=== PATIENT | female | born 1975 | race Caucasian/White ===

== ENCOUNTER 2016-08-17 00:39 | Inpatient (IN) | payer MEDICAID, OTHER ==
[~2016-08-17 00:39] MED LIST: AMBI10TA; ATIV1TAB2; BUSP15TA; DEPA500T; DEPA500T2; METF500T4; RISP1TAB; TOPI100T; TRAZ150T; ZIPR80CAP; ZYPR10TA; abilify; buspar; ranitidine; trazadone
[2016-08-17] MEDS ORDERED: HALOPERIDOL 5 MG/ML VIAL (J1630) As Ordered ONE (00:49)
[2016-08-17] MEDS ORDERED: diphenhydrAMINE INJ 50MG/ML VIAL (J1200) As Ordered ONE (00:49)
[2016-08-17 02:41] LABS: MEAN CORPUSCULAR HEMOGLOBIN 29.1 pg (27.0-33.0); MEAN CORPUSCULAR HGB CONC 31.7 g/dl (32.0-36.5); MEAN CORPUSCULAR VOLUME 91.7 fl (80.0-96.0); WHITE BLOOD COUNT 16.4 K/mm3 (4.0-10.0)
[2016-08-17 02:53] LABS: AMPHETAMINES LEVEL URINE NEGATIVE (NEGATIVE); BENZODIAZEPINES URINE NEGATIVE (NEGATIVE); COCAINE METABOLITE URINE NEGATIVE (NEGATIVE); CONTROL LINE INT CTR LINE PRESENT; METHADONE URINE NEGATIVE (NEGATIVE); OPIATES URINE NEGATIVE (NEGATIVE); TRICYCLIC ANTIDEPRESS URINE NEGATIVE (NEGATIVE)
[2016-08-17 03:06] LABS: ALBUMIN 2.3 GM/DL (3.2-5.2); ALBUMIN/GLOBULIN RATIO 0.62 (1.00-1.93); ALKALINE PHOSPHATASE 104 U/L (45-117); ALT/SGPT 10 U/L (12-78); ANION GAP 8 MEQ/L (8-16); AST/SGOT 7 U/L (15-37); BILIRUBIN,DIRECT < 0.1 MG/DL (0.0-0.2); BILIRUBIN,TOTAL 0.3 MG/DL (0.2-1.0); BLOOD UREA NITROGEN 8 MG/DL (7-18); CALCIUM LEVEL 8.1 MG/DL (8.5-10.1); CARBON DIOXIDE LEVEL 27 MEQ/L (21-32); CHLORIDE LEVEL 108 MEQ/L (98-107); CREATININE FOR GFR 0.75 MG/DL (0.55-1.02); GLOMERULAR FILTRATION RATE > 60.0 (>58); GLUCOSE, FASTING 102 MG/DL (70-105); POTASSIUM SERUM 4.3 MEQ/L (3.5-5.1); SODIUM LEVEL 143 MEQ/L (136-145)
[2016-08-17 03:09] LABS: CONTROL LINE HCG INT CTR LINE PRESENT
--- NOTE | 2016-08-17 04:00 | REPUSA ---
CLINICAL HISTORY: Altered level of consciousness. TECHNIQUE: Multiple axial brain CT scan sections were obtained from base to vertex without contrast a dministration. COMMENTS: The study shows normal configuration of sella turcica. There are no intra or extra-axial collections. There is no mass effect or midline shift. There is no evidence of hematoma formation. No hydrocephal us is present. No abnormal calcifications are noted. No significant abnormalities are seen either in the posterior fossa or supratentorial compartment. The sinuses and mastoid air cells are patent. IMPRESSION: No evidence of acute intracranial pathology. Thank you for your kind referral of this patient.
[2016-08-17] MEDS ORDERED: HALOPERIDOL 5 MG TAB As Ordered ONE (07:36)
[2016-08-17] MEDS ORDERED: LORazepam 1 MG TAB As Ordered ONE (07:36)
[2016-08-17] MEDS ORDERED: LISI10TA4 PO (11:54)
[2016-08-17] MEDS ORDERED: BUSP15TA47 PO (11:54)
[2016-08-17] MEDS ORDERED: GLIP5TAB8 PO (11:54)
[2016-08-17] MEDS ORDERED: ALBU17IN PO (11:54)
[2016-08-17] MEDS ORDERED: TOPI25TA5 PO (11:54)
[2016-08-17] MEDS ORDERED: IPRAT-ALBUT (11:54)
[2016-08-17] MEDS ORDERED: HYDR-3713 PO (11:54)
[2016-08-17] MEDS ORDERED: LITH45TASA PO (11:54)
[2016-08-17] MEDS ORDERED: DIVA500T9 PO (11:54)
[2016-08-17] MEDS ORDERED: OMEP40CA2 PO (11:54)
[2016-08-17] MEDS ORDERED: METF500T PO (11:54)
[2016-08-17] MEDS ORDERED: ARIP1TAB PO (11:54)
--- NOTE | 2016-08-17 12:07 | EDDOCDS ---
Physician Documentation [facility] Name: Anu Bellamy Age: 41 yrs Sex: Female : 1975 Arrival Date: 08/17/2016 Time: 00:39 Bed OBSERVATION Private MD: Disposition: 08/17/16 11:55 Hospitalization ordered by Marito Damico for Inpatient Admission. 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 - Bed requested for Admit. - Status is Inpatient Admission. me3 - Condition is Stable. - Problem is new. - Symptoms are unchanged. Historical: - Allergies: Codeine Sulfate; - Home Meds: 1. Unknown - PMHx: Unable to obtain; - PSHx: Unable to obtain; - Social history: Smoking status: unknown if patient ever smoked tobacco. No barriers to communication noted, The patient speaks fluent Slovenian. - Family history: Not pertinent. - : The pt / caregiver states he / she is not on anticoagulants. Unable to Verify Home Med List with the patient / caregiver. - Exposure Risk Screening:: Unable to Assess. Vital Signs: 08/17 00:54 BP 145 / 79; Pulse 96; Resp 18; Temp 97.7(O); Pulse Ox 97% on R/A; mf4 00:55 BP 145 / 77; Pulse 96; Resp 20; Pulse Ox 97% ; slm 01:00 BP 149 / 67; Pulse 90; Resp 20; Pulse Ox 99% on R/A; mf4 01:15 BP 147 / 66; Pulse 80; Resp 20; Pulse Ox 96% on R/A; mf4 01:17 BP 122 / 75 (auto/); af2 01:18 Pulse 81 MON; Resp 18 S; Pulse Ox 95% on R/A; af2 01:34 BP 111 / 54 (auto/); af2 01:36 Pulse 79 MON; Resp 18 S; Pulse Ox 98% on R/A; af2 01:45 BP 111 / 59 (auto/); af2 01:45 Pulse 74 MON; Resp 18 S; Pulse Ox 97% on R/A; af2 02:00 BP 112 / 59 (auto/); af2 02:00 Pulse 72 MON; Resp 18 S; Pulse Ox 98% on R/A; af2 02:15 BP 121 / 57 (auto/); af2 02:15 Pulse 73 MON; Resp 18 S; Pulse Ox 99% on R/A; af2 02:30 BP 139 / 63 (auto/); af2 02:30 Pulse 78 MON; Resp 18 S; Pulse Ox 97% on R/A; af2 06:21 BP 110 / 56; Pulse 91; Resp 20; Temp 99.6; mf4 11:31 BP 120 / 62; Pulse 82; Resp 20; Temp 100.3(O); Pulse Ox 100% ; me3 MDM: 00:47 -Haloperidol Lactate 7.5 mg IM once ordered. cs11 00:47 diphenhydrAMINE 50 mg IM once ordered. cs11 00:47 Restraints, Adult: Mechanical - 4 points up to 1 hr (poses imminent danger of harming cs11 others). May use manual restraints to secure restraint devices. Pt. monitoring per RN policy. ordered. 00:47 Consult PFS/PSA/Automatic Bow Maker Machine Tender ordered. cs11 00:47 Consult PFS/PSA/Automatic Bow Maker Machine Tender: Patient's case requires discussion with on-call [facility] Psychiatrist ordered. 00:47 PSA/PFS to call Nursing Knuckle Bender, to enter patient data on [place] Safe Act if patient cs11 involuntarily admitted or transferred for SI or HI ordered. 00:47 Confirm accurate psychiatric medication list and times of last dosage ordered. cs11 00:47 Detain Pt Until Medically/PFS Cleared ordered. cs11 00:49 Acetaminophen Level Ordered. EDMS 00:49 Basic Metabolic Profile Ordered. EDMS 00:49 Complete Blood Count Ordered. EDMS 00:49 Drug Eval Toxicology ED Only Ordered. EDMS 00:49 Ethyl Alcohol (ethanol) Ordered. EDMS 00:49 Liver Profile Ordered. EDMS 00:49 Salicylate Level Ordered. EDMS 00:49 Thyroid Stimulating Hormone Ordered. EDMS 01:38 Financial registration complete. [facility] 01:38 [facility] Payment Agreement was scanned into [employer] and attached to record. [facility] 01:51 CT Head Without Contrast Ordered. EDMS 02:47 Complete Blood Count Reviewed. cs11 03:00 HCG,Serum Qualitative Ordered. EDMS 03:09 Drug Eval Toxicology ED Only Reviewed. cs11 04:04 Acetaminophen Level Reviewed. cs11 04:04 Basic Metabolic Profile Reviewed. cs11 04:04 Liver Profile Reviewed. cs11 04:04 Salicylate Level Reviewed. cs11 04:04 Ethyl Alcohol (ethanol) Reviewed. cs11 04:04 Thyroid Stimulating Hormone Reviewed. cs11 04:04 HCG,Serum Qualitative Reviewed. cs11 04:05 Consult PFS/PSA/Socail Worker: Cleared medically for eval ordered. cs11 05:03 REGULAR DIET PLASTIC TRAYLOR+DIET ordered. EDMS 05:28 Consult PFS/PSA/Socail Worker: Cleared medically for eval complete. hm1 05:28 Consult PFS/PSA/Automatic Bow Maker Machine Tender complete. hm1 05:28 Consult PFS/PSA/Automatic Bow Maker Machine Tender: Patient's case requires discussion with on-call 1 Psychiatrist complete. 05:28 PSA/PFS to call Nursing Knuckle Bender, to enter patient data on [place] Safe Act if patient hm1 involuntarily admitted or transferred for SI or HI complete. 07:33 LORazepam 1 mg PO once ordered. ml 07:33 Haloperidol 5 mg PO once ordered. ml 07:33 ED course: pt signed out to me. pending psych dispositions. pt more agitated. she ml agreed to oral ativan and haldol. at this point i do not think she needs one to one monitoring. aside from being hungary - and i walked in pt meal as it was not given to her - she is now more agreeable.m mlg. 10:52 Admit to IMHU: ordered. EDMS 10:53 REGULAR DIET ordered. EDMS 10:55 [facility] Legal paperwork was scanned into [employer] and attached to record. me3 11:05 REGULAR DIET PLASTIC TRAYLOR+DIET ordered. EDMS Administered Medications: 00:54 Drug: -Haloperidol Lactate 7.5 mg [haloperidol lactate 5 mg/mL injection solution (1.5 af2 mL)] Route: IM; Site: left vastus lateralis; 00:54 Drug: diphenhydrAMINE 50 mg [diphenhydramine 50 mg/mL injection solution (1 mL)] Route: af2 IM; Site: right vastus lateralis; 04:27 CANCELLED (Other Intervention Used): cefUROXime 1.5 grams IV at calculated rate once cs11 over 30 mins; dilute in 50mL of NS or D5W 07:40 Drug: LORazepam 1 mg [lorazepam 1 mg tablet (1 tabs)] Route: PO; kcs 07:40 Drug: Haloperidol 5 mg [haloperidol 5 mg tablet (1 tabs)] Route: PO; kcs Signatures: Dispatcher [employer] Shahram Matthews MD MD ml Sleeman, Kacey, RN RN Jaquelin Ivey,HINGING MACHINE OPERATOR HINGING MACHINE OPERATOR me3 Aislinn Escobedo, PSA PSA hm1 Colton Rice, DO cs11 Vita Lira [facility] Fallon Jacobs RN RN af2 The chart was reviewed and I authenticate all verbal orders and agree with the evaluation and treatment provided.Corrections: (The following items were deleted from the chart) 04:27 04:20 cefUROXime 1.5 grams IV at calculated rate once over 30 mins; dilute in 50mL of cs11 NS or D5W ordered. cs11 07:41 02:29 Allergies: Unable to obtain; af2 kcs Attachments: 01:38 [facility] Payment Agreement [facility] MTDD
--- NOTE | 2016-08-17 12:08 | EDDOCDS ---
Nurse's Notes [facility] Name: Anu Bellamy Age: 41 yrs Sex: Female : 1975 Arrival Date: 08/17/2016 Time: 00:39 Bed OBSERVATION Private MD: Diagnosis: Unspecified psychosis not due to a substance or known physiological condition Presentation: 08/17 01:19 Presenting complaint:. jul 01:42 Presenting complaint: EMS states: [facility]. Pt made jul several calls to 911 and was not able to be found initially. pt was eventually found in an apartment building naked. Pt screaming and stating she has a head in her belly that needs to be surgically removed. Pt is stating she is by Anuj Laird and Avani Tena. Upon arrival pt loud, screaming, and UNCOOPERATIVE. [employer] deputy already in ED and patient is CONFRONTATIONAL . Pt escorted to U by additional law enforcement and staff. Pt electively put herself on the floor and would not move, in hallway outside [facility]. Pt then assisted to standing position and ambulated to U 4. Once in room pt secured . Mental Health Triage Level: Level 2: The patient was brought to the ED for evaluation because of a legal pickup order. The patient is visibly agitated and appears to be potentially at risk. Adult Sepsis Screening: Patient has new or worsening altered mentation (1 point). Patient's respiratory rate is less than 22. Systolic blood pressure is greater than 100. Patient has a qSOFA score of 1- Negative Sepsis Screen. Suicide/Homicide risk assessment- Unable to assess, the patient has an altered level of consciousness. Status: Patient is not a coin machine service repairer or dependent. Transition of care: patient was not received from another setting of care. 01:42 Acuity: LAM Level 3 jul 01:42 Method Of Arrival: Ambulance jul Triage Assessment: 01:30 General: Appears distressed, Behavior is inappropriate for age, combative, af2 uncooperative. Pain: Denies pain. HIV screening NA for this visit pt uncooperative. The patient is triaged at the bedside. See Assessment in Nurses Notes section of ED record. Neurological: Level of Consciousness is awake, alert. Respiratory: Airway is patent Respiratory effort is even, unlabored. Derm: Skin is normal. Historical: - Allergies: Codeine Sulfate; - Home Meds: 1. Unknown - PMHx: Unable to obtain; - PSHx: Unable to obtain; - Social history: Smoking status: unknown if patient ever smoked tobacco. No barriers to communication noted, The patient speaks fluent Georgian. - Family history: Not pertinent. - : The pt / caregiver states he / she is not on anticoagulants. Unable to Verify Home Med List with the patient / caregiver. - Exposure Risk Screening:: Unable to Assess. Screenin:31 Screening information is obtained from the patient. Fall risk: Unable to Assess. af2 Assistance ADL's: unable to assess. Abuse/DV Screen: Unable to Assess. Nutritional screening: Unable to Assess. Advance Directives: Unable to assess Advance Directive status due to pt condition. 11:30 Abuse/DV Screen: The patient / caregiver reports he/she is: not in a situation that me3 causes fear, pain or injury. home support is inadequate. Assessment: 01:00 General: Appears unkempt, Behavior is agitated, uncooperative. Neurological: Level of af2 Consciousness is awake, alert. Respiratory: Airway is patent Respiratory effort is even, unlabored. Derm: Skin is normal. 02:00 General: Appears in no apparent distress, unkempt, Behavior is agitated. Neurological: af2 Level of Consciousness is awake, alert. Respiratory: Airway is patent Respiratory effort is even, unlabored. Derm: Skin is normal. 03:02 General: Appears in no apparent distress, Behavior is agitated. Neurological: Level of af2 Consciousness is awake, alert. Respiratory: Airway is patent Respiratory effort is even, unlabored. Derm: Skin is normal. 04:00 General: Appears Behavior is pt moved back to room 4 in U at this time, plan of care mf4 discussed. 05:12 General: Appears in no apparent distress, pt resting on stretcher with no s/s of mf4 distress, eyes closed resp easy security observing . 07:20 Reassessment: patient becoming agitated - provider informed and evaluated patient - kcs orders received.. 07:40 Reassessment: patient willingly took po meds for agitation. Breakfast tray given. kcs Security observing.. 09:36 Reassessment: patient has eaten breakfast - now resting on side - respirations easy. kcs Color = pink. Security observing.. 10:13 General: Appears comfortable, to be sleeping. Behavior is quiet. Respiratory: Airway is me3 patent Respiratory effort is even, unlabored. 10:53 General: Appears in no apparent distress, comfortable, Behavior is quiet. Respiratory: me3 Airway is patent Respiratory effort is even, unlabored. Mental Health Eval: 03:56 Mental health consult is initiated at 03:50. Status: The patient is not a 1 coin machine service repairer or dependent. [facility] Behavioral Health: The patient is not an established patient of [facility] Behavioral Health. Referral Information: Evaluation referral is generated by [facility]. The patient was referred for evaluation because EMS was called after pt was located in her apartment building, naked and highly agitated, frightening neighbors and making statements that she needed to have a baby surgically removed from her belly. Subjective: The patients chief complaint is Pt has remained highly agitated in the ED, difficult to engage in an interview due to her disorganized, incoherent speech and thought process. . Delusions are paranoid, Patient's mood is angry, irritable, Hallucinations are unable to be determined at this time due to pt's disorganization, she remains confused and highly agitated. Pt had been calling 911 throughout the day with various complaints, police and EMS went to pt's apartment building and were initially unable to locate pt, however she was eventually found naked in the building reporting that she had a head in her body and/or a baby in her body which was placed there by Avani Tena. Pt was aggressive and agitated with EMS, upon arrival in the ED she threw herself on the floor and initially refused to get up, however was eventually escorted to a room where she continued to yell incoherent, paranoid thoughts regarding her body and things that Gumaro Laird and Avani Tena had done to her throughout the day. Pt has a long history of similar presentations and psychiatric hospitalizations, most recently hospitalized at [facility] in 2009 however has a history of hospitalizations in [facility] as well as at [facility]. Mental Health history: 04:55 Patient presents to Emergency Department with the following symptoms within the past 2 hm1 weeks: agitation, delusions of persecution, labile mood, psychosis. Substance abuse: Patient uses marijuana. Mental status exam: Patients appearance is disheveled Patient's behavior is uncooperative, Speech is pressured. Affect is labile. Mood is irritable. Hallucinations are suspected but undetermined due to pt's current disorganized state. Appetite is normal. Memory is poor. Energy level is normal. Content of thought is delusional. . Thought process is incoherent. loose. Cognitive level is Oriented to person, Patient's insight is poor. Judgement is poor. Rapport with interviewer is poor. 05:03 Mental status exam: SI and HI are unable to be determined at this time . Disposition: [facility] Medically cleared for disposition by Colton Rice DO. DSM-V Differential Diagnosis:. DSM-V Differential Diagnosis: Delusional Disorder (F22.0). 06:30 Disposition: Psychiatric Consult is performed by phone with Dr Vitor Handy MD. [place] [id number] Admission Criteria: The patient displays symptoms of severe psychiatric disorder resulting in disordered behavior and significant interference with his / her ability to maintain self care. Delusions. Legal Status: Patient's legal status will be Emergency admission: . [place] Safe Act: [place] Safe [place] is not applicable because the patient does not display any suicidal or homicidal ideations and does not pose a risk to self or others. Insurance Pre-Certification: Not Required, Contacted [facility], pt's mental health treatment is carved out to [facility] Medicaid. Family Notification: Notification to family of patient status is not currently needed or appropriate. Awaiting:. Vital Signs: 00:54 BP 145 / 79; Pulse 96; Resp 18; Temp 97.7(O); Pulse Ox 97% on R/A; mf4 00:55 BP 145 / 77; Pulse 96; Resp 20; Pulse Ox 97% ; slm 01:00 BP 149 / 67; Pulse 90; Resp 20; Pulse Ox 99% on R/A; mf4 01:15 BP 147 / 66; Pulse 80; Resp 20; Pulse Ox 96% on R/A; mf4 01:17 BP 122 / 75 (auto/); af2 01:18 Pulse 81 MON; Resp 18 S; Pulse Ox 95% on R/A; af2 01:34 BP 111 / 54 (auto/); af2 01:36 Pulse 79 MON; Resp 18 S; Pulse Ox 98% on R/A; af2 01:45 BP 111 / 59 (auto/); af2 01:45 Pulse 74 MON; Resp 18 S; Pulse Ox 97% on R/A; af2 02:00 BP 112 / 59 (auto/); af2 02:00 Pulse 72 MON; Resp 18 S; Pulse Ox 98% on R/A; af2 02:15 BP 121 / 57 (auto/); af2 02:15 Pulse 73 MON; Resp 18 S; Pulse Ox 99% on R/A; af2 02:30 BP 139 / 63 (auto/); af2 02:30 Pulse 78 MON; Resp 18 S; Pulse Ox 97% on R/A; af2 06:21 BP 110 / 56; Pulse 91; Resp 20; Temp 99.6; mf4 11:31 BP 120 / 62; Pulse 82; Resp 20; Temp 100.3(O); Pulse Ox 100% ; pr3 Vitals: 11:31 Log In Time N/A - ambulance arrival. [facility] [place] Course: 00:41 Patient visited by Jennifer Null, Dehydration Plant Operator. ml3 00:41 Patient moved to [facility] ml3 00:41 Patient moved to [facility] ml3 00:45 Colton Rice DO is Attending Physician. cs11 00:45 Patient visited by Colton Rice DO. cs11 01:06 Fallon Jacobs,ANNITA is Primary Nurse. jul 01:06 Patient moved to 3 jul 01:17 Placed in gown. Placed in psych safe attire. Bed in low position. Side rails up X 1. tmm1 Security observing. Property removed, inventory done, secured in belongings bag- placed in locked locker. locker #4. instructed by charge nurse to move pt to c3 to be medically cleared before returning to psych. instructed by charge nurse that pt is to be moved to c3 to be medically cleared prior to psych. . 01:38 [facility] Payment Agreement was scanned into [email or web address] and attached to record. [facility] 02:06 Triage Initiated jul 02:15 Patient visited by Mony Dewey PCA. jan 02:28 Patient visited by Fallon Jacobs,ANNITA. af2 02:28 Acetaminophen Level Sent. af2 02:28 Basic Metabolic Profile Sent. af2 02:28 Complete Blood Count Sent. af2 02:28 Drug Eval Toxicology ED Only Sent. af2 02:28 Ethyl Alcohol (ethanol) Sent. af2 02:29 Liver Profile Sent. af2 02:29 Salicylate Level Sent. af2 02:29 Thyroid Stimulating Hormone Sent. af2 02:32 The patient / caregiver is instructed regarding the plan of care and ED course. af2 02:32 No IV's were initiated during this patient's visit. No procedures done that require af2 assistance. 02:32 Quick cath inserted 16 Fr. Specimen obtained. Patient tolerated well. af2 02:32 Labs drawn. (by ED staff). Sent per order to lab. af2 02:41 Patient visited by Fallon Jacobs RN. af2 03:00 HCG,Serum Qualitative Sent. af2 03:03 Patient visited by Fallon Jacobs RN. af2 03:[address] [facility] michell 04:06 Patient visited by Jasmin Rodriguez Dehydration Plant Operator. jlm 04:21 Patient moved to OBSERVATION cs 04:28 Patient visited by Jasmin Rodriguez Dehydration Plant Operator. jlm 04:30 CT Head Without Contrast Returned. EDMS 05:00 Patient visited by Jasmin Rodriguez Dehydration Plant Operator. jlm 05:37 Patient visited by Jasmin Rodriguez Dehydration Plant Operator. jlm 05:53 Patient visited by Jasmin Rodriguez Dehydration Plant Operator. jlm 06:10 Patient visited by Jasmin Rodriguez Dehydration Plant Operator. jlm 06:26 Patient visited by Jasmin Rodriguez Dehydration Plant Operator. jlm 06:44 Patient visited by Jasmin Rodriguez Dehydration Plant Operator. jlm 06:54 Patient visited by Jasmin Rodriguez Dehydration Plant Operator. jlm 06:54 Psych Safety Check: Location: Psych Room. Visual Assessment: Agitated. jlm 07:10 Patient visited by Jose Alejandro Alejo Security Aide. pjf 07:20 Patient visited by Jose Alejandro Alejo Security Aide. pjf 07:21 Psych Safety Check: Location: Psych Room. Visual Assessment: Agitated. pjf 07:22 Psych Safety Check: Location: Psych Room. Visual Assessment: Agitated, rn notified. pjf 07:30 Patient visited by Jose Alejandro Alejo Security Aide. pjf 07:33 Attending Physician role handed off by Colton Rice DO ml 07:33 Shahram Awad MD is Attending Physician. ml 07:43 Patient visited by Ferendzo, Jose Alejandro, Security Aide. pjf 08:01 Patient visited by Jose Alejandro Alejo Security Aide. pjf 08:03 Primary Nurse role handed off by Fallon Jacobs RN deg 08:15 Psych Safety Check: Location: Psych Room. Visual Assessment: Cooperative, Medicated. pjf 08:35 Patient visited by Jose Alejandro Alejo Security Aide. pjf 08:50 Patient visited by Jose Alejandro Alejo Security Aide. pjf 08:58 Patient visited by Jose Alejandro Alejo Security Aide. pjf 09:15 Psych Safety Check: Location: Psych Room. Visual Assessment: Cooperative. pjf 09:23 Patient visited by Jose Alejandro Alejo Security Aide. pjf 09:45 Psych Safety Check: Location: Psych Room. Visual Assessment: Cooperative. pjf 10:00 Psych Safety Check: Location: Psych Room. Visual Assessment: Cooperative. pjf 10:13 Jaquelin Dewey LPN is Primary Nurse. me3 10:15 Psych Safety Check: Location: Psych Room. Visual Assessment: Cooperative. pjf 10:20 Patient visited by Jose Alejandro Alejo Security Aide. pjf 10:30 Patient visited by Jose Alejandro Alejo Security Aidtee. pjf 10:55 [facility] Legal paperwork was scanned into [email or web address] and attached to record. me3 11:13 Patient visited by Jose Alejandro Alejo Security Aidtee. pjf 11:16 Psych Safety Check: Location: Psych Room. Visual Assessment: Agitated. pjf 11:55 Marito Damico MD is Hospitalizing Provider. ml Restraints: 00:55 Restraint order obtained from Colton Rice DO liss 00:55 Implementation: The patient was given an explanation of the restraint protocol, the criteria for removal, their patient rights, Restraints applied at 00:54 Patient was restrained with chemical restraint, 4 point restraints. Restraints were applied because patient is a danger to self, danger to others, danger to staff, pt aggressive to staff , throwing self on floor spiting and yelling 00:55 Notification of restraint use: ED physician, Charge Nurse, Shingle Grader. 00:55 Vital Signs: 00:55 Assessment: Respirations: Rapid Skin Integrity: Intact Circulation: Unrestricted. ROM: ROM exercises are contraindicated at this time. Hygiene: contraindicated, Toileting: contraindicated, Hydration: contrainidicated, Food: Contraindicated, Mental Status: Aggressive, Agitated, Uncooperative, Behavioral Interventions: Consistent Limits Set, Medication interventions are provided, Educated re need for restraints. 01:00 Vital Signs: mf4 01:10 Assessment: Respirations: Rapid Skin Integrity: Intact Circulation: Unrestricted. ROM: af2 ROM exercises are contraindicated at this time. Hygiene: contraindicated, Toileting: contraindicated, Hydration: contrainidicated, Food: Contraindicated, Mental Status: Aggressive, Agitated, Uncooperative, Behavioral Interventions: Consistent Limits Set, Decreased Environmental Stimuli, Educated re need for restraints. 01:15 Vital Signs: mf4 01:25 Assessment: Respirations: Regular Skin Integrity: Intact Circulation: Unrestricted. af2 ROM: ROM exercises are contraindicated at this time. Hygiene: contraindicated, Toileting: offered, Hydration: contrainidicated, Food: Contraindicated, Mental Status: Aggressive, Agitated, Uncooperative, Behavioral Interventions: Consistent Limits Set, Decreased Environmental Stimuli, Educated re need for restraints. 01:40 Assessment: Respirations: Regular Skin Integrity: Intact Circulation: Unrestricted. af2 ROM: ROM exercises are contraindicated at this time. Hygiene: contraindicated, Toileting: contraindicated, Hydration: contrainidicated, Food: Contraindicated, Mental Status: Aggressive, Agitated, Uncooperative, Behavioral Interventions: Consistent Limits Set, Medication interventions are provided, Decreased Environmental Stimuli, Educated re need for restraints. 01:55 Assessment: Respirations: Regular Skin Integrity: Intact Circulation: Unrestricted. af2 ROM: ROM exercises are contraindicated at this time. Hygiene: contraindicated, Toileting: offered, Hydration: contrainidicated, Food: Contraindicated, Mental Status: Aggressive, Agitated, Uncooperative, Behavioral Interventions: Consistent Limits Set, Medication interventions are provided, Decreased Environmental Stimuli, Educated re need for restraints. 02:10 Assessment: Respirations: Regular Skin Integrity: Intact Circulation: Unrestricted. af2 ROM: ROM exercises are contraindicated at this time. Hygiene: contraindicated, Toileting: offered, Hydration: contrainidicated, Food: Contraindicated, Mental Status: Aggressive, Agitated, Uncooperative, Behavioral Interventions: Consistent Limits Set, Decreased Environmental Stimuli, Educated re need for restraints. 02:25 Assessment: Respirations: Regular Skin Integrity: Intact Circulation: Unrestricted. af2 ROM: ROM exercises are contraindicated at this time. Hygiene: contraindicated, Toileting: provided, Hydration: contrainidicated, Food: Contraindicated, Mental Status: Aggressive, Agitated, Uncooperative, Behavioral Interventions: Consistent Limits Set, Decreased Environmental Stimuli, Educated re need for restraints. 02:46 Assessment: Respirations: Regular Skin Integrity: Intact Circulation: Unrestricted. af2 ROM: Rom exercises of extremities are performed with release of limb. Left Lower Extremity, Right Lower Extremity, Hygiene: contraindicated, Toileting: offered, Hydration: contrainidicated, Food: Contraindicated, Mental Status: Agitated, Behavioral Interventions: Consistent Limits Set, Decreased Environmental Stimuli, Educated re need for restraints. 03:02 Restraints discontinued at 03:03 at the order of Colton Rice DO af2 Administered Medications: 00:54 Drug: -Haloperidol Lactate 7.5 mg [haloperidol lactate 5 mg/mL injection solution (1.5 af2 mL)] Route: IM; Site: left vastus lateralis; 00:54 Drug: diphenhydrAMINE 50 mg [diphenhydramine 50 mg/mL injection solution (1 mL)] Route: af2 IM; Site: right vastus lateralis; 04:27 CANCELLED (Other Intervention Used): cefUROXime 1.5 grams IV at calculated rate once cs11 over 30 mins; dilute in 50mL of NS or D5W 07:40 Drug: LORazepam 1 mg [lorazepam 1 mg tablet (1 tabs)] Route: PO; kcs 07:40 Drug: Haloperidol 5 mg [haloperidol 5 mg tablet (1 tabs)] Route: PO; kcs Attachments: 10:55 M[facility] Legal paperwork me3 Order Results: Lab Order: Acetaminophen Level; SPEC'M 08/17/16 02:23 Test: ACETAMINOPHEN LEVEL; Value: 2.3; Range: 10.0-30.0; Abnormal: Below low normal; Units: UG/ML; Status: F Lab Order: Basic Metabolic Profile; SPEC'M 08/17/16 02:23 Test: GLUCOSE, FASTING; Value: 102; Range: 70-105; Units: MG/DL; Status: F Test: BLOOD UREA NITROGEN; Value: 8; Range: 7-18; Units: MG/DL; Status: F Test: CREATININE FOR GFR; Value: 0.75; Range: 0.55-1.02; Units: MG/DL; Status: F Test: GLOMERULAR FILTRATION RATE; Value: > 60.0; Range: >58; Status: F Test: SODIUM LEVEL; Value: 143; Range: 136-145; Units: MEQ/L; Status: F Test: POTASSIUM SERUM; Value: 4.3; Range: 3.5-5.1; Units: MEQ/L; Status: F Test: CHLORIDE LEVEL; Value: 108; Range: 98-107; Abnormal: Above high normal; Units: MEQ/L; Status: F Test: CARBON DIOXIDE LEVEL; Value: 27; Range: 21-32; Units: MEQ/L; Status: F Test: ANION GAP; Value: 8; Range: 8-16; Units: MEQ/L; Status: F Test: CALCIUM LEVEL; Value: 8.1; Range: 8.5-10.1; Abnormal: Below low normal; Units: MG/DL; Status: F Test Note: ; Units are mL/min/1.73 m2 Chronic Kidney Disease Staging per NKF: Stage I & II GFR >=60 Normal to Mildly Decreased Stage III GFR 30-59 Moderately Decreased Stage IV GFR 15-29 Severely Decreased Stage V GFR <15 Very Little GFR Left ESRD GFR <15 on FLATWORK FINISHER HAND Lab Order: Complete Blood Count; [facility] 08/17/16 02:23 Test: WHITE BLOOD COUNT; Value: 16.4; Range: 4.0-10.0; Abnormal: Above high normal; Units: K/mm3; Status: F Test: RED BLOOD COUNT; Value: 4.18; Range: 4.00-5.40; Units: M/mm3; Status: F Test: HEMOGLOBIN; Value: 12.2; Range: 12.0-16.0; Units: g/dl; Status: F Test: HEMATOCRIT; Value: 38.3; Range: 36.0-47.0; Units: %; Status: F Test: MEAN CORPUSCULAR VOLUME; Value: 91.7; Range: 80.0-96.0; Units: fl; Status: F Test: MEAN CORPUSCULAR HEMOGLOBIN; Value: 29.1; Range: 27.0-33.0; Units: pg; Status: F Test: MEAN CORPUSCULAR HGB CONC; Value: 31.7; Range: 32.0-36.5; Abnormal: Below low normal; Units: g/dl; Status: F Test: RED CELL DISTRIBUTION WIDTH; Value: 15.0; Range: 11.5-14.5; Abnormal: Above high normal; Units: %; Status: F Test: PLATELET COUNT, AUTOMATED; Value: 404; Range: 150-450; Units: k/mm3; Status: F Lab Order: Drug Eval Toxicology ED Only; SPEC'M 08/17/16 02:29 Test: AMPHETAMINES LEVEL URINE; Value: NEGATIVE; Range: NEGATIVE; Status: F Test: BARBITURATES URINE; Value: NEGATIVE; Range: NEGATIVE; Status: F Test: BENZODIAZEPINES URINE; Value: NEGATIVE; Range: NEGATIVE; Status: F Test: CANNABINOIDS URINE; Value: POSITIVE; Range: NEGATIVE; Abnormal: Above high normal; Status: F Test: COCAINE METABOLITE URINE; Value: NEGATIVE; Range: NEGATIVE; Status: F Test: METHADONE URINE; Value: NEGATIVE; Range: NEGATIVE; Status: F Test: OPIATES URINE; Value: NEGATIVE; Range: NEGATIVE; Status: F Test: TRICYCLIC ANTIDEPRESS URINE; Value: NEGATIVE; Range: NEGATIVE; Status: F Test Note: ; FALSE POSITIVE RESULTS CAN BE CAUSED BY THE USE OF PANTOPRAZOLE (PROTONIX). Lab Order: Ethyl Alcohol (ethanol); SPEC'M 08/17/16 02:23 Test: ETHYL ALCOHOL (ETHANOL); Value: < 0.003; Range: 0.000-0.010; Units: %; Status: F Lab Order: Liver Profile; SPEC'M 08/17/16 02:23 Test: AST/SGOT; Value: 7; Range: 15-37; Abnormal: Below low normal; Units: U/L; Status: F Test: ALT/SGPT; Value: 10; Range: 12-78; Abnormal: Below low normal; Units: U/L; Status: F Test: ALKALINE PHOSPHATASE; Value: 104; Range: 45-117; Units: U/L; Status: F Test: BILIRUBIN,TOTAL; Value: 0.3; Range: 0.2-1.0; Units: MG/DL; Status: F Test: BILIRUBIN,DIRECT; Value: < 0.1; Range: 0.0-0.2; Units: MG/DL; Status: F Test: TOTAL PROTEIN; Value: 6.0; Range: 6.4-8.2; Abnormal: Below low normal; Units: GM/DL; Status: F Test: ALBUMIN; Value: 2.3; Range: 3.2-5.2; Abnormal: Below low normal; Units: GM/DL; Status: F Test: ALBUMIN/GLOBULIN RATIO; Value: 0.62; Range: 1.00-1.93; Abnormal: Below low normal; Status: F Lab Order: Salicylate Level; SPEC'M 08/17/16 02:23 Test: SALICYLATE LEVEL; Value: 4.8; Range: 5.0-30.0; Abnormal: Below low normal; Units: MG/DL; Status: F Lab Order: Thyroid Stimulating Hormone; SPEC'M 08/17/16 02:23 Test: THYROID STIMULATING HORMONE; Value: 0.550; Range: 0.358-3.740; Units: uIU/ML; Status: F Lab Order: HCG,Serum Qualitative; SPEC'M 08/17/16 02:17 Test: HCG, SERUM QUALITATIVE; Value: NEGATIVE; Range: NEGATIVE; Status: F Radiology Order: CT Head Without Contrast Test: CT Head Without Contrast REASON FOR EXAMINATION: aloc; ; CLINICAL HISTORY: Altered level of consciousness.; TECHNIQUE: Multiple axial brain CT scan sections were obtained from base to vertex without contrast a; dministration.; COMMENTS:; The study shows normal configuration of sella turcica. There are no intra or extra-axial collections.; There is no mass effect or midline shift. There is no evidence of hematoma formation. No hydrocephal; us is present. No abnormal calcifications are noted.; No significant abnormalities are seen either in the posterior fossa or supratentorial compartment.; The sinuses and mastoid air cells are patent.; IMPRESSION:; No evidence of acute intracranial pathology.; Thank you for your kind referral of this patient.; ; Outcome: 11:30 Discharge Assessment: patient administered narcotics - no. The following High Risk me3 Discharge criteria are identified: None. Admitted to Psych accompanied by nurse, via wheelchair, with chart. Condition: stable. No special radiology studies were completed. 11:55 Decision to Hospitalize by Provider. ml 12:07 Patient left the ED. me3 Signatures: Dispatcher [employer] EDMaj Moisea, MD MD ml Sleeman, Dana, RN RN Marcelina Beltre, Dehydration Plant Operator Unit deg Ricardo, Leda Rojas, RN Jose Alejandro Contreras, Security Kristine Null, PratimaBalwinderLorena, Dehydration Plant Operator Unit ml3 Jaquelin Dewey,TRUMPET PLAYER TRUMPET PLAYER me3 McManaman, Aislinn, PSA PSA hm1 Zuleima, Mony, PROPERTY OFFICER PROPERTY OFFICER jan William Blackburn,TRUMPET PLAYER TRUMPET PLAYER mf4 Colton Rice, DO DO cs11 McLear, Deborah, PROPERTY OFFICER PROPERTY OFFICER tmm1 Clemencia Kirby,TRUMPET PLAYER TRUMPET PLAYER slJasmin Pfeiffer, Dehydration Plant Operator Unit Vita Russo Amber, RN RN af2 Corrections: (The following items were deleted from the chart) 07:23 07:21 Psych Safety Check: Location: Psych Room. Visual Assessment: Agitated, pjf pjf 07:41 02:29 Allergies: Unable to obtain; af2 kcs MTDD
[2016-08-17] MEDS ORDERED: IPRASOL4 INH (12:47)
[2016-08-17] MEDS ORDERED: ALBUTEROL 90 MCG/ACT 8GM HFA INHALER INH PRN (14:00)
[2016-08-17] MEDS: HALOPERIDOL 5 MG TAB PO PRN (15:01)
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
[2016-08-17] MEDS: OMEPRAZOLE 20 MG CAP PO SCH (15:05)
[2016-08-17] MEDS: LISINOPRIL 10 MG TAB PO SCH (15:10)
[2016-08-17] MEDS ORDERED: MOM 30ML SUSPENSION UDC PO PRN (15:15)
[2016-08-17] MEDS ORDERED: MAALOX 30 ML SUSP *UDC PO PRN (15:15)
[2016-08-17] MEDS ORDERED: PALIPERIDONE 6 MG ER TAB (INVEGA) PO ONE (16:00)
[2016-08-17] MEDS: DIVALPROEX 250MG *ER* TAB PO SCH ×2 (17:25→21:37)
[2016-08-17] MEDS: metFORMIN (GLUCOPHAGE) 500 MG TAB PO SCH (17:26)
[2016-08-17 18:32] VITALS: BP 146/88
[2016-08-17] MEDS ORDERED: QUEtiapine FUMARATE 200 MG TAB PO SCH (21:00)
[2016-08-17] MEDS ORDERED: HALOPERIDOL 5 MG TAB PO SCH (21:00)
[2016-08-17] MEDS: LORazepam 1 MG TAB PO PRN (21:37)
[2016-08-17] MEDS: traZODone 100 MG TAB PO SCH (21:37)
[2016-08-17] MEDS: LITHIUM CARBONATE 450 MG **CR** TAB PO SCH (21:37)
[2016-08-18] MEDS: HALOPERIDOL 5 MG TAB PO PRN ×2 (01:13→21:25)
[2016-08-18] MEDS: ACETAMINOPHEN TAB 650MG DOSE (2X325MG) PO PRN ×3 (01:14→17:44)
[2016-08-18] MEDS: LORazepam 1 MG TAB PO PRN ×2 (06:25→21:26)
[2016-08-18] MEDS: metFORMIN (GLUCOPHAGE) 500 MG TAB PO SCH ×2 (07:00→17:21)
[2016-08-18] MEDS: DIVALPROEX 250MG *ER* TAB PO SCH ×3 (09:20→21:25)
[2016-08-18] MEDS: LITHIUM CARBONATE 450 MG **CR** TAB PO SCH ×2 (09:20→21:25)
[2016-08-18] MEDS: PALIPERIDONE 6 MG ER TAB (INVEGA) PO SCH (09:20)
[2016-08-18] MEDS: OMEPRAZOLE 20 MG CAP PO SCH (09:20)
[2016-08-18] MEDS: LISINOPRIL 10 MG TAB PO SCH (09:25)
--- NOTE | 2016-08-18 12:52 | HPEPDOC ---
Medical History and Physical Date of Admission Aug 17, 2016 at 11:42 History and Physical PCP: Radha SIDHU ATTENDING: Dr. Corwin Bains HPI: 41yoF admitted to [facility] for unspecified psychosis, being medically examined today. Patient adamantly declined to participate with examination at this time. She was heard to be yelling. History is taken from the chart. PMHx: Hypertension Hyperlipidemia Dependent edema DM Peripheral neuropathy Asthma Schizophrenia GERD Chronic right ankle pain Chronic intertriginous candidiasis Obesity BMI 56.31 PSHX: Right ankle repair 2002 Ovarian cyst Ectopic SOCHX: Marital Status: Single Kids: 4 Employment: Stable Tobacco use: One pack per day ETOH: Denies Illicit Drugs: Denies IV Drug Use: Denies Tattoos done unprofessionally: Denies FAMHX: Patient unable to provide at this time. ROS: Patient unable to provide at this time. PE: Patient declines to produce pain at this time. EKG: Pending. A&P: 41yoF admitted to [facility] for unspecified psychosis 1. Psych. Plan per Psychiatry. Obtain baseline EKG to assure the safety of psychiatric medications as they can prolong the QT interval. Check UA/UC. 2. Nicotine dependence. Patch available. 3. Hypertension. Continue lisinopril 10 mg daily. 4. Leukocytosis. Recheck CBC in a.m. 5. History of chronic dependent edema. 6. DM. Consistent carbohydrate diet. Continue metformin 500 mg by mouth twice a day, glipizide 5 mg by mouth twice a day. Fingerstick blood sugar twice a day. 7. Peripheral neuropathy/chronic right ankle pain. Patient uses [place] 5/325 one tablet twice a day as needed. 8. Asthma. Continue albuterol inhaler 2 puffs every 4 hours as needed. DuoNeb every 4 hours as needed. 9. GERD. Continue Prilosec 40 mg daily. 10. Chronic intertriginous candidiasis. Apply nystatin powder to abdominal folds and groin folds twice a day. 12. Obesity. Complicates care. BMI is 56.31. 13. Follow up with PCP on discharge. Radha SIDHU. Vital Signs Vital Signs Label Value Date Time Patient Temperature 98.7 degrees F 08/17/16 1832 Temperature Source Tympanic 08/17/16 1832 Pulse 89 08/17/16 1832 Respiratory Rate 18 bpm 08/17/16 1832 Blood Pressure Assessment 146/88 (107) 08/17/16 1832 Blood Pressure Assessment 128/76 08/18/16 0925 Laboratory Data Labs 24H Vital Signs Label Value Date Time Patient Temperature 98.7 degrees F 08/17/16 183 Temperature Source Tympanic 08/17/16 183 Pulse 89 08/17/161831 Respiratory Rate 18 bpm 08/17/16 183 Blood Pressure Assessment 146/88 (107) 08/17/16 183 Blood Pressure Assessment 128/76 08/18/16 0925 Item Value Date Time Salicylates Level 4.8 MG/DL L 08/17/16 022 Urine Opiates Screen NEGATIVE 08/17/16228 Urine Methadone Screen NEGATIVE 08/17/16228 Acetaminophen Level 2.3 UG/ML L 08/17/16222 Urine Barbiturates, Qualitative NEGATIVE 08/17/16228 Urine Tricyclic Antidepressants NEGATIVE 08/17/16228 Urine Amphetamine Level NEGATIVE 08/17/16228 Urine Benzodiazepines Screen NEGATIVE 08/17/16228 Urine Cocaine Metabolite NEGATIVE 08/17/16228 Urine Cannabinoids POSITIVE H 08/17/16 022 Ethyl Alcohol Level < 0.003 % 08/17/16 022 Sodium Level 143 MEQ/L 08/17/16222 Potassium Level 4.3 MEQ/L 08/17/16222 Chloride Level 108 MEQ/L H 08/17/16222 Carbon Dioxide Level 27 MEQ/L 08/17/16222 Anion Gap 8 MEQ/L 08/17/16222 Blood Urea Nitrogen 8 MG/DL 08/17/16222 Creatinine 0.75 MG/DL 08/17/16222 Glomerular Filtration Rate > 60.0 08/17/16222 Fasting Glucose 102 MG/DL 08/17/16222 Calcium Level 8.1 MG/DL L 08/17/16222 Total Bilirubin 0.3 MG/DL 08/17/16222 Direct Bilirubin < 0.1 MG/DL 08/17/16 022 Aspartate Amino Transf (AST/SGOT) 7 U/L L 08/17/16222 Alanine Aminotransferase (ALT/SGPT) 10 U/L L 08/17/16222 Alkaline Phosphatase 104 U/L 08/17/16222 Total Protein 6.0 GM/DL L 08/17/16222 Albumin 2.3 GM/DL L 08/17/16222 Albumin/Globulin Ratio 0.62 L 08/17/16222 Thyroid Stimulating Hormone (TSH) 0.550 uIU/ML 08/17/16222 Human Chorionic Gonadotropin, Qual NEGATIVE 08/17/16216 White Blood Count 16.4 K/mm3 H 08/17/16222 Red Blood Count 4.18 M/mm3 08/17/16222 Hemoglobin 12.2 g/dl 08/17/16222 Hematocrit 38.3 % 08/17/16222 Mean Corpuscular Volume 91.7 fl 08/17/16222 Mean Corpuscular Hemoglobin 29.1 pg 08/17/16222 Mean Corpuscular Hemoglobin Concent 31.7 g/dl L 08/17/16222 Red Cell Distribution Width 15.0 % H 08/17/16222 Platelet Count 404 k/mm3 08/17/16222 Home Medications Scheduled Aripiprazole (Aripiprazole) 10 Mg Tab 10 MG PO QHS INSOMNIA Buspirone HCl (Buspirone HCl) 15 Mg Tab 15 MG PO QID ANXIETY Divalproex Sodium (Divalproex Sodium ER) 500 Mg Tab 1,500 MG PO QHS MOOD Glipizide (Glipizide) 5 Mg Tab 5 MG PO BID blood sugar control Lisinopril (Lisinopril) 10 Mg Tab 10 MG PO DAILY blood pressure [place] Carbonate ([place] Carbonate ER) 450 Mg Tabcr 450 MG PO BID MOOD Metformin Hydrochloride (Metformin HCl) 500 Mg Tab 500 MG PO BID blood sugar control Omeprazole (Omeprazole) 40 Mg Cap 40 MG PO DAILY GERD Topiramate (Topiramate) 25 Mg Tab 25 MG PO BID MOOD Scheduled PRN Acetaminophen/Hydrocodone (Hydrocodone/Acetaminophen 5-325 mg) 1 Tab Tab 1 TAB PO BIDP PRN PRN PAIN Albuterol Sulfate (Ventolin Hfa) 200 Puff/8 Gm Aers 2 PUFFS PO Q4HP PRN PRN SHORTNESS OF BREATH Albuterol/Ipratropium (Ipratropium [place]/Albut 0.5-2.5 (3) mg/3Ml) 1 Pretty Pretty 1 PRETTY INH Q4HP PRN PRN SHORTNESS OF BREATH Allergies Coded Allergies: Codeine (Unverified Allergy, Unknown, HIVES, 4/4/13) Raegan Tran Aug 18, 2016 12:52
[2016-08-18] MEDS: NYSTATIN 100,000 UNITS/GM TOPICAL PWD 15 GM TOP SCH ×2 (13:10→21:25)
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
[2016-08-18] MEDS: BENZTROPINE 1 MG TAB PO PRN (21:25)
[2016-08-18] MEDS: traZODone 100 MG TAB PO SCH (21:26)
[2016-08-18 22:07] VITALS: BP 121/59
[2016-08-19] MEDS: ACETAMINOPHEN TAB 650MG DOSE (2X325MG) PO PRN (00:35)
[2016-08-19] MEDS: LISINOPRIL 10 MG TAB PO SCH (09:10)
[2016-08-19] MEDS: OMEPRAZOLE 20 MG CAP PO SCH (09:10)
[2016-08-19] MEDS: DIVALPROEX 250MG *ER* TAB PO SCH ×3 (09:10→20:44)
[2016-08-19] MEDS: metFORMIN (GLUCOPHAGE) 500 MG TAB PO SCH ×2 (09:10→17:08)
[2016-08-19] MEDS: PALIPERIDONE 6 MG ER TAB (INVEGA) PO SCH (09:10)
[2016-08-19] MEDS: LITHIUM CARBONATE 450 MG **CR** TAB PO SCH ×2 (09:11→20:44)
[2016-08-19] MEDS: NYSTATIN 100,000 UNITS/GM TOPICAL PWD 15 GM TOP SCH ×2 (09:57→20:47)
--- NOTE | 2016-08-19 13:07 | EDDOCDS ---
Physician Documentation [facility] Name: Anu Bellamy Age: 41 yrs Sex: Female : 1975 Arrival Date: 08/17/2016 Time: 00:39 Bed OBSERVATION Private MD: Disposition: 08/17/16 11:55 Hospitalization ordered by Marito Damico for Inpatient Admission. 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 - Bed requested for Admit. - Status is Inpatient Admission. me3 - Condition is Stable. - Problem is new. - Symptoms are unchanged. Historical: - Allergies: Codeine Sulfate; - Home Meds: 1. Unknown - PMHx: Unable to obtain; - PSHx: Unable to obtain; - Social history: Smoking status: unknown if patient ever smoked tobacco. No barriers to communication noted, The patient speaks fluent Armenian. - Family history: Not pertinent. - : The pt / caregiver states he / she is not on anticoagulants. Unable to Verify Home Med List with the patient / caregiver. - Exposure Risk Screening:: Unable to Assess. Vital Signs: 08/17 00:54 BP 145 / 79; Pulse 96; Resp 18; Temp 97.7(O); Pulse Ox 97% on R/A; mf4 00:55 BP 145 / 77; Pulse 96; Resp 20; Pulse Ox 97% ; slm 01:00 BP 149 / 67; Pulse 90; Resp 20; Pulse Ox 99% on R/A; mf4 01:15 BP 147 / 66; Pulse 80; Resp 20; Pulse Ox 96% on R/A; mf4 01:17 BP 122 / 75 (auto/); af2 01:18 Pulse 81 MON; Resp 18 S; Pulse Ox 95% on R/A; af2 01:34 BP 111 / 54 (auto/); af2 01:36 Pulse 79 MON; Resp 18 S; Pulse Ox 98% on R/A; af2 01:45 BP 111 / 59 (auto/); af2 01:45 Pulse 74 MON; Resp 18 S; Pulse Ox 97% on R/A; af2 02:00 BP 112 / 59 (auto/); af2 02:00 Pulse 72 MON; Resp 18 S; Pulse Ox 98% on R/A; af2 02:15 BP 121 / 57 (auto/); af2 02:15 Pulse 73 MON; Resp 18 S; Pulse Ox 99% on R/A; af2 02:30 BP 139 / 63 (auto/); af2 02:30 Pulse 78 MON; Resp 18 S; Pulse Ox 97% on R/A; af2 06:21 BP 110 / 56; Pulse 91; Resp 20; Temp 99.6; mf4 11:31 BP 120 / 62; Pulse 82; Resp 20; Temp 100.3(O); Pulse Ox 100% ; me3 MDM: 00:47 -Haloperidol Lactate 7.5 mg IM once ordered. cs11 00:47 diphenhydrAMINE 50 mg IM once ordered. cs11 00:47 Restraints, Adult: Mechanical - 4 points up to 1 hr (poses imminent danger of harming cs11 others). May use manual restraints to secure restraint devices. Pt. monitoring per RN policy. ordered. 00:47 Consult PFS/PSA/Material Handling Warehouse Supervisor ordered. cs11 00:47 Consult PFS/PSA/Material Handling Warehouse Supervisor: Patient's case requires discussion with on-call [facility] Psychiatrist ordered. 00:47 PSA/PFS to call Nursing Clinical Transformation Specialist, to enter patient data on [place] Safe Act if patient cs11 involuntarily admitted or transferred for SI or HI ordered. 00:47 Confirm accurate psychiatric medication list and times of last dosage ordered. cs11 00:47 Detain Pt Until Medically/PFS Cleared ordered. cs11 00:49 Acetaminophen Level Ordered. EDMS 00:49 Basic Metabolic Profile Ordered. EDMS 00:49 Complete Blood Count Ordered. EDMS 00:49 Drug Eval Toxicology ED Only Ordered. EDMS 00:49 Ethyl Alcohol (ethanol) Ordered. EDMS 00:49 Liver Profile Ordered. EDMS 00:49 Salicylate Level Ordered. EDMS 00:49 Thyroid Stimulating Hormone Ordered. EDMS 01:38 Financial registration complete. [facility] 01:38 [facility] Payment Agreement was scanned into [employer] and attached to record. [facility] 01:51 CT Head Without Contrast Ordered. EDMS 02:47 Complete Blood Count Reviewed. cs11 03:00 HCG,Serum Qualitative Ordered. EDMS 03:09 Drug Eval Toxicology ED Only Reviewed. cs11 04:04 Acetaminophen Level Reviewed. cs11 04:04 Basic Metabolic Profile Reviewed. cs11 04:04 Liver Profile Reviewed. cs11 04:04 Salicylate Level Reviewed. cs11 04:04 Ethyl Alcohol (ethanol) Reviewed. cs11 04:04 Thyroid Stimulating Hormone Reviewed. cs11 04:04 HCG,Serum Qualitative Reviewed. cs11 04:05 Consult PFS/PSA/Socail Worker: Cleared medically for eval ordered. cs11 05:03 REGULAR DIET PLASTIC TRAYLOR+DIET ordered. EDMS 05:28 Consult PFS/PSA/Socail Worker: Cleared medically for eval complete. hm1 05:28 Consult PFS/PSA/Material Handling Warehouse Supervisor complete. hm1 05:28 Consult PFS/PSA/Material Handling Warehouse Supervisor: Patient's case requires discussion with on-call 1 Psychiatrist complete. 05:28 PSA/PFS to call Nursing Clinical Transformation Specialist, to enter patient data on [place] Safe Act if patient hm1 involuntarily admitted or transferred for SI or HI complete. 07:33 LORazepam 1 mg PO once ordered. ml 07:33 Haloperidol 5 mg PO once ordered. ml 07:33 ED course: pt signed out to me. pending psych dispositions. pt more agitated. she ml agreed to oral ativan and haldol. at this point i do not think she needs one to one monitoring. aside from being hungary - and i walked in pt meal as it was not given to her - she is now more agreeable.m mlg. 10:52 Admit to IMHU: ordered. EDMS 10:53 REGULAR DIET ordered. EDMS 10:55 MHE Legal paperwork was scanned into [employer] and attached to record. me3 11:05 REGULAR DIET PLASTIC TRAYLOR+DIET ordered. EDMS 14:25 T-Sheet-- Draft Copy was scanned into [employer] and attached to record. gb Administered Medications: 00:54 Drug: -Haloperidol Lactate 7.5 mg [haloperidol lactate 5 mg/mL injection solution (1.5 af2 mL)] Route: IM; Site: left vastus lateralis; 00:54 Drug: diphenhydrAMINE 50 mg [diphenhydramine 50 mg/mL injection solution (1 mL)] Route: af2 IM; Site: right vastus lateralis; 04:27 CANCELLED (Other Intervention Used): cefUROXime 1.5 grams IV at calculated rate once cs11 over 30 mins; dilute in 50mL of NS or D5W 07:40 Drug: LORazepam 1 mg [lorazepam 1 mg tablet (1 tabs)] Route: PO; kcs 07:40 Drug: Haloperidol 5 mg [haloperidol 5 mg tablet (1 tabs)] Route: PO; [facility] Signatures: Dispatcher [employer] EDMS Shahram Awad MD MD ml Sleeman, Kacey, RN RN [facility] Milka Walker, Reg Reg gb Jaquelin Dewey,INSECTICIDE EXPERT INSECTICIDE EXPERT me3 Gregg, Aislinn, PSA PSA hm1 Colton Rice, DO DO [facility] Vita Lira [facility] Fallon Jacobs,RN RN af2 The chart was reviewed and I authenticate all verbal orders and agree with the evaluation and treatment provided.Corrections: (The following items were deleted from the chart) 04:27 04:20 cefUROXime 1.5 grams IV at calculated rate once over 30 mins; dilute in 50mL of cs11 NS or D5W ordered. [facility] 07:41 02:29 Allergies: Unable to obtain; af2 [facility] Attachments: 01:38 [facility] Payment Agreement [facility] 14:25 T-Sheet-- Draft Copy Chart Complete MTDD
--- NOTE | 2016-08-19 13:07 | EDDOCDS ---
Nurse's Notes [facility] Name: Anu Bellamy Age: 41 yrs Sex: Female : 1975 Arrival Date: 08/17/2016 Time: 00:39 Bed OBSERVATION Private MD: Diagnosis: Unspecified psychosis not due to a substance or known physiological condition Presentation: 08/17 01:19 Presenting complaint:. jul 01:42 Presenting complaint: EMS states: [facility] Pt made jul several calls to 911 and was not able to be found initially. pt was eventually found in an apartment building naked. Pt screaming and stating she has a head in her belly that needs to be surgically removed. Pt is stating she is by Anuj Laird and Avani Tena. Upon arrival pt loud, screaming, and UNCOOPERATIVE. [employer] deputy already in ED and patient is CONFRONTATIONAL . Pt escorted to U by additional law enforcement and staff. Pt electively put herself on the floor and would not move, in hallway outside [facility]. Pt then assisted to standing position and ambulated to U 4. Once in room pt secured . Mental Health Triage Level: Level 2: The patient was brought to the ED for evaluation because of a legal pickup order. The patient is visibly agitated and appears to be potentially at risk. Adult Sepsis Screening: Patient has new or worsening altered mentation (1 point). Patient's respiratory rate is less than 22. Systolic blood pressure is greater than 100. Patient has a qSOFA score of 1- Negative Sepsis Screen. Suicide/Homicide risk assessment- Unable to assess, the patient has an altered level of consciousness. Status: Patient is not a rv service technician or dependent. Transition of care: patient was not received from another setting of care. 01:42 Acuity: LAM Level 3 jul 01:42 Method Of Arrival: Ambulance jul Triage Assessment: 01:30 General: Appears distressed, Behavior is inappropriate for age, combative, af2 uncooperative. Pain: Denies pain. HIV screening NA for this visit pt uncooperative. The patient is triaged at the bedside. See Assessment in Nurses Notes section of ED record. Neurological: Level of Consciousness is awake, alert. Respiratory: Airway is patent Respiratory effort is even, unlabored. Derm: Skin is normal. Historical: - Allergies: Codeine Sulfate; - Home Meds: 1. Unknown - PMHx: Unable to obtain; - PSHx: Unable to obtain; - Social history: Smoking status: unknown if patient ever smoked tobacco. No barriers to communication noted, The patient speaks fluent Nigerian. - Family history: Not pertinent. - : The pt / caregiver states he / she is not on anticoagulants. Unable to Verify Home Med List with the patient / caregiver. - Exposure Risk Screening:: Unable to Assess. Screenin:31 Screening information is obtained from the patient. Fall risk: Unable to Assess. af2 Assistance ADL's: unable to assess. Abuse/DV Screen: Unable to Assess. Nutritional screening: Unable to Assess. Advance Directives: Unable to assess Advance Directive status due to pt condition. 11:30 Abuse/DV Screen: The patient / caregiver reports he/she is: not in a situation that me3 causes fear, pain or injury. home support is inadequate. Assessment: 01:00 General: Appears unkempt, Behavior is agitated, uncooperative. Neurological: Level of af2 Consciousness is awake, alert. Respiratory: Airway is patent Respiratory effort is even, unlabored. Derm: Skin is normal. 02:00 General: Appears in no apparent distress, unkempt, Behavior is agitated. Neurological: af2 Level of Consciousness is awake, alert. Respiratory: Airway is patent Respiratory effort is even, unlabored. Derm: Skin is normal. 03:02 General: Appears in no apparent distress, Behavior is agitated. Neurological: Level of af2 Consciousness is awake, alert. Respiratory: Airway is patent Respiratory effort is even, unlabored. Derm: Skin is normal. 04:00 General: Appears Behavior is pt moved back to room 4 in U at this time, plan of care mf4 discussed. 05:12 General: Appears in no apparent distress, pt resting on stretcher with no s/s of mf4 distress, eyes closed resp easy security observing . 07:20 Reassessment: patient becoming agitated - provider informed and evaluated patient - kcs orders received.. 07:40 Reassessment: patient willingly took po meds for agitation. Breakfast tray given. kcs Security observing.. 09:36 Reassessment: patient has eaten breakfast - now resting on side - respirations easy. kcs Color = pink. Security observing.. 10:13 General: Appears comfortable, to be sleeping. Behavior is quiet. Respiratory: Airway is me3 patent Respiratory effort is even, unlabored. 10:53 General: Appears in no apparent distress, comfortable, Behavior is quiet. Respiratory: me3 Airway is patent Respiratory effort is even, unlabored. Mental Health Eval: 03:56 Mental health consult is initiated at 03:50. Status: The patient is not a 1 rv service technician or dependent. [facility] Health: The patient is not an established patient of [facility]. Referral Information: Evaluation referral is generated by [facility]. The patient was referred for evaluation because EMS was called after pt was located in her apartment building, naked and highly agitated, frightening neighbors and making statements that she needed to have a baby surgically removed from her belly. Subjective: The patients chief complaint is Pt has remained highly agitated in the ED, difficult to engage in an interview due to her disorganized, incoherent speech and thought process. . Delusions are paranoid, Patient's mood is angry, irritable, Hallucinations are unable to be determined at this time due to pt's disorganization, she remains confused and highly agitated. Pt had been calling 911 throughout the day with various complaints, police and EMS went to pt's apartment building and were initially unable to locate pt, however she was eventually found naked in the building reporting that she had a head in her body and/or a baby in her body which was placed there by Avani Tena. Pt was aggressive and agitated with EMS, upon arrival in the ED she threw herself on the floor and initially refused to get up, however was eventually escorted to a room where she continued to yell incoherent, paranoid thoughts regarding her body and things that Gumaro Laird and Avani Tena had done to her throughout the day. Pt has a long history of similar presentations and psychiatric hospitalizations, most recently hospitalized at [facility] in 2009 however has a history of hospitalizations in [facility] as well as at [facility]. Mental Health history: 04:55 Patient presents to Emergency Department with the following symptoms within the past 2 hm1 weeks: agitation, delusions of persecution, labile mood, psychosis. Substance abuse: Patient uses marijuana. Mental status exam: Patients appearance is disheveled Patient's behavior is uncooperative, Speech is pressured. Affect is labile. Mood is irritable. Hallucinations are suspected but undetermined due to pt's current disorganized state. Appetite is normal. Memory is poor. Energy level is normal. Content of thought is delusional. . Thought process is incoherent. loose. Cognitive level is Oriented to person, Patient's insight is poor. Judgement is poor. Rapport with interviewer is poor. 05:03 Mental status exam: SI and HI are unable to be determined at this time . Disposition: [facility] Medically cleared for disposition by Colton Rice DO. DSM-V Differential Diagnosis:. DSM-V Differential Diagnosis: Delusional Disorder (F22.0). 06:30 Disposition: Psychiatric Consult is performed by phone with Dr Vitor Handy MD. [place] [id number] Admission Criteria: The patient displays symptoms of severe psychiatric disorder resulting in disordered behavior and significant interference with his / her ability to maintain self care. Delusions. Legal Status: Patient's legal status will be Emergency admission: . [place] Safe [place] Safe [place] is [place] applicable because the patient does not display any suicidal or homicidal ideations and does not pose a risk to self or others. Insurance Pre-Certification: Not Required, Contacted [facility], pt's mental health treatment is carved out to [facility] Medicaid. Family Notification: Notification to family of patient status is not currently needed or appropriate. Awaiting:. Vital Signs: 00:54 BP 145 / 79; Pulse 96; Resp 18; Temp 97.7(O); Pulse Ox 97% on R/A; mf4 00:55 BP 145 / 77; Pulse 96; Resp 20; Pulse Ox 97% ; slm 01:00 BP 149 / 67; Pulse 90; Resp 20; Pulse Ox 99% on R/A; mf4 01:15 BP 147 / 66; Pulse 80; Resp 20; Pulse Ox 96% on R/A; mf4 01:17 BP 122 / 75 (auto/); af2 01:18 Pulse 81 MON; Resp 18 S; Pulse Ox 95% on R/A; af2 01:34 BP 111 / 54 (auto/); af2 01:36 Pulse 79 MON; Resp 18 S; Pulse Ox 98% on R/A; af2 01:45 BP 111 / 59 (auto/); af2 01:45 Pulse 74 MON; Resp 18 S; Pulse Ox 97% on R/A; af2 02:00 BP 112 / 59 (auto/); af2 02:00 Pulse 72 MON; Resp 18 S; Pulse Ox 98% on R/A; af2 02:15 BP 121 / 57 (auto/); af2 02:15 Pulse 73 MON; Resp 18 S; Pulse Ox 99% on R/A; af2 02:30 BP 139 / 63 (auto/); af2 02:30 Pulse 78 MON; Resp 18 S; Pulse Ox 97% on R/A; af2 06:21 BP 110 / 56; Pulse 91; Resp 20; Temp 99.6; mf4 11:31 BP 120 / 62; Pulse 82; Resp 20; Temp 100.3(O); Pulse Ox 100% ; mn3 Vitals: 11:31 Log In Time N/A - [place] [facility] [place]: [place]:41 Patient visited by Jennifer Null, Shirt Turner. ml3 00:41 Patient moved to [facility] ml3 00:41 Patient moved to [facility] ml3 00:45 Colton Rice DO is Attending Physician. cs11 00:45 Patient visited by Colton Rice DO. cs11 01:06 Fallon Jacobs,ANNITA is Primary Nurse. jul 01:06 Patient moved to 3 jul 01:17 Placed in gown. Placed in psych safe attire. Bed in low position. Side rails up X 1. tmm1 Security observing. Property removed, inventory done, secured in belongings bag- placed in locked locker. locker #4. instructed by charge nurse to move pt to c3 to be medically cleared before returning to psych. instructed by charge nurse that pt is to be moved to c3 to be medically cleared prior to psych. . 01:38 [facility] Payment Agreement was scanned into Yu[employer] and attached to record. [facility] 02:06 Triage Initiated jul 02:15 Patient visited by Mony Dewey PCA. jan 02:28 Patient visited by Fallon Jacobs,ANNITA. af2 02:28 Acetaminophen Level Sent. af2 02:28 Basic Metabolic Profile Sent. af2 02:28 Complete Blood Count Sent. af2 02:28 Drug Eval Toxicology ED Only Sent. af2 02:28 Ethyl Alcohol (ethanol) Sent. af2 02:29 Liver Profile Sent. af2 02:29 Salicylate Level Sent. af2 02:29 Thyroid Stimulating Hormone Sent. af2 02:32 The patient / caregiver is instructed regarding the plan of care and ED course. af2 02:32 No IV's were initiated during this patient's visit. No procedures done that require af2 assistance. 02:32 Quick cath inserted 16 Fr. Specimen obtained. Patient tolerated well. af2 02:32 Labs drawn. (by ED staff). Sent per order to lab. af2 02:41 Patient visited by Fallon Jacobs RN. af2 03:00 HCG,Serum Qualitative Sent. af2 03:03 Patient visited by Fallon Jacobs RN. af2 03:39 Patient moved to [facility]4 michell 04:06 Patient visited by Jasmin Rodriguez Shirt Turner. jlm 04:21 Patient moved to OBSERVATION cs 04:28 Patient visited by Jasmin Rodriguez Shirt Turner. jlm 04:30 CT Head Without Contrast Returned. EDMS 05:00 Patient visited by Jasmin Rodriguez Shirt Turner. jlm 05:37 Patient visited by Jasmin Rodriguez Shirt Turner. jlm 05:53 Patient visited by Jasmin Rodriguez Shirt Turner. jlm 06:10 Patient visited by Jasmin Rodriguez Shirt Turner. jlm 06:26 Patient visited by Jasmin Rodriguez Shirt Turner. jlm 06:44 Patient visited by Jasmin Rodriguez Shirt Turner. jlm 06:54 Patient visited by Jasmin Rodriguez Shirt Turner. jlm 06:54 Psych Safety Check: Location: Psych Room. Visual Assessment: Agitated. jlm 07:10 Patient visited by Jose Alejandro Alejo Security Aide. pjf 07:20 Patient visited by Jose Alejandro Alejo Security Aide. pjf 07:21 Psych Safety Check: Location: Psych Room. Visual Assessment: Agitated. pjf 07:22 Psych Safety Check: Location: Psych Room. Visual Assessment: Agitated, rn notified. pjf 07:30 Patient visited by Jose Alejandro Alejo Security Aide. pjf 07:33 Attending Physician role handed off by Colton Rice DO ml 07:33 Shahram Awad MD is Attending Physician. ml 07:43 Patient visited by Ferendzo, Jose Alejandro, Security Aide. pjf 08:01 Patient visited by Jose Alejandro Alejo Security Aide. pjf 08:03 Primary Nurse role handed off by aFllon Jacobs RN deg 08:15 Psych Safety Check: Location: Psych Room. Visual Assessment: Cooperative, Medicated. pjf 08:35 Patient visited by Jose Alejandro Alejo Security Aide. pjf 08:50 Patient visited by Jose Alejandro Alejo Security Aide. pjf 08:58 Patient visited by Jose Alejandro Alejo Security Aide. pjf 09:15 Psych Safety Check: Location: Psych Room. Visual Assessment: Cooperative. pjf 09:23 Patient visited by Jose Alejandro Alejo Security Aide. pjf 09:45 Psych Safety Check: Location: Psych Room. Visual Assessment: Cooperative. pjf 10:00 Psych Safety Check: Location: Psych Room. Visual Assessment: Cooperative. pjf 10:13 Jaquelin Dewey LPN is Primary Nurse. me3 10:15 Psych Safety Check: Location: Psych Room. Visual Assessment: Cooperative. pjf 10:20 Patient visited by Jose Alejandro Alejo Security Aide. pjf 10:30 Patient visited by Jose Alejandro Alejo Security Aide. pjf 10:55 [facility] Legal paperwork was scanned into YuMe and attached to record. me3 11:13 Patient visited by Jose Alejandro Alejo Security Aidtee. pjf 11:16 Psych Safety Check: Location: Psych Room. Visual Assessment: Agitated. pjf 11:55 Marito Damico MD is Hospitalizing Provider. ml 14:25 T-Sheet-- Draft Copy was scanned into YuMe and attached to record. gb Restraints: 00:55 Restraint order obtained from Colton Walker 00:55 Implementation: The patient was given an explanation of the restraint protocol, the criteria for removal, their patient rights, Restraints applied at 00:54 Patient was restrained with chemical restraint, 4 point restraints. Restraints were applied because patient is a danger to self, danger to others, danger to staff, pt aggressive to staff , throwing self on floor spiting and yelling 00:55 Notification of restraint use: ED physician, Charge Nurse, Elementary Math Tutor. 00:55 Vital Signs: 00:55 Assessment: Respirations: Rapid Skin Integrity: Intact Circulation: Unrestricted. ROM: ROM exercises are contraindicated at this time. Hygiene: contraindicated, Toileting: contraindicated, Hydration: contrainidicated, Food: Contraindicated, Mental Status: Aggressive, Agitated, Uncooperative, Behavioral Interventions: Consistent Limits Set, Medication interventions are provided, Educated re need for restraints. 01:00 Vital Signs: 4 01:10 Assessment: Respirations: Rapid Skin Integrity: Intact Circulation: Unrestricted. ROM: af2 ROM exercises are contraindicated at this time. Hygiene: contraindicated, Toileting: contraindicated, Hydration: contrainidicated, Food: Contraindicated, Mental Status: Aggressive, Agitated, Uncooperative, Behavioral Interventions: Consistent Limits Set, Decreased Environmental Stimuli, Educated re need for restraints. 01:15 Vital Signs: [facility] 01:25 Assessment: Respirations: Regular Skin Integrity: Intact Circulation: Unrestricted. af2 ROM: ROM exercises are contraindicated at this time. Hygiene: contraindicated, Toileting: offered, Hydration: contrainidicated, Food: Contraindicated, Mental Status: Aggressive, Agitated, Uncooperative, Behavioral Interventions: Consistent Limits Set, Decreased Environmental Stimuli, Educated re need for restraints. 01:40 Assessment: Respirations: Regular Skin Integrity: Intact Circulation: Unrestricted. af2 ROM: ROM exercises are contraindicated at this time. Hygiene: contraindicated, Toileting: contraindicated, Hydration: contrainidicated, Food: Contraindicated, Mental Status: Aggressive, Agitated, Uncooperative, Behavioral Interventions: Consistent Limits Set, Medication interventions are provided, Decreased Environmental Stimuli, Educated re need for restraints. 01:55 Assessment: Respirations: Regular Skin Integrity: Intact Circulation: Unrestricted. af2 ROM: ROM exercises are contraindicated at this time. Hygiene: contraindicated, Toileting: offered, Hydration: contrainidicated, Food: Contraindicated, Mental Status: Aggressive, Agitated, Uncooperative, Behavioral Interventions: Consistent Limits Set, Medication interventions are provided, Decreased Environmental Stimuli, Educated re need for restraints. 02:10 Assessment: Respirations: Regular Skin Integrity: Intact Circulation: Unrestricted. af2 ROM: ROM exercises are contraindicated at this time. Hygiene: contraindicated, Toileting: offered, Hydration: contrainidicated, Food: Contraindicated, Mental Status: Aggressive, Agitated, Uncooperative, Behavioral Interventions: Consistent Limits Set, Decreased Environmental Stimuli, Educated re need for restraints. 02:25 Assessment: Respirations: Regular Skin Integrity: Intact Circulation: Unrestricted. af2 ROM: ROM exercises are contraindicated at this time. Hygiene: contraindicated, Toileting: provided, Hydration: contrainidicated, Food: Contraindicated, Mental Status: Aggressive, Agitated, Uncooperative, Behavioral Interventions: Consistent Limits Set, Decreased Environmental Stimuli, Educated re need for restraints. 02:46 Assessment: Respirations: Regular Skin Integrity: Intact Circulation: Unrestricted. af2 ROM: Rom exercises of extremities are performed with release of limb. Left Lower Extremity, Right Lower Extremity, Hygiene: contraindicated, Toileting: offered, Hydration: contrainidicated, Food: Contraindicated, Mental Status: Agitated, Behavioral Interventions: Consistent Limits Set, Decreased Environmental Stimuli, Educated re need for restraints. 03:02 Restraints discontinued at 03:03 at the order of Colton Rice DO af2 Administered Medications: 00:54 Drug: -Haloperidol Lactate 7.5 mg [haloperidol lactate 5 mg/mL injection solution (1.5 af2 mL)] Route: IM; Site: left vastus lateralis; 00:54 Drug: diphenhydrAMINE 50 mg [diphenhydramine 50 mg/mL injection solution (1 mL)] Route: af2 IM; Site: right vastus lateralis; 04:27 CANCELLED (Other Intervention Used): cefUROXime 1.5 grams IV at calculated rate once cs11 over 30 mins; dilute in 50mL of NS or D5W 07:40 Drug: LORazepam 1 mg [lorazepam 1 mg tablet (1 tabs)] Route: PO; kcs 07:40 Drug: Haloperidol 5 mg [haloperidol 5 mg tablet (1 tabs)] Route: PO; kcs Attachments: 10:55 [facility] Legal paperwork me3 Order Results: Lab Order: Acetaminophen Level; SPEC'M 08/17/16 02:23 Test: ACETAMINOPHEN LEVEL; Value: 2.3; Range: 10.0-30.0; Abnormal: Below low normal; Units: UG/ML; Status: F Lab Order: Basic Metabolic Profile; SPEC'M 08/17/16 02:23 Test: GLUCOSE, FASTING; Value: 102; Range: 70-105; Units: MG/DL; Status: F Test: BLOOD UREA NITROGEN; Value: 8; Range: 7-18; Units: MG/DL; Status: F Test: CREATININE FOR GFR; Value: 0.75; Range: 0.55-1.02; Units: MG/DL; Status: F Test: GLOMERULAR FILTRATION RATE; Value: > 60.0; Range: >58; Status: F Test: SODIUM LEVEL; Value: 143; Range: 136-145; Units: MEQ/L; Status: F Test: POTASSIUM SERUM; Value: 4.3; Range: 3.5-5.1; Units: MEQ/L; Status: F Test: CHLORIDE LEVEL; Value: 108; Range: 98-107; Abnormal: Above high normal; Units: MEQ/L; Status: F Test: CARBON DIOXIDE LEVEL; Value: 27; Range: 21-32; Units: MEQ/L; Status: F Test: ANION GAP; Value: 8; Range: 8-16; Units: MEQ/L; Status: F Test: CALCIUM LEVEL; Value: 8.1; Range: 8.5-10.1; Abnormal: Below low normal; Units: MG/DL; Status: F Test Note: ; Units are mL/min/1.73 m2 Chronic Kidney Disease Staging per NKF: Stage I & II GFR >=60 Normal to Mildly Decreased Stage III GFR 30-59 Moderately Decreased Stage IV GFR 15-29 Severely Decreased Stage V GFR <15 Very Little GFR Left ESRD GFR <15 on SAT ACT INSTRUCTOR Lab Order: Complete Blood Count; [facility]' 08/17/16 02:23 Test: WHITE BLOOD COUNT; Value: 16.4; Range: 4.0-10.0; Abnormal: Above high normal; Units: K/mm3; Status: F Test: RED BLOOD COUNT; Value: 4.18; Range: 4.00-5.40; Units: M/mm3; Status: F Test: HEMOGLOBIN; Value: 12.2; Range: 12.0-16.0; Units: g/dl; Status: F Test: HEMATOCRIT; Value: 38.3; Range: 36.0-47.0; Units: %; Status: F Test: MEAN CORPUSCULAR VOLUME; Value: 91.7; Range: 80.0-96.0; Units: fl; Status: F Test: MEAN CORPUSCULAR HEMOGLOBIN; Value: 29.1; Range: 27.0-33.0; Units: pg; Status: F Test: MEAN CORPUSCULAR HGB CONC; Value: 31.7; Range: 32.0-36.5; Abnormal: Below low normal; Units: g/dl; Status: F Test: RED CELL DISTRIBUTION WIDTH; Value: 15.0; Range: 11.5-14.5; Abnormal: Above high normal; Units: %; Status: F Test: PLATELET COUNT, AUTOMATED; Value: 404; Range: 150-450; Units: k/mm3; Status: F Lab Order: Drug Eval Toxicology ED Only; SPEC'M 08/17/16 02:29 Test: AMPHETAMINES LEVEL URINE; Value: NEGATIVE; Range: NEGATIVE; Status: F Test: BARBITURATES URINE; Value: NEGATIVE; Range: NEGATIVE; Status: F Test: BENZODIAZEPINES URINE; Value: NEGATIVE; Range: NEGATIVE; Status: F Test: CANNABINOIDS URINE; Value: POSITIVE; Range: NEGATIVE; Abnormal: Above high normal; Status: F Test: COCAINE METABOLITE URINE; Value: NEGATIVE; Range: NEGATIVE; Status: F Test: METHADONE URINE; Value: NEGATIVE; Range: NEGATIVE; Status: F Test: OPIATES URINE; Value: NEGATIVE; Range: NEGATIVE; Status: F Test: TRICYCLIC ANTIDEPRESS URINE; Value: NEGATIVE; Range: NEGATIVE; Status: F Test Note: ; FALSE POSITIVE RESULTS CAN BE CAUSED BY THE USE OF PANTOPRAZOLE (PROTONIX). Lab Order: Ethyl Alcohol (ethanol); SPEC'M 08/17/16 02:23 Test: ETHYL ALCOHOL (ETHANOL); Value: < 0.003; Range: 0.000-0.010; Units: %; Status: F Lab Order: Liver Profile; SPEC' 08/17/16 02:23 Test: AST/SGOT; Value: 7; Range: 15-37; Abnormal: Below low normal; Units: U/L; Status: F Test: ALT/SGPT; Value: 10; Range: 12-78; Abnormal: Below low normal; Units: U/L; Status: F Test: ALKALINE PHOSPHATASE; Value: 104; Range: 45-117; Units: U/L; Status: F Test: BILIRUBIN,TOTAL; Value: 0.3; Range: 0.2-1.0; Units: MG/DL; Status: F Test: BILIRUBIN,DIRECT; Value: < 0.1; Range: 0.0-0.2; Units: MG/DL; Status: F Test: TOTAL PROTEIN; Value: 6.0; Range: 6.4-8.2; Abnormal: Below low normal; Units: GM/DL; Status: F Test: ALBUMIN; Value: 2.3; Range: 3.2-5.2; Abnormal: Below low normal; Units: GM/DL; Status: F Test: ALBUMIN/GLOBULIN RATIO; Value: 0.62; Range: 1.00-1.93; Abnormal: Below low normal; Status: F Lab Order: Salicylate Level; SPEC'M 08/17/16 02:23 Test: SALICYLATE LEVEL; Value: 4.8; Range: 5.0-30.0; Abnormal: Below low normal; Units: MG/DL; Status: F Lab Order: Thyroid Stimulating Hormone; SPEC'M 08/17/16 02:23 Test: THYROID STIMULATING HORMONE; Value: 0.550; Range: 0.358-3.740; Units: uIU/ML; Status: F Lab Order: HCG,Serum Qualitative; SPEC08/17/16: Test: HCG, SERUM QUALITATIVE; Value: NEGATIVE; Range: NEGATIVE; Status: F Radiology Order: CT Head Without Contrast Test: CT Head Without Contrast REASON FOR EXAMINATION: aloc; ; CLINICAL HISTORY: Altered level of consciousness.; TECHNIQUE: Multiple axial brain CT scan sections were obtained from base to vertex without contrast a; dministration.; COMMENTS:; The study shows normal configuration of sella turcica. There are no intra or extra-axial collections.; There is no mass effect or midline shift. There is no evidence of hematoma formation. No hydrocephal; us is present. No abnormal calcifications are noted.; No significant abnormalities are seen either in the posterior fossa or supratentorial compartment.; The sinuses and mastoid air cells are patent.; IMPRESSION:; No evidence of acute intracranial pathology.; Thank you for your kind referral of this patient.; ; Outcome: 11:30 Discharge Assessment: patient administered narcotics - no. The following High Risk me3 Discharge criteria are identified: None. Admitted to Psych accompanied by nurse, via wheelchair, with chart. Condition: stable. No special radiology studies were completed. 11:55 Decision to Hospitalize by Provider. ml 12:07 Patient left the ED. me3 Signatures: Dispatcher [employer] EDMS Shahram Awad MD MD ml Sleeman, Kacey, RN RN Marcelina Beltre, Shirt Turner Unit deg Ricardo, Leda Rojas, RN RN michell Walker, Milka, Reg Reg gb Melo, Jose Alejandro, Security Aide Securpj Chaka, Jennifer, Shirt [facility] ml3 Jaquelin Dewey,TRADE MARK EXAMINER TRADE MARK EXAMINER me3 TemanWilliamAislinn, PSA PSA hm1 Zuleima, Mony, BAR STEWARD BAR STEWARD jan Alexey,William,TRADE MARK EXAMINER TRADE MARK EXAMINER mf4 Colton Rice, DO DO cs11 McLear, Deborah, BAR STEWARD BAR STEWARD tmm1 Clemencia Kirby,TRADE MARK EXAMINER TRADE MARK EXAMINER m Jasmin Rodriguez, Shirt Turner Unit Vita Russo Amber,RN RN af2 Corrections: (The following items were deleted from the chart) 07:23 07:21 Psych Safety Check: Location: Psych Room. Visual Assessment: Agitated, pjf pjf 07:41 02:29 Allergies: Unable to obtain; af2 kcs Chart Complete MTDD
--- NOTE | 2016-08-19 13:07 | EDDOCDS ---
Physician Documentation [facility] Name: Anu Bellamy Age: 41 yrs Sex: Female : 1975 Arrival Date: 08/17/2016 Time: 00:39 Bed OBSERVATION Private MD: Disposition: 08/17/16 11:55 Hospitalization ordered by Marito Damico for Inpatient Admission. 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 - Bed requested for Admit. - Status is Inpatient Admission. me3 - Condition is Stable. - Problem is new. - Symptoms are unchanged. Historical: - Allergies: Codeine Sulfate; - Home Meds: 1. Unknown - PMHx: Unable to obtain; - PSHx: Unable to obtain; - Social history: Smoking status: unknown if patient ever smoked tobacco. No barriers to communication noted, The patient speaks fluent Syriac. - Family history: Not pertinent. - : The pt / caregiver states he / she is not on anticoagulants. Unable to Verify Home Med List with the patient / caregiver. - Exposure Risk Screening:: Unable to Assess. Vital Signs: 08/17 00:54 BP 145 / 79; Pulse 96; Resp 18; Temp 97.7(O); Pulse Ox 97% on R/A; mf4 00:55 BP 145 / 77; Pulse 96; Resp 20; Pulse Ox 97% ; slm 01:00 BP 149 / 67; Pulse 90; Resp 20; Pulse Ox 99% on R/A; mf4 01:15 BP 147 / 66; Pulse 80; Resp 20; Pulse Ox 96% on R/A; mf4 01:17 BP 122 / 75 (auto/); af2 01:18 Pulse 81 MON; Resp 18 S; Pulse Ox 95% on R/A; af2 01:34 BP 111 / 54 (auto/); af2 01:36 Pulse 79 MON; Resp 18 S; Pulse Ox 98% on R/A; af2 01:45 BP 111 / 59 (auto/); af2 01:45 Pulse 74 MON; Resp 18 S; Pulse Ox 97% on R/A; af2 02:00 BP 112 / 59 (auto/); af2 02:00 Pulse 72 MON; Resp 18 S; Pulse Ox 98% on R/A; af2 02:15 BP 121 / 57 (auto/); af2 02:15 Pulse 73 MON; Resp 18 S; Pulse Ox 99% on R/A; af2 02:30 BP 139 / 63 (auto/); af2 02:30 Pulse 78 MON; Resp 18 S; Pulse Ox 97% on R/A; af2 06:21 BP 110 / 56; Pulse 91; Resp 20; Temp 99.6; mf4 11:31 BP 120 / 62; Pulse 82; Resp 20; Temp 100.3(O); Pulse Ox 100% ; me3 MDM: 00:47 -Haloperidol Lactate 7.5 mg IM once ordered. cs11 00:47 diphenhydrAMINE 50 mg IM once ordered. cs11 00:47 Restraints, Adult: Mechanical - 4 points up to 1 hr (poses imminent danger of harming cs11 others). May use manual restraints to secure restraint devices. Pt. monitoring per RN policy. ordered. 00:47 Consult PFS/PSA/Sales Promotion Officer ordered. cs11 00:47 Consult PFS/PSA/Sales Promotion Officer: Patient's case requires discussion with on-call [facility] Psychiatrist ordered. 00:47 PSA/PFS to call Nursing Wireless Store Manager, to enter patient data on [place] Safe Act if patient cs11 involuntarily admitted or transferred for SI or HI ordered. 00:47 Confirm accurate psychiatric medication list and times of last dosage ordered. cs11 00:47 Detain Pt Until Medically/PFS Cleared ordered. cs11 00:49 Acetaminophen Level Ordered. EDMS 00:49 Basic Metabolic Profile Ordered. EDMS 00:49 Complete Blood Count Ordered. EDMS 00:49 Drug Eval Toxicology ED Only Ordered. EDMS 00:49 Ethyl Alcohol (ethanol) Ordered. EDMS 00:49 Liver Profile Ordered. EDMS 00:49 Salicylate Level Ordered. EDMS 00:49 Thyroid Stimulating Hormone Ordered. EDMS 01:38 Financial registration complete. [facility] 01:38 [facility] Payment Agreement was scanned into [employer] and attached to record. [facility] 01:51 CT Head Without Contrast Ordered. EDMS 02:47 Complete Blood Count Reviewed. cs11 03:00 HCG,Serum Qualitative Ordered. EDMS 03:09 Drug Eval Toxicology ED Only Reviewed. cs11 04:04 Acetaminophen Level Reviewed. cs11 04:04 Basic Metabolic Profile Reviewed. cs11 04:04 Liver Profile Reviewed. cs11 04:04 Salicylate Level Reviewed. cs11 04:04 Ethyl Alcohol (ethanol) Reviewed. cs11 04:04 Thyroid Stimulating Hormone Reviewed. cs11 04:04 HCG,Serum Qualitative Reviewed. cs11 04:05 Consult PFS/PSA/Socail Worker: Cleared medically for eval ordered. cs11 05:03 REGULAR DIET PLASTIC TRAYLOR+DIET ordered. EDMS 05:28 Consult PFS/PSA/Socail Worker: Cleared medically for eval complete. hm1 05:28 Consult PFS/PSA/Sales Promotion Officer complete. hm1 05:28 Consult PFS/PSA/Sales Promotion Officer: Patient's case requires discussion with on-call 1 Psychiatrist complete. 05:28 PSA/PFS to call Nursing Wireless Store Manager, to enter patient data on [place] Safe Act if patient hm1 involuntarily admitted or transferred for SI or HI complete. 07:33 LORazepam 1 mg PO once ordered. ml 07:33 Haloperidol 5 mg PO once ordered. ml 07:33 ED course: pt signed out to me. pending psych dispositions. pt more agitated. she ml agreed to oral ativan and haldol. at this point i do not think she needs one to one monitoring. aside from being hungary - and i walked in pt meal as it was not given to her - she is now more agreeable.m mlg. 10:52 Admit to IMHU: ordered. EDMS 10:53 REGULAR DIET ordered. EDMS 10:55 MHE Legal paperwork was scanned into [employer] and attached to record. me3 11:05 REGULAR DIET PLASTIC TRAYLOR+DIET ordered. EDMS 14:25 T-Sheet-- Draft Copy was scanned into [employer] and attached to record. gb Administered Medications: 00:54 Drug: -Haloperidol Lactate 7.5 mg [haloperidol lactate 5 mg/mL injection solution (1.5 af2 mL)] Route: IM; Site: left vastus lateralis; 00:54 Drug: diphenhydrAMINE 50 mg [diphenhydramine 50 mg/mL injection solution (1 mL)] Route: af2 IM; Site: right vastus lateralis; 04:27 CANCELLED (Other Intervention Used): cefUROXime 1.5 grams IV at calculated rate once cs11 over 30 mins; dilute in 50mL of NS or D5W 07:40 Drug: LORazepam 1 mg [lorazepam 1 mg tablet (1 tabs)] Route: PO; kcs 07:40 Drug: Haloperidol 5 mg [haloperidol 5 mg tablet (1 tabs)] Route: PO; [facility] Signatures: Dispatcher [employer] EDMS Shahram Awad MD MD ml Sleeman, Kacey, RN RN [facility] Milka Walker, Reg Reg gb Jaquelin Dewey,MAT REPAIRER MAT REPAIRER me3 Gregg, Aislinn, PSA PSA hm1 Colton Rice, DO DO [facility] Vita Lira [facility] Fallon Jacobs,RN RN af2 The chart was reviewed and I authenticate all verbal orders and agree with the evaluation and treatment provided.Corrections: (The following items were deleted from the chart) 04:27 04:20 cefUROXime 1.5 grams IV at calculated rate once over 30 mins; dilute in 50mL of cs11 NS or D5W ordered. [facility] 07:41 02:29 Allergies: Unable to obtain; af2 [facility] Attachments: 01:38 [facility] Payment Agreement [facility] 14:25 T-Sheet-- Draft Copy Chart Complete MTDD
[2016-08-19 16:56] LABS: MEAN CORPUSCULAR HEMOGLOBIN 30.4 pg (27.0-33.0); MEAN CORPUSCULAR HGB CONC 33.2 g/dl (32.0-36.5); MEAN CORPUSCULAR VOLUME 91.4 fl (80.0-96.0); RED CELL DISTRIBUTION WIDTH 14.5 % (11.5-14.5); WHITE BLOOD COUNT 12.1 K/mm3 (4.0-10.0)
[2016-08-19 17:32] LABS: LITHIUM LEVEL 0.59 MEQ/L (0.60-1.20)
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
[2016-08-19 18:29] VITALS: BP 118/56
[2016-08-19] MEDS: LORazepam 1 MG TAB PO PRN (20:44)
[2016-08-19] MEDS: traZODone 100 MG TAB PO SCH (20:44)
[2016-08-19] MEDS: HALOPERIDOL 5 MG TAB PO PRN (20:44)
[2016-08-19] MEDS: BENZTROPINE 1 MG TAB PO PRN (20:44)
[2016-08-20] MEDS: ACETAMINOPHEN TAB 650MG DOSE (2X325MG) PO PRN ×2 (01:56→12:21)
[2016-08-20 07:33] VITALS: BP 100/57
[2016-08-20] MEDS: LISINOPRIL 10 MG TAB PO SCH (08:40)
[2016-08-20] MEDS: DIVALPROEX 250MG *ER* TAB PO SCH ×3 (08:40→21:12)
[2016-08-20] MEDS: PALIPERIDONE 6 MG ER TAB (INVEGA) PO SCH (08:40)
[2016-08-20] MEDS: GABAPENTIN 100 MG CAP PO SCH ×3 (08:40→21:12)
[2016-08-20] MEDS: OMEPRAZOLE 20 MG CAP PO SCH (08:40)
[2016-08-20] MEDS: metFORMIN (GLUCOPHAGE) 500 MG TAB PO SCH ×2 (08:41→17:08)
[2016-08-20] MEDS: LITHIUM CARBONATE 450 MG **CR** TAB PO SCH ×2 (08:41→21:12)
[2016-08-20] MEDS ORDERED: hydrOXYzine 50 MG TAB PO PRN (13:15)
[2016-08-20] MEDS: NYSTATIN 100,000 UNITS/GM TOPICAL PWD 15 GM TOP SCH ×2 (14:38→21:13)
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
[2016-08-20 20:00] VITALS: BP 140/60
[2016-08-20] MEDS: traZODone 100 MG TAB PO SCH (21:12)
[2016-08-21] MEDS: ACETAMINOPHEN TAB 650MG DOSE (2X325MG) PO PRN ×2 (00:28→11:29)
[2016-08-21 06:44] VITALS: BP 107/55
[2016-08-21] MEDS: PALIPERIDONE 6 MG ER TAB (INVEGA) PO SCH (09:03)
[2016-08-21] MEDS: OMEPRAZOLE 20 MG CAP PO SCH (09:03)
[2016-08-21] MEDS: metFORMIN (GLUCOPHAGE) 500 MG TAB PO SCH ×2 (09:03→17:43)
[2016-08-21] MEDS: LITHIUM CARBONATE 450 MG **CR** TAB PO SCH ×2 (09:04→20:22)
[2016-08-21] MEDS: DIVALPROEX 250MG *ER* TAB PO SCH ×3 (09:04→20:22)
[2016-08-21] MEDS: LISINOPRIL 10 MG TAB PO SCH (09:04)
[2016-08-21] MEDS: GABAPENTIN 100 MG CAP PO SCH ×3 (09:04→20:22)
--- NOTE | 2016-08-21 11:37 | IPNPDOC ---
Subjective General Date Seen The patient was seen on 08/21/16. Subjective Chief Complaint/HPI The patient is a 41-year-old female admitted with a reason for visit of Acute Psychosis. Events since last encounter I am requested to evaluate the patient for abdominal pain. Patient is refusing to participate with interview or exam and asks that I did not proceed past her door. Objective Physical Examination General Exam: Positive: Alert Other physical findings The patient is sitting up on the side of her bed and is responsive. Assessment /Plan Problems Problems: (1) Abdominal pain Status: Chronic Problem Text: * The patient states she has had abdominal pain however reports that it is not new for her. * She states she currently has her menstrual cycle * She adamantly declines exam. * She adamantly declines to answer any further questioning. * Check CBC/CMP * UA/urine culture. * AXR. * Tylenol 650mg Q6 hr as needed. (2) Dermatophytosis of body Status: Acute Problem Text: * Continue nystatin powder twice a day (3) Hypertension Status: Chronic Problem Text: * Continue lisinopril with hold parameters Plan/VTE VTE Prophylaxis Ordered?: No (ambulatory) VS, I&O, 24H, Fishbone Vital Signs/I&O Vital Signs Date Time Temp Pulse Resp B/P Pulse Ox O2 Delivery O2 Flow Rate FiO2 08/21/16 09:04 107/55 08/21/16 06:44 97.2 63 18 Laboratory Data 24H LABS Laboratory Tests 2 08/20/16 16:58: Bedside Glucose (Misc Panel) 104 08/21/16 05:41: Bedside Glucose (Misc Panel) 116H Raegan Tran Aug 21, 2016 11:37
[2016-08-21] MEDS: NYSTATIN 100,000 UNITS/GM TOPICAL PWD 15 GM TOP SCH ×2 (12:08→20:23)
[2016-08-21 18:00] VITALS: BP 103/49
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
[2016-08-21] MEDS: HALOPERIDOL 5 MG TAB PO PRN (20:22)
[2016-08-21] MEDS: LORazepam 1 MG TAB PO PRN (20:22)
[2016-08-21] MEDS: BENZTROPINE 1 MG TAB PO PRN (20:22)
[2016-08-21] MEDS: traZODone 100 MG TAB PO SCH (20:22)
[2016-08-22] MEDS: ACETAMINOPHEN TAB 650MG DOSE (2X325MG) PO PRN ×3 (00:07→17:19)
[2016-08-22] MEDS: OMEPRAZOLE 20 MG CAP PO SCH (09:24)
[2016-08-22] MEDS: LITHIUM CARBONATE 450 MG **CR** TAB PO SCH ×2 (09:24→20:08)
[2016-08-22] MEDS: metFORMIN (GLUCOPHAGE) 500 MG TAB PO SCH ×2 (09:24→17:17)
[2016-08-22] MEDS: PALIPERIDONE 6 MG ER TAB (INVEGA) PO SCH (09:24)
[2016-08-22] MEDS: DIVALPROEX 250MG *ER* TAB PO SCH ×3 (09:25→20:09)
[2016-08-22] MEDS: GABAPENTIN 100 MG CAP PO SCH ×3 (09:25→20:08)
[2016-08-22] MEDS: LISINOPRIL 10 MG TAB PO SCH (09:29)
[2016-08-22] MEDS: NYSTATIN 100,000 UNITS/GM TOPICAL PWD 15 GM TOP SCH ×2 (10:20→20:05)
[2016-08-22] MEDS: traZODone 100 MG TAB PO SCH (20:08)
[2016-08-22] MEDS: HALOPERIDOL 5 MG TAB PO PRN (20:08)
[2016-08-22] MEDS: BENZTROPINE 1 MG TAB PO PRN (20:08)
[2016-08-22] MEDS: LORazepam 1 MG TAB PO PRN (20:09)
[2016-08-23] MEDS: ACETAMINOPHEN TAB 650MG DOSE (2X325MG) PO PRN ×4 (00:01→21:54)
[2016-08-23] MEDS: LITHIUM CARBONATE 450 MG **CR** TAB PO SCH ×2 (08:53→21:53)
[2016-08-23] MEDS: OMEPRAZOLE 20 MG CAP PO SCH (08:53)
[2016-08-23] MEDS: GABAPENTIN 100 MG CAP PO SCH ×3 (08:53→21:53)
[2016-08-23] MEDS: metFORMIN (GLUCOPHAGE) 500 MG TAB PO SCH ×2 (08:53→17:33)
[2016-08-23] MEDS: LISINOPRIL 10 MG TAB PO SCH (08:53)
[2016-08-23] MEDS: DIVALPROEX 250MG *ER* TAB PO SCH ×3 (08:54→21:53)
[2016-08-23] MEDS: PALIPERIDONE 6 MG ER TAB (INVEGA) PO SCH (08:54)
[2016-08-23 08:57] VITALS: BP 127/60
[2016-08-23] MEDS: NYSTATIN 100,000 UNITS/GM TOPICAL PWD 15 GM TOP SCH ×2 (08:57→21:00)
[2016-08-23 11:41] VITALS: BP 124/62
[2016-08-23 18:00] VITALS: BP 126/60
[2016-08-23] MEDS: traZODone 100 MG TAB PO SCH (21:53)
[2016-08-24] MEDS: ACETAMINOPHEN TAB 650MG DOSE (2X325MG) PO PRN ×3 (04:16→23:15)
[2016-08-24 06:31] VITALS: BP 88/46
[2016-08-24] MEDS: LISINOPRIL 10 MG TAB PO SCH (08:03)
[2016-08-24] MEDS: LITHIUM CARBONATE 450 MG **CR** TAB PO SCH ×2 (08:03→21:08)
[2016-08-24] MEDS: PALIPERIDONE 6 MG ER TAB (INVEGA) PO SCH (08:03)
[2016-08-24] MEDS: DIVALPROEX 250MG *ER* TAB PO SCH ×3 (08:03→21:07)
[2016-08-24] MEDS: OMEPRAZOLE 20 MG CAP PO SCH (08:03)
[2016-08-24] MEDS: metFORMIN (GLUCOPHAGE) 500 MG TAB PO SCH ×2 (08:03→17:00)
[2016-08-24] MEDS: GABAPENTIN 100 MG CAP PO SCH ×3 (08:03→21:07)
[2016-08-24 08:05] VITALS: BP 136/66
[2016-08-24] MEDS ORDERED: **PENDING PPD ENTRY XX SCH (09:00)
[2016-08-24] MEDS: NYSTATIN 100,000 UNITS/GM TOPICAL PWD 15 GM TOP SCH ×2 (09:37→21:08)
[2016-08-24] MEDS ORDERED: TUBERCULIN PPD 5 UNITS/0.1 ML ID SCH (10:00)
[2016-08-24] MEDS ORDERED: hydrOXYzine 50 MG TAB PO PRN (13:15)
[2016-08-24] MEDS ORDERED: PALIPERIDONE PALMITATE 234 MG/1.5 ML INJ (INVEGA SUSTENNA)(J2426) IM ONE (14:00)
[2016-08-24] MEDS ORDERED: TUBERCULIN PPD 5 UNITS/0.1 ML ID ONE (14:00)
[2016-08-24 18:00] VITALS: BP 118/78
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
[2016-08-24] MEDS: traZODone 100 MG TAB PO SCH (21:07)
[2016-08-25 07:25] VITALS: BP 121/50
[2016-08-25 08:58] VITALS: BP 121/50
[2016-08-25] MEDS: metFORMIN (GLUCOPHAGE) 500 MG TAB PO SCH ×2 (08:58→17:00)
[2016-08-25] MEDS: LITHIUM CARBONATE 450 MG **CR** TAB PO SCH ×2 (08:58→21:27)
[2016-08-25] MEDS: GABAPENTIN 100 MG CAP PO SCH ×3 (08:58→21:28)
[2016-08-25] MEDS: DIVALPROEX 250MG *ER* TAB PO SCH ×3 (08:58→21:27)
[2016-08-25] MEDS: LISINOPRIL 10 MG TAB PO SCH (08:58)
[2016-08-25] MEDS: OMEPRAZOLE 20 MG CAP PO SCH (08:58)
[2016-08-25] MEDS: NYSTATIN 100,000 UNITS/GM TOPICAL PWD 15 GM TOP SCH ×2 (08:59→21:28)
[2016-08-25] MEDS ORDERED: PALIPERIDONE 6 MG ER TAB (INVEGA) PO SCH (09:00)
[2016-08-25] MEDS: ACETAMINOPHEN TAB 650MG DOSE (2X325MG) PO PRN (09:06)
[2016-08-25 09:22] LABS: BASO % 0.2 % (0.0-1.0); EOS # 0.1 K/mm3 (0.0-0.50); EOS % 0.8 % (0.0-3.0); LARGE UNSTAINED CELL # 0.3 K/mm3 (0.0-0.4); LARGE UNSTAINED CELL % 2.1 % (0.0-4.0); LYMPH # 1.7 K/mm3 (1.5-4.5); LYMPH % 12.8 % (24.0-44.0); MEAN CORPUSCULAR HEMOGLOBIN 27.7 pg (27.0-33.0); MEAN CORPUSCULAR VOLUME 89.5 fl (80.0-96.0); MONO % 7.1 % (0.0-5.0); NEUTROPHILS # 10.4 K/mm3 (1.8-7.7); PLATELET COUNT, AUTOMATED 416 k/mm3 (150-450); RED CELL DISTRIBUTION WIDTH 14.7 % (11.5-14.5); WHITE BLOOD COUNT 13.5 K/mm3 (4.0-10.0)
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
[2016-08-25 09:37] LABS: ALBUMIN 2.2 GM/DL (3.2-5.2); ALBUMIN/GLOBULIN RATIO 0.51 (1.00-1.93); ALKALINE PHOSPHATASE 106 U/L (45-117); ALT/SGPT 27 U/L (12-78); ANION GAP 6 MEQ/L (8-16); AST/SGOT 25 U/L (15-37); BILIRUBIN,TOTAL 0.5 MG/DL (0.2-1.0); BLOOD UREA NITROGEN 8 MG/DL (7-18); CALCIUM LEVEL 8.5 MG/DL (8.5-10.1); CARBON DIOXIDE LEVEL 31 MEQ/L (21-32); CHLORIDE LEVEL 99 MEQ/L (98-107); CREATININE FOR GFR 0.74 MG/DL (0.55-1.02); GLOMERULAR FILTRATION RATE > 60.0 (>58); GLUCOSE, FASTING 105 MG/DL (70-105); POTASSIUM SERUM 4.3 MEQ/L (3.5-5.1); SODIUM LEVEL 136 MEQ/L (136-145); TOTAL PROTEIN 6.5 GM/DL (6.4-8.2)
[2016-08-25] MEDS ORDERED: IBUPROFEN 400 MG TAB PO PRN (10:45)
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
[2016-08-25 18:00] VITALS: BP 124/56
--- NOTE | 2016-08-25 18:05 | REP ---
Clinical: Acute abdominal pain. Comparison: 08/07/2010. Findings: There is a large somewhat heterogeneous complex lesion measuring greater than 9.5 cm maximal diameter in the left adnexa with adjacent stranding which is inseparable from the uterus and in comparison to prior examination is at the site of the otherwise currently unidentifiable left ovary. Structure includes small amount of nondependent gas. Differential diagnosis includes but is not limited to ruptured torsed ovary and ruptured ectopic with associated complex possibly hemorrhagic fluid (images 108 - 145). Correlation with HCG level/ test is recommended as well as immediate surgical and/or gynecological consultation. Liver, spleen, pancreas, gallbladder, bilateral adrenal glands and kidneys are normal. The enteric system is without obstruction or acute inflammatory process. No pneumoperitoneum. No significant adenopathy. Abdominal aorta is relatively normal caliber. Surrounding musculoskeletal structures are intact. Lung bases are clear. Impression: Large heterogeneous complex lesion in the left adnexa with small amount of nondependent gas and adjacent stranding and complex possibly hemorrhagic fluid extending into the pelvis. Differential diagnosis includes but is not limited to ruptured torsed ovary and ruptured ectopic . Correlation with test is recommended and surgical/pathological consultation is warranted. Signed by Damon España MD 08/25/2016 06:03 P
[2016-08-25] MEDS: traZODone 100 MG TAB PO SCH (21:27)
[2016-08-26] MEDS ORDERED: PPD DOCUMENTATION ENTRY MISC XX SCH ×2 (10:00)
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
== END 2016-08-25 21:45 | disposition short-term general hospital (02) | DRG 750 ==
LOC: M ED 00:39 → M PSY 11:42
PROVIDERS: ADMIT Psychiatry & Neurology Psychiatry; ATTEND Psychiatry & Neurology Psychiatry
DX: F20.9 Schizophrenia, unspecified (principal); E66.01 Morbid (severe) obesity due to excess calories; I10 Essential (primary) hypertension; E78.5 Hyperlipidemia, unspecified; E11.42 Type 2 diabetes mellitus with diabetic polyneuropathy; J45.909 Unspecified asthma, uncomplicated; K21.9 Gastro-esophageal reflux disease without esophagitis; B35.4 Tinea corporis; Z68.43 Body mass index [BMI] 50.0-59.9, adult; R10.9 Unspecified abdominal pain; F19.14 Other psychoactive substance abuse with psychoactive substance-induced mood disorder; R50.9 Fever, unspecified; B37.2 Candidiasis of skin and nail; M25.571 Pain in right ankle and joints of right foot; F17.210 Nicotine dependence, cigarettes, uncomplicated; R60.9 Edema, unspecified; Z88.6 Allergy status to analgesic agent; Z79.84 Long term (current) use of oral hypoglycemic drugs; Z79.899 Other long term (current) drug therapy

== ENCOUNTER 2016-08-25 20:16 | Inpatient (IN) | payer OTHER ==
[2016-08-25 20:00] VITALS: BP 103/62
[~2016-08-25 20:16] MED LIST changes: +ALBU17IN PO; +ARIP1TAB PO; +BUSP15TA47 PO; +DIVA500T9 PO; +GLIP5TAB8 PO; +HYDR-3713 PO; +IPRASOL4 INH; +IPRAT-ALBUT; +LISI10TA4 PO; +LITH45TASA PO; +METF500T PO; +OMEP40CA2 PO; +TOPI25TA5 PO
[2016-08-25] MEDS ORDERED: HALOPERIDOL 5 MG TAB PO PRN (20:45)
[2016-08-25] MEDS ORDERED: ALBUTEROL 90 MCG/ACT 8GM HFA INHALER INH PRN (20:45)
[2016-08-25] MEDS ORDERED: AMPICILLIN SOD/SULBACTAM SOD 2 GM in D5W MINI-BAG PLUS 100 ML IV ONE (20:45)
[2016-08-25] MEDS ORDERED: IPRATROPIUM 0.5MG/ALBUTEROL 2.5MG INH SOL UD 3ML (DUONEB)(J7620) NEB PRN (20:45)
[2016-08-25] MEDS ORDERED: OMEPRAZOLE 20 MG CAP PO ONE ×2 (20:45)
[2016-08-25] MEDS ORDERED: MAALOX 30 ML SUSP *UDC PO PRN (20:45)
[2016-08-25] MEDS ORDERED: MOM 30ML SUSPENSION UDC PO PRN (20:45)
[2016-08-25 22:30] VITALS: BP 103/62
[2016-08-25] MEDS: NYSTATIN 100,000 UNITS/GM TOPICAL PWD 15 GM TOP SCH (23:38)
[2016-08-25] MEDS: LR 1,000 ML IV SCH (23:42)
[2016-08-25] MEDS: AMPICILLIN SOD 2 GM in D5W MINI-BAG PLUS 100 ML IV SCH (23:54)
[2016-08-26] VITALS: BP 104/50
[2016-08-26] MEDS: LORazepam 1 MG TAB PO PRN (00:11)
[2016-08-26] MEDS: ACETAMINOPHEN TAB 650MG DOSE (2X325MG) PO PRN ×3 (00:12→20:40)
[2016-08-26] MEDS ORDERED: GENTAMICIN 100 MG in APPROPRIATE DILUENT 1 EA IV ONE (01:00)
[2016-08-26 02:30] VITALS: BP 104/50
[2016-08-26] MEDS: CLINDAMYCIN 900 MG in APPROPRIATE DILUENT 1 EA IV SCH ×3 (02:35→18:08)
[2016-08-26] MEDS: IBUPROFEN 400 MG TAB PO PRN ×2 (02:55→21:24)
[2016-08-26 06:00] VITALS: BP 108/50
[2016-08-26] MEDS: AMPICILLIN SOD 2 GM in D5W MINI-BAG PLUS 100 ML IV SCH ×4 (06:28→23:46)
[2016-08-26 07:24] LABS: BASO % 0.3 % (0.0-1.0); EOS # 0.2 K/mm3 (0.0-0.50); EOS % 1.4 % (0.0-3.0); LARGE UNSTAINED CELL # 0.3 K/mm3 (0.0-0.4); LARGE UNSTAINED CELL % 2.7 % (0.0-4.0); LYMPH # 2.4 K/mm3 (1.5-4.5); LYMPH % 17.3 % (24.0-44.0); MEAN CORPUSCULAR HEMOGLOBIN 28.3 pg (27.0-33.0); MEAN CORPUSCULAR VOLUME 91.4 fl (80.0-96.0); MONO # 1.1 K/mm3 (0.0-0.8); MONO % 8.8 % (0.0-5.0); NEUTROPHILS # 8.4 K/mm3 (1.8-7.7); NEUTROPHILS % 69.6 % (36.0-66.0); PLATELET COUNT, AUTOMATED 419 k/mm3 (150-450); RED CELL DISTRIBUTION WIDTH 15.4 % (11.5-14.5)
[2016-08-26] MEDS ORDERED: glipiZIDE (GLUCOTROL) 5 MG TAB PO SCH (07:30)
[2016-08-26 07:31] LABS: GLUCOSE, FASTING 102 MG/DL (70-105)
[2016-08-26] MEDS ORDERED: metFORMIN (GLUCOPHAGE) 500 MG TAB PO SCH (08:00)
[2016-08-26] MEDS: GABAPENTIN 100 MG CAP PO SCH ×3 (08:17→20:40)
[2016-08-26] MEDS: LITHIUM CARBONATE 450 MG **CR** TAB PO SCH ×2 (08:17→20:40)
[2016-08-26] MEDS: GENTAMICIN 80 MG in APPROPRIATE DILUENT 1 EA IV SCH ×2 (08:18→16:32)
[2016-08-26] MEDS: NYSTATIN 100,000 UNITS/GM TOPICAL PWD 15 GM TOP SCH ×2 (08:21→20:41)
[2016-08-26] MEDS ORDERED: DIVALPROEX 250MG *ER* TAB PO SCH (09:00)
[2016-08-26] MEDS ORDERED: LISINOPRIL 10 MG TAB PO SCH (09:00)
[2016-08-26] MEDS ORDERED: DEXTROSE 50% 50 ML SYRINGE IV PRN (09:30)
[2016-08-26] MEDS ORDERED: GLUCAGON FOR INJ 1 MG VIAL (J1610) SC PRN (09:30)
[2016-08-26] MEDS ORDERED: GLUCOSE 4 GM CHEW TABLET PO PRN (09:30)
[2016-08-26 10:00] VITALS: BP 98/58
[2016-08-26 10:55] LABS: HCG, SERUM QUANTITATIVE < 1.0 MIU/ML
[2016-08-26] MEDS: HumaLOG INSULIN (NovoLOG) PER UNIT SC SCH ×3 (11:58→21:00)
[2016-08-26] MEDS: LR 1,000 ML IV SCH ×3 (12:22→21:45)
--- NOTE | 2016-08-26 13:22 | IPNPDOC ---
Subjective General Date Seen The patient was seen on 08/26/16. Subjective Chief Complaint/HPI The patient is a 41-year-old female admitted with a reason for visit of Acute Psychosis. Events since last encounter Pt has sitter at bedside. She was resting comfortably when I entered the room. She was requesting to eat. She denies SOB/Cough/sputum. She denies CP. She states she has had abdominal pain- she states it is unchanged. No N/V. Pulmonary: Denies: Cough, Dyspnea Cardiovascular: Denies: Chest Pain, Lt Headedness, Orthopnea, Palpitations, Paroxysmal Noc. Dyspnea Gastrointestinal: Denies: Abdominal Pain, Constipation, Diarrhea, Nausea, Vomiting Genitourinary: Denies: Dysuria, Frequency, Incontinence, Retention Objective Physical Examination General Exam: Positive: Alert Eye Exam: Positive: Conjunctiva & lids normal ENT Exam: Positive: Atraumatic Other physical findings Pt would not allow me to examine her at this time. Assessment /Plan Problems Problems: (1) Abdominal pain Status: Chronic Problem Text: * CT A&P with Left adnexal lesion. * Dr Gore managing. * IVF @120cc/hr * IV Gent/Clinda/ampicillin * BC pending. (2) Dermatophytosis of body Status: Chronic Problem Text: * Nystatin (3) Hypertension Status: Chronic Problem Text: * Lisinopril on hold (4) Hypoxia Status: Acute Problem Text: * O2 NC sat 93% * CXR result pending. * CT Chest requested to further asses hypoxia. * I was subsequently notified that the pt refused to proceed with CT Chest despite urging her to have the test completed including discussing risks and benefits of proceeding with the test. Pt refuses. (5) Diabetes Status: Chronic Problem Text: * Pt NPO * Metformin/Glipizide on Hold * SSI (6) Asthma Status: Chronic Problem Text: * albuterol HFA prn * duoneb prn (7) Chronic pain Status: Chronic Problem Text: * Gabapentin 200 TID * Tyl/ Ibuprofen as needed. Plan/VTE VTE Prophylaxis Ordered?: Yes (SCD/TEDS) VS, I&O, 24H, Fishbone Vital Signs/I&O Vital Signs Date Time Temp Pulse Resp B/P Pulse Ox O2 Delivery O2 Flow Rate FiO2 08/26/16 10:00 98.2 77 18 98/58 93 Nasal Cannula 2.0 I&O- Last 24 Hours up to 6 AM 08/26/16 06:00 Intake Total 250 ml Output Total 200 ml Balance 50 ml Laboratory Data 24H LABS Laboratory Tests 2 08/25/16 23:37: Bedside Glucose (Misc Panel) 110H 08/26/16 04:03: Bedside Glucose (Misc Panel) 100 08/26/16 06:42: White Blood Count 12.0H, Red Blood Count 3.74L, Hemoglobin 10.6L, Hematocrit 34.2L, Mean Corpuscular Volume 91.4, Mean Corpuscular Hemoglobin 28.3, Mean Corpuscular Hemoglobin Concent 31.0L, Red Cell Distribution Width 15.4H, Platelet Count 419, Neutrophils (%) (Auto) 69.6H, Lymphocytes (%) (Auto) 17.3L, Monocytes (%) (Auto) 8.8H, Eosinophils (%) (Auto) 1.4, Basophils (%) (Auto) 0.3 , Neutrophils # (Auto) 8.4H, Lymphocytes # (Auto) 2.4, Monocytes # (Auto) 1.1H, Eosinophils # (Auto) 0.2, Basophils # (Auto) 0.0, Human Chorionic Gonadotropin, Quant < 1.0, Large Unclassified Cells # 0.3, Large Unclassified Cells % 2.7 08/26/16 06:48: Bedside Glucose (Misc Panel) 110H 08/26/16 11:30: Bedside Glucose (Misc Panel) 57L CBC/BMP Laboratory Tests 08/26/16 06:42 Red Blood Count 3.74 L, Mean Corpuscular Volume 91.4, Mean Corpuscular Hemoglobin 28.3, Mean Corpuscular Hemoglobin Concent 31.0 L, Red Cell Distribution Width 15.4 H, Neutrophils (%) (Auto) 69.6 H, Lymphocytes (%) (Auto ) 17.3 L, Monocytes (%) (Auto) 8.8 H, Eosinophils (%) (Auto) 1.4, Basophils (%) (Auto) 0.3, Neutrophils # (Auto) 8.4 H, Lymphocytes # (Auto) 2.4, Monocytes # ( Auto) 1.1 H, Eosinophils # (Auto) 0.2, Basophils # (Auto) 0.0 Microbiology Microbiology 08/26/16 Blood Culture, Received Pending 08/26/16 Blood Culture, Received Pending Raegan Tran Aug 26, 2016 13:22
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
[2016-08-26 14:00] VITALS: BP 118/60
[2016-08-26] MEDS: DIVALPROEX 500MG *ER* TAB PO SCH ×2 (18:08→20:40)
[2016-08-26] MEDS: traZODone 100 MG TAB PO SCH (20:40)
[2016-08-26 22:00] VITALS: BP 119/56
[2016-08-27] MEDS: GENTAMICIN 80 MG in APPROPRIATE DILUENT 1 EA IV SCH ×3 (00:36→16:33)
[2016-08-27] MEDS: CLINDAMYCIN 900 MG in APPROPRIATE DILUENT 1 EA IV SCH ×3 (01:42→18:02)
[2016-08-27 02:00] VITALS: BP 101/60
[2016-08-27] MEDS: LR 1,000 ML IV SCH ×3 (05:23→22:45)
[2016-08-27] MEDS: AMPICILLIN SOD 2 GM in D5W MINI-BAG PLUS 100 ML IV SCH ×4 (05:23→23:40)
[2016-08-27] MEDS: ACETAMINOPHEN TAB 650MG DOSE (2X325MG) PO PRN ×3 (05:24→18:44)
[2016-08-27 06:00] VITALS: BP 112/57
[2016-08-27 07:22] LABS: BASO % 0.2 % (0.0-1.0); EOS # 0.1 K/mm3 (0.0-0.50); EOS % 1.1 % (0.0-3.0); LARGE UNSTAINED CELL # 0.2 K/mm3 (0.0-0.4); LARGE UNSTAINED CELL % 1.3 % (0.0-4.0); LYMPH # 2.1 K/mm3 (1.5-4.5); LYMPH % 14.7 % (24.0-44.0); MEAN CORPUSCULAR HEMOGLOBIN 28.5 pg (27.0-33.0); MEAN CORPUSCULAR HGB CONC 31.2 g/dl (32.0-36.5); MEAN CORPUSCULAR VOLUME 91.4 fl (80.0-96.0); MONO # 1.1 K/mm3 (0.0-0.8); MONO % 8.1 % (0.0-5.0); NEUTROPHILS # 9.7 K/mm3 (1.8-7.7); NEUTROPHILS % 74.6 % (36.0-66.0); PLATELET COUNT, AUTOMATED 405 k/mm3 (150-450); RED CELL DISTRIBUTION WIDTH 15.3 % (11.5-14.5)
--- NOTE | 2016-08-27 07:23 | REP ---
Clinical: Shortness of breath. Technique: PA and lateral. Comparison: 12/03/2011. Findings: Mediastinum and cardiac silhouette are stable. Lung dawn demonstrate minimal chronic changes without acute consolidation, effusion, or pneumothorax. Skeletal structures intact. Impression: Chronic stable changes. No acute cardiopulmonary process identified. Signed by Damon España MD 08/26/2016 10:49 A
[2016-08-27] MEDS: HumaLOG INSULIN (NovoLOG) PER UNIT SC SCH ×4 (08:45→20:18)
[2016-08-27] MEDS: DIVALPROEX 500MG *ER* TAB PO SCH ×3 (08:45→20:26)
[2016-08-27] MEDS: GABAPENTIN 100 MG CAP PO SCH ×3 (08:46→20:27)
[2016-08-27] MEDS: LITHIUM CARBONATE 450 MG **CR** TAB PO SCH ×2 (08:46→20:26)
[2016-08-27] MEDS: NYSTATIN 100,000 UNITS/GM TOPICAL PWD 15 GM TOP SCH ×2 (08:46→20:28)
[2016-08-27 10:00] VITALS: BP 98/44
[2016-08-27] MEDS: LORazepam 1 MG TAB PO PRN (10:31)
--- NOTE | 2016-08-27 11:21 | REP ---
Clinical: Hypoxia. Findings: Mildly prominent interstitial markings as well as elements of scattered mid to lower lobe atelectasis suggest mild bronchitis. No discrete focal consolidation, nodule or mass lesion. Tracheobronchial tree is relatively patent. No pleural effusion/reaction or pneumothorax. No obvious adenopathy. Mild cardiomegaly and minimal pericardial fluid along with subtle atherosclerotic changes of the coronary arteries noted. Surrounding musculoskeletal structures are intact. Impression: Findings suggest mild bronchitis and scattered plate-like atelectasis without consolidation. Mild cardiomegaly suggested and trace pericardial fluid. Signed by Damon España MD 08/27/2016 11:12 A
[2016-08-27] MEDS: hydrOXYzine 50 MG TAB PO PRN (12:01)
--- NOTE | 2016-08-27 13:35 | IPNPDOC ---
Subjective Date Seen The patient was seen on 08/27/16. Subjective Chief Complaint/HPI The patient is a 41-year-old female admitted with a reason for visit of Acute Psychosis. Events since last encounter Pt refuses exam, states "I will punch you". Objective Physical Examination General Exam: Positive: Alert ENT Exam: Positive: Atraumatic Assessment /Plan Problems (1) Abdominal pain Status: Chronic Problem Text: * CT A&P with Left adnexal lesion. * Dr Gore managing. * IVF @120cc/hr * IV Gent/Clinda/ampicillin * BC x 2 neg * UC neg. * Possible TOA vs hemorrhagic cyst as per GARBAGE MAN. Possible radiologic drainage. Surgery not likely required as per GARBAGE MAN. Continuing with IV Abx and continuing to monitor. (2) Dermatophytosis of body Status: Chronic Problem Text: * Nystatin (3) Hypertension Status: Chronic Problem Text: * Lisinopril on hold (4) Hypoxia Status: Acute Problem Text: * O2 2 LNC sat 93% documented with sat of 71% last PM * CXR chronic stable changes. * CT Chest possible mild bronchitis. . * Will request Nocturnal oximetry. (5) Diabetes Status: Chronic Problem Text: * CC diet * Metformin/Glipizide on Hold * SSI (6) Asthma Status: Chronic Problem Text: * albuterol HFA prn * duoneb prn (7) Chronic pain Status: Chronic Problem Text: * Gabapentin 200 TID * Tyl/ Ibuprofen as needed. Plan/VTE VTE Prophylaxis Ordered?: Yes (SCD/TEDS) VS, I&O, 24H, Fishbone Vital Signs/I&O Vital Signs Date Time Temp Pulse Resp B/P Pulse Ox O2 Delivery O2 Flow Rate FiO2 08/27/16 10:00 99.3 67 18 98/44 93 08/27/16 09:00 Room Air 08/27/16 06:00 2.0 I&O- Last 24 Hours up to 6 AM 08/27/16 05:59 Intake Total 1610 ml Output Total 800 ml Balance 810 ml Laboratory Data 24H LABS Laboratory Tests 2 08/26/16 13:36: Bedside Glucose (Misc Panel) 62L 08/26/16 16:29: Bedside Glucose (Misc Panel) 75 08/26/16 18:38: Urine Amorphous Sediment , Urine Appearance CLEAR, Urine Color YELLOW, Urine pH 7.0, Urine Specific [place] 1.008, Urine Protein NEGATIVE, Urine Glucose (UA) NEGATIVE, Urine Ketones NEGATIVE, Urine Urobilinogen 2.0H, Urine Bilirubin NEGATIVE, Urine Leukocyte Esterase TRACEH, Urine Bacteria (Auto) 1+H, Urine Blood 1+H, Urine Calcium Carbonate Cryst(Auto) , Urine Calcium Oxalate Cryst ( Auto) , Urine Calcium Phosphate Nidia (Auto) , Urine Cellular Casts , Urine Cystine Crystals , Urine Granular Casts (Auto) , Urine Hyaline Casts (Auto) 0, Urine Leucine Crystals , Urine Mucus (Auto) SMALL, Urine Nitrite NEGATIVE, Urine Oval Fat Bodies (Auto) , Urine RBC (Auto) 1, Urine Renal Epithelial Cells , Urine Sperm (Auto) , Urine Squamous Epithelial Cells 6, Urine Transitional Epithelial Cells , Urine Trichomonas (Auto) , Urine Triple Phosphate Cryst (Auto ) , Urine Tyrosine Crystals , Urine Uric Acid Crystals (Auto) , Urine WBC (Auto ) 4H, Urine Waxy Casts (Auto) , Urine Yeast-Like Cells (Auto) 08/27/16 00:30: Gentamicin Level Trough 0.5 08/27/16 02:16: Gentamicin Level Peak 3.0 08/27/16 06:37: White Blood Count 13.0H, Red Blood Count 3.48L, Hemoglobin 9.9L, Hematocrit 31.8L, Mean Corpuscular Volume 91.4, Mean Corpuscular Hemoglobin 28.5, Mean Corpuscular Hemoglobin Concent 31.2L, Red Cell Distribution Width 15.3H, Platelet Count 405, Neutrophils (%) (Auto) 74.6H, Lymphocytes (%) (Auto) 14.7L, Monocytes (%) (Auto) 8.1H, Eosinophils (%) (Auto) 1.1, Basophils (%) (Auto) 0.2 , Neutrophils # (Auto) 9.7H, Lymphocytes # (Auto) 2.1, Monocytes # (Auto) 1.1H, Eosinophils # (Auto) 0.1, Basophils # (Auto) 0.0, Large Unclassified Cells # 0.2 , Large Unclassified Cells % 1.3 08/27/16 07:37: Bedside Glucose (Misc Panel) 111H 08/27/16 11:25: Bedside Glucose (Misc Panel) 100 CBC/BMP Laboratory Tests 08/27/16 06:37 Red Blood Count 3.48 L, Mean Corpuscular Volume 91.4, Mean Corpuscular Hemoglobin 28.5, Mean Corpuscular Hemoglobin Concent 31.2 L, Red Cell Distribution Width 15.3 H, Neutrophils (%) (Auto) 74.6 H, Lymphocytes (%) (Auto ) 14.7 L, Monocytes (%) (Auto) 8.1 H, Eosinophils (%) (Auto) 1.1, Basophils (%) (Auto) 0.2, Neutrophils # (Auto) 9.7 H, Lymphocytes # (Auto) 2.1, Monocytes # ( Auto) 1.1 H, Eosinophils # (Auto) 0.1, Basophils # (Auto) 0.0 Microbiology Microbiology 08/26/16 Blood Culture - Preliminary, Resulted No growth after 24 hours . All specim... 08/26/16 Blood Culture - Preliminary, Resulted No growth after 24 hours . All specim... 08/26/16 Urine Culture - Final, Complete Raegan Tran Aug 27, 2016 13:35
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
[2016-08-27] MEDS: IBUPROFEN 400 MG TAB PO PRN (19:43)
[2016-08-27] MEDS: traZODone 100 MG TAB PO SCH (20:26)
[2016-08-27 22:00] VITALS: BP 100/57
[2016-08-28] VITALS: BP 112/60
[2016-08-28] MEDS: GENTAMICIN 80 MG in APPROPRIATE DILUENT 1 EA IV SCH ×3 (00:33→16:58)
[2016-08-28] MEDS: CLINDAMYCIN 900 MG in APPROPRIATE DILUENT 1 EA IV SCH ×3 (01:33→16:59)
[2016-08-28] MEDS: LR 1,000 ML IV SCH ×3 (05:34→22:45)
[2016-08-28] MEDS: AMPICILLIN SOD 2 GM in D5W MINI-BAG PLUS 100 ML IV SCH ×4 (05:34→23:30)
[2016-08-28] MEDS: ACETAMINOPHEN TAB 650MG DOSE (2X325MG) PO PRN ×3 (05:58→18:48)
[2016-08-28 06:00] VITALS: BP 103/55
[2016-08-28 06:57] LABS: BASO % 0.1 % (0.0-1.0); EOS # 0.1 K/mm3 (0.0-0.50); LARGE UNSTAINED CELL # 0.2 K/mm3 (0.0-0.4); LARGE UNSTAINED CELL % 1.4 % (0.0-4.0); LYMPH # 2.5 K/mm3 (1.5-4.5); LYMPH % 17.3 % (24.0-44.0); MEAN CORPUSCULAR HEMOGLOBIN 28.3 pg (27.0-33.0); MEAN CORPUSCULAR HGB CONC 31.4 g/dl (32.0-36.5); MEAN CORPUSCULAR VOLUME 90.3 fl (80.0-96.0); MONO % 7.3 % (0.0-5.0); NEUTROPHILS # 9.9 K/mm3 (1.8-7.7); NEUTROPHILS % 72.9 % (36.0-66.0); PLATELET COUNT, AUTOMATED 414 k/mm3 (150-450); RED CELL DISTRIBUTION WIDTH 15.3 % (11.5-14.5); WHITE BLOOD COUNT 13.6 K/mm3 (4.0-10.0)
[2016-08-28] MEDS: HumaLOG INSULIN (NovoLOG) PER UNIT SC SCH ×4 (07:30→21:00)
[2016-08-28 08:00] VITALS: BP 104/54
[2016-08-28] MEDS: NYSTATIN 100,000 UNITS/GM TOPICAL PWD 15 GM TOP SCH ×2 (09:00→22:10)
[2016-08-28] MEDS: DIVALPROEX 500MG *ER* TAB PO SCH ×3 (09:07→22:09)
[2016-08-28] MEDS: GABAPENTIN 100 MG CAP PO SCH ×3 (09:08→22:09)
[2016-08-28] MEDS: IBUPROFEN 400 MG TAB PO PRN ×2 (09:08→16:57)
[2016-08-28] MEDS: LITHIUM CARBONATE 450 MG **CR** TAB PO SCH ×2 (09:08→22:09)
[2016-08-28] MEDS ORDERED: LIDOCAINE 2% MDV 20 ML VIAL As Ordered ONE (10:56)
[2016-08-28] MEDS ORDERED: LIDOCAINE 1% MDV 20ML VIAL As Ordered ONE (10:56)
--- NOTE | 2016-08-28 12:15 | REP ---
Clinical: Pelvic abscess. Technique: Transabdominal pelvic ultrasound with color Doppler evaluation of the adnexa. Findings: Examination is limited. Complex possibly hemorrhagic fluid is appreciated within the left linda pelvis. Large left ovary measures 8.7 x 8.5 x 7.9 cm with complex cystic changes suggested. Impression: Severely limited examination demonstrating complex enlarged left adnexal structure likely ovary and complex left adnexal fluid. In comparison with recent CT findings may reflect pelvic inflammatory disease/tubal ovarian abscess. Signed by Damon España MD 08/28/2016 12:07 P
[2016-08-28 14:00] VITALS: BP 120/61
--- NOTE | 2016-08-28 14:35 | IPNPDOC ---
Subjective Date Seen The patient was seen on 08/28/16. Subjective Chief Complaint/HPI The patient is a 41-year-old female admitted with a reason for visit of Acute Psychosis. Events since last encounter Sitter at bedside Pt has had lunch. has been OOB in room. Objective Physical Examination General Exam: Positive: Alert ENT Exam: Positive: Atraumatic Chest Exam: Positive: Diminished, Negative: Rales, Rhonchi, Wheezing Heart Exam: Positive: Normal S1, Normal S2, Other (distant), Rate Normal, Regular Rhythm Abdomen Exam: Positive: BS Hypoactive, Soft, Negative: Tenderness Psych Exam: Positive: Other (Flat affect) Assessment /Plan Problems (1) Abdominal pain Status: Chronic Problem Text: * CT A&P with Left adnexal lesion. * Dr Gore managing. * IVF @120cc/hr * IV Gent/Clinda/ampicillin * BC x 2 neg * UC neg. * Possible TOA as per [facility]. Continuing with IV Abx and continuing to monitor. * S/P CT guided drainage abscess this AM- Cx pending. (2) Dermatophytosis of body Status: Chronic Problem Text: * Nystatin (3) Hypertension Status: Chronic Problem Text: * Lisinopril on hold (4) Hypoxia Status: Acute Problem Text: * O2 2 LNC sat 93% documented with sat of 71% 08/27 * CXR chronic stable changes. * CT Chest possible mild bronchitis. . * Nocturnal oximetry pending (5) Diabetes Status: Chronic Problem Text: * CC diet * Metformin/Glipizide on Hold * SSI (6) Asthma Status: Chronic Problem Text: * albuterol HFA prn * duoneb prn (7) Chronic pain Status: Chronic Problem Text: * Gabapentin 200 TID * Tyl/ Ibuprofen as needed. Plan/VTE VTE Prophylaxis Ordered?: Yes (SCD/TEDS) VS, I&O, 24H, Fishbone Vital Signs/I&O Vital Signs Date Time Temp Pulse Resp B/P Pulse Ox O2 Delivery O2 Flow Rate FiO2 08/28/16 09:07 Room Air 08/28/16 08:00 98.6 59 18 104/54 92 08/27/16 06:00 2.0 I&O- Last 24 Hours up to 6 AM 08/28/16 06:00 Intake Total 4140 ml Output Total 1600 ml Balance 2540 ml Laboratory Data 24H LABS Laboratory Tests 08/27/16 16:35: Bedside Glucose (Misc Panel) 103 08/27/16 20:18: Bedside Glucose (Misc Panel) 133H 08/28/16 05:41: Bedside Glucose (Misc Panel) 102 08/28/16 06:31: White Blood Count 13.6H, Red Blood Count 3.61L, Hemoglobin 10.2L, Hematocrit 32.6L, Mean Corpuscular Volume 90.3, Mean Corpuscular Hemoglobin 28.3, Mean Corpuscular Hemoglobin Concent 31.4L, Red Cell Distribution Width 15.3H, Platelet Count 414, Neutrophils (%) (Auto) 72.9H, Lymphocytes (%) (Auto) 17.3L, Monocytes (%) (Auto) 7.3H, Eosinophils (%) (Auto) 1.0, Basophils (%) (Auto) 0.1 , Neutrophils # (Auto) 9.9H, Lymphocytes # (Auto) 2.5, Monocytes # (Auto) 1.0H, Eosinophils # (Auto) 0.1, Basophils # (Auto) 0.0, Large Unclassified Cells # 0.2 , Large Unclassified Cells % 1.4 08/28/16 12:27: Bedside Glucose (Misc Panel) 90 CBC/BMP Laboratory Tests 08/28/16 06:31 Red Blood Count 3.61 L, Mean Corpuscular Volume 90.3, Mean Corpuscular Hemoglobin 28.3, Mean Corpuscular Hemoglobin Concent 31.4 L, Red Cell Distribution Width 15.3 H, Neutrophils (%) (Auto) 72.9 H, Lymphocytes (%) (Auto ) 17.3 L, Monocytes (%) (Auto) 7.3 H, Eosinophils (%) (Auto) 1.0, Basophils (%) (Auto) 0.1, Neutrophils # (Auto) 9.9 H, Lymphocytes # (Auto) 2.5, Monocytes # ( Auto) 1.0 H, Eosinophils # (Auto) 0.1, Basophils # (Auto) 0.0 Microbiology Microbiology 08/26/16 Blood Culture - Preliminary, Resulted No Growth after 48 hours. All Specime... 08/26/16 Blood Culture - Preliminary, Resulted No Growth after 48 hours. All Specime... 08/28/16 Gram Stain - Final, Resulted 08/28/16 Abscess Culture, Resulted Pending 08/28/16 Anaerobic Culture, Resulted Pending 08/26/16 Urine Culture - Final, Complete Raegan Tran Aug 28, 2016 14:35 SERAFIN PARDO MD Aug 28, 2016 16:21
[2016-08-28 15:30] VITALS: BP 140/71
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
--- NOTE | 2016-08-28 18:26 | REP ---
CT GUIDED DRAINAGE OF LEFT ADNEXAL ABSCESS: Patient was referred for CT guided drainage of a left adnexal abscess collection. Informed consent was obtained. Under sterile conditions and after satisfactory administration of local anesthesia, using CT guidance, an #8-Burkin[place] pigtail drainage catheter was placed into the abscess collection in the left adnexal region. Approximately 30 mL of greenish-yellowish pus was aspirated. Fluid was sent for gram-stain, culture and sensitivity. Hemostasis was obtained. There are no immediate complications. Signed by Jason Hyatt MD 08/28/2016 06:33 P
[2016-08-28] MEDS: hydrOXYzine 50 MG TAB PO PRN (18:48)
[2016-08-28 22:00] VITALS: BP 113/65
[2016-08-28] MEDS: traZODone 100 MG TAB PO SCH (22:09)
[2016-08-29] MEDS: GENTAMICIN 80 MG in APPROPRIATE DILUENT 1 EA IV SCH ×3 (00:33→17:38)
[2016-08-29] MEDS: IBUPROFEN 400 MG TAB PO PRN ×3 (00:37→15:42)
[2016-08-29] MEDS: CLINDAMYCIN 900 MG in APPROPRIATE DILUENT 1 EA IV SCH ×3 (01:56→18:35)
[2016-08-29] MEDS: ACETAMINOPHEN TAB 650MG DOSE (2X325MG) PO PRN ×3 (04:39→18:36)
[2016-08-29 06:00] VITALS: BP 118/76
[2016-08-29] MEDS: AMPICILLIN SOD 2 GM in D5W MINI-BAG PLUS 100 ML IV SCH ×4 (06:14→23:57)
[2016-08-29 06:52] LABS: MEAN CORPUSCULAR HEMOGLOBIN 28.7 pg (27.0-33.0); MEAN CORPUSCULAR HGB CONC 31.9 g/dl (32.0-36.5); MEAN CORPUSCULAR VOLUME 89.9 fl (80.0-96.0); RED CELL DISTRIBUTION WIDTH 15.2 % (11.5-14.5)
[2016-08-29] MEDS: NYSTATIN 100,000 UNITS/GM TOPICAL PWD 15 GM TOP SCH ×2 (09:00→21:38)
[2016-08-29] MEDS: GABAPENTIN 100 MG CAP PO SCH ×3 (09:03→20:32)
[2016-08-29] MEDS: LITHIUM CARBONATE 450 MG **CR** TAB PO SCH ×2 (09:04→20:32)
[2016-08-29] MEDS: LR 1,000 ML IV SCH ×2 (09:04→20:32)
[2016-08-29] MEDS: HumaLOG INSULIN (NovoLOG) PER UNIT SC SCH ×4 (09:04→21:00)
[2016-08-29] MEDS: DIVALPROEX 500MG *ER* TAB PO SCH ×3 (09:04→20:32)
--- NOTE | 2016-08-29 12:20 | IPNPDOC ---
Subjective Date Seen The patient was seen on 08/29/16. Subjective Chief Complaint/HPI The patient is a 41-year-old female admitted with a reason for visit of Acute Psychosis. Events since last encounter No issues overnight. Awaiting breakfast, wants to know when drain can be removed. Has abdominal pain Pulmonary: Denies: Cough Cardiovascular: Denies: Chest Pain Gastrointestinal: Denies: Nausea, Vomiting Objective Physical Examination General Exam: Positive: Alert, Cooperative ENT Exam: Positive: Atraumatic, Mucous membr. moist/pink Chest Exam: Positive: Diminished, Negative: Rales, Rhonchi, Wheezing Heart Exam: Positive: Normal S1, Normal S2, Other (distant), Rate Normal, Regular Rhythm Abdomen Exam: Positive: BS Hypoactive, Other (anterior drain with scant sanginous fluid in bag), Soft, Tenderness Psych Exam: Positive: Other (Flat affect) Assessment /Plan Problems (1) Abdominal pain Status: Chronic Problem Text: * Left adnexal lesion s/p drainage * Dr Gore managing. * IVF @120cc/hr * IV Gent/Clinda/ampicillin * BC x 2 neg * UC neg. (2) Dermatophytosis of body Status: Chronic Problem Text: * Nystatin (3) Hypertension Status: Chronic Problem Text: * Blood pressure reasonably controlled with lisinopril on hold (4) Hypoxia Status: Acute Problem Text: * Previously O2 2 LNC sat 93% documented with sat of 71% 08/27 * CXR chronic stable changes. * CT Chest possible mild bronchitis. . * Nocturnal oximetry pending * Seems to be mainly resolved at his point (5) Diabetes Status: Chronic Problem Text: * CC diet * Metformin/Glipizide on Hold * SSI (6) Asthma Status: Chronic Response to Treatment: Stable Problem Text: * albuterol HFA prn * duoneb prn (7) Chronic pain Status: Chronic Response to Treatment: Stable Problem Text: * Gabapentin 200 TID * Tyl/ Ibuprofen as needed. Plan/VTE VTE Prophylaxis Ordered?: Yes (SCD/TEDS ) VS, I&O, 24H, Fishbone Vital Signs/I&O Vital Signs Date Time Temp Pulse Resp B/P Pulse Ox O2 Delivery O2 Flow Rate FiO2 08/29/16 06:00 97.1 62 20 118/76 98 Room Air 08/27/16 06:00 2.0 I&O- Last 24 Hours up to 6 AM 08/29/16 06:00 Intake Total 1310 ml Output Total 800 ml Balance 510 ml Laboratory Data 24H LABS Laboratory Tests 2 08/28/16 12:27: Bedside Glucose (Misc Panel) 90 08/28/16 17:03: Bedside Glucose (Misc Panel) 96 08/28/16 21:04: Bedside Glucose (Misc Panel) 143H 08/29/16 08:48: Bedside Glucose (Misc Panel) 123H CBC/BMP Laboratory Tests 08/29/16 06:13 Red Blood Count 3.52 L, Mean Corpuscular Volume 89.9, Mean Corpuscular Hemoglobin 28.7, Mean Corpuscular Hemoglobin Concent 31.9 L, Red Cell Distribution Width 15.2 H Microbiology Microbiology 08/26/16 Blood Culture - Preliminary, Resulted No Growth after 72 hours. All specime... 08/26/16 Blood Culture - Preliminary, Resulted No Growth after 72 hours. All specime... 08/28/16 Gram Stain - Final, Resulted 08/28/16 Abscess Culture, Resulted Pending 08/28/16 Anaerobic Culture, Resulted Pending 08/26/16 Urine Culture - Final, Complete FLINT,SERAFIN Myers MD Aug 29, 2016 12:20
[2016-08-29] MEDS: NICOTINE 21MG/24HR 1 EA TRANSDERMAL TD SCH (15:42)
[2016-08-29] MEDS: traZODone 100 MG TAB PO SCH (20:32)
[2016-08-29] MEDS: LORazepam 1 MG TAB PO PRN (21:34)
[2016-08-29 22:00] VITALS: BP 123/66
[2016-08-30] MEDS: LR 1,000 ML IV SCH ×2 (01:01→08:31)
[2016-08-30] MEDS: ACETAMINOPHEN TAB 650MG DOSE (2X325MG) PO PRN ×2 (01:10→17:04)
[2016-08-30] MEDS: GENTAMICIN 80 MG in APPROPRIATE DILUENT 1 EA IV SCH ×3 (01:10→18:58)
[2016-08-30] MEDS: CLINDAMYCIN 900 MG in APPROPRIATE DILUENT 1 EA IV SCH ×3 (02:47→17:04)
[2016-08-30 06:00] VITALS: BP 140/76
[2016-08-30] MEDS: AMPICILLIN SOD 2 GM in D5W MINI-BAG PLUS 100 ML IV SCH ×4 (06:08→23:20)
[2016-08-30] MEDS: IBUPROFEN 400 MG TAB PO PRN ×3 (06:08→19:00)
[2016-08-30 07:00] LABS: MEAN CORPUSCULAR HEMOGLOBIN 28.4 pg (27.0-33.0); MEAN CORPUSCULAR HGB CONC 31.1 g/dl (32.0-36.5); MEAN CORPUSCULAR VOLUME 91.3 fl (80.0-96.0); RED CELL DISTRIBUTION WIDTH 15.3 % (11.5-14.5); WHITE BLOOD COUNT 14.7 K/mm3 (4.0-10.0)
[2016-08-30] MEDS: HumaLOG INSULIN (NovoLOG) PER UNIT SC SCH ×4 (08:28→20:19)
[2016-08-30] MEDS: DIVALPROEX 500MG *ER* TAB PO SCH ×3 (08:29→20:14)
[2016-08-30] MEDS: GABAPENTIN 100 MG CAP PO SCH ×3 (08:29→20:14)
[2016-08-30] MEDS: LITHIUM CARBONATE 450 MG **CR** TAB PO SCH ×2 (08:29→20:14)
[2016-08-30] MEDS: NICOTINE 21MG/24HR 1 EA TRANSDERMAL TD SCH (08:29)
[2016-08-30] MEDS: NYSTATIN 100,000 UNITS/GM TOPICAL PWD 15 GM TOP SCH ×2 (08:31→20:15)
[2016-08-30 10:36] VITALS: BP 175/100
[2016-08-30 14:00] VITALS: BP 126/66
--- NOTE | 2016-08-30 15:00 | NOCOX ---
DATE OF PROCEDURE: 08/27/2016 INTERPRETATION: Nocturnal recording oximetry was performed on room air. A total of 7 hours and 50 minutes of data was reviewed. Mean oxygen saturation for the study was 91% with a minimum recorded value of 74%. She spent 12% of the night (56 minutes and 32 seconds) with saturations less than 88% with the longest period of time being 8 minutes and 14 seconds. There were significant fluctuations in the SpO2 waveform strongly suggestive of sleep disordered breathing. IMPRESSION: 1. Nocturnal hypoxemia. 2. Significant fluctuations in the SpO2 waveform suggestion of sleep disordered breathing. Clinical correlation will be necessary.
--- NOTE | 2016-08-30 15:25 | IPNPDOC ---
Subjective Date Seen The patient was seen on 08/30/16. Subjective Chief Complaint/HPI The patient is a 41-year-old female admitted with a reason for visit of Acute Psychosis. Events since last encounter Feeling ok, Had pain at drain site last night. Tolerating diet. Wants to go home Pulmonary: Denies: Cough, Dyspnea Cardiovascular: Denies: Chest Pain Gastrointestinal: Denies: Nausea, Vomiting Objective Physical Examination General Exam: Positive: Alert, Cooperative, No Acute Distress ENT Exam: Positive: Atraumatic, Mucous membr. moist/pink Chest Exam: Positive: Diminished, Negative: Rhonchi, Wheezing Heart Exam: Positive: Normal S1, Normal S2, Other (distant), Rate Normal, Regular Rhythm Abdomen Exam: Positive: BS Hypoactive, Other (anterior drain with scant serous fluid in bag), Soft, Tenderness Psych Exam: Positive: Other (variable affect) Assessment /Plan Problems (1) Abdominal pain Status: Chronic Problem Text: * Left adnexal lesion s/p drainage * Dr Gore managing. * IV Gent/Clinda/ampicillin * BC x 2 neg * UC neg. (2) Dermatophytosis of body Status: Chronic Problem Text: * Nystatin (3) Hypertension Status: Chronic Problem Text: * Blood pressure may be trending upward, can restart lisinopril (4) Hypoxia Status: Acute Problem Text: * Previously O2 2 LNC sat 93% documented with sat of 71% 08/27 * CXR chronic stable changes. * CT Chest possible mild bronchitis. . * Nocturnal oximetry pending * Seems to be mainly resolved at his point (5) Diabetes Status: Chronic Problem Text: * CC diet * Metformin/Glipizide on Hold * SSI (6) Asthma Status: Chronic Response to Treatment: Stable Problem Text: * albuterol HFA prn * duoneb prn (7) Chronic pain Status: Chronic Response to Treatment: Stable Problem Text: * Gabapentin 200 TID * Tyl/ Ibuprofen as needed. Plan/VTE VTE Prophylaxis Ordered?: Yes (SCD/TEDS ) VS, I&O, 24H, Fishbone Vital Signs/I&O Vital Signs Date Time Temp Pulse Resp B/P Pulse Ox O2 Delivery O2 Flow Rate FiO2 08/30/16 10:40 Room Air 08/30/16 10:36 96.1 63 20 175/100 96 08/27/16 06:00 2.0 I&O- Last 24 Hours up to 6 AM 08/30/16 06:00 Intake Total 5362 ml Output Total 30 ml Balance 5332 ml Laboratory Data 24H LABS Laboratory Tests 2 08/29/16 16:32: Bedside Glucose (Misc Panel) 127H 08/29/16 19:25: Bedside Glucose (Misc Panel) 166H 08/30/16 07:57: Bedside Glucose (Misc Panel) 162H 08/30/16 11:43: Bedside Glucose (Misc Panel) 104 CBC/BMP Laboratory Tests 08/30/16 06:21 Red Blood Count 3.78 L, Mean Corpuscular Volume 91.3, Mean Corpuscular Hemoglobin 28.4, Mean Corpuscular Hemoglobin Concent 31.1 L, Red Cell Distribution Width 15.3 H Microbiology Microbiology 08/26/16 Blood Culture - Preliminary, Resulted No Growth after 72 hours. All specime... 08/26/16 Blood Culture - Preliminary, Resulted No Growth after 72 hours. All specime... 08/28/16 Gram Stain - Final, Resulted 08/28/16 Abscess Culture, Resulted Pending 08/28/16 Anaerobic Culture, Resulted Pending 08/26/16 Urine Culture - Final, Complete FLINT,SERAFIN Myers MD Aug 30, 2016 15:25
[2016-08-30] MEDS: LISINOPRIL 10 MG TAB PO SCH (17:05)
[2016-08-30] MEDS: traZODone 100 MG TAB PO SCH (20:14)
[2016-08-30 22:00] VITALS: BP 111/57
[2016-08-31] MEDS: GENTAMICIN 80 MG in APPROPRIATE DILUENT 1 EA IV SCH ×3 (00:09→17:20)
[2016-08-31] MEDS: CLINDAMYCIN 900 MG in APPROPRIATE DILUENT 1 EA IV SCH ×3 (01:54→17:19)
[2016-08-31] MEDS: IBUPROFEN 400 MG TAB PO PRN ×3 (01:55→20:59)
[2016-08-31] MEDS: LORazepam 1 MG TAB PO PRN ×2 (04:03→21:00)
[2016-08-31] MEDS: ACETAMINOPHEN TAB 650MG DOSE (2X325MG) PO PRN (04:04)
[2016-08-31] MEDS: AMPICILLIN SOD 2 GM in D5W MINI-BAG PLUS 100 ML IV SCH ×3 (05:11→17:19)
[2016-08-31] MEDS: LR 1,000 ML IV SCH ×2 (05:11→21:01)
[2016-08-31 06:00] VITALS: BP 121/70
[2016-08-31 07:10] LABS: MEAN CORPUSCULAR HEMOGLOBIN 28.6 pg (27.0-33.0); MEAN CORPUSCULAR HGB CONC 31.6 g/dl (32.0-36.5); MEAN CORPUSCULAR VOLUME 90.6 fl (80.0-96.0); RED CELL DISTRIBUTION WIDTH 15.6 % (11.5-14.5); WHITE BLOOD COUNT 12.4 K/mm3 (4.0-10.0)
[2016-08-31 07:28] LABS: ANION GAP 7 MEQ/L (8-16); BLOOD UREA NITROGEN 8 MG/DL (7-18); CALCIUM LEVEL 8.2 MG/DL (8.5-10.1); CARBON DIOXIDE LEVEL 31 MEQ/L (21-32); CHLORIDE LEVEL 103 MEQ/L (98-107); CREATININE FOR GFR 0.72 MG/DL (0.55-1.02); GLOMERULAR FILTRATION RATE > 60.0 (>58); GLUCOSE, FASTING 99 MG/DL (70-105); POTASSIUM SERUM 4.2 MEQ/L (3.5-5.1); SODIUM LEVEL 141 MEQ/L (136-145)
[2016-08-31] MEDS: HumaLOG INSULIN (NovoLOG) PER UNIT SC SCH ×4 (07:30→21:00)
[2016-08-31 07:47] LABS: LITHIUM LEVEL 0.76 MEQ/L (0.60-1.20)
[2016-08-31] MEDS ORDERED: PALIPERIDONE PALMITATE 234 MG/1.5 ML INJ (INVEGA SUSTENNA)(J2426) IM SCH (09:00)
[2016-08-31] MEDS: NICOTINE 21MG/24HR 1 EA TRANSDERMAL TD SCH (09:06)
[2016-08-31] MEDS: LISINOPRIL 10 MG TAB PO SCH (09:07)
[2016-08-31] MEDS: DIVALPROEX 500MG *ER* TAB PO SCH ×3 (09:07→21:00)
[2016-08-31] MEDS: LITHIUM CARBONATE 450 MG **CR** TAB PO SCH ×2 (09:07→21:00)
[2016-08-31] MEDS: GABAPENTIN 100 MG CAP PO SCH ×3 (09:07→21:00)
[2016-08-31] MEDS: NYSTATIN 100,000 UNITS/GM TOPICAL PWD 15 GM TOP SCH ×2 (09:08→21:01)
[2016-08-31] MEDS: hydrOXYzine 50 MG TAB PO PRN ×2 (09:26→16:13)
[2016-08-31 14:00] VITALS: BP 133/69
[2016-08-31] MEDS ORDERED: cefTRIAXone SOD 1 GM in D5W MINI-BAG PLUS 50 ML IV SCH (18:00)
--- NOTE | 2016-08-31 18:18 | IPNPDOC ---
Subjective Date Seen The patient was seen on 08/31/16. Subjective Chief Complaint/HPI The patient is a 41-year-old female admitted with a reason for visit of Acute Psychosis. Events since last encounter Patient is not complaining of abdominal pain. Tolerates diet. Feels better than a few days ago. Doesn't want to return to [facility]. Constitutional: Denies: Chills, Fever Pulmonary: Denies: Cough, Dyspnea Cardiovascular: Denies: Chest Pain Gastrointestinal: Denies: Nausea, Vomiting Objective Physical Examination General Exam: Positive: Cooperative, No Acute Distress ENT Exam: Positive: Atraumatic, Mucous membr. moist/pink Chest Exam: Positive: Diminished, Negative: Rales, Rhonchi, Wheezing Heart Exam: Positive: Normal S1, Normal S2, Other ( distant), Rate Normal, Regular Rhythm Abdomen Exam: Positive: BS Hypoactive, Other (anterior drain with scant serous fluid in bag), Soft, Tenderness Psych Exam: Positive: Other (variable affect) Assessment /Plan Problems (1) Abdominal pain Status: Chronic Problem Text: * Left adnexal lesion s/p drainage- remove drain, when drainage decreased 1-2 days * Dr Gore has signed off. * IV Abx changed to ceftriaxone- this can be switched to omnicef upon dc to [facility] * BC x 2 neg * UC neg. (2) Dermatophytosis of body Status: Chronic Problem Text: * Nystatin (3) Hypertension Status: Chronic Problem Text: * On home lisinopril (4) Hypoxia Status: Acute Problem Text: * Previously O2 2 LNC sat 93% documented with sat of 71% 08/27 * CXR chronic stable changes. * CT Chest possible mild bronchitis. . * Nocturnal oximetry pending * Seems to be mainly resolved at his point (5) Diabetes Status: Chronic Problem Text: * CC diet * Metformin/Glipizide on Hold * SSI (6) Asthma Status: Chronic Response to Treatment: Stable Problem Text: * albuterol HFA prn * duoneb prn (7) Chronic pain Status: Chronic Response to Treatment: Stable Problem Text: * Gabapentin 200 TID * Tyl/ Ibuprofen as needed. (8) Schizophrenia Status: Acute Problem Text: Patient has sitter. Needs to return to [facility] when medically stable Plans for placement at [facility] will follow PRN, until discharge to [facility] Plan/VTE VTE Prophylaxis Ordered?: Yes (SCD/TEDS ) VS, I&O, 24H, Fishbone Vital Signs/I&O Vital Signs Date Time Temp Pulse Resp B/P Pulse Ox O2 Delivery O2 Flow Rate FiO2 08/31/16 14:00 98.7 64 18 133/69 92 Room Air 08/27/16 06:00 2.0 I&O- Last 24 Hours up to 6 AM 08/31/16 05:59 Intake Total 3830 ml Output Total 905 ml Balance 2925 ml Laboratory Data 24H LABS Laboratory Tests 2 08/30/16 19:54: Bedside Glucose (Misc Panel) 118H 08/31/16 06:38: Anion Gap 7L, Blood Urea Nitrogen 8, Creatinine 0.72, Sodium Level 141, Potassium Level 4.2, Chloride Level 103, Carbon Dioxide Level 31, Calcium Level 8.2L, Glomerular Filtration Rate > 60.0, [place] Level 0.76, Valproic Acid ( Depakene) Level 60.9 08/31/16 12:01: Bedside Glucose (Misc Panel) 104 08/31/16 16:27: Bedside Glucose (Misc Panel) 123H CBC/BMP Laboratory Tests 08/31/16 06:38 Calcium Level 8.2 L, Red Blood Count 3.36 L, Mean Corpuscular Volume 90.6, Mean Corpuscular Hemoglobin 28.6, Mean Corpuscular Hemoglobin Concent 31.6 L, Red Cell Distribution Width 15.6 H Microbiology Microbiology 08/26/16 Blood Culture - Final, Complete NO GROWTH AFTER 5 DAYS 08/26/16 Blood Culture - Final, Complete NO GROWTH AFTER 5 DAYS 08/28/16 Gram Stain - Final, Resulted 08/28/16 Abscess Culture - Preliminary, Resulted Escherichia Coli 08/28/16 Anaerobic Culture - Final, Resulted 08/26/16 Urine Culture - Final, Complete FLARELI,SERAFIN Myers MD Aug 31, 2016 18:18
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
[2016-08-31] MEDS: traZODone 100 MG TAB PO SCH (21:00)
[2016-08-31 22:00] VITALS: BP 126/60
[2016-09-01] MEDS: ACETAMINOPHEN TAB 650MG DOSE (2X325MG) PO PRN (00:58)
[2016-09-01] MEDS: IBUPROFEN 400 MG TAB PO PRN ×2 (04:35→15:08)
[2016-09-01 06:00] VITALS: BP 119/68
[2016-09-01 06:30] LABS: MEAN CORPUSCULAR HEMOGLOBIN 28.8 pg (27.0-33.0); MEAN CORPUSCULAR HGB CONC 31.9 g/dl (32.0-36.5); MEAN CORPUSCULAR VOLUME 90.1 fl (80.0-96.0); RED CELL DISTRIBUTION WIDTH 15.5 % (11.5-14.5); WHITE BLOOD COUNT 11.4 K/mm3 (4.0-10.0)
[2016-09-01 06:51] LABS: ANION GAP 7 MEQ/L (8-16); BLOOD UREA NITROGEN 8 MG/DL (7-18); CALCIUM LEVEL 8.1 MG/DL (8.5-10.1); CARBON DIOXIDE LEVEL 30 MEQ/L (21-32); CHLORIDE LEVEL 104 MEQ/L (98-107); CREATININE FOR GFR 0.77 MG/DL (0.55-1.02); GLOMERULAR FILTRATION RATE > 60.0 (>58); GLUCOSE, FASTING 90 MG/DL (70-105); POTASSIUM SERUM 4.5 MEQ/L (3.5-5.1); SODIUM LEVEL 141 MEQ/L (136-145)
[2016-09-01] MEDS: HumaLOG INSULIN (NovoLOG) PER UNIT SC SCH ×2 (07:30→12:39)
[2016-09-01] MEDS ORDERED: cefTRIAXone SOD 1 GM VIAL (J0696) IM SCH (09:00)
[2016-09-01] MEDS: NYSTATIN 100,000 UNITS/GM TOPICAL PWD 15 GM TOP SCH (09:00)
[2016-09-01] MEDS: GABAPENTIN 100 MG CAP PO SCH (09:05)
[2016-09-01 09:06] VITALS: BP 119/68
[2016-09-01] MEDS: DIVALPROEX 500MG *ER* TAB PO SCH (09:06)
[2016-09-01] MEDS: LISINOPRIL 10 MG TAB PO SCH (09:06)
[2016-09-01] MEDS: LITHIUM CARBONATE 450 MG **CR** TAB PO SCH (09:06)
[2016-09-01] MEDS: NICOTINE 21MG/24HR 1 EA TRANSDERMAL TD SCH (09:07)
[2016-09-01] MEDS ORDERED: NICO21PAT TD (13:14)
[2016-09-01] MEDS ORDERED: CEFD1CAP8 PO (13:14)
--- NOTE | 2016-09-01 18:35 | CR ---
DATE OF CONSULTATION: 09/01/2016 CONSULTATION REPORT FOR: Juliana Garcia MD 41-year-old female with history of schizophrenia admitted to our unit on 08/26/2016. Patient was transferred to the medical floor for dehydration and urinary tract infection (UTI), now is medically stable, and a consultation has been generated for her to return to the mental health unit. Patient was originally brought to the emergency room (ER) and at that time it was reported that the patient was found naked, delusional, the patient has a fixed delusion that she has a head and a baby inside of her that needs to be surgically removed. During the interview today, patient is easily angered because she wants to go home. She is not willing to discuss her problems. She is making statements such as "they took me off the medications that work." She has been compliant with the psychiatric treatment while on the medical floor. No other information could be gathered at this point as patient is easily angered and not willing to cooperate. PAST PSYCHIATRIC HISTORY: Patient has a history of multiple hospitalizations for schizophrenia but no other information could be gathered at this point. PAST MEDICAL HISTORY: Patient has history of hypertension, obesity. No other information could be gathered at this point. She was transferred to the medical floor for dehydration and UTI. FAMILY PSYCHIATRIC HISTORY: Unable to be obtained. SOCIAL HISTORY: Patient is single, but no other information could be obtained. SUBSTANCE ABUSE HISTORY: Patient is denying any problem with drugs or alcohol. MENTAL STATUS EXAMINATION: Patient is dressed in hospital gown. Patient is uncooperative, pressured. Poor eye contact. Mood is elated, irritable. Affect is labile. I could not test attention, concentration, memory, or orientation. Patient continues to be delusional, paranoid, with no insight. Her judgment is poor. DIAGNOSES: Schizophrenia. Rule out schizoaffective disorder, bipolar type. Rule out substance induced psychotic disorder. RECOMMENDATIONS: Patient is now medically stable. Will transfer the patient to mental health unit to continue her treatment in a protected environment.
--- NOTE | 2016-09-02 11:04 | DSES ---
DATE OF ADMISSION: 08/25/2016 DATE OF DISCHARGE: 09/01/2016 PRIMARY CARE PROVIDER: THEA Méndez FINAL DIAGNOSIS: 1. Abdominal pain secondary to tubo-ovarian abscess. 2. Dermatophytosis of the body. 3. Hypertension 4. Hypoxia. 5. Diabetes. 6. Asthma. 7. Chronic pain. 8. Schizophrenia. HISTORY OF PRESENT ILLNESS: This is a 41-year-old female patient with underlying medical history of hypertension, dyslipidemia, dependent edema, diabetes, morbid obesity, peripheral neuropathy, asthma, schizophrenia and gastroesophageal reflux disease (GERD), chronic right ankle pain, chronic candidiasis, initially admitted to inpatient mental health for acute psychosis, later transferred to medicine for abdominal pain secondary to left adnexa, tubo-ovarian abscess. HOSPITAL COURSE: The patient was placed on one-to-one observation. Psychiatry was consulted. THERAPEUTIC SALES SPECIALIST, Dr. Gore, was consulted status post percutaneous drainage with drain placement. The patient's culture was followed, started on Rocephin. C-reactive protein improved. Blood cultures were sent. Urinalysis (UA) was negative. Nystatin was continued for dermatophytosis. Home blood pressure medications were continued. The patient was found to be hypoxic, started on oxygen. Nocturnal oximetry was done suggestive of sleep disorder. Insulin was provided for diabetes. The patient's home medication for asthma was continued, as was the patient's psychiatric medication. Currently drainage from the abscess has progressively decreased with improvement of C-reactive protein and resolution of leukocytosis. The patient is ready to be transferred to inpatient mental [facility]. Antibiotics switched from IV to oral based on sensitivity growing. VITAL SIGNS: Vyxuwwmpiju-L-Mzr 100.6, current 99, pulse 58, respirations 16, blood pressure 119/68, pulse oximetry 97% on room air. LABORATORY: White blood count (WBC) 11.4, hemoglobin and hematocrit 9.8/30.9, platelets 461. Chemistry: Sodium 141, potassium 4.5, chloride 104, bicarbonate 30, BUN 8, creatine 0.77, C-reactive protein trending from 13.8 to 12.9. DISCHARGE MEDICATIONS: - cefdinir 300 mg by mouth twice a day for 10 more days, reassess to extend the regimen - nicotine transdermal 21 mcg transdermal daily - Ventolin inhalers every 4 hours as needed - DuoNeb every 4 hours as needed - divalproex 1500 mg by mouth at bedtime (q.h.s.) - glipizide 5 mg by mouth twice a day - lisinopril 10 mg by mouth daily - lithium 50 mg by mouth twice a day, adjust as per psychiatrist - metformin 500 mg by mouth twice a day - omeprazole 40 mg by mouth daily - Topamax 25 mg by mouth twice a day DISCHARGE INSTRUCTIONS: The patient was instructed to followup with psychiatry for further care. Drainage from the abdomen can be removed in one to two days if drainage decreases. Followup with Dr. Gore, THERAPEUTIC SALES SPECIALIST for further care and followup with primary care provider in seven days after discharge for further management. The patient with morbid obesity, poor overall comfort healing care. The patient will need outpatient sleep studies as well. Given the patient was hypoxic secondary to sleep disorder suggested by nocturnal oximetry.
== END 2016-09-01 15:15 | DRG 513 ==
LOC: M ALC 22:00 → M MS5PR 08-28 15:41
PROVIDERS: ADMIT Obstetrics & Gynecology; ATTEND Obstetrics & Gynecology
PROC: 0U913ZZ Drainage of Left Ovary, Percutaneous Approach (ICD-10-PCS; principal; 2016-08-28)
DX: N70.93 Salpingitis and oophoritis, unspecified (principal); E66.01 Morbid (severe) obesity due to excess calories; I10 Essential (primary) hypertension; G62.9 Polyneuropathy, unspecified; R09.02 Hypoxemia; J45.909 Unspecified asthma, uncomplicated; E11.9 Type 2 diabetes mellitus without complications; F20.9 Schizophrenia, unspecified; K21.9 Gastro-esophageal reflux disease without esophagitis; Z79.899 Other long term (current) drug therapy; F19.94 Other psychoactive substance use, unspecified with psychoactive substance-induced mood disorder

== ENCOUNTER 2016-09-01 15:26 | Inpatient (IN) | payer MEDICAID, OTHER ==
[~2016-09-01] VITALS: Ht 160 cm; Wt 142.3 kg
[~2016-09-01 15:26] MED LIST changes: +CEFD1CAP8 PO; +NICO21PAT TD
[2016-09-01 16:29] VITALS: BP 128/74
[2016-09-01] MEDS ORDERED: ALBUTEROL 90 MCG/ACT 8GM HFA INHALER INH PRN (17:00)
[2016-09-01] MEDS ORDERED: IPRATROPIUM 0.5MG/ALBUTEROL 2.5MG INH SOL UD 3ML (DUONEB)(J7620) NEB PRN (17:00)
[2016-09-01] MEDS ORDERED: MOM 30ML SUSPENSION UDC PO PRN (17:15)
[2016-09-01] MEDS: metFORMIN (GLUCOPHAGE) 500 MG TAB PO SCH (18:12)
[2016-09-01] MEDS: IBUPROFEN 400 MG TAB PO PRN (18:22)
[2016-09-01] MEDS: busPIRone 5 MG TAB PO SCH (20:26)
[2016-09-01] MEDS: DIVALPROEX 250MG *ER* TAB PO SCH (20:26)
[2016-09-01] MEDS: glipiZIDE (GLUCOTROL) 5 MG TAB PO SCH (20:27)
[2016-09-01] MEDS: TOPIRAMATE (TopAMAX) 25 MG TAB PO SCH (20:27)
[2016-09-01] MEDS: LITHIUM CARBONATE 450 MG **CR** TAB PO SCH (20:27)
[2016-09-01] MEDS: CEFDINIR 300 MG CAP (OMNICEF) PO SCH (20:27)
[2016-09-02] MEDS: IBUPROFEN 400 MG TAB PO PRN (04:18)
[2016-09-02 06:43] VITALS: BP 132/67
[2016-09-02] MEDS: glipiZIDE (GLUCOTROL) 5 MG TAB PO SCH ×2 (06:46→17:15)
[2016-09-02 09:24] LABS: BASO % 0.3 % (0.0-1.0); EOS # 0.2 K/mm3 (0.0-0.50); EOS % 2.3 % (0.0-3.0); LARGE UNSTAINED CELL # 0.2 K/mm3 (0.0-0.4); LARGE UNSTAINED CELL % 1.6 % (0.0-4.0); LYMPH % 19.4 % (24.0-44.0); MEAN CORPUSCULAR HEMOGLOBIN 27.6 pg (27.0-33.0); MEAN CORPUSCULAR HGB CONC 30.5 g/dl (32.0-36.5); MEAN CORPUSCULAR VOLUME 90.6 fl (80.0-96.0); MONO # 0.7 K/mm3 (0.0-0.8); MONO % 6.5 % (0.0-5.0); NEUTROPHILS # 7.4 K/mm3 (1.8-7.7); NEUTROPHILS % 69.9 % (36.0-66.0); PLATELET COUNT, AUTOMATED 454 k/mm3 (150-450); RED CELL DISTRIBUTION WIDTH 15.4 % (11.5-14.5); WHITE BLOOD COUNT 10.5 K/mm3 (4.0-10.0)
[2016-09-02 09:40] LABS: ANION GAP 8 MEQ/L (8-16); BLOOD UREA NITROGEN 11 MG/DL (7-18); CALCIUM LEVEL 8.3 MG/DL (8.5-10.1); CARBON DIOXIDE LEVEL 30 MEQ/L (21-32); CHLORIDE LEVEL 106 MEQ/L (98-107); CREATININE FOR GFR 0.74 MG/DL (0.55-1.02); GLOMERULAR FILTRATION RATE > 60.0 (>58); GLUCOSE, FASTING 69 MG/DL (70-105); POTASSIUM SERUM 4.7 MEQ/L (3.5-5.1); SODIUM LEVEL 144 MEQ/L (136-145)
[2016-09-02] MEDS: TOPIRAMATE (TopAMAX) 25 MG TAB PO SCH ×2 (09:53→22:10)
[2016-09-02] MEDS: CEFDINIR 300 MG CAP (OMNICEF) PO SCH ×2 (09:53→22:10)
[2016-09-02] MEDS: metFORMIN (GLUCOPHAGE) 500 MG TAB PO SCH ×2 (09:53→17:15)
[2016-09-02] MEDS: LISINOPRIL 10 MG TAB PO SCH (09:53)
[2016-09-02] MEDS: OMEPRAZOLE 20 MG CAP PO SCH (09:53)
[2016-09-02] MEDS: busPIRone 5 MG TAB PO SCH ×2 (09:53→22:08)
[2016-09-02] MEDS: LITHIUM CARBONATE 450 MG **CR** TAB PO SCH ×2 (09:53→22:09)
[2016-09-02] MEDS: NICOTINE 21MG/24HR 1 EA TRANSDERMAL TD SCH (09:57)
--- NOTE | 2016-09-02 12:26 | HPEPDOC ---
Medical History and Physical Date of Admission Sep 01, 2016 at 15:26 History and Physical PCP: Radha SIDHU ATTENDING: Dr. Corwin Bains HPI: 41yoF admitted to [facility] for psychosis, being medically examined today. Patient was hospitalized 08/25/16-09/01/16 related to treatment of tubo-ovarian abscess status post percutaneous drainage. Culture indicated few Escherichia coli. Patient was changed to IV Rocephin 08/31 based on sensitivities. Started on oral Omnicef 09/01. Pt states she still has some abdominal pain, but it has been unchanged. Drain in place. Denies any fevers, chills, weakness, fatigue, ARREOLA, CP, SOB, cough, palpitations, abdominal pain, N/V/D or changes in bowel or bladder habits. PMHx: Hypertension Hyperlipidemia Dependent edema DM Peripheral neuropathy Asthma Schizophrenia GERD Chronic right ankle pain Chronic intertriginous candidiasis Obesity BMI 56.31 PSHX: Tubo-ovarian abscess status post percutaneous drainage 08/28/16 Right ankle repair 2002 Ovarian cyst Ectopic SOCHX: Marital Status: Single Kids: 4 Employment: Stable Tobacco use: One pack per day ETOH: Denies Illicit Drugs: Denies IV Drug Use: Denies Tattoos done unprofessionally: Denies FAMHX: Mother: Pt states Father: Pt states Children: Alive, unknown Unexpected deaths due to medical reasons: None. ROS: As noted in HPI, otherwise 11pt ROS of systems reviewed and unremarkable. PE: GEN: 41yoF, appears stated age. Well-nourished, well developed. No acute distress. Alert and oriented x 3. Pleasant, interactive. HEENT: Normocephalic, atraumatic. Pupils are equal, round, and reactive to light. Extraocular movements are intact. No nystagmus appreciated. Sclera are nonicteric. Conjunctiva without injection. Nose midline. Nasal turbinates without bogginess. EACs both patent BL. TMs both visualized and gan with good cone of light, no bulging or erythema. No facial asymmetry. Moist mucous membranes. Dentition fair. Pharynx pink and moist, no cobblestoning. Neck supple , trachea midline. No lymphadenopathy or thyromegaly appreciated. CHEST: Regular rate and rhythm, +S1, +S2 LUNGS: Clear to auscultation bilaterally. No wheezes, rales, or rhonchi. Breathing appears symmetric and easy. Patient is speaking in full sentences. No accessory muscle use. ABD: Round, soft, non-tender, non-distended. +Bowel sounds throughout. No rebound or guarding. No costovertebral angle tenderness. Drain is in place with scant amount of bloody drainage EXT: Pulses 2+ bilaterally dorsalis pedis and radial. No lower extremity edema appreciated. SKIN: [place], dry, warm. Capillary refill <2sec. NEURO: Alert and oriented x 3. Cranial nerves III-XII are intact. No focal deficits appreciated. EKG: Pending. A&P: 41yoF admitted to [facility] for unspecified psychosis 1. Psych. Plan per Psychiatry. Update EKG. 2. Nicotine dependence. Patch available. 3. Hypertension. Continue lisinopril 10 mg daily. 4. Tubo-ovarian abscess status post percutaneous drainage. Tmax 100.7 past 24hrs. CBC with leukocytosis trending downward. CRP trending downward. Continue Omnicef 300 mg by mouth twice a day. Drain remains in place, with plan to remove in 1-2 days if drainage decreases. Continue to monitor. Check a.m. labs. Plan is for outpt f/u with Dr Gore. 5. Abnormal nocturnal oximetry. Will need outpatient sleep study arranged. 6. DM. Consistent carbohydrate diet. Continue metformin 500 mg by mouth twice a day, glipizide 5 mg by mouth twice a day. Fingerstick blood sugar twice a day. 7. Chronic rash feet/heels. Apply ketoconazole BID. 8. Asthma. Continue albuterol inhaler 2 puffs every 4 hours as needed. DuoNeb every 4 hours as needed. 9. GERD. Continue Prilosec 40 mg daily. 10. Obesity. Complicates care. BMI is 56.31. 11. Follow up with PCP on discharge. Radha SIDHU. Vital Signs Vital Signs 2 Patient Temperature 100.1 degrees F 09/02/16 0643 Pulse 61 09/02/16 0643 Respiratory Rate 20 bpm 09/02/16 0643 Blood Pressure Assessment 132/67 (88) 09/02/16 0643 Item Value Date Time Laboratory Data Labs 24H Laboratory Tests 2 09/02/16 09:10: Anion Gap 8, White Blood Count 10.5H, Red Blood Count 3.70L, Hemoglobin 10.2L, Hematocrit 33.5L, Mean Corpuscular Volume 90.6, Mean Corpuscular Hemoglobin 27.6 , Mean Corpuscular Hemoglobin Concent 30.5L, Red Cell Distribution Width 15.4H, Platelet Count 454H, Neutrophils (%) (Auto) 69.9H, Lymphocytes (%) (Auto) 19.4L , Monocytes (%) (Auto) 6.5H, Eosinophils (%) (Auto) 2.3, Basophils (%) (Auto) 0.3, Neutrophils # (Auto) 7.4, Lymphocytes # (Auto) 2.0, Monocytes # (Auto) 0.7 , Eosinophils # (Auto) 0.2, Basophils # (Auto) 0.0, C-Reactive Protein, Quantitative 6.45H, Blood Urea Nitrogen 11, Creatinine 0.74, Sodium Level 144, Potassium Level 4.7, Chloride Level 106, Carbon Dioxide Level 30, Calcium Level 8.3L, Glomerular Filtration Rate > 60.0, Large Unclassified Cells # 0.2, Large Unclassified Cells % 1.6 CBC/BMP Laboratory Tests 09/02/16 09:10 Calcium Level 8.3 L, Red Blood Count 3.70 L, Mean Corpuscular Volume 90.6, Mean Corpuscular Hemoglobin 27.6, Mean Corpuscular Hemoglobin Concent 30.5 L, Red Cell Distribution Width 15.4 H, Neutrophils (%) (Auto) 69.9 H, Lymphocytes (%) ( Auto) 19.4 L, Monocytes (%) (Auto) 6.5 H, Eosinophils (%) (Auto) 2.3, Basophils (%) (Auto) 0.3, Neutrophils # (Auto) 7.4, Lymphocytes # (Auto) 2.0, Monocytes # (Auto) 0.7, Eosinophils # (Auto) 0.2, Basophils # (Auto) 0.0 Home Medications Scheduled Cefdinir (Cefdinir) 300 Mg Cap 300 MG PO BID Divalproex Sodium (Divalproex Sodium ER) 500 Mg Tab 1,500 MG PO QHS MOOD Glipizide (Glipizide) 5 Mg Tab 5 MG PO BID blood sugar control Lisinopril (Lisinopril) 10 Mg Tab 10 MG PO DAILY blood pressure [place] Carbonate ([place] Carbonate ER) 450 Mg Tabcr 450 MG PO BID MOOD Metformin Hydrochloride (Metformin HCl) 500 Mg Tab 500 MG PO BID blood sugar control Nicotine (Nicotine Transdermal Syst) 21 Mg/24 Hr Dis 1 PATCH TD DAILY Omeprazole (Omeprazole) 40 Mg Cap 40 MG PO DAILY GERD Topiramate (Topiramate) 25 Mg Tab 25 MG PO BID MOOD Scheduled PRN Albuterol Sulfate (Ventolin Hfa) 200 Puff/8 Gm Aers 2 PUFFS PO Q4HP PRN PRN SHORTNESS OF BREATH Albuterol/Ipratropium (Ipratropium [place]/Albut 0.5-2.5 (3) mg/3Ml) 1 Pretty [place] 1 PRETTY INH Q4HP PRN PRN SHORTNESS OF BREATH Allergies Coded Allergies: Codeine (Unverified Allergy, Unknown, HIVES, 10/13/12) Raegan Tran Sep 02, 2016 12:26
[2016-09-02] MEDS: IBUPROFEN 600 MG TAB PO PRN ×2 (13:03→22:08)
[2016-09-02] MEDS: KETOCONAZOLE 2% CREAM TOP SCH ×2 (14:13→20:20)
[2016-09-02 18:00] VITALS: BP 100/54
--- NOTE | 2016-09-02 18:40 | HPEPDOC ---
[facility] History & Physical History and Physical DATE OF ADMISSION: Sep 01, 2016 at 15:26 CHIEF COMPLAINT: Acute psychosis HISTORY OF PRESENT ILLNESS: Patient is a 41-year-old female with past psychiatric history significant for bipolar disorder and cannabis use disorder severe. Patient was admitted to the [facility] inpatient mental health unit 08/17/16 - 08/25/16, discharged and transferred to the Medical floor for treatment of Tubo-ovarian abscess status post percutaneous drainage after patient developed a fever, reporting worsening abdominal pain, and also found to be positive. Patient started on Rocephin IV and improved on the medical unit. Patient back to the inpatient health unit today, to continue on Omnicef 300 mg by mouth twice a day for 10 more days and to keep surgically placed drain in place, with plan to remove in 1-2 days if drainage decreases. Patient initially presented to the [facility] emergency department on 08/17/2016, brought in by EMS after patient made several calls to 911. Patient made multiple bizarre statements with 911 including reporting she was and needed the baby surgically removed. She also reported that she was by Gumaro Laird and Avani Tena. She was found was found in her apartment basement naked, psychotic. On my interview, patient is uncooperative with the interview. She reports being in too much pain to think. Patient is easily agitated. Patient responds, "I can't remember" to all questions. She is reported to have told the PA on the unit that she refuses to have the drain removed. She also reported having metal rods in her abdomen from her surgery. PAST PSYCHIATRIC HISTORY: Prior Psychiatric Disorder: Patient uncooperative with interview. Inpatient treatment: Patient uncooperative with interview. Outpatient Treatment: Patient uncooperative with interview.. Suicidal/Self injurious: Patient uncooperative with interview.. Psychotropic Medication History: Patient uncooperative with interview.. PMHx: Per medical record Hypertension Hyperlipidemia Dependent edema DM Peripheral neuropathy Asthma Schizophrenia GERD Chronic right ankle pain Chronic intertriginous candidiasis Obesity BMI 56.31 PSHX: Per medical record Tubo-ovarian abscess status post percutaneous drainage 08/28/16 Right ankle repair 2001 Ovarian cyst Ectopic ALLERGIES: Codeine HOME MEDICATIONS: Per record SOCHX: Per medical record Marital Status: Single Kids: 4 Employment: Stable Tobacco use: One pack per day ETOH: Denies Illicit Drugs: Denies IV Drug Use: Denies Tattoos done unprofessionally: Denies FAMHX: Per medical record Mother: Pt states Father: Pt states Children: Alive, unknown Unexpected deaths due to medical reasons: None. VITAL SIGNS: See below. LABORATORY DATA: Please see below. 08/31/2016: Depakote level -60.9 wnl; [place] level - 0.79 wnl MENTAL STATUS EXAMINATION: Patient is a 41-year old female, who is irritable, uncooperative, obese, I'm on her back, in mild distress reporting significant pain Speech: normal in rate, volume, and articulation, and is coherentbut non spontaneous. Language skills are intact. Thought processes: Clear /Goal directed. Thought content: Focused on getting pain meds Description of abnormal or psychotic thoughts: unable to assess Judgment: unable to assess Insight: unable to assess Orientation to time, place and person. Recent and remote memory: unable to assess Attention span and concentration: fair. Language: Normal. Fund of knowledge: adequate Mood: irrational Affect: agitated PROBLEM LIST: 1. Altered Perceptions. 2. Noncompliance. 3. June / Depression 4. Substance Abuse. 5. Self-Care Deficit INITIAL TREATMENT PLAN: 1. Patient was admitted on a 9.39 legal status. 2. Complete history was obtained. 3. With patients permission, family will be contacted and database will be expanded. 4. Patient to continue on current psychotropic med regimen: - Patient is status post 2 loading doses of Invega Sustenna, second being given on 08/31/2016 - Patient to continue on Invega Sustenna 234 mg IM every 28 days for psychosis, next injection due09/28/2016. - Continue Divalproex 1500 mg by mouth at bedtime (q.h.s.) for mood stabilization - Continue [place] 450 mg by mouth twice a day for mood stabilization - Continue Topamax 25 mg by mouth twice a day her mood stabilization - Continue Buspar 15mg po BID for anxiety Per the medical floor discharge summary: Tubo-ovarian abscess status post percutaneous drainage. -Continue antibiotic cefdinir 300 mg by mouth twice a day for 10 more days , reassess to extend the regimen -Drain remains in place, with plan to remove in 1-2 days if drainage decreases. Continue to monitor. Check a.m. labs -Followup with Dr. Gore, WRITING CENTER DIRECTOR for further care and followup with primary care provider in seven days after discharge -The patient will need outpatient sleep studies hypoxic secondary to sleep disorder suggested by nocturnal oximetry. 5. Patient will be provided with protected environment. 6. Patient will be treated with individual, group, and milieu therapies. 7. Patient will receive supportive psych-education. 8. Discharge planning will commence immediately. 9. Outpatient follow-up treatment will be strongly recommended. ESTIMATED LENGTH OF STAY: 3-5 DAYS. TIME SPENT COUNSELING AND COORDINATING INITIAL CARE: 60 minutes. Laboratory Data 24H Labs Laboratory Tests 2 09/02/16 09:10: Anion Gap 8, White Blood Count 10.5H, Red Blood Count 3.70L, Hemoglobin 10.2L, Hematocrit 33.5L, Mean Corpuscular Volume 90.6, Mean Corpuscular Hemoglobin 27.6 , Mean Corpuscular Hemoglobin Concent 30.5L, Red Cell Distribution Width 15.4H, Platelet Count 454H, Neutrophils (%) (Auto) 69.9H, Lymphocytes (%) (Auto) 19.4L , Monocytes (%) (Auto) 6.5H, Eosinophils (%) (Auto) 2.3, Basophils (%) (Auto) 0.3, Neutrophils # (Auto) 7.4, Lymphocytes # (Auto) 2.0, Monocytes # (Auto) 0.7 , Eosinophils # (Auto) 0.2, Basophils # (Auto) 0.0, C-Reactive Protein, Quantitative 6.45H, Blood Urea Nitrogen 11, Creatinine 0.74, Sodium Level 144, Potassium Level 4.7, Chloride Level 106, Carbon Dioxide Level 30, Calcium Level 8.3L, Glomerular Filtration Rate > 60.0, Large Unclassified Cells # 0.2, Large Unclassified Cells % 1.6 CBC/BMP Laboratory Tests 09/02/16 09:10 Calcium Level 8.3 L, Red Blood Count 3.70 L, Mean Corpuscular Volume 90.6, Mean Corpuscular Hemoglobin 27.6, Mean Corpuscular Hemoglobin Concent 30.5 L, Red Cell Distribution Width 15.4 H, Neutrophils (%) (Auto) 69.9 H, Lymphocytes (%) ( Auto) 19.4 L, Monocytes (%) (Auto) 6.5 H, Eosinophils (%) (Auto) 2.3, Basophils (%) (Auto) 0.3, Neutrophils # (Auto) 7.4, Lymphocytes # (Auto) 2.0, Monocytes # (Auto) 0.7, Eosinophils # (Auto) 0.2, Basophils # (Auto) 0.0 Medications Scheduled Cefdinir (Cefdinir) 300 Mg Cap 300 MG PO BID Divalproex Sodium (Divalproex Sodium ER) 500 Mg Tab 1,500 MG PO QHS MOOD ( Reported) Glipizide (Glipizide) 5 Mg Tab 5 MG PO BID blood sugar control (Reported) Lisinopril (Lisinopril) 10 Mg Tab 10 MG PO DAILY blood pressure (Reported) [place] Carbonate ([place] Carbonate ER) 450 Mg Tabcr 450 MG PO BID MOOD ( Reported) Metformin Hydrochloride (Metformin HCl) 500 Mg Tab 500 MG PO BID blood sugar control (Reported) Nicotine (Nicotine Transdermal Syst) 21 Mg/24 Hr Dis 1 PATCH TD DAILY Omeprazole (Omeprazole) 40 Mg Cap 40 MG PO DAILY GERD (Reported) Topiramate (Topiramate) 25 Mg Tab 25 MG PO BID MOOD (Reported) Scheduled PRN Albuterol Sulfate (Ventolin Hfa) 200 Puff/8 Gm Aers 2 PUFFS PO Q4HP PRN PRN SHORTNESS OF BREATH (Reported) Albuterol/Ipratropium (Ipratropium [place]/Albut 0.5-2.5 (3) mg/3Ml) 1 [place] 1 PRETTY INH Q4HP PRN PRN SHORTNESS OF BREATH (Reported) Allergies Coded Allergies: Codeine (Unverified Allergy, Unknown, HIVES, 10/13/12) HASMUKH KENNEDY MD Sep 02, 2016 18:40 Albuterol/Ipratropium (Ipratropium [place]/Albut 0.5-2.5 (3) mg/3Ml) 1 [place] 1 PRETTY INH Q4HP PRN PRN SHORTNESS OF BREATH (Reported) Allergies Coded Allergies: Codeine (Unverified Allergy, Unknown, HIVES, 10/13/12) HASMUKH KENNEDY MD Sep 02, 2016 18:40
[2016-09-02] MEDS: DIVALPROEX 250MG *ER* TAB PO SCH (22:07)
[2016-09-03] MEDS: IBUPROFEN 600 MG TAB PO PRN ×2 (04:21→14:25)
[2016-09-03 06:44] VITALS: BP 115/56
[2016-09-03 06:57] LABS: MEAN CORPUSCULAR HEMOGLOBIN 28.8 pg (27.0-33.0); MEAN CORPUSCULAR HGB CONC 31.6 g/dl (32.0-36.5); MEAN CORPUSCULAR VOLUME 90.9 fl (80.0-96.0); RED CELL DISTRIBUTION WIDTH 15.8 % (11.5-14.5); WHITE BLOOD COUNT 9.3 K/mm3 (4.0-10.0)
[2016-09-03] MEDS: glipiZIDE (GLUCOTROL) 5 MG TAB PO SCH ×2 (07:20→17:06)
[2016-09-03 07:28] LABS: ANION GAP 9 MEQ/L (8-16); BLOOD UREA NITROGEN 9 MG/DL (7-18); CALCIUM LEVEL 8.3 MG/DL (8.5-10.1); CARBON DIOXIDE LEVEL 27 MEQ/L (21-32); CHLORIDE LEVEL 105 MEQ/L (98-107); GLOMERULAR FILTRATION RATE > 60.0 (>58); GLUCOSE, FASTING 94 MG/DL (70-105); POTASSIUM SERUM 4.6 MEQ/L (3.5-5.1); SODIUM LEVEL 141 MEQ/L (136-145)
[2016-09-03] MEDS: TOPIRAMATE (TopAMAX) 25 MG TAB PO SCH ×2 (09:51→22:15)
[2016-09-03] MEDS: LISINOPRIL 10 MG TAB PO SCH (09:52)
[2016-09-03] MEDS: OMEPRAZOLE 20 MG CAP PO SCH (09:52)
[2016-09-03] MEDS: metFORMIN (GLUCOPHAGE) 500 MG TAB PO SCH ×2 (09:52→17:06)
[2016-09-03] MEDS: LITHIUM CARBONATE 450 MG **CR** TAB PO SCH ×2 (09:52→22:15)
[2016-09-03] MEDS: busPIRone 5 MG TAB PO SCH ×2 (09:52→22:14)
[2016-09-03] MEDS: CEFDINIR 300 MG CAP (OMNICEF) PO SCH ×2 (09:52→22:14)
[2016-09-03] MEDS: NICOTINE 21MG/24HR 1 EA TRANSDERMAL TD SCH (09:53)
[2016-09-03] MEDS: KETOCONAZOLE 2% CREAM TOP SCH ×2 (09:53→22:15)
--- NOTE | 2016-09-03 10:45 | IPNPDOC ---
Subjective Date Seen The patient was seen on 09/03/16. Subjective Chief Complaint/HPI The patient is a 41-year-old female admitted with a reason for visit of Psychosis. Events since last encounter Pt states "leave me alone" "I want to leave" Does not provide any other history. Objective Physical Examination General Exam: Positive: Alert Abdomen Exam: Positive: Other (Drain in Place, scant drainage) Neuro Exam: Positive: Normal Gait Other physical findings REFUSES EXAM Assessment /Plan Problems (1) Tubo-ovarian abscess Status: Acute Problem Text: * S/P percutaneous drainage 08/28/16 * T Max 100.1 past 24 hrs. * WBC WNL today. * CRP continues to trend downward. * Continue to monitor. * Spoke with Dr Gore 09/03, leave drain intact for 24-48 hrs with pt afebrile/ WBC WNL. * She advised leave drain intact for now. * po Omnicef D3 (2) Hypertension Status: Chronic Problem Text: * lisinopril (3) Asthma Status: Chronic Problem Text: * Duoneb * Proventil (4) Diabetes Status: Chronic Problem Text: * Metformin * Glipizide Plan/VTE VTE Prophylaxis Ordered?: No (ambulatory. ) VS, I&O, 24H, Fishbone Vital Signs/I&O Vital Signs Date Time Temp Pulse Resp B/P Pulse Ox O2 Delivery O2 Flow Rate FiO2 09/03/16 09:52 115/56 09/03/16 06:44 98.8 56 20 09/01/16 16:29 97 Room Air Laboratory Data 24H LABS Laboratory Tests 2 09/03/16 05:58: Bedside Glucose (Misc Panel) 88 09/03/16 06:48: Anion Gap 9, C-Reactive Protein, Quantitative 4.30H, Blood Urea Nitrogen 9, Creatinine 0.70, Sodium Level 141, Potassium Level 4.6, Chloride Level 105, Carbon Dioxide Level 27, Calcium Level 8.3L, Glomerular Filtration Rate > 60.0 CBC/BMP Laboratory Tests 09/03/16 06:48 Calcium Level 8.3 L, Red Blood Count 3.54 L, Mean Corpuscular Volume 90.9, Mean Corpuscular Hemoglobin 28.8, Mean Corpuscular Hemoglobin Concent 31.6 L, Red Cell Distribution Width 15.8 H Raegan Tran Sep 03, 2016 10:45
[2016-09-03] MEDS: DIVALPROEX 250MG *ER* TAB PO SCH (22:14)
--- NOTE | 2016-09-03 22:37 | IPNPDOC ---
[facility] Progress Note Progress Note DATE OF SERVICE: 09/03/16 Subjective: Patient declines interview with this provider. She is med compliant , she does deny SI/HI. Objective; VITAL SIGNS: See below. LABORATORY DATA: Please see below. 08/31/2016: Depakote level -60.9 wnl; O'Neill level - 0.79 wnl MENTAL STATUS EXAMINATION: Patient is a 41-year old female, who is irritable, uncooperative, obese, I'm on her back, in mild distress reporting significant pain Speech: normal in rate, volume, and articulation, and is coherentbut non spontaneous. Language skills are intact. Thought processes: Clear /Goal directed. Thought content: Focused on getting pain meds Description of abnormal or psychotic thoughts: unable to assess Judgment: unable to assess Insight: unable to assess Orientation to time, place and person. Recent and remote memory: unable to assess Attention span and concentration: fair. Language: Normal. Fund of knowledge: adequate Mood: irrational Affect: agitated PROBLEM LIST: 1. Altered Perceptions. 2. Noncompliance. 3. June / Depression 4. Substance Abuse. 5. Self-Care Deficit INITIAL TREATMENT PLAN: 1. Patient was admitted on a 9.39 legal status. 2. Complete history was obtained. 3. With patients permission, family will be contacted and database will be expanded. 4. Patient to continue on current psychotropic med regimen: - Patient is status post 2 loading doses of Invega Sustenna, second being given on 08/31/2016 - Patient to continue on Invega Sustenna 234 mg IM every 28 days for psychosis, next injection due09/28/2016. - Continue Divalproex 1500 mg by mouth at bedtime (q.h.s.) for mood stabilization - Continue O'Neill 450 mg by mouth twice a day for mood stabilization - Continue Topamax 25 mg by mouth twice a day her mood stabilization - Continue Buspar 15mg po BID for anxiety Per the medical floor discharge summary: Tubo-ovarian abscess status post percutaneous drainage. -Continue antibiotic cefdinir 300 mg by mouth twice a day for 10 more days , reassess to extend the regimen -Drain remains in place, with plan to remove in 1-2 days if drainage decreases. Continue to monitor. Check a.m. labs -Followup with Dr. Gore, [employer] for further care and followup with primary care provider in seven days after discharge -The patient will need outpatient sleep studies hypoxic secondary to sleep disorder suggested by nocturnal oximetry. 5. Patient will be provided with protected environment. 6. Patient will be treated with individual, group, and milieu therapies. 7. Patient will receive supportive psych-education. 8. Discharge planning will commence immediately. 9. Outpatient follow-up treatment will be strongly recommended. ESTIMATED LENGTH OF STAY: 3-5 DAYS. TIME SPENT 20 minutes Vital Signs Vital Signs Date Time Temp Pulse Resp B/P Pulse Ox O2 Delivery O2 Flow Rate FiO2 09/03/16 09:52 115/56 09/03/16 06:44 98.8 56 20 09/01/16 16:29 97 Room Air Laboratory Data 24H Labs Laboratory Tests 2 09/03/16 05:58: Bedside Glucose (Misc Panel) 88 09/03/16 06:48: Anion Gap 9, C-Reactive Protein, Quantitative 4.30H, Blood Urea Nitrogen 9, Creatinine 0.70, Sodium Level 141, Potassium Level 4.6, Chloride Level 105, Carbon Dioxide Level 27, Calcium Level 8.3L, Glomerular Filtration Rate > 60.0 09/03/16 17:09: Bedside Glucose (Misc Panel) 96 CBC/BMP Laboratory Tests 09/03/16 06:48 Calcium Level 8.3 L, Red Blood Count 3.54 L, Mean Corpuscular Volume 90.9, Mean Corpuscular Hemoglobin 28.8, Mean Corpuscular Hemoglobin Concent 31.6 L, Red Cell Distribution Width 15.8 H Current Medications Current Medications Al Hydrox/Mg Hydrox/Simethicone (Mylanta) 30 ml Q4HP PRN PO HEARTBURN/ INDIGESTION; Start 09/01/16 at 17:15; Stop 10/01/16 at 17:14 Albuterol Sulfate (Proventil, Ventolin Hfa) 2 puff Q4HP PRN INH SHORTNESS OF BREATH; Start 09/01/16 at 17:00; Stop 10/01/16 at 16:59 Albuterol/ Ipratropium (Duoneb (Ipr 0.5mg/Alb 2.5mg)) 3 ml Q4HP PRN NEB SOB/ WHEEZING; Start 09/01/16 at 17:00; Stop 10/01/16 at 16:59 Buspirone HCl (Buspar) 15 mg BID PO Last administered on 09/03/16 22:14; Start 09/01/16 at 21:00; Stop 10/01/16 at 20:59 Cefdinir (Omnicef) 300 mg BID PO Last administered on 09/03/16 22:14; Start at 21:00; Stop 09/11/16 at 21:00 Divalproex Sodium (Depakote Er) 1,500 mg QHS PO Last administered on 09/03/16 22:14; Start 09/01/16 at 21:00; Stop 10/01/16 at 20:59 Glipizide (Glucotrol) 5 mg BID@0730,1730 PO Last administered on 09/03/16 17: 06; Start 09/01/16 at 17:30; Stop 10/01/16 at 17:29 Ibuprofen (Advil) 600 mg Q6HP PRN PO PAIN Last administered on 09/02/16 04:18 ; Start 09/01/16 at 17:15; Stop 09/02/16 at 12:57; Status DC Ibuprofen (Advil) 600 mg Q6HP PRN PO PAIN Last administered on 09/03/16 14:25 ; Start 09/02/16 at 13:00; Stop 10/02/16 at 12:59 Ketoconazole (Nizoral) 1 dose BID TOP Last administered on 09/03/16 22:15; Start 09/02/16 at 09:00; Stop 10/02/16 at 08:59 Lisinopril (Prinivil) 10 mg DAILY PO Last administered on 09/03/16 09:52; Start 09/02/16 at 09:00; Stop 10/02/16 at 08:59 O'Neill Carbonate (Eskalith-Cr) 450 mg BID PO Last administered on 09/03/16 22 :15; Start 09/01/16 at 21:00; Stop 10/01/16 at 20:59 Magnesium Hydroxide (Milk Of Magnesia) 30 ml DAILYPRN PRN PO CONSTIPATION; Start 09/01/16 at 17:15; Stop 10/01/16 at 17:14 Metformin HCl (Glucophage) 500 mg BID@08,18 PO Last administered on 09/03/16 17:06; Start 09/01/16 at 18:00; Stop 10/01/16 at 17:59 Nicotine (Nicoderm Cq 21mg) 1 patch DAILY TD Last administered on 09/03/16 09: 53; Start 09/02/16 at 09:00; Stop 10/02/16 at 08:59 Omeprazole (PriLOSEC) 40 mg DAILY PO Last administered on 09/03/16 09:52; Start 09/02/16 at 09:00; Stop 10/02/16 at 08:59 Topiramate (TopAMAX) 25 mg BID PO Last administered on 09/03/16 22:15; Start 09/01/16 at 21:00; Stop 10/01/16 at 20:59 Trazodone HCl (Desyrel) 50 mg QHSP PRN PO INSOMNIA; Start 09/01/16 at 17:15; Stop 10/01/16 at 17:14 Allergies Coded Allergies: Codeine (Unverified Allergy, Unknown, HIVES, 10/13/12) HASMUKH KENNEDY MD Sep 03, 2016 22:37
--- NOTE | 2016-09-03 22:37 | HPEPDOC ---
[facility] History & Physical History and Physical DATE OF ADMISSION: Sep 01, 2016 at 15:26 Please disregard this note as it was opened in error. Please see the History and Physical in the record, opened under the same title note. Laboratory Data 24H Labs Laboratory Tests 2 09/03/16 05:58: Bedside Glucose (Misc Panel) 88 09/03/16 06:48: Anion Gap 9, C-Reactive Protein, Quantitative 4.30H, Blood Urea Nitrogen 9, Creatinine 0.70, Sodium Level 141, Potassium Level 4.6, Chloride Level 105, Carbon Dioxide Level 27, Calcium Level 8.3L, Glomerular Filtration Rate > 60.0 09/03/16 17:09: Bedside Glucose (Misc Panel) 96 CBC/BMP Laboratory Tests 09/03/16 06:48 Calcium Level 8.3 L, Red Blood Count 3.54 L, Mean Corpuscular Volume 90.9, Mean Corpuscular Hemoglobin 28.8, Mean Corpuscular Hemoglobin Concent 31.6 L, Red Cell Distribution Width 15.8 H FSBS Laboratory Tests Test 09/03/16 05:58 09/03/16 17:09 Range/Units Bedside Glucose (Misc Panel) 88 96 70-105 MG/DL Medications Scheduled Cefdinir (Cefdinir) 300 Mg Cap 300 MG PO BID Divalproex Sodium (Divalproex Sodium ER) 500 Mg Tab 1,500 MG PO QHS MOOD ( Reported) Glipizide (Glipizide) 5 Mg Tab 5 MG PO BID blood sugar control (Reported) Lisinopril (Lisinopril) 10 Mg Tab 10 MG PO DAILY blood pressure (Reported) [place] Carbonate ([place] Carbonate ER) 450 Mg Tabcr 450 MG PO BID MOOD ( Reported) Metformin Hydrochloride (Metformin HCl) 500 Mg Tab 500 MG PO BID blood sugar control (Reported) Nicotine (Nicotine Transdermal Syst) 21 Mg/24 Hr Dis 1 PATCH TD DAILY Omeprazole (Omeprazole) 40 Mg Cap 40 MG PO DAILY GERD (Reported) Topiramate (Topiramate) 25 Mg Tab 25 MG PO BID MOOD (Reported) Scheduled PRN Albuterol Sulfate (Ventolin Hfa) 200 Puff/8 Gm Aers 2 PUFFS PO Q4HP PRN PRN SHORTNESS OF BREATH (Reported) Albuterol/Ipratropium (Ipratropium [place]/Albut 0.5-2.5 (3) mg/3Ml) 1 Pretty Pretty 1 PRETTY INH Q4HP PRN PRN SHORTNESS OF BREATH (Reported) Allergies Coded Allergies: Codeine (Unverified Allergy, Unknown, HIVES, 10/13/12) HASMUKH KENNEDY MD Sep 03, 2016 22:37 DIAGNOSES: 1. . 2. . 3. . ASSESSMENT: PROBLEM LIST: 1. . 2. . 3. . INITIAL TREATMENT PLAN: 1. Patient was admitted on a [9.39] legal status. 2. Complete history was obtained. 3. With patients permission, family will be contacted and database will be expanded. 4. Patients medication regimen will be reviewed and changed accordingly. 5. Patient will be provided with protected environment. 6. Patient will be treated with individual, group, and milieu therapies. 7. Patient will receive supportive psych-education. 8. Discharge planning will commence immediately. 9. Outpatient follow-up treatment will be strongly recommended. 10. The initial treatment plan will focus initially on: * Depression. * Risk for suicide. * Substance abuse. ESTIMATED LENGTH OF STAY: - DAYS. TIME SPENT COUNSELING AND COORDINATING INITIAL CARE: minutes. Laboratory Data 24H Labs Laboratory Tests 2 09/03/16 05:58: Bedside Glucose (Misc Panel) 88 09/03/16 06:48: Anion Gap 9, C-Reactive Protein, Quantitative 4.30H, Blood Urea Nitrogen 9, Creatinine 0.70, Sodium Level 141, Potassium Level 4.6, Chloride Level 105, Carbon Dioxide Level 27, Calcium Level 8.3L, Glomerular Filtration Rate > 60.0 09/03/16 17:09: Bedside Glucose (Misc Panel) 96 CBC/BMP Laboratory Tests 09/03/16 06:48 Calcium Level 8.3 L, Red Blood Count 3.54 L, Mean Corpuscular Volume 90.9, Mean Corpuscular Hemoglobin 28.8, Mean Corpuscular Hemoglobin Concent 31.6 L, Red Cell Distribution Width 15.8 H FSBS Laboratory Tests Test 09/03/16 05:58 09/03/16 17:09 Range/Units Bedside Glucose (Misc Panel) 88 96 70-105 MG/DL Medications Scheduled Cefdinir (Cefdinir) 300 Mg Cap 300 MG PO BID Divalproex Sodium (Divalproex Sodium ER) 500 Mg Tab 1,500 MG PO QHS MOOD ( Reported) Glipizide (Glipizide) 5 Mg Tab 5 MG PO BID blood sugar control (Reported) Lisinopril (Lisinopril) 10 Mg Tab 10 MG PO DAILY blood pressure (Reported) [place] Carbonate ([place] Carbonate ER) 450 Mg Tabcr 450 MG PO BID MOOD ( Reported) Metformin Hydrochloride (Metformin HCl) 500 Mg Tab 500 MG PO BID blood sugar control (Reported) Nicotine (Nicotine Transdermal Syst) 21 Mg/24 Hr Dis 1 PATCH TD DAILY Omeprazole (Omeprazole) 40 Mg Cap 40 MG PO DAILY GERD (Reported) Topiramate (Topiramate) 25 Mg Tab 25 MG PO BID MOOD (Reported) Scheduled PRN Albuterol Sulfate (Ventolin Hfa) 200 Puff/8 Gm Aers 2 PUFFS PO Q4HP PRN PRN SHORTNESS OF BREATH (Reported) Albuterol/Ipratropium (Ipratropium [place]/Albut 0.5-2.5 (3) mg/3Ml) 1 Pretty Pretty 1 PRETTY INH Q4HP PRN PRN SHORTNESS OF BREATH (Reported) Allergies Coded Allergies: Codeine (Unverified Allergy, Unknown, HIVES, 10/13/12) HASMUKH KENNEDY MD Sep 03, 2016 22:37
[2016-09-04 01:35] VITALS: BP 115/56
[2016-09-04] MEDS: IBUPROFEN 600 MG TAB PO PRN ×3 (01:35→19:13)
[2016-09-04] MEDS: glipiZIDE (GLUCOTROL) 5 MG TAB PO SCH (06:40)
[2016-09-04 07:00] VITALS: BP 94/51
--- NOTE | 2016-09-04 07:59 | IPNPDOC ---
Subjective Date Seen The patient was seen on 09/04/16. Subjective Chief Complaint/HPI The patient is a 41-year-old female admitted with a reason for visit of Psychosis. Events since last encounter Patient with no new complaints. Pt took Ibuprofen x 2 doses for abdominal pain. States " I want the tube out". Does not report abdominal pain. Will not allow interview or exam and states repeatedly to "get out" States "I'm getting ready to punch, exit the building". Objective Physical Examination General Exam: Positive: Alert Abdomen Exam: Positive: Other (Drain in Place, scant drainage) Neuro Exam: Positive: Normal Gait Other physical findings Refuses exam Assessment /Plan Problems (1) Tubo-ovarian abscess Status: Acute Problem Text: * S/P percutaneous drainage 08/28/16 * T Max 100.1 09/02 6 AM. Afebrile past 48 hours. * WBC WNL 09/03. * CRP trend downward. * Continue to monitor. * Spoke with Dr Gore 09/03, she had advised to maintain drain 24-48 hours with patient afebrile and normal WBC. She had agreed to discontinue drain today if normal labs and patient afebrile. * Spoke with Dr. Sumner 09/03, who is in agreement. * Scant drainage noted for past 48 hours. * Patient with #8 [place] pigtail catheter in place as per interventional radiology, contacted them for removal. This is to be arranged today. * Labs today are pending as patient refused this a.m., she has subsequently agreed to have these drawn. * These indicate WBC WNL, CRP continues to trend downward. * po Omnicef D4 (2) Hypertension Status: Chronic Problem Text: * lisinopril (3) Asthma Status: Chronic Problem Text: * Duoneb * Proventil (4) Diabetes Status: Chronic Problem Text: * Metformin * Glipizide Plan/VTE VTE Prophylaxis Ordered?: No (ambulatory. ) VS, I&O, 24H, Fishbone Vital Signs/I&O Vital Signs Date Time Temp Pulse Resp B/P Pulse Ox O2 Delivery O2 Flow Rate FiO2 09/04/16 07:00 97.3 55 20 94/51 09/04/16 01:35 97 Room Air Laboratory Data 24H LABS Laboratory Tests 2 09/03/16 17:09: Bedside Glucose (Misc Panel) 96 09/04/16 05:38: Bedside Glucose (Misc Panel) 67L Raegan Tran Sep 04, 2016 07:59
[2016-09-04 08:47] LABS: MEAN CORPUSCULAR HEMOGLOBIN 28.3 pg (27.0-33.0); MEAN CORPUSCULAR HGB CONC 31.4 g/dl (32.0-36.5); RED CELL DISTRIBUTION WIDTH 15.9 % (11.5-14.5); WHITE BLOOD COUNT 9.5 K/mm3 (4.0-10.0)
[2016-09-04] MEDS: NICOTINE 21MG/24HR 1 EA TRANSDERMAL TD SCH (09:00)
[2016-09-04] MEDS: LISINOPRIL 10 MG TAB PO SCH (09:00)
[2016-09-04 09:04] LABS: ALBUMIN 2.2 GM/DL (3.2-5.2); ALBUMIN/GLOBULIN RATIO 0.61 (1.00-1.93); ALKALINE PHOSPHATASE 76 U/L (45-117); ALT/SGPT 13 U/L (12-78); ANION GAP 10 MEQ/L (8-16); AST/SGOT 11 U/L (15-37); BILIRUBIN,TOTAL 0.2 MG/DL (0.2-1.0); BLOOD UREA NITROGEN 9 MG/DL (7-18); CALCIUM LEVEL 8.5 MG/DL (8.5-10.1); CARBON DIOXIDE LEVEL 27 MEQ/L (21-32); CHLORIDE LEVEL 104 MEQ/L (98-107); GLOMERULAR FILTRATION RATE > 60.0 (>58); GLUCOSE, FASTING 65 MG/DL (70-105); POTASSIUM SERUM 4.4 MEQ/L (3.5-5.1); SODIUM LEVEL 141 MEQ/L (136-145); TOTAL PROTEIN 5.8 GM/DL (6.4-8.2)
[2016-09-04] MEDS: TOPIRAMATE (TopAMAX) 25 MG TAB PO SCH ×2 (09:37→21:23)
[2016-09-04] MEDS: busPIRone 5 MG TAB PO SCH ×2 (09:38→21:23)
[2016-09-04] MEDS: metFORMIN (GLUCOPHAGE) 500 MG TAB PO SCH ×2 (09:38→17:53)
[2016-09-04] MEDS: CEFDINIR 300 MG CAP (OMNICEF) PO SCH ×2 (09:38→21:23)
[2016-09-04] MEDS: OMEPRAZOLE 20 MG CAP PO SCH (09:38)
[2016-09-04] MEDS: LITHIUM CARBONATE 450 MG **CR** TAB PO SCH ×2 (09:38→21:23)
[2016-09-04] MEDS: KETOCONAZOLE 2% CREAM TOP SCH ×2 (09:47→21:00)
[2016-09-04 10:11] VITALS: BP 110/55
[2016-09-04 18:00] VITALS: BP 129/56
[2016-09-04] MEDS: DIVALPROEX 250MG *ER* TAB PO SCH (21:24)
[2016-09-05] MEDS: IBUPROFEN 600 MG TAB PO PRN ×2 (06:30→17:13)
[2016-09-05 06:38] VITALS: BP 119/64
[2016-09-05 07:26] LABS: MEAN CORPUSCULAR HEMOGLOBIN 27.9 pg (27.0-33.0); MEAN CORPUSCULAR HGB CONC 31.5 g/dl (32.0-36.5); MEAN CORPUSCULAR VOLUME 88.6 fl (80.0-96.0); RED CELL DISTRIBUTION WIDTH 15.9 % (11.5-14.5); WHITE BLOOD COUNT 9.1 K/mm3 (4.0-10.0)
[2016-09-05 07:47] LABS: ALBUMIN 2.3 GM/DL (3.2-5.2); ALBUMIN/GLOBULIN RATIO 0.64 (1.00-1.93); ALKALINE PHOSPHATASE 75 U/L (45-117); ALT/SGPT 11 U/L (12-78); ANION GAP 9 MEQ/L (8-16); AST/SGOT 11 U/L (15-37); BILIRUBIN,TOTAL 0.2 MG/DL (0.2-1.0); BLOOD UREA NITROGEN 13 MG/DL (7-18); CALCIUM LEVEL 8.2 MG/DL (8.5-10.1); CARBON DIOXIDE LEVEL 27 MEQ/L (21-32); CHLORIDE LEVEL 102 MEQ/L (98-107); CREATININE FOR GFR 0.83 MG/DL (0.55-1.02); GLOMERULAR FILTRATION RATE > 60.0 (>58); GLUCOSE, FASTING 102 MG/DL (70-105); POTASSIUM SERUM 4.3 MEQ/L (3.5-5.1); SODIUM LEVEL 138 MEQ/L (136-145); TOTAL PROTEIN 5.9 GM/DL (6.4-8.2)
[2016-09-05] MEDS: metFORMIN (GLUCOPHAGE) 500 MG TAB PO SCH ×3 (08:00→17:12)
[2016-09-05] MEDS: NICOTINE 21MG/24HR 1 EA TRANSDERMAL TD SCH ×2 (09:00→12:48)
[2016-09-05] MEDS: LITHIUM CARBONATE 450 MG **CR** TAB PO SCH ×3 (09:00→21:42)
[2016-09-05] MEDS: busPIRone 5 MG TAB PO SCH ×3 (09:00→21:42)
[2016-09-05] MEDS: KETOCONAZOLE 2% CREAM TOP SCH ×3 (09:00→21:00)
[2016-09-05] MEDS: OMEPRAZOLE 20 MG CAP PO SCH ×2 (09:00→12:44)
[2016-09-05] MEDS: LISINOPRIL 10 MG TAB PO SCH ×2 (09:00→12:44)
[2016-09-05] MEDS: CEFDINIR 300 MG CAP (OMNICEF) PO SCH ×3 (09:00→21:42)
[2016-09-05] MEDS: TOPIRAMATE (TopAMAX) 25 MG TAB PO SCH ×3 (09:00→21:42)
[2016-09-05 18:37] VITALS: BP 97/73
--- NOTE | 2016-09-05 19:09 | IPNPDOC ---
[facility] Progress Note Progress Note DATE OF SERVICE: 09/05/16 Subjective: Patient is irritable in mood and minimally cooperative with the interview. She denies ARREOLA/CP/Abd pain. She denies N/V/C/D and denies issues urinating. She is med compliant, she does continue to deny SI/HI. Objective; VITAL SIGNS: See below. LABORATORY DATA: Please see below. 08/31/2016: Depakote level -60.9 wnl; [place] level - 0.79 wnl MENTAL STATUS EXAMINATION: Patient is a 41-year old female, who is irritable, uncooperative, obese, I'm on her back, in mild distress reporting significant pain Speech: normal in rate, volume, and articulation, and is coherentbut non spontaneous. Language skills are intact. Thought processes: Clear /Goal directed. Thought content: Focused on getting pain meds Description of abnormal or psychotic thoughts: unable to assess Judgment: unable to assess Insight: unable to assess Orientation to time, place and person. Recent and remote memory: unable to assess Attention span and concentration: fair. Language: Normal. Fund of knowledge: adequate Mood: irrational Affect: agitated PROBLEM LIST: 1. Altered Perceptions. 2. Noncompliance. 3. June / Depression 4. Substance Abuse. 5. Self-Care Deficit INITIAL TREATMENT PLAN: 1. Patient was admitted on a 9.39 legal status. 2. Complete history was obtained. 3. With patients permission, family will be contacted and database will be expanded. 4. Patient to continue on current psychotropic med regimen: - Patient is status post 2 loading doses of Invega Sustenna, second being given on 08/31/2016 - Patient to continue on Invega Sustenna 234 mg IM every 28 days for psychosis, next injection due09/28/2016. - Continue Divalproex 1500 mg by mouth at bedtime (q.h.s.) for mood stabilization - Continue [place] 450 mg by mouth twice a day for mood stabilization - Continue Topamax 25 mg by mouth twice a day her mood stabilization - Continue Buspar 15mg po BID for anxiety Per the medical floor discharge summary: Tubo-ovarian abscess status post percutaneous drainage. -Continue antibiotic cefdinir 300 mg by mouth twice a day for 10 more days , reassess to extend the regimen -Drain remains in place, with plan to remove in 1-2 days if drainage decreases. Continue to monitor. Check a.m. labs -Followup with Dr. Gore, [employer] for further care and followup with primary care provider in seven days after discharge -The patient will need outpatient sleep studies hypoxic secondary to sleep disorder suggested by nocturnal oximetry. 5. Patient will be provided with protected environment. 6. Patient will be treated with individual, group, and milieu therapies. 7. Patient will receive supportive psych-education. 8. Discharge planning will commence immediately. 9. Outpatient follow-up treatment will be strongly recommended. ESTIMATED LENGTH OF STAY: 3-5 DAYS. TIME SPENT 20 minutes Vital Signs Vital Signs Date Time Temp Pulse Resp B/P Pulse Ox O2 Delivery O2 Flow Rate FiO2 09/05/16 18:37 97.6 75 18 97/73 09/04/16 01:35 97 Room Air Laboratory Data 24H Labs Laboratory Tests 2 09/05/16 07:11: Blood Urea Nitrogen 13, Creatinine 0.83, Sodium Level 138, Potassium Level 4.3, Chloride Level 102, Carbon Dioxide Level 27, Calcium Level 8.2L, Aspartate Amino Transf (AST/SGOT) 11L, Alanine Aminotransferase (ALT/SGPT) 11L, Alkaline Phosphatase 75, Total Bilirubin 0.2, Total Protein 5.9L, Albumin 2.3L, Albumin/ Globulin Ratio 0.64L, Anion Gap 9, C-Reactive Protein, Quantitative 2.42H, Glomerular Filtration Rate > 60.0 09/05/16 17:08: Bedside Glucose (Misc Panel) 141H CBC/BMP Laboratory Tests 09/05/16 07:11 Calcium Level 8.2 L, Aspartate Amino Transf (AST/SGOT) 11 L, Alanine Aminotransferase (ALT/SGPT) 11 L, Alkaline Phosphatase 75, Total Bilirubin 0.2, Total Protein 5.9 L, Albumin 2.3 L, Red Blood Count 4.09, Mean Corpuscular Volume 88.6, Mean Corpuscular Hemoglobin 27.9, Mean Corpuscular Hemoglobin Concent 31.5 L, Red Cell Distribution Width 15.9 H Current Medications Current Medications Al Hydrox/Mg Hydrox/Simethicone (Mylanta) 30 ml Q4HP PRN PO HEARTBURN/ INDIGESTION; Start 09/01/16 at 17:15; Stop 10/01/16 at 17:14 Albuterol Sulfate (Proventil, Ventolin Hfa) 2 puff Q4HP PRN INH SHORTNESS OF BREATH; Start 09/01/16 at 17:00; Stop 10/01/16 at 16:59 Albuterol/ Ipratropium (Duoneb (Ipr 0.5mg/Alb 2.5mg)) 3 ml Q4HP PRN NEB SOB/ WHEEZING; Start 09/01/16 at 17:00; Stop 10/01/16 at 16:59 Buspirone HCl (Buspar) 15 mg BID PO Last administered on 09/05/16 12:44; Start 09/01/16 at 21:00; Stop 10/01/16 at 20:59 Cefdinir (Omnicef) 300 mg BID PO Last administered on 09/05/16 12:45; Start at 21:00; Stop 09/11/16 at 21:00 Divalproex Sodium (Depakote Er) 1,500 mg QHS PO Last administered on 09/04/16 21:24; Start 09/01/16 at 21:00; Stop 10/01/16 at 20:59 Glipizide (Glucotrol) 5 mg BID@0730,1440 PO Last administered on 09/04/16 06: 40; Start 09/01/16 at 17:30; Stop 09/04/16 at 12:58; Status DC Ibuprofen (Advil) 600 mg Q6HP PRN PO PAIN Last administered on 09/02/16 04:18 ; Start 09/01/16 at 17:15; Stop 09/02/16 at 12:57; Status DC Ibuprofen (Advil) 600 mg Q6HP PRN PO PAIN Last administered on 09/05/16 17:13 ; Start 09/02/16 at 13:00; Stop 10/02/16 at 12:59 Ketoconazole (Nizoral) 1 dose BID TOP Last administered on 09/05/16 13:42; Start 09/02/16 at 09:00; Stop 10/02/16 at 08:59 Lisinopril (Prinivil) 10 mg DAILY PO Last administered on 09/05/16 12:44; Start 09/02/16 at 09:00; Stop 10/04/16 at 08:59 [place] Carbonate (Eskalith-Cr) 450 mg BID PO Last administered on 09/05/16 12 :45; Start 09/01/16 at 21:00; Stop 10/01/16 at 20:59 Magnesium Hydroxide (Milk Of Magnesia) 30 ml DAILYPRN PRN PO CONSTIPATION; Start 09/01/16 at 17:15; Stop 10/01/16 at 17:14 Metformin HCl (Glucophage) 500 mg BID@08,18 PO Last administered on 09/05/16 17:12; Start 09/01/16 at 18:00; Stop 10/01/16 at 17:59 Nicotine (Nicoderm Cq 21mg) 1 patch DAILY TD Last administered on 09/05/16 12: 48; Start 09/02/16 at 09:00; Stop 10/02/16 at 08:59 Omeprazole (PriLOSEC) 40 mg DAILY PO Last administered on 09/05/16 12:44; Start 09/02/16 at 09:00; Stop 10/02/16 at 08:59 Topiramate (TopAMAX) 25 mg BID PO Last administered on 09/05/16 12:44; Start 09/01/16 at 21:00; Stop 10/01/16 at 20:59 Trazodone HCl (Desyrel) 50 mg QHSP PRN PO INSOMNIA; Start 09/01/16 at 17:15; Stop 10/01/16 at 17:14 Allergies Coded Allergies: Codeine (Unverified Allergy, Unknown, HIVES, 10/13/12) HASMUKH KENNEDY MD Sep 05, 2016 19:09
--- NOTE | 2016-09-05 19:09 | IPNPDOC ---
[facility] Progress Note Progress Note DATE OF SERVICE: 09/06/16 Subjective: Patient declines interview with this provider. She is med compliant , she does deny SI/HI. Objective; VITAL SIGNS: See below. LABORATORY DATA: Please see below. FOLLOW UP repeat Depakote and [place] levels. MENTAL STATUS EXAMINATION: Patient is a 41-year old female, who is irritable, uncooperative, obese, I'm on her back, in mild distress reporting significant pain Speech: normal in rate, volume, and articulation, and is coherentbut non spontaneous. Language skills are intact. Thought processes: Clear /Goal directed. Thought content: Focused on getting pain meds Description of abnormal or psychotic thoughts: unable to assess Judgment: unable to assess Insight: unable to assess Orientation to time, place and person. Recent and remote memory: unable to assess Attention span and concentration: fair. Language: Normal. Fund of knowledge: adequate Mood: irrational Affect: agitated PROBLEM LIST: 1. Altered Perceptions. 2. Noncompliance. 3. June / Depression 4. Substance Abuse. 5. Self-Care Deficit INITIAL TREATMENT PLAN: 1. Patient was admitted on a 9.39 legal status. 2. Complete history was obtained. 3. With patients permission, family will be contacted and database will be expanded. 4. Patient to continue on current psychotropic med regimen: - Patient is status post 2 loading doses of Invega Sustenna, second being given on 08/31/2016 - Patient to continue on Invega Sustenna 234 mg IM every 28 days for psychosis, next injection due09/28/2016. - Continue Divalproex 1500 mg by mouth at bedtime (q.h.s.) for mood stabilization - Continue [place] 450 mg by mouth twice a day for mood stabilization - Continue Topamax 25 mg by mouth twice a day her mood stabilization - Continue Buspar 15mg po BID for anxiety Per the medical floor discharge summary: Tubo-ovarian abscess status post percutaneous drainage. -Continue antibiotic cefdinir 300 mg by mouth twice a day for 10 more days , reassess to extend the regimen -Drain remains in place, with plan to remove in 1-2 days if drainage decreases. Continue to monitor. Check a.m. labs -Followup with Dr. Gore, [employer] ENGINEER for further care and followup with primary care provider in seven days after discharge -The patient will need outpatient sleep studies hypoxic secondary to sleep disorder suggested by nocturnal oximetry. 5. Patient will be provided with protected environment. 6. Patient will be treated with individual, group, and milieu therapies. 7. Patient will receive supportive psych-education. 8. Discharge planning will commence immediately. 9. Outpatient follow-up treatment will be strongly recommended. ESTIMATED LENGTH OF STAY: 3-5 DAYS. TIME SPENT 20 minutes Vital Signs Vital Signs Date Time Temp Pulse Resp B/P Pulse Ox O2 Delivery O2 Flow Rate FiO2 09/05/16 18:37 97.6 75 18 97/73 09/04/16 01:35 97 Room Air Laboratory Data 24H Labs Laboratory Tests 2 09/05/16 07:11: Blood Urea Nitrogen 13, Creatinine 0.83, Sodium Level 138, Potassium Level 4.3, Chloride Level 102, Carbon Dioxide Level 27, Calcium Level 8.2L, Aspartate Amino Transf (AST/SGOT) 11L, Alanine Aminotransferase (ALT/SGPT) 11L, Alkaline Phosphatase 75, Total Bilirubin 0.2, Total Protein 5.9L, Albumin 2.3L, Albumin/ Globulin Ratio 0.64L, Anion Gap 9, C-Reactive Protein, Quantitative 2.42H, Glomerular Filtration Rate > 60.0 09/05/16 17:08: Bedside Glucose (Misc Panel) 141H CBC/BMP Laboratory Tests 09/05/16 07:11 Calcium Level 8.2 L, Aspartate Amino Transf (AST/SGOT) 11 L, Alanine Aminotransferase (ALT/SGPT) 11 L, Alkaline Phosphatase 75, Total Bilirubin 0.2, Total Protein 5.9 L, Albumin 2.3 L, Red Blood Count 4.09, Mean Corpuscular Volume 88.6, Mean Corpuscular Hemoglobin 27.9, Mean Corpuscular Hemoglobin Concent 31.5 L, Red Cell Distribution Width 15.9 H Current Medications Current Medications Al Hydrox/Mg Hydrox/Simethicone (Mylanta) 30 ml Q4HP PRN PO HEARTBURN/ INDIGESTION; Start 09/01/16 at 17:15; Stop 10/01/16 at 17:14 Albuterol Sulfate (Proventil, Ventolin Hfa) 2 puff Q4HP PRN INH SHORTNESS OF BREATH; Start 09/01/16 at 17:00; Stop 10/01/16 at 16:59 Albuterol/ Ipratropium (Duoneb (Ipr 0.5mg/Alb 2.5mg)) 3 ml Q4HP PRN NEB SOB/ WHEEZING; Start 09/01/16 at 17:00; Stop 10/01/16 at 16:59 Buspirone HCl (Buspar) 15 mg BID PO Last administered on 09/05/16 12:44; Start 09/01/16 at 21:00; Stop 10/01/16 at 20:59 Cefdinir (Omnicef) 300 mg BID PO Last administered on 09/05/16 12:45; Start at 21:00; Stop 09/11/16 at 21:00 Divalproex Sodium (Depakote Er) 1,500 mg QHS PO Last administered on 09/04/16 21:24; Start 09/01/16 at 21:00; Stop 10/01/16 at 20:59 Glipizide (Glucotrol) 5 mg BID@0730,1730 PO Last administered on 09/04/16 06: 40; Start 09/01/16 at 17:30; Stop 09/04/16 at 12:58; Status DC Ibuprofen (Advil) 600 mg Q6HP PRN PO PAIN Last administered on 09/02/16 04:18 ; Start 09/01/16 at 17:15; Stop 09/02/16 at 12:57; Status DC Ibuprofen (Advil) 600 mg Q6HP PRN PO PAIN Last administered on 09/05/16 17:13 ; Start 09/02/16 at 13:00; Stop 10/02/16 at 12:59 Ketoconazole (Nizoral) 1 dose BID TOP Last administered on 09/05/16 13:42; Start 09/02/16 at 09:00; Stop 10/02/16 at 08:59 Lisinopril (Prinivil) 10 mg DAILY PO Last administered on 09/05/16 12:44; Start 09/02/16 at 09:00; Stop 10/04/16 at 08:59 [place] Carbonate (Eskalith-Cr) 450 mg BID PO Last administered on 09/05/16 12 :45; Start 09/01/16 at 21:00; Stop 10/01/16 at 20:59 Magnesium Hydroxide (Milk Of Magnesia) 30 ml DAILYPRN PRN PO CONSTIPATION; Start 09/01/16 at 17:15; Stop 10/01/16 at 17:14 Metformin HCl (Glucophage) 500 mg BID@08,18 PO Last administered on 09/05/16 17:12; Start 09/01/16 at 18:00; Stop 10/01/16 at 17:59 Nicotine (Nicoderm Cq 21mg) 1 patch DAILY TD Last administered on 09/05/16 12: 48; Start 09/02/16 at 09:00; Stop 10/02/16 at 08:59 Omeprazole (PriLOSEC) 40 mg DAILY PO Last administered on 09/05/16 12:44; Start 09/02/16 at 09:00; Stop 10/02/16 at 08:59 Topiramate (TopAMAX) 25 mg BID PO Last administered on 09/05/16 12:44; Start 09/01/16 at 21:00; Stop 10/01/16 at 20:59 Trazodone HCl (Desyrel) 50 mg QHSP PRN PO INSOMNIA; Start 09/01/16 at 17:15; Stop 10/01/16 at 17:14 Allergies Coded Allergies: Codeine (Unverified Allergy, Unknown, HIVES, 10/13/12) HASMUKH KENNEDY MD Sep 05, 2016 19:09
[2016-09-05] MEDS: DIVALPROEX 250MG *ER* TAB PO SCH (21:42)
[2016-09-06 06:48] VITALS: BP 117/57
[2016-09-06 07:33] LABS: LITHIUM LEVEL 0.95 MEQ/L (0.60-1.20)
[2016-09-06] MEDS: metFORMIN (GLUCOPHAGE) 500 MG TAB PO SCH ×2 (08:00→17:03)
[2016-09-06] MEDS: LITHIUM CARBONATE 450 MG **CR** TAB PO SCH ×2 (09:00→20:44)
[2016-09-06] MEDS: OMEPRAZOLE 20 MG CAP PO SCH ×2 (09:00→16:56)
[2016-09-06] MEDS: KETOCONAZOLE 2% CREAM TOP SCH ×2 (09:00→20:45)
[2016-09-06] MEDS: CEFDINIR 300 MG CAP (OMNICEF) PO SCH ×2 (09:00→20:45)
[2016-09-06] MEDS: TOPIRAMATE (TopAMAX) 25 MG TAB PO SCH ×2 (09:00→20:44)
[2016-09-06] MEDS: busPIRone 5 MG TAB PO SCH ×2 (09:00→20:44)
[2016-09-06] MEDS: LISINOPRIL 10 MG TAB PO SCH (09:00)
[2016-09-06] MEDS: NICOTINE 21MG/24HR 1 EA TRANSDERMAL TD SCH ×2 (09:00→16:56)
[2016-09-06] MEDS: IBUPROFEN 600 MG TAB PO PRN (17:13)
[2016-09-06 18:00] VITALS: BP 100/56
[2016-09-06] MEDS: DIVALPROEX 250MG *ER* TAB PO SCH (20:44)
[2016-09-07] MEDS: IBUPROFEN 600 MG TAB PO PRN ×3 (04:44→21:20)
[2016-09-07 06:54] VITALS: BP 122/60
[2016-09-07] MEDS: KETOCONAZOLE 2% CREAM TOP SCH ×3 (09:00→21:19)
[2016-09-07] MEDS: CEFDINIR 300 MG CAP (OMNICEF) PO SCH ×2 (10:07→21:18)
[2016-09-07] MEDS: OMEPRAZOLE 20 MG CAP PO SCH (10:07)
[2016-09-07] MEDS: TOPIRAMATE (TopAMAX) 25 MG TAB PO SCH ×2 (10:07→21:18)
[2016-09-07] MEDS: NICOTINE 21MG/24HR 1 EA TRANSDERMAL TD SCH (10:07)
[2016-09-07] MEDS: busPIRone 5 MG TAB PO SCH ×2 (10:07→21:18)
[2016-09-07] MEDS: metFORMIN (GLUCOPHAGE) 500 MG TAB PO SCH ×2 (10:07→17:48)
[2016-09-07] MEDS: LITHIUM CARBONATE 450 MG **CR** TAB PO SCH ×2 (10:07→21:18)
[2016-09-07 10:08] VITALS: BP 122/60
[2016-09-07] MEDS: LISINOPRIL 10 MG TAB PO SCH (10:08)
[2016-09-07] MEDS: MAALOX 30 ML SUSP *UDC PO PRN (13:22)
--- NOTE | 2016-09-07 13:40 | REP ---
DRAINAGE CATHETER REMOVAL: The procedure was performed under the direct supervision of Dr. Javier. The patient has a 8-Italian Skater APDL catheter which was placed in an adnexal abscess on 08/28/2016. The patient is referred for removal of the drainage catheter. The risks and benefits of the procedure were explained to the patient and informed consent was obtained. Using sterile technique, the retention suture was removed and the catheter was removed without incident. A sterile dressing was applied. The patient tolerated the procedure well. Reviewed by FRANCISCO Miranda 09/07/2016 04:54 PEdited and Signed by Camilo Javier MD 09/08/2016 04:08 P
[2016-09-07 18:00] VITALS: BP 132/60
[2016-09-07] MEDS: DIVALPROEX 250MG *ER* TAB PO SCH (21:18)
[2016-09-08 06:47] VITALS: BP 88/54
[2016-09-08 07:59] LABS: MEAN CORPUSCULAR HEMOGLOBIN 28.7 pg (27.0-33.0); MEAN CORPUSCULAR HGB CONC 31.3 g/dl (32.0-36.5); MEAN CORPUSCULAR VOLUME 91.6 fl (80.0-96.0); RED CELL DISTRIBUTION WIDTH 16.7 % (11.5-14.5); WHITE BLOOD COUNT 9.7 K/mm3 (4.0-10.0)
[2016-09-08 08:26] LABS: ALBUMIN 2.3 GM/DL (3.2-5.2); ALBUMIN/GLOBULIN RATIO 0.7 (1.00-1.93); BILIRUBIN,TOTAL 0.3 MG/DL (0.2-1.0); CREATININE FOR GFR 1.38 MG/DL (0.55-1.02); GLOMERULAR FILTRATION RATE 44.4 (>58); POTASSIUM SERUM 4.6 MEQ/L (3.5-5.1); TOTAL PROTEIN 5.6 GM/DL (6.4-8.2)
[2016-09-08 09:06] LABS: LITHIUM LEVEL 1.15 MEQ/L (0.60-1.20)
[2016-09-08] MEDS: TOPIRAMATE (TopAMAX) 25 MG TAB PO SCH ×2 (09:21→21:41)
[2016-09-08] MEDS: metFORMIN (GLUCOPHAGE) 500 MG TAB PO SCH ×2 (09:21→17:33)
[2016-09-08] MEDS: OMEPRAZOLE 20 MG CAP PO SCH (09:21)
[2016-09-08] MEDS: LITHIUM CARBONATE 450 MG **CR** TAB PO SCH ×2 (09:22→21:41)
[2016-09-08] MEDS: busPIRone 5 MG TAB PO SCH ×2 (09:22→21:42)
[2016-09-08] MEDS: CEFDINIR 300 MG CAP (OMNICEF) PO SCH ×2 (09:22→21:41)
[2016-09-08] MEDS: NICOTINE 21MG/24HR 1 EA TRANSDERMAL TD SCH (09:22)
[2016-09-08] MEDS: KETOCONAZOLE 2% CREAM TOP SCH ×2 (09:23→21:41)
[2016-09-08] MEDS: ACETAMINOPHEN TAB 650MG DOSE (2X325MG) PO PRN ×3 (09:24→21:43)
[2016-09-08] MEDS: MAALOX 30 ML SUSP *UDC PO PRN (13:31)
[2016-09-08 18:00] VITALS: BP 131/71
[2016-09-08] MEDS: DIVALPROEX 250MG *ER* TAB PO SCH (21:42)
[2016-09-09] MEDS: ACETAMINOPHEN TAB 650MG DOSE (2X325MG) PO PRN ×3 (04:55→18:37)
[2016-09-09 06:37] VITALS: BP 133/84
[2016-09-09 07:03] LABS: ANION GAP 7 MEQ/L (8-16); BLOOD UREA NITROGEN 17 MG/DL (7-18); CALCIUM LEVEL 8.4 MG/DL (8.5-10.1); CARBON DIOXIDE LEVEL 27 MEQ/L (21-32); CHLORIDE LEVEL 105 MEQ/L (98-107); CREATININE FOR GFR 0.99 MG/DL (0.55-1.02); GLOMERULAR FILTRATION RATE > 60.0 (>58); GLUCOSE, FASTING 101 MG/DL (70-105); POTASSIUM SERUM 4.7 MEQ/L (3.5-5.1); SODIUM LEVEL 139 MEQ/L (136-145)
[2016-09-09] MEDS: KETOCONAZOLE 2% CREAM TOP SCH ×2 (09:00→20:53)
[2016-09-09] MEDS: CEFDINIR 300 MG CAP (OMNICEF) PO SCH ×2 (12:11→20:51)
[2016-09-09] MEDS: busPIRone 5 MG TAB PO SCH ×2 (12:11→20:52)
[2016-09-09] MEDS: metFORMIN (GLUCOPHAGE) 500 MG TAB PO SCH ×2 (12:12→18:36)
[2016-09-09] MEDS: TOPIRAMATE (TopAMAX) 25 MG TAB PO SCH ×2 (12:12→20:52)
[2016-09-09] MEDS: LITHIUM CARBONATE 450 MG **CR** TAB PO SCH ×2 (12:12→20:51)
[2016-09-09] MEDS: OMEPRAZOLE 20 MG CAP PO SCH (12:12)
[2016-09-09] MEDS: NICOTINE 21MG/24HR 1 EA TRANSDERMAL TD SCH (12:13)
[2016-09-09 18:00] VITALS: BP 123/63
[2016-09-09] MEDS: DIVALPROEX 250MG *ER* TAB PO SCH (20:53)
[2016-09-10 06:28] VITALS: BP 137/76
[2016-09-10] MEDS: NICOTINE 21MG/24HR 1 EA TRANSDERMAL TD SCH (09:04)
[2016-09-10] MEDS: CEFDINIR 300 MG CAP (OMNICEF) PO SCH ×2 (09:05→20:40)
[2016-09-10] MEDS: TOPIRAMATE (TopAMAX) 25 MG TAB PO SCH ×2 (09:05→20:40)
[2016-09-10] MEDS: metFORMIN (GLUCOPHAGE) 500 MG TAB PO SCH ×2 (09:06→18:03)
[2016-09-10] MEDS: OMEPRAZOLE 20 MG CAP PO SCH (09:06)
[2016-09-10] MEDS: busPIRone 5 MG TAB PO SCH ×2 (09:06→20:40)
[2016-09-10] MEDS: LITHIUM CARBONATE 450 MG **CR** TAB PO SCH ×2 (09:06→20:40)
[2016-09-10] MEDS: KETOCONAZOLE 2% CREAM TOP SCH ×2 (09:09→20:41)
[2016-09-10] MEDS: ACETAMINOPHEN TAB 650MG DOSE (2X325MG) PO PRN (16:54)
[2016-09-10 18:00] VITALS: BP 134/97
[2016-09-10] MEDS: DIVALPROEX 250MG *ER* TAB PO SCH (20:41)
[2016-09-11] MEDS: ACETAMINOPHEN TAB 650MG DOSE (2X325MG) PO PRN ×3 (04:06→22:16)
[2016-09-11 07:14] VITALS: BP 113/65
[2016-09-11] MEDS: TOPIRAMATE (TopAMAX) 25 MG TAB PO SCH ×2 (09:39→21:53)
[2016-09-11] MEDS: NICOTINE 21MG/24HR 1 EA TRANSDERMAL TD SCH (09:39)
[2016-09-11] MEDS: CEFDINIR 300 MG CAP (OMNICEF) PO SCH ×2 (09:39→21:54)
[2016-09-11] MEDS: OMEPRAZOLE 20 MG CAP PO SCH (09:39)
[2016-09-11] MEDS: metFORMIN (GLUCOPHAGE) 500 MG TAB PO SCH ×2 (09:39→17:18)
[2016-09-11] MEDS: LITHIUM CARBONATE 450 MG **CR** TAB PO SCH ×2 (09:39→21:53)
[2016-09-11] MEDS: busPIRone 5 MG TAB PO SCH ×2 (09:39→21:53)
[2016-09-11] MEDS: KETOCONAZOLE 2% CREAM TOP SCH ×2 (09:41→21:54)
[2016-09-11 13:00] LABS: BASO % 0.2 % (0.0-1.0); EOS # 0.2 K/mm3 (0.0-0.50); LARGE UNSTAINED CELL # 0.1 K/mm3 (0.0-0.4); LARGE UNSTAINED CELL % 1.6 % (0.0-4.0); LYMPH # 2.3 K/mm3 (1.5-4.5); LYMPH % 28.6 % (24.0-44.0); MEAN CORPUSCULAR HEMOGLOBIN 28.7 pg (27.0-33.0); MEAN CORPUSCULAR HGB CONC 31.8 g/dl (32.0-36.5); MEAN CORPUSCULAR VOLUME 90.1 fl (80.0-96.0); MONO # 0.6 K/mm3 (0.0-0.8); MONO % 7.8 % (0.0-5.0); NEUTROPHILS # 4.6 K/mm3 (1.8-7.7); NEUTROPHILS % 59.8 % (36.0-66.0); PLATELET COUNT, AUTOMATED 273 k/mm3 (150-450); RED CELL DISTRIBUTION WIDTH 16.6 % (11.5-14.5); WHITE BLOOD COUNT 7.7 K/mm3 (4.0-10.0)
[2016-09-11 13:20] LABS: ALBUMIN 2.4 GM/DL (3.2-5.2); ALBUMIN/GLOBULIN RATIO 0.75 (1.00-1.93); ALKALINE PHOSPHATASE 66 U/L (45-117); ALT/SGPT 11 U/L (12-78); ANION GAP 9 MEQ/L (8-16); AST/SGOT 7 U/L (15-37); BILIRUBIN,TOTAL 0.2 MG/DL (0.2-1.0); BLOOD UREA NITROGEN 14 MG/DL (7-18); CALCIUM LEVEL 8.2 MG/DL (8.5-10.1); CARBON DIOXIDE LEVEL 25 MEQ/L (21-32); CHLORIDE LEVEL 107 MEQ/L (98-107); CREATININE FOR GFR 0.83 MG/DL (0.55-1.02); GLOMERULAR FILTRATION RATE > 60.0 (>58); GLUCOSE, FASTING 99 MG/DL (70-105); POTASSIUM SERUM 4.5 MEQ/L (3.5-5.1); SODIUM LEVEL 141 MEQ/L (136-145); TOTAL PROTEIN 5.6 GM/DL (6.4-8.2)
[2016-09-11 18:00] VITALS: BP 125/57
[2016-09-11] MEDS: DIVALPROEX 250MG *ER* TAB PO SCH (21:54)
[2016-09-11] MEDS: traZODone 50 MG TAB PO PRN (22:15)
[2016-09-12 06:48] VITALS: BP 110/51
[2016-09-12] MEDS: busPIRone 5 MG TAB PO SCH ×2 (09:45→21:34)
[2016-09-12] MEDS: OMEPRAZOLE 20 MG CAP PO SCH (09:45)
[2016-09-12] MEDS: metFORMIN (GLUCOPHAGE) 500 MG TAB PO SCH ×2 (09:45→17:57)
[2016-09-12] MEDS: TOPIRAMATE (TopAMAX) 25 MG TAB PO SCH ×2 (09:45→21:34)
[2016-09-12] MEDS: LITHIUM CARBONATE 450 MG **CR** TAB PO SCH ×2 (09:46→21:35)
[2016-09-12] MEDS: KETOCONAZOLE 2% CREAM TOP SCH ×2 (09:47→21:44)
[2016-09-12] MEDS: NICOTINE 21MG/24HR 1 EA TRANSDERMAL TD SCH (09:58)
[2016-09-12 18:00] VITALS: BP 107/53
[2016-09-12] MEDS: DIVALPROEX 250MG *ER* TAB PO SCH (21:35)
[2016-09-12] MEDS: ACETAMINOPHEN TAB 650MG DOSE (2X325MG) PO PRN (21:42)
[2016-09-12] MEDS: MAALOX 30 ML SUSP *UDC PO PRN (21:42)
[2016-09-13 06:00] VITALS: BP 121/88
[2016-09-13] MEDS: ACETAMINOPHEN TAB 650MG DOSE (2X325MG) PO PRN ×2 (06:16→21:39)
[2016-09-13] MEDS: KETOCONAZOLE 2% CREAM TOP SCH ×2 (09:00→21:00)
[2016-09-13] MEDS: OMEPRAZOLE 20 MG CAP PO SCH (10:07)
[2016-09-13] MEDS: LITHIUM CARBONATE 450 MG **CR** TAB PO SCH ×2 (10:08→21:39)
[2016-09-13] MEDS: metFORMIN (GLUCOPHAGE) 500 MG TAB PO SCH ×2 (10:08→18:42)
[2016-09-13] MEDS: NICOTINE 21MG/24HR 1 EA TRANSDERMAL TD SCH (10:08)
[2016-09-13] MEDS: busPIRone 5 MG TAB PO SCH ×2 (10:08→21:38)
[2016-09-13] MEDS: TOPIRAMATE (TopAMAX) 25 MG TAB PO SCH ×2 (10:08→21:39)
[2016-09-13] MEDS: traZODone 50 MG TAB PO PRN (21:39)
[2016-09-13] MEDS: DIVALPROEX 250MG *ER* TAB PO SCH (21:39)
[2016-09-14 06:29] VITALS: BP 133/85
[2016-09-14] MEDS: NICOTINE 21MG/24HR 1 EA TRANSDERMAL TD SCH (09:34)
[2016-09-14] MEDS: busPIRone 5 MG TAB PO SCH ×2 (09:35→21:34)
[2016-09-14] MEDS: OMEPRAZOLE 20 MG CAP PO SCH (09:35)
[2016-09-14] MEDS: KETOCONAZOLE 2% CREAM TOP SCH ×2 (09:35→21:00)
[2016-09-14] MEDS: LITHIUM CARBONATE 450 MG **CR** TAB PO SCH ×2 (09:35→21:33)
[2016-09-14] MEDS: metFORMIN (GLUCOPHAGE) 500 MG TAB PO SCH ×2 (09:35→17:15)
[2016-09-14] MEDS: TOPIRAMATE (TopAMAX) 25 MG TAB PO SCH ×2 (09:35→21:34)
--- NOTE | 2016-09-14 10:30 | IPNPDOC ---
Subjective Date Seen The patient was seen on 09/14/16. Subjective Chief Complaint/HPI The patient is a 41-year-old female admitted with a reason for visit of Psychosis. Events since last encounter Trying to speak to pt re LE pain. She states has some tingling in feet. Then states "I don't want to be questioned anymore about my legs". "Goodbye and get out". States she is tired. General: Reports: ROS Unobtainable Objective Physical Examination General Exam: Positive: Alert Neuro Exam: Positive: Normal Gait Other physical findings Pt refuses exam. Assessment /Plan Problems (1) Tubo-ovarian abscess Status: Acute Problem Text: * S/P percutaneous drainage 08/28/16 * afebrile. * WBC WNL . * CRP trend downward. * Drain D/C 09/04/16. * po Omnicef completed x 10 days * Plan is for outpt F/U with Dr Gore. (2) Hypertension Status: Chronic Problem Text: * lisinopril (3) Asthma Status: Chronic Problem Text: * Duoneb * Proventil (4) Diabetes Status: Chronic Problem Text: * Metformin * Glipizide (5) Leg pain Status: Chronic Problem Text: * Pt reporting to staff that she wright chronic LE pain. * Pt declining to provide hx or participate with exam. * No apparent calf erythema or edema. * Will check U/S B/L LEs * Will check XR of LS spine. * Will add Vitamin B12 and folate to labs (pt reports paresthesia). * Pt has had TSH WNL. * It is possible she has PN related to her DM- would need outpt workup. * Monitor Plan/VTE VTE Prophylaxis Ordered?: No (ambulatory. ) VS, I&O, 24H, Fishbone Vital Signs/I&O Vital Signs Date Time Temp Pulse Resp B/P Pulse Ox O2 Delivery O2 Flow Rate FiO2 09/14/16 06:29 97.1 50 20 133/85 09/13/16 08:03 Room Air Raegan Tran Sep 14, 2016 10:30 Raegan Tran Sep 14, 2016 10:30 Raegan Tran Sep 14, 2016 10:30
[2016-09-14 11:17] LABS: MEAN CORPUSCULAR HEMOGLOBIN 29.3 pg (27.0-33.0); MEAN CORPUSCULAR HGB CONC 32.4 g/dl (32.0-36.5); MEAN CORPUSCULAR VOLUME 90.3 fl (80.0-96.0); RED CELL DISTRIBUTION WIDTH 17.2 % (11.5-14.5); WHITE BLOOD COUNT 7.8 K/mm3 (4.0-10.0)
[2016-09-14 12:06] LABS: ALBUMIN 2.3 GM/DL (3.2-5.2); ALBUMIN/GLOBULIN RATIO 0.79 (1.00-1.93); ALKALINE PHOSPHATASE 56 U/L (45-117); ALT/SGPT 9 U/L (12-78); ANION GAP 6 MEQ/L (8-16); AST/SGOT 7 U/L (15-37); BILIRUBIN,TOTAL 0.3 MG/DL (0.2-1.0); BLOOD UREA NITROGEN 11 MG/DL (7-18); CARBON DIOXIDE LEVEL 27 MEQ/L (21-32); CHLORIDE LEVEL 107 MEQ/L (98-107); CREATININE FOR GFR 0.76 MG/DL (0.55-1.02); GLOMERULAR FILTRATION RATE > 60.0 (>58); GLUCOSE, FASTING 120 MG/DL (70-105); POTASSIUM SERUM 4.3 MEQ/L (3.5-5.1); SODIUM LEVEL 140 MEQ/L (136-145); TOTAL PROTEIN 5.2 GM/DL (6.4-8.2)
[2016-09-14] MEDS ORDERED: HALOPERIDOL 5 MG TAB PO PRN (14:45)
[2016-09-14] MEDS ORDERED: LORazepam 2 MG TAB PO PRN (14:45)
[2016-09-14 16:48] LABS: FOLATE 3.4 NG/ML (>5.4); VITAMIN B12 LEVEL 217 PG/ML (247-911)
--- NOTE | 2016-09-14 17:23 | REP ---
Duplex extremity venous ultrasound: Bilateral lower extremity study. History: Pain. Question DVT. Findings: The deep veins are anechoic and fully compressible from the groin to the popliteal fossa in the left and right lower extremity. Color flow imaging is homogeneous. Spectral Doppler interrogation demonstrates intact respiratory variation in flow and normal manual augmentation of flow. There is no evidence of deep vein thrombosis. Impression: Negative bilateral lower extremity duplex venous ultrasound. No evidence of deep vein thrombosis. Signed by Mark Tilley MD 09/14/2016 05:14 P
[2016-09-14 18:00] VITALS: BP 118/62
[2016-09-14] MEDS: DIVALPROEX 250MG *ER* TAB PO SCH (21:34)
[2016-09-14] MEDS: HALOPERIDOL 10 MG TAB PO SCH (21:34)
[2016-09-15] MEDS: ACETAMINOPHEN TAB 650MG DOSE (2X325MG) PO PRN ×2 (03:39→16:08)
[2016-09-15 06:30] VITALS: BP 137/80
--- NOTE | 2016-09-15 08:13 | IPNPDOC ---
Subjective Date Seen The patient was seen on 09/15/16. Subjective Chief Complaint/HPI The patient is a 41-year-old female admitted with a reason for visit of Psychosis. Events since last encounter Requested to evaluate patient for chest pain. Patient reported chest pain to staff. Patient is lying down in bed, she states pain has been there since yesterday. She states it is achy pain. She denies any radiation of pain. She denies any associated shortness of breath, palpitations. She states sometimes it is painful when she rubs the area over the left chest. It does not change if she swallows or moves. She states " leave me alone it just hurts, you're going to make me cry" . She has been up out of bed ambulating in the hallway this morning. Pulmonary: Denies: Cough, Dyspnea Gastrointestinal: Denies: Abdominal Pain, Constipation, Diarrhea, Nausea, Vomiting Genitourinary: Denies: Dysuria, Frequency, Incontinence, Retention Objective Physical Examination General Exam: Positive: Alert ENT Exam: Positive: Atraumatic Neuro Exam: Positive: Normal Gait Other physical findings She refuses examination. Assessment /Plan Problems (1) Tubo-ovarian abscess Status: Acute Problem Text: * S/P percutaneous drainage 08/28/16 * afebrile. * WBC WNL . * CRP trend downward. * Drain D/C 09/04/16. * po Omnicef completed x 10 days * Plan is for outpt F/U with Dr Gore. (2) Hypertension Status: Chronic Problem Text: * lisinopril (3) Asthma Status: Chronic Problem Text: * Duoneb * Proventil (4) Diabetes Status: Chronic Problem Text: * Metformin * Glipizide (5) Leg pain Status: Chronic Problem Text: * Pt reporting to staff that she wright chronic LE pain. * Pt declining to provide hx or participate with exam. * No apparent calf erythema or edema. * U/S B/L LEs 09/14 negative * XR of LS spine patient refused. * Vitamin B12 in the indeterminate range-will supplement . * folate in the indeterminate range-will supplement. * Pt has had TSH WNL. * It is possible sx are related to PN related to her DM- would need outpt workup. * Monitor (6) Chest pain Status: Acute Problem Text: * Check EKG * Update labs-CBC/CMP * Check CIP/troponin. * Give dose of Mylanta Plan/VTE VTE Prophylaxis Ordered?: No (ambulatory. ) VS, I&O, 24H, Fishbone Vital Signs/I&O Vital Signs Date Time Temp Pulse Resp B/P Pulse Ox O2 Delivery O2 Flow Rate FiO2 09/15/16 06:30 96.5 69 16 137/80 09/13/16 08:03 Room Air Laboratory Data 24H LABS Laboratory Tests 2 09/14/16 10:50: Blood Urea Nitrogen 11, Creatinine 0.76, Sodium Level 140, Potassium Level 4.3, Chloride Level 107, Carbon Dioxide Level 27, Calcium Level 8.0L, Aspartate Amino Transf (AST/SGOT) 7L, Alanine Aminotransferase (ALT/SGPT) 9L, Alkaline Phosphatase 56, Total Bilirubin 0.3, Total Protein 5.2L, Albumin 2.3L, Albumin/ Globulin Ratio 0.79L, Anion Gap 6L, Folate 3.4L, Glomerular Filtration Rate > 60.0, Vitamin B12 Level 217L 09/14/16 17:09: Bedside Glucose (Misc Panel) 130H CBC/BMP Laboratory Tests 09/14/16 10:50 Calcium Level 8.0 L, Aspartate Amino Transf (AST/SGOT) 7 L, Alanine Aminotransferase (ALT/SGPT) 9 L, Alkaline Phosphatase 56, Total Bilirubin 0.3, Total Protein 5.2 L, Albumin 2.3 L, Red Blood Count 3.61 L, Mean Corpuscular Volume 90.3, Mean Corpuscular Hemoglobin 29.3, Mean Corpuscular Hemoglobin Concent 32.4, Red Cell Distribution Width 17.2 H Raegan Tran Sep 15, 2016 08:13
[2016-09-15 08:51] LABS: MEAN CORPUSCULAR HEMOGLOBIN 28.7 pg (27.0-33.0); MEAN CORPUSCULAR HGB CONC 32.2 g/dl (32.0-36.5); MEAN CORPUSCULAR VOLUME 89.3 fl (80.0-96.0); RED CELL DISTRIBUTION WIDTH 17.2 % (11.5-14.5); WHITE BLOOD COUNT 9.2 K/mm3 (4.0-10.0)
[2016-09-15] MEDS ORDERED: QUEtiapine FUMARATE 25 MG TAB PO ONE (09:00)
--- NOTE | 2016-09-15 09:11 | ECGEPIP ---
Stationary ECG Study [facility] Test Date: 2016-09-15 Pat Name: JAMARCUS SPICER Department: Room: [place] [address] Gender: F Member Services Coordinator: JOHN : 1975 Requested By: Raegan Tran Order Number: [id number] Reading MD: Loni Lyon Measurements Intervals [place] Rate: 59 P: 12 SD: 166 QRS: 55 QRSD: 93 T: 50 QT: 427 QTc: 423 Interpretive Statements SINUS BRADYCARDIA 1ST DEGREE BLOCK LOW VOLTAGE NO PRIOR Electronically Signed On 09-15-2016 9:11:27 EST by Loni Lyon
[2016-09-15 09:15] LABS: ALBUMIN 2.4 GM/DL (3.2-5.2); ALKALINE PHOSPHATASE 53 U/L (45-117); ALT/SGPT 9 U/L (12-78); ANION GAP 9 MEQ/L (8-16); AST/SGOT 6 U/L (15-37); BILIRUBIN,TOTAL 0.3 MG/DL (0.2-1.0); BLOOD UREA NITROGEN 12 MG/DL (7-18); CALCIUM LEVEL 7.8 MG/DL (8.5-10.1); CARBON DIOXIDE LEVEL 25 MEQ/L (21-32); CHLORIDE LEVEL 106 MEQ/L (98-107); CREATININE FOR GFR 0.85 MG/DL (0.55-1.02); GLOMERULAR FILTRATION RATE > 60.0 (>58); GLUCOSE, FASTING 134 MG/DL (70-105); POTASSIUM SERUM 4.2 MEQ/L (3.5-5.1); SODIUM LEVEL 140 MEQ/L (136-145); TOTAL PROTEIN 5.4 GM/DL (6.4-8.2)
[2016-09-15] MEDS: KETOCONAZOLE 2% CREAM TOP SCH ×2 (09:19→21:00)
[2016-09-15] MEDS: LITHIUM CARBONATE 450 MG **CR** TAB PO SCH ×2 (09:19→21:09)
[2016-09-15] MEDS: metFORMIN (GLUCOPHAGE) 500 MG TAB PO SCH ×2 (09:19→17:21)
[2016-09-15] MEDS: TOPIRAMATE (TopAMAX) 25 MG TAB PO SCH ×2 (09:19→21:09)
[2016-09-15] MEDS: OMEPRAZOLE 20 MG CAP PO SCH (09:19)
[2016-09-15] MEDS: busPIRone 5 MG TAB PO SCH ×2 (09:19→21:09)
[2016-09-15] MEDS: NICOTINE 21MG/24HR 1 EA TRANSDERMAL TD SCH (09:26)
[2016-09-15 10:24] LABS: FERRITIN 91 NG/ML (8-252)
[2016-09-15 14:00] LABS: PERCENT SATURATION 41.8 % (13.2-37.4); TOTAL IRON BINDING CAPACITY 340 UG/DL (250-450)
[2016-09-15] MEDS ORDERED: CYANOCOBALAMIN 1,000 MCG/ML VIAL (J3420) IM ONE (15:00)
[2016-09-15] MEDS: FOLIC ACID 1 MG TAB PO SCH (16:04)
[2016-09-15] MEDS: DIVALPROEX 250MG *ER* TAB PO SCH (21:09)
[2016-09-15] MEDS: HALOPERIDOL 10 MG TAB PO SCH (21:09)
[2016-09-15 22:23] VITALS: BP 94/54
[2016-09-16] MEDS: ACETAMINOPHEN TAB 650MG DOSE (2X325MG) PO PRN (05:12)
[2016-09-16 06:15] VITALS: BP 118/78
[2016-09-16] MEDS: CYANOCOBALAMIN 500 MCG TAB PO SCH (09:37)
[2016-09-16] MEDS: LITHIUM CARBONATE 450 MG **CR** TAB PO SCH ×2 (09:37→21:51)
[2016-09-16] MEDS: NICOTINE 21MG/24HR 1 EA TRANSDERMAL TD SCH (09:37)
[2016-09-16] MEDS: FOLIC ACID 1 MG TAB PO SCH (09:37)
[2016-09-16] MEDS: metFORMIN (GLUCOPHAGE) 500 MG TAB PO SCH ×2 (09:37→17:14)
[2016-09-16] MEDS: TOPIRAMATE (TopAMAX) 25 MG TAB PO SCH ×2 (09:37→21:51)
[2016-09-16] MEDS: OMEPRAZOLE 20 MG CAP PO SCH (09:37)
[2016-09-16] MEDS: KETOCONAZOLE 2% CREAM TOP SCH ×2 (09:38→21:53)
[2016-09-16] MEDS: busPIRone 5 MG TAB PO SCH ×2 (09:38→21:52)
[2016-09-16 18:00] VITALS: BP 117/60
[2016-09-16] MEDS: HALOPERIDOL 10 MG TAB PO SCH (21:51)
[2016-09-16] MEDS: DIVALPROEX 250MG *ER* TAB PO SCH (21:52)
[2016-09-17 06:39] VITALS: BP 137/79
[2016-09-17] MEDS ORDERED: TRAZO50TA PO (07:17)
[2016-09-17] MEDS ORDERED: LITH45TASA PO (07:17)
[2016-09-17] MEDS ORDERED: LORA2TA PO (07:17)
[2016-09-17] MEDS ORDERED: HALO5TA PO (07:17)
[2016-09-17] MEDS ORDERED: TOPA25TA10 PO (07:17)
[2016-09-17] MEDS ORDERED: HALO10TA PO (07:17)
[2016-09-17] MEDS ORDERED: BUSP5TA PO (07:17)
[2016-09-17] MEDS ORDERED: DEPA250T2 PO (07:17)
[2016-09-17] MEDS ORDERED: NICO21PAT TD (08:54)
[2016-09-17] MEDS: NICOTINE 21MG/24HR 1 EA TRANSDERMAL TD SCH (09:00)
[2016-09-17] MEDS: FOLIC ACID 1 MG TAB PO SCH (09:26)
[2016-09-17] MEDS: LITHIUM CARBONATE 450 MG **CR** TAB PO SCH (09:26)
[2016-09-17] MEDS: OMEPRAZOLE 20 MG CAP PO SCH (09:27)
[2016-09-17] MEDS: metFORMIN (GLUCOPHAGE) 500 MG TAB PO SCH (09:27)
[2016-09-17] MEDS: TOPIRAMATE (TopAMAX) 25 MG TAB PO SCH (09:27)
[2016-09-17] MEDS: CYANOCOBALAMIN 500 MCG TAB PO SCH (09:27)
[2016-09-17] MEDS: KETOCONAZOLE 2% CREAM TOP SCH (09:27)
[2016-09-17] MEDS: busPIRone 5 MG TAB PO SCH (09:27)
[2016-09-17] MEDS ORDERED: VITA-5 PO (09:51)
[2016-09-17] MEDS ORDERED: FOLI1TAB2 PO (09:53)
--- NOTE | 2016-10-30 06:01 | MHDS ---
DATE OF ADMISSION: 09/01/2016 DATE OF DISCHARGE: 09/17/2016 HISTORY: This patient has a well known history of bipolar disorder with severe manic episodes often associated with polysubstance abuse. Her drugs of choice are opiates and marijuana. She was transferred to this unit from the medical/ surgical service on 09/01/2016. She was discharged from the mental health unit on 09/17/2016. Of note, this patient was originally admitted to the hospital because of an acute psychotic manic episode on 08/17/2016. During her course of stay, she developed abdominal pain, and this was later found to be a tubo-ovarian abscess. She was taken to surgery and, after she stabilized, she was transferred to psychiatry on 09/01/2016. This patient has a very complicated psychiatric history because of her noncompliance with treatment and her polysubstance abuse. When she has a manic relapse, she becomes gravely disabled and is a threat to herself and possibly others. She was admitted involuntarily. Patient was seen for medical followup for her recent surgery and to manage her other problems that include morbid obesity, chronic obstructive pulmonary disease, diabetes, GERD and hypertension. For details of her medical, surgical, and gynecological evaluation, please consult the medical record. Upon being transferred from the medical floor on 09/01/2016, patient denied being a suicide risk, but received close observation during her initial stay. She remained in a manic state that needed a medication adjustment to achieve resolution. It took awhile to also treat her psychosis. DISCHARGE MENTAL STATUS: Patient was appropriately dressed and groomed. She is morbidly obese. There was no apparent physical distress. Patient, initially unfriendly, became friendly and cooperative. She had labile mood accompanied by agitation, but she was able to control her impulses. Speech was articulate with normal rate but increased volume. Her mood was "so-so." Her thought process was mostly lucid, linear, and goal directed, but at times she would derail and it would be to hard follow her associations. Thought content revealed low-grade psychosis and manic agitation. Ideation: No definite lethal ideation. She denied active hallucinosis. Her insight was poor. Judgment was impaired. Impulse control, as stated before, was good, and her cognition was grossly intact. DISCHARGE DIAGNOSES: Psychological: Bipolar disorder, manic psychosis. Polysubstance abuse. Physical: Her medical illnesses include morbid obesity, chronic obstructive pulmonary disease (COPD). She was recovering from surgery for a tubo-ovarian abscess. She had diabetes managed with metformin and glipizide; she does not take insulin. She has hypertension. This patient was to continue the following medicines at home: - albuterol inhaler and albuterol nebulizer - lisinopril - metformin - omeprazole Psychiatric medication was prescribed for 1 week but given three refills except for lorazepam. Her medication included: - BuSpar 15 mg by mouth twice a day - Depakote ER 1500 mg by mouth at bedtime - Haldol 5 mg by mouth four times a day as needed for agitation - Haldol 10 mg by mouth at bedtime for both mood stability and insomnia - She was on lithium ER 450 mg twice a day. - lorazepam 2 mg four times a day as needed anxiety - She is on Topamax 25 mg twice a day for mood stability. - She takes trazodone 50 mg nightly as needed sleep. This patient is to return home. She has a scheduled visit with the assertive community treatment (ACT) team later the day of this discharge. She will be referred for intensive case management. She is to see her primary care provider (PCP) for medical followup. Her lethal risk is low at this time. Safety plan is uncertain during a crisis but, when sober and "sane," she knows what to do during a time of crisis, namely call 911 or go to the emergency room. Psychiatric discharge management took approximately 45 minutes. ANNE-MARIE
== END 2016-09-17 10:17 | disposition home or self-care (01) | DRG 753 ==
LOC: M PSY 15:26
PROVIDERS: ADMIT Psychiatry & Neurology Psychiatry; ATTEND Psychiatry & Neurology Psychiatry
DX: F31.2 Bipolar disorder, current episode manic severe with psychotic features (principal); Z68.43 Body mass index [BMI] 50.0-59.9, adult; I10 Essential (primary) hypertension; E66.01 Morbid (severe) obesity due to excess calories; J44.9 Chronic obstructive pulmonary disease, unspecified; E11.9 Type 2 diabetes mellitus without complications; Z79.899 Other long term (current) drug therapy; F17.200 Nicotine dependence, unspecified, uncomplicated; E78.5 Hyperlipidemia, unspecified; J45.909 Unspecified asthma, uncomplicated

== ENCOUNTER → 2016-10-22 | Outpatient (REF) | payer MEDICAID ==
[~2016-10-22] MED LIST changes: +BUSP5TA PO; +DEPA250T2 PO; +FOLI1TAB2 PO; +HALO10TA PO; +HALO5TA PO; +LORA2TA PO; +TOPA25TA10 PO; +TRAZO50TA PO; +VITA-5 PO
[2016-10-23 17:58] LABS: LITHIUM LEVEL 0.32 MEQ/L (0.60-1.20)
== END ==
LOC: M SFHCLACO 15:36
PROVIDERS: ATTEND Physician Assistant
DX: R25.1 Tremor, unspecified (principal); Z79.899 Other long term (current) drug therapy; R32 Unspecified urinary incontinence

== ENCOUNTER → 2016-11-24 | Outpatient (REF) | payer OTHER | LOC: M SFHCWAGY 14:19 | PROVIDERS: ATTEND Nurse Practitioner Family | DX: Z12.4 Encounter for screening for malignant neoplasm of cervix (principal); Z11.3 Encounter for screening for infections with a predominantly sexual mode of transmission | CPT/HCPCS: 87491; 87591; G0123 ==

== ENCOUNTER → 2017-04-28 | Outpatient (CLI) | payer OTHER ==
[~2017-04-28] MED LIST changes: -FOLI1TAB2 PO; +FOLI1TAB4 PO; -HALO10TA PO; +HALO10TA2 PO; -METF500T PO; +METF500T13 PO; +TOPA1TAB PO; -TOPA25TA10 PO; +TOPI25TA10 PO; -TOPI25TA5 PO
--- NOTE | 2017-04-29 08:08 | REP ---
Clinical: Pelvic pain with prior abscess drainage. Comparison: 08/28/2016. Technique: Transabdominal pelvic ultrasound followed by transvaginal examination for better evaluation of the endometrium and adnexa. Findings: Bladder measures approximately 10.9 x 4.1 x 7.7 cm. Heterogeneous anteverted uterus measures 10.1 x 4.8 x 6.3 cm. Endometrial complex measures 7.3 mm thickness. The ovaries are not definitively identified. There is a complex multi septated cystic area in the left adnexa measuring approximately 12.5 x 5.3 x 6.5 cm on transabdominal imaging which is similar to the previously noted complex left adnexal lesion/collection. Further, more definitive evaluation is limited by ultrasound. No significant free fluid. Impression: 1. Relatively normal appearance to the uterus. 2. Ovaries are not confidently identifiable. 3. Complex multi septated lesion in the left adnexa similar to prior examination cannot be further characterized or evaluated by ultrasound. Contrast enhanced CT of the abdomen and pelvis is recommended for further investigation.
== END ==
LOC: M WHC 08:58
PROVIDERS: ATTEND Nurse Practitioner Family
DX: N83.202 Unspecified ovarian cyst, left side (principal)

== ENCOUNTER → 2017-05-04 | Outpatient (REF) | payer OTHER ==
[2017-05-04 15:30] LABS: BLOOD UREA NITROGEN 9 MG/DL (7-18); CREATININE FOR GFR 0.92 MG/DL (0.55-1.02); GLOMERULAR FILTRATION RATE > 60.0 (>58)
== END ==
LOC: M SFHCWAGY 10:21
PROVIDERS: ATTEND Nurse Practitioner Women's Health
DX: N83.202 Unspecified ovarian cyst, left side (principal)

== ENCOUNTER → 2017-07-23 | Outpatient (REF) | payer OTHER ==
[2017-07-23 18:37] LABS: BASO % 0.3 % (0.0-1.0); EOS # 0.1 10^3/uL (0.0-0.50); EOS % 1.2 % (0.0-3.0); HEMATOCRIT 44.7 % (36.0-47.0); HEMOGLOBIN 14.2 g/dl (12.0-16.0); IMMATURE GRANULOCYTE % 0.4 % (0-0); LYMPH # 3.1 10^3/uL (1.5-4.5); LYMPH % 30.3 % (24.0-44.0); MEAN CORPUSCULAR HEMOGLOBIN 31.1 pg (27.0-33.0); MEAN CORPUSCULAR HGB CONC 31.8 g/dl (32.0-36.5); MEAN CORPUSCULAR VOLUME 97.8 fl (80.0-96.0); MONO # 0.6 10^3/uL (0.0-0.8); NEUTROPHILS # 6.3 10^3/uL (1.8-7.7); NEUTROPHILS % 61.8 % (36.0-66.0); PLATELET COUNT, AUTOMATED 312 10^3/uL (150-450); RED BLOOD COUNT 4.57 10^6/uL (4.00-5.40); RED CELL DISTRIBUTION WIDTH 14.4 % (11.5-14.5); WHITE BLOOD COUNT 10.1 10^3/uL (4.0-10.0)
[2017-07-23 18:47] LABS: INR 0.94; PROTHROMBIN TIME 12.7 SECONDS (12.4-14.5)
[2017-07-23 18:48] LABS: PARTIAL THROMBOPLASTIN TIME 26.9 SECONDS (26.8-37.9)
[2017-07-23 18:55] LABS: ESTIMATED AVERAGE GLUCOSE 94 MG/DL (60-110); HEMOGLOBIN A1c 4.9 %
[2017-07-23 19:12] LABS: ALBUMIN 3.6 GM/DL (3.2-5.2); ALBUMIN/GLOBULIN RATIO 1.13 (1.00-1.93); ALKALINE PHOSPHATASE 64 U/L (45-117); ALT/SGPT 13 U/L (12-78); ANION GAP 6 MEQ/L (8-16); AST/SGOT 8 U/L (7-37); BILIRUBIN,TOTAL 0.3 MG/DL (0.2-1.0); BLOOD UREA NITROGEN 12 MG/DL (7-18); CALCIUM LEVEL 8.5 MG/DL (8.5-10.1); CARBON DIOXIDE LEVEL 29 MEQ/L (21-32); CHLORIDE LEVEL 104 MEQ/L (98-107); CREATININE FOR GFR 0.75 MG/DL (0.55-1.02); FREE T4 0.95 NG/DL (0.76-1.46); GLOMERULAR FILTRATION RATE > 60.0 (>58); GLUCOSE, FASTING 74 MG/DL (70-105); POTASSIUM SERUM 4.5 MEQ/L (3.5-5.1); SODIUM LEVEL 139 MEQ/L (136-145); TOTAL PROTEIN 6.8 GM/DL (6.4-8.2); VALPROIC ACID (DEPAKOTE) 37.3 UG/ML (50.0-100.0)
[2017-07-23 19:15] LABS: LITHIUM LEVEL 0.68 MEQ/L (0.60-1.20)
== END ==
LOC: M SFHCPLAZ 16:15
DX: I10 Essential (primary) hypertension (principal); E11.40 Type 2 diabetes mellitus with diabetic neuropathy, unspecified; F20.1 Disorganized schizophrenia

== ENCOUNTER → 2017-07-28 | Outpatient (CLI) | payer OTHER | LOC: M SLEEP HO 09:18 | DX: G47.33 Obstructive sleep apnea (adult) (pediatric) (principal) ==

== ENCOUNTER → 2017-09-14 | Outpatient (REF) | payer OTHER ==
[2017-09-14 15:08] LABS: ALBUMIN 3.2 GM/DL (3.2-5.2); ALBUMIN/GLOBULIN RATIO 1.03 (1.00-1.93); ALKALINE PHOSPHATASE 65 U/L (45-117); ALT/SGPT 13 U/L (12-78); ANION GAP 8 MEQ/L (8-16); AST/SGOT 9 U/L (7-37); BILIRUBIN,TOTAL 0.5 MG/DL (0.2-1.0); BLOOD UREA NITROGEN 11 MG/DL (7-18); CALCIUM LEVEL 8.2 MG/DL (8.5-10.1); CARBON DIOXIDE LEVEL 27 MEQ/L (21-32); CHLORIDE LEVEL 105 MEQ/L (98-107); CREATININE FOR GFR 0.78 MG/DL (0.55-1.30); GLOMERULAR FILTRATION RATE > 60.0 (>58); GLUCOSE, FASTING 104 MG/DL (70-100); POTASSIUM SERUM 4.7 MEQ/L (3.5-5.1); SODIUM LEVEL 140 MEQ/L (136-145); TOTAL PROTEIN 6.3 GM/DL (6.4-8.2); VALPROIC ACID (DEPAKOTE) 35.8 UG/ML (50.0-100.0)
[2017-09-14 15:18] LABS: LITHIUM LEVEL < 0.20 MEQ/L (0.60-1.20)
== END ==
LOC: M SFHCLACO 10:51
DX: F20.1 Disorganized schizophrenia (principal); I10 Essential (primary) hypertension
CPT/HCPCS: 80178

== ENCOUNTER 2017-09-17 06:14 | Day surgery (SDC) | payer OTHER ==
[2017-09-17] MEDS ORDERED: LIDOCAINE 1% MDV 20ML VIAL SQ (06:30)
[2017-09-17 06:52] LABS: HEMATOCRIT 43.6 % (36.0-47.0); HEMOGLOBIN 13.8 g/dl (12.0-16.0); MEAN CORPUSCULAR HEMOGLOBIN 31.8 pg (27.0-33.0); MEAN CORPUSCULAR HGB CONC 31.7 g/dl (32.0-36.5); MEAN CORPUSCULAR VOLUME 100.5 fl (80.0-96.0); PLATELET COUNT, AUTOMATED 241 10^3/uL (150-450); RED BLOOD COUNT 4.34 10^6/uL (4.00-5.40); RED CELL DISTRIBUTION WIDTH 14.2 % (11.5-14.5); WHITE BLOOD COUNT 7.4 10^3/uL (4.0-10.0)
[2017-09-17 07:02] LABS: CONTROL LINE UCG INT CTR LINE PRESENT; URINE PREG TEST NEGATIVE (NEGATIVE)
[2017-09-17] MEDS ORDERED: ALBUTEROL SULFATE 2.5 MG/0.5 ML INH NEB SOLN As Ordered (07:13)
[2017-09-17] MEDS: LR 1,000 ML IV ×4 (07:15→20:53)
[2017-09-17] MEDS ORDERED: dexameTHASONE 4 MG/ML 1ML VIAL (J1100) As Ordered (07:19)
[2017-09-17] MEDS ORDERED: ONDANSETRON 4MG/2ML VIAL (J2405) As Ordered (07:19)
[2017-09-17] MEDS ORDERED: PROPOFOL 200 MG/20 ML VIAL As Ordered ×3 (07:19→09:59)
[2017-09-17] MEDS ORDERED: KETOROLAC 60 MG/2 ML VIAL (J1885) As Ordered (07:19)
[2017-09-17] MEDS ORDERED: LIDOCAINE 2% INJ 100 MG/5 ML SDV (FOR ANES.) As Ordered (07:19)
[2017-09-17] MEDS ORDERED: NEOSTIGMINE 10 MG/10 ML VIAL (J2710) As Ordered (07:19)
[2017-09-17] MEDS ORDERED: GLYCOPYRROLATE INJ 0.2 MG/ML 2 ML VIAL As Ordered (07:19)
[2017-09-17] MEDS ORDERED: ROCURONIUM BROMIDE 50 MG/5 ML VIAL As Ordered ×3 (07:19→09:35)
[2017-09-17] MEDS ORDERED: fentaNYL 100 MCG/2 ML INJECTION (J3010) As Ordered (07:21)
[2017-09-17] MEDS ORDERED: MIDAZOLAM INJ 2 MG/2 ML VIAL (J2250) As Ordered (07:21)
[2017-09-17 07:27] LABS: BEDSIDE GLUCOSE 78 MG/DL (70-105)
[2017-09-17] MEDS: BUPIVACAINE HCL 0.25% 30 ML VIAL As Ordered (08:03)
[2017-09-17] MEDS ORDERED: HYDROmorphone HCL 2 MG/ML 1ML VIAL (J1170) As Ordered (09:56)
[2017-09-17] MEDS: METHYLENE BLUE 0.5% (5MG/ML) 10 ML AMP (PROVAYBLUE)(Q9968 PER 1MG) As Ordered (10:28)
[2017-09-17 11:19] LABS: BEDSIDE GLUCOSE 97 MG/DL (70-105)
[2017-09-17] MEDS ORDERED: PERCOCET 5MG/325MG TAB PO (11:45)
[2017-09-17] MEDS ORDERED: ONDANSETRON 4MG/2ML VIAL (J2405) IV (11:45)
[2017-09-17] MEDS ORDERED: fentaNYL 100 MCG/2 ML INJECTION (J3010) IV (11:45)
[2017-09-17] MEDS ORDERED: HYDROmorphone HCL 1 MG/ML SYRINGE (J1170) IV (11:45)
[2017-09-17] MEDS ORDERED: PROMETHAZINE INJ 25 MG/ML VIAL (J2550) IV (12:00)
[2017-09-17] MEDS ORDERED: MORPHINE 10 MG/ML 1ML VIAL (J2270) IV (12:00)
[2017-09-17] MEDS: KETOROLAC 30 MG/ML VIAL (J1885) IV ×2 (15:06→20:53)
[2017-09-17] MEDS: LITHIUM CARBONATE 450 MG **CR** TAB PO (20:53)
[2017-09-17] MEDS: DIVALPROEX 250 MG TAB PO (20:53)
[2017-09-17] MEDS: TOPIRAMATE (TopAMAX) 25 MG TAB PO (20:53)
[2017-09-18] MEDS: KETOROLAC 30 MG/ML VIAL (J1885) IV ×6 (03:29→21:09)
[2017-09-18] MEDS: LR 1,000 ML IV ×3 (04:17→21:10)
[2017-09-18 05:49] LABS: HEMATOCRIT 34.1 % (36.0-47.0); MEAN CORPUSCULAR HEMOGLOBIN 31.8 pg (27.0-33.0); MEAN CORPUSCULAR VOLUME 99.4 fl (80.0-96.0); PLATELET COUNT, AUTOMATED 213 10^3/uL (150-450); RED BLOOD COUNT 3.43 10^6/uL (4.00-5.40); RED CELL DISTRIBUTION WIDTH 14.2 % (11.5-14.5); WHITE BLOOD COUNT 10.2 10^3/uL (4.0-10.0)
[2017-09-18 06:01] LABS: HEMOGLOBIN 10.9 g/dl (12.0-16.0)
[2017-09-18] MEDS: DIVALPROEX 250 MG TAB PO ×4 (08:05→21:10)
[2017-09-18] MEDS: LITHIUM CARBONATE 450 MG **CR** TAB PO ×5 (08:05→21:10)
[2017-09-18] MEDS: glipiZIDE XL 5 MG TABCR PO (08:05)
[2017-09-18] MEDS: ALPRAZolam 0.5 MG TAB PO ×3 (08:05→21:10)
[2017-09-18] MEDS: LISINOPRIL 10 MG TAB PO ×3 (08:05→14:08)
[2017-09-18] MEDS: NICOTINE 21MG/24HR 1 EA TRANSDERMAL TD ×2 (08:05→14:47)
[2017-09-18] MEDS: TOPIRAMATE (TopAMAX) 25 MG TAB PO ×4 (08:05→21:10)
[2017-09-18] MEDS: PERCOCET 5MG/325MG TAB PO (14:10)
[2017-09-19] MEDS: KETOROLAC 30 MG/ML VIAL (J1885) IV ×3 (03:15→08:24)
[2017-09-19] MEDS: NICOTINE 21MG/24HR 1 EA TRANSDERMAL TD (08:01)
[2017-09-19] MEDS: LISINOPRIL 10 MG TAB PO (08:02)
[2017-09-19] MEDS: ALPRAZolam 0.5 MG TAB PO (08:02)
[2017-09-19] MEDS: DIVALPROEX 250 MG TAB PO (08:02)
[2017-09-19] MEDS: TOPIRAMATE (TopAMAX) 25 MG TAB PO (08:02)
[2017-09-19] MEDS: LITHIUM CARBONATE 450 MG **CR** TAB PO (08:03)
[2017-09-19] MEDS: PERCOCET 5MG/325MG TAB PO (08:09)
[2017-09-19] MEDS: glipiZIDE XL 5 MG TABCR PO (11:41)
== END 2017-09-19 15:00 | disposition home or self-care (01) ==
LOC: M SDC 06:14 → M MSPAV 13:07
DX: N85.8 Other specified noninflammatory disorders of uterus (principal); N83.201 Unspecified ovarian cyst, right side; I10 Essential (primary) hypertension; E78.5 Hyperlipidemia, unspecified; K21.9 Gastro-esophageal reflux disease without esophagitis; D64.9 Anemia, unspecified; N92.0 Excessive and frequent menstruation with regular cycle; M25.571 Pain in right ankle and joints of right foot; G89.29 Other chronic pain; E11.40 Type 2 diabetes mellitus with diabetic neuropathy, unspecified; A63.0 Anogenital (venereal) warts; R06.02 Shortness of breath; M12.9 Arthropathy, unspecified; F41.9 Anxiety disorder, unspecified; F32.9 Major depressive disorder, single episode, unspecified; F31.9 Bipolar disorder, unspecified; F20.1 Disorganized schizophrenia; R56.9 Unspecified convulsions; J45.909 Unspecified asthma, uncomplicated; F12.90 Cannabis use, unspecified, uncomplicated; J44.9 Chronic obstructive pulmonary disease, unspecified; R06.83 Snoring; G47.33 Obstructive sleep apnea (adult) (pediatric); R32 Unspecified urinary incontinence; E55.9 Vitamin D deficiency, unspecified; E66.01 Morbid (severe) obesity due to excess calories; Z88.5 Allergy status to narcotic agent; Z79.899 Other long term (current) drug therapy; Z87.81 Personal history of (healed) traumatic fracture; Z72.0 Tobacco use
CPT/HCPCS: 58180

== ENCOUNTER 2018-08-17 21:26 | Inpatient (IN) | payer MEDICAID, OTHER ==
[~2018-08-17] VITALS: Ht 170.2 cm; Wt 148.5 kg
[~2018-08-17 21:26] MED LIST changes: +ACET1TAB55 PO; +AMOX500C PO; +BENZ2TAB5 PO; +DIVA250T67 PO; +FOLI1TAB11 PO; -FOLI1TAB4 PO; +GLIP5TAB20 PO; +IPRA0.00 INH; -IPRASOL4 INH; +OXYC1TAB23 PO; +PERC5TAB12 PO; +PERCOCET PO
[2018-08-17 22:12] LABS: HEMATOCRIT 42.8 % (36.0-47.0); HEMOGLOBIN 13.5 g/dl (12.0-15.5); MEAN CORPUSCULAR HEMOGLOBIN 28.4 pg (27.0-33.0); MEAN CORPUSCULAR HGB CONC 31.5 g/dl (32.0-36.5); MEAN CORPUSCULAR VOLUME 89.9 fl (80.0-96.0); PLATELET COUNT, AUTOMATED 241 10^3/uL (150-450); RED BLOOD COUNT 4.76 10^6/uL (4.00-5.40)
[2018-08-17] MEDS ORDERED: TRAZ-163 PO (22:32)
[2018-08-17] MEDS ORDERED: DIVA250T67 PO (22:32)
[2018-08-17] MEDS ORDERED: HALO5TA PO ×2 (22:32)
[2018-08-17] MEDS ORDERED: BREO1INH3 PO (22:32)
[2018-08-17 22:38] LABS: HCG, SERUM QUALITATIVE NEGATIVE (NEGATIVE)
[2018-08-17 22:58] LABS: ACETAMINOPHEN LEVEL < 2.0 UG/ML (10.0-30.0); ALBUMIN 3.2 GM/DL (3.2-5.2); ALT/SGPT 20 U/L (12-78); BILIRUBIN,DIRECT < 0.1 MG/DL (0.0-0.2); BILIRUBIN,TOTAL 0.3 MG/DL (0.2-1.0); BLOOD UREA NITROGEN 9 MG/DL (7-18); CALCIUM LEVEL 8.2 MG/DL (8.5-10.1); CARBON DIOXIDE LEVEL 32 MEQ/L (21-32); CHLORIDE LEVEL 106 MEQ/L (98-107); CREATININE FOR GFR 0.81 MG/DL (0.55-1.30); ETHYL ALCOHOL (ETHANOL) < 0.003 % (0.000-0.010); GLOMERULAR FILTRATION RATE > 60.0 (>58); GLUCOSE, FASTING 101 MG/DL (70-100); POTASSIUM SERUM 4.3 MEQ/L (3.5-5.1); SALICYLATE LEVEL 4.1 MG/DL (5.0-30.0); SODIUM LEVEL 140 MEQ/L (136-145); TOTAL PROTEIN 6.2 GM/DL (6.4-8.2); VALPROIC ACID (DEPAKOTE) 41.7 UG/ML (50.0-100.0)
[2018-08-17] MEDS ORDERED: CEPHALEXIN 500 MG CAP PO ONE (23:45)
[2018-08-17 23:57] LABS: CHLAMYDIA DNA AMPLIFICATION NEGATIVE (NEGATIVE); GC DNA AMPLIFICATION NEGATIVE (NEGATIVE)
[2018-08-18] MEDS ORDERED: ACETAMINOPHEN TAB 650MG DOSE (2X325MG) PO ONE
[2018-08-18 00:21] LABS: AMPHETAMINES LEVEL URINE NEGATIVE (NEGATIVE); BARBITURATES URINE NEGATIVE (NEGATIVE); BENZODIAZEPINES URINE NEGATIVE (NEGATIVE); CANNABINOIDS URINE POSITIVE (NEGATIVE); COCAINE METABOLITE URINE NEGATIVE (NEGATIVE); METHADONE URINE NEGATIVE (NEGATIVE); OPIATES URINE NEGATIVE (NEGATIVE); PHENCYCLIDINE URINE NEGATIVE (NEGATIVE)
[2018-08-18] MEDS ORDERED: RISP3TAB3 PO ×2 (01:46→03:33)
[2018-08-18] MEDS ORDERED: MAALOX 30 ML SUSP *UDC PO PRN (02:45)
[2018-08-18] MEDS ORDERED: traZODone 50 MG TAB PO PRN (02:45)
[2018-08-18] MEDS ORDERED: OLANZapine ORAL DISINTEGRATING TAB 5MG PO PRN (02:45)
[2018-08-18] MEDS ORDERED: DIVA500T94 PO (03:33)
[2018-08-18] MEDS ORDERED: IPRA0.00 INH (03:33)
[2018-08-18] MEDS ORDERED: GLIP10TA18 PO (03:33)
[2018-08-18] MEDS ORDERED: INVE234I IM (03:33)
[2018-08-18] MEDS ORDERED: TOPI25TA10 PO (03:33)
[2018-08-18] MEDS ORDERED: METF500T13 PO (03:33)
[2018-08-18] MEDS ORDERED: HALO5TA PO ×2 (03:33)
[2018-08-18] MEDS ORDERED: TRAZ-163 PO (03:33)
[2018-08-18] MEDS ORDERED: REME15TA PO (03:33)
[2018-08-18] MEDS ORDERED: VENTAER INH (03:33)
[2018-08-18] MEDS ORDERED: OMEP40CA2 PO (03:33)
[2018-08-18] MEDS ORDERED: LISI10TA4 PO (03:33)
[2018-08-18] MEDS ORDERED: BENZ-52 PO (03:33)
[2018-08-18] MEDS ORDERED: BUSP15TA47 PO (03:33)
[2018-08-18] MEDS ORDERED: ALBUTEROL 90 MCG/ACT 8GM HFA INHALER INH PRN (03:45)
[2018-08-18] MEDS ORDERED: IPRATROPIUM 0.5MG/ALBUTEROL 2.5MG INH SOL UD 3ML (DUONEB)(J7620) NEB PRN (03:45)
[2018-08-18 06:21] VITALS: BP 137/67
--- NOTE | 2018-08-18 11:05 | HPEPDOC ---
[facility] Medical History & Physical Date of Admission Aug 18, 2018 History and Physical PCP: Aislinn SIDHU ATTENDING: Dr. Gordy Sumner HPI: 43 yo F admitted to [facility] for unspecified psychosis, being medically examined today. The patient declines to participate with history or physical exam at this time, history is taken from the chart. PMHx: COPD GIOVANI GERD DM Depression Anxiety Schizophrenia Hypertension Diabetic neuropathy Dyslipidemia PSHX: Right ankle repair Ovarian cyst Hysterectomy SOCHX: Resides in: [facility] Marital Status: Single Tobacco use: Smoker, 2 packs per day. History of marijuana use as per ED record. FAMHX: Patient declines to provide any additional history at this time. ROS: Patient declines to provide history at this time. PE: Patient declines to participate with physical exam at this time. EKG: pending Wet prep 08/17/18 WET PREP Final WET PREP RESULT MANY EPITHELIAL CELLS PRESENT FEW WBC FEW SHORT RODS PRESENT A&P: 43 yo F admitted to [facility] for unspecified psychosis, 1. Psych. Plan per Psychiatry. Obtain baseline EKG to assure the safety of psychiatric medications as they can prolong the QT interval. UA 08/17/18 unremarkable. 2. Nicotine dependence. Patch available. 3. Leukocytosis. Patient is afebrile. UA unremarkable 08/17/18. Recheck CBC in a.m. 4. Follow up with PCP on discharge. 5. Substance use. Management per psychiatry. 6. NIDDM. Metformin and glipizide currently on hold. Continue to monitor fingerstick blood sugars. Continue consistent carbohydrate diet. Blood sugar noted to be 102 this AM. Check A1c. 7. Hypertension. Continue lisinopril 10 mg by mouth daily with hold parameter. 8. COPD. Continue albuterol HFA 2 puffs every 4 hours as needed. 9. GERD. Continue Prilosec 40 mg by mouth daily. 10. GIOVANI. CPAP with home settings. 11. Staff member Vladimir assisted in attempting exam. Vital Signs Vital Signs Date Time Temp Pulse Resp B/P (MAP) Pulse Ox O2 Delivery O2 Flow Rate FiO2 08/18/18 06:21 98.4 80 18 137/67 (90) 08/18/18 00:14 100 Room Air Laboratory Data Labs 24H Laboratory Tests 2 08/17/18 21:58: Nucleated Red Blood Cells % (auto) 0.0, Urine Color YELLOW, Urine Appearance CLEAR, Urine pH 7.0, Urine Specific [place] 1.016, Urine Protein NEGATIVE, Urine Glucose (UA) NEGATIVE, Urine Ketones NEGATIVE, Urine Blood NEGATIVE, Urine Nitrite NEGATIVE, Urine Bilirubin NEGATIVE, Urine Urobilinogen 2.0H, Urine Leukocyte Esterase NEGATIVE, Urine WBC (Auto) 1, Urine RBC (Auto) 3, Urine Hyaline Casts (Auto) 0, Urine Bacteria (Auto) NEGATIVE, Urine Squamous Epithelial Cells 0, Urine Amorphous Sediment SMALLH, Urine Mucus (Auto) SMALL, Urine Sperm (Auto) , Anion Gap 2L, Glomerular Filtration Rate > 60.0, Calcium Level 8.2L, Aspartate Amino Transf (AST/SGOT) 11, Alanine Aminotransferase (ALT/SGPT) 20, Alkaline Phosphatase 85, Total Bilirubin 0.3, Direct Bilirubin < 0.1, Total Protein 6.2L, Albumin 3.2, Albumin/Globulin Ratio 1.07, Thyroid Stimulating Hormone (TSH) 1.370, Human Chorionic Gonadotropin, Qual NEGATIVE, Salicylates Level 4.1L, Urine Amphetamines Screen NEGATIVE, Urine Benzodiazepines Screen NEGATIVE, Urine Opiates Screen NEGATIVE, Urine Methadone Screen NEGATIVE, Acetaminophen Level < 2.0L, Urine Barbiturates Screen NEGATIVE, Valproic Acid (Depakene) Level 41.7L, Urine Phencyclidine Screen NEGATIVE, Urine Cocaine Metabolite Screen NEGATIVE, Urine Cannabinoids Screen POSITIVEH, Ethyl Alcohol Level < 0.003, Chlamydia trachomatis DNA (RUSTY) NEGATIVE, Neisseria g onorrhoeae DNA (RUSTY) NEGATIVE 08/18/18 03:31: Bedside Glucose (Misc Panel) 102 CBC/BMP Laboratory Tests 08/17/18 21:58 Red Blood Count 4.76, Mean Corpuscular Volume 89.9, Mean Corpuscular Hemoglobin 28.4, Mean Corpuscular Hemoglobin Concent 31.5 L, Red Cell Distribution Width 17.1 H Microbiology Microbiology 08/17/18 Wet Prep - Final, Complete Home Medications Scheduled (Risperidone) 3 Mg Tab, 3 MG PO BID for . Benztropine Mesylate (Benztropine Mesylate) 1 Mg Tab, 1 MG PO BID for . Buspirone HCl (Buspirone HCl) 15 Mg Tab, 15 MG PO QID for . Divalproex Sodium (Divalproex Sodium Dr) 500 Mg Tab, 500 MG PO BID for . Glipizide (Glipizide ER) 10 Mg Tab, 10 MG PO DAILY for . Haloperidol (Haloperidol) 5 Mg Tab, 5 MG PO DAILY for . Haloperidol (Haloperidol) 5 Mg Tab, 10 MG PO QHS for . Lisinopril (Lisinopril) 10 Mg Tab, 10 MG PO DAILY for . Metformin Hydrochloride (Metformin HCl) 500 Mg Tab, 500 MG PO BID for . Mirtazapine (Remeron) 15 Mg Tab, 15 MG PO QHS for . Omeprazole (Omeprazole) 40 Mg Cap, 40 MG PO DAILY for . Paliperidone Palmitate (Invega Sustenna) 234 Mg/1.5 Ml Inj, 234 MG IM QMONTH for . Topiramate (Topiramate) 25 Mg Tab, 25 MG PO BID for . Trazodone HCl (Trazodone HCl) 100 Mg Tab, 200 MG PO QHS for . Scheduled PRN Albuterol Sulfate (Ventolin Hfa) 108 Mcg/Act Aer, 2 PUFFS INH Q4H PRN for SHORTNESS OF BREATH Albuterol/Ipratropium (Ipratropium [place]/Albut 0.5-2.5 (3) mg/3Ml) 1 Pretty Pretty, 1 PRETTY INH Q6H PRN for SHORTNESS OF BREATH Allergies Coded Allergies: Codeine (Unverified Allergy, Intermediate, HIVES, 07/19/17) Raegan Tran Aug 18, 2018 11:05
--- NOTE | 2018-08-18 11:16 | MHHPEPDOC ---
General Date Of Admission: Aug 17, 2018 Legal Status: 9.39 Chief Complaint "There's a snake under my bed." History of Present Illness HISTORY OF THE PRESENT ILLNESS: Patient is a 43 -year-old , female, with a history of schizophrenia and multiple admissions to [facility] in the past for psychosis who was brought in by EMS after calling 911 for generalized body pain, vaginal bleeding since the morning, burning on urination, and " a snake under my bed." Per ED, once seen she stated "snakes aren't usually welcome in vaginas." Per ED, pt attempted to take snake out of vagina but couldn't see it. Pt also endorsing "fear of her life" for no known reason. Pt seen in ED to have live cock roaches on herself. She was cleaned with her belonging tightly sealed and stored down stairs and not on [facility]. Pt was a very poor historian due to psychosis, paranoia, and bizarre delusions in the ED. Attempted to see pt today and pt sleeping heavily and only said "what" then resumed sleeping. Pt continues to be a poor historian and history gathered from previous records. Psychiatric Review of Systems Depression (2 or more weeks): difficulty concentrating, suicidal thoughts June (4 or more days of): denies Psychosis: auditory hallucination, delusions, paranoia, disorganization PTSD: denies Anxiety: denies Past Psychiatric History Previous Psychiatric Diagnosis: Schizophrenia Previous Psychiatric Admissions: Multiple admission to [facility] in the past for psychosis, the last time 09/01/16 Suicide Attempts: none known Psychiatric Follow-up: [facility] Psychiatric medications: risperidone, haldol, depakote, lithium, topomax, buspar, trazodone Past Medical History Medical Problems Per Records Tubo-ovarian abscess status post percutaneous drainage 08/28/16 Right ankle repair 2001 Ovarian cyst Ectopic Hypertension Hyperlipidemia Dependent edema DM Peripheral neuropathy Asthma GERD Chronic right ankle pain Chronic intertriginous candidiasis Obesity BMI 56.31 Head Injury: No Seizures: No Hospitalizations: Yes Surgeries: Yes Family Medical/Psychiatric HX Medical Problems noncontributory Psychiatric Disorders: No Addiction: No Suicide Attemps/Completions: No Addiction History other (utox pos cannabis) Social History Unable to assess due to psychosis Childhood: unknown Abuse/Trauma: unknown Current Living Situation: lives [facility] in [facility] [place] Education: unknown Employment: disability Social Support: unknown Legal: none known Marital: single, 4 kids Mental Status Examination General Appearance: unkempt, disheveled, appears stated age, hospital scubs/clothing, other (covered in live zacarias roaches in ED) Build: overweight Demeanor: withdrawn Eye Contact: poor Activity: slowed, other (heavily asleep and minorly arrousable ) Behavior: uncooperative, withdrawn Speech: impoverished Mood: other (unable to assess ) Mood "what" Affect: flat, other (unable to assess ) Thought Process: associative, flight of ideas Thought Content (Delusions): somatic, bizarre ("snake is my vagina" in ED), paranoia, delusions, other (endorsing fear for her life for unknown reason) Thought Content (Other): preoccupied, ideas of reference, internal-stimuli, appears paranoid Thought Content (Aggressive): none reported Perception (Hallucinations): auditory Perception (Other): none reported Cognition (Impairment of): attention/concentration, ability to abstract, unable to assess Cognition(Intelligence Est.): borderline Oriented: Awake, Alert, Oriented times three Insight: poor Judgment: Poor Psychosis: Associations, Abstract Thinking, Psychotic Perceptions Diagnoses Paranoid Schizophrenia Assessment Pt with a history of paranoid schizophrenia admitted after endorsing bizarre delusions of snakes in her vagina, fear for life due to unknown reason (paranoia), and very poor self care having live cock roaches on herself in the ED. Attempted to see pt today and heavily asleep. Pt depakote lvl subtherapeutic at 47.0. Pt appears to need med adjustments as is on a lot of medication for similar reasons and none of her antipsychotics maximized. Will d/c lithium, haldol, and risperidone. Will continue depakote, buspar, and start invega for psychosis with plan for invega sustenna to aid with med noncomplia nce. Initial Treatment Plan 1. Patient was admitted on a 9.39 status. 2. Complete history was obtained. 3. With patients permission, family will be contacted and database will be expanded. 4. Patients medication regimen will be reviewed and changed accordingly. 5. Patient will be provided with protected environment. 6. Patient will be treated with individual, group, and milieu therapies. 7. Patient will receive supportive psych-education. 8. Discharge planning will commence immediately. 9. Outpatient follow-up treatment will be strongly recommended. 10. The initial treatment plan will focus initially on: * Depression. * Risk for suicide. * Substance abuse. 11. Continue depakote er, buspar, topomax, and trazodone. D/c risperidone and haldol. Start invega 3mg bid for psychosis. ESTIMATED LENGTH OF STAY: 7-9 DAYS. TIME SPENT COUNSELING AND COORDINATING INITIAL CARE: 60 minutes. Vital Signs Vital Signs Date Time Temp Pulse Resp B/P (MAP) Pulse Ox O2 Delivery O2 Flow Rate FiO2 08/18/18 06:21 98.4 80 18 137/67 (90) 08/18/18 00:14 100 Room Air Laboratory Data 24H Labs Laboratory Tests 2 08/17/18 21:58: Nucleated Red Blood Cells % (auto) 0.0, Urine Color YELLOW, Urine Appearance CLEAR, Urine pH 7.0, Urine Specific [place] 1.016, Urine Protein NEGATIVE, Urine Glucose (UA) NEGATIVE, Urine Ketones NEGATIVE, Urine Blood NEGATIVE, Urine Nitrite NEGATIVE, Urine Bilirubin NEGATIVE, Urine Urobilinogen 2.0H, Urine Leukocyte Esterase NEGATIVE, Urine WBC (Auto) 1, Urine RBC (Auto) 3, Urine Hyaline Casts (Auto) 0, Urine Bacteria (Auto) NEGATIVE, Urine Squamous Epithelial Cells 0, Urine Amorphous Sediment SMALLH, Urine Mucus (Auto) SMALL, Urine Sperm (Auto) , Anion Gap 2L, Glomerular Filtration Rate > 60.0, Calcium Level 8.2L, Aspartate Amino Transf (AST/SGOT) 11, Alanine Aminotransferase (ALT/SGPT) 20, Alkaline Phosphatase 85, Total Bilirubin 0.3, Direct Bilirubin < 0.1, Total Protein 6.2L, Albumin 3.2, Albumin/Globulin Ratio 1.07, Thyroid S timulating Hormone (TSH) 1.370, Human Chorionic Gonadotropin, Qual NEGATIVE, Salicylates Level 4.1L, Urine Amphetamines Screen NEGATIVE, Urine Benzodiazepines Screen NEGATIVE, Urine Opiates Screen NEGATIVE, Urine Methadone Screen NEGATIVE, Acetaminophen Level < 2.0L, Urine Barbiturates Screen NEGATIVE, Valproic Acid (Depakene) Level 41.7L, Urine Phencyclidine Screen NEGATIVE, Urine Cocaine Metabolite Screen NEGATIVE, Urine Cannabinoids Screen POSITIVEH, Ethyl Alcohol Level < 0.003, Chlamydia trachomatis DNA (RUSTY) NEGATIVE, Neisseria gonorrhoeae DNA (RUSTY) NEGATIVE 08/18/18 03:31: Bedside Glucose (Misc Panel) 102 CBC/BMP Laboratory Tests 08/17/18 21:58 Red Blood Count 4.76, Mean Corpuscular Volume 89.9, Mean Corpuscular Hemoglobin 28.4, Mean Corpuscular Hemoglobin Concent 31.5 L, Red Cell Distribution Width 17.1 H Medications Scheduled (Risperidone) 3 Mg Tab, 3 MG PO BID for ., (Reported) Benztropine Mesylate (Benztropine Mesylate) 1 Mg Tab, 1 MG PO BID for ., (Reported) Buspirone HCl (Buspirone HCl) 15 Mg Tab, 15 MG PO QID for ., (Reported) Divalproex Sodium (Divalproex Sodium Dr) 500 Mg Tab, 500 MG PO BID for ., (Reported) Glipizide (Glipizide ER) 10 Mg Tab, 10 MG PO DAILY for ., (Reported) Haloperidol (Haloperidol) 5 Mg Tab, 5 MG PO DAILY for ., (Reported) Haloperidol (Haloperidol) 5 Mg Tab, 10 MG PO QHS for ., (Reported) Lisinopril (Lisinopril) 10 Mg Tab, 10 MG PO DAILY for ., (Reported) Metformin Hydrochloride (Metformin HCl) 500 Mg Tab, 500 MG PO BID for ., (Reported) Mirtazapine (Remeron) 15 Mg Tab, 15 MG PO QHS for ., (Reported) Omeprazole (Omeprazole) 40 Mg Cap, 40 MG PO DAILY for ., (Reported) Paliperidone Palmitate (Invega Sustenna) 234 Mg/1.5 Ml Inj, 234 MG IM QMONTH for ., (Reported) Topiramate (Topiramate) 25 Mg Tab, 25 MG PO BID for ., (Reported) Trazodone HCl (Trazodone HCl) 100 Mg Tab, 200 MG PO QHS for ., (Reported) Scheduled PRN Albuterol Sulfate (Ventolin Hfa) 108 Mcg/Act Aer, 2 PUFFS INH Q4H PRN for SHORTNESS OF BREATH, (Reported) Albuterol/Ipratropium (Ipratropium [place]/Albut 0.5-2.5 (3) mg/3Ml) 1 Pretty Pretty, 1 PRETTY INH Q6H PRN for SHORTNESS OF BREATH, (Reported) Allergies Coded Allergies: Codeine (Unverified Allergy, Intermediate, HIVES, 07/19/17) NIKO WRIGHT DO Aug 18, 2018 10:45 am
[2018-08-18] MEDS: busPIRone 5 MG TAB PO SCH ×3 (13:02→21:35)
[2018-08-18] MEDS: PALIPERIDONE 3 MG ER TAB (INVEGA) PO SCH ×2 (13:03→21:34)
[2018-08-18] MEDS: LISINOPRIL 10 MG TAB PO SCH (13:03)
[2018-08-18] MEDS: OMEPRAZOLE 20 MG CAP PO SCH (13:03)
[2018-08-18] MEDS: TOPIRAMATE (TopAMAX) 25 MG TAB PO SCH ×2 (13:03→21:34)
[2018-08-18 18:00] VITALS: BP 132/72
[2018-08-18] MEDS: traZODone 100 MG TAB PO PRN (21:34)
[2018-08-18] MEDS: DIVALPROEX 500MG *ER* TAB PO SCH (21:35)
[2018-08-18] MEDS: NICOTINE 21MG/24HR 1 EA TRANSDERMAL TD SCH (21:47)
[2018-08-19] MEDS: ACETAMINOPHEN TAB 650MG DOSE (2X325MG) PO PRN (03:39)
[2018-08-19 06:38] VITALS: BP 117/67
--- NOTE | 2018-08-19 08:41 | ECGEPIP ---
Stationary ECG Study [facility] Test Date: 2018-08-18 Pat Name: JAMARCUS SPICER Department: Room: [place] [address] Gender: F Mill Feeder: : 1975 Requested By: Raegan Tran Order Number: [id number] Reading MD: Tony Shields Measurements Intervals Breeding Rate: 97 P: 51 CA: 168 QRS: 75 QRSD: 92 T: 65 QT: 330 QTc: 420 Interpretive Statements SINUS RHYTHM NO CHANGE SINCE 09/15/16 Electronically Signed On 08-19-2018 8:41:32 EST by Tony Shields
--- NOTE | 2018-08-19 09:37 | MHIPNPDOC ---
[facility] Progress Note Progress Note DATE OF SERVICE: 08/19/18 HISTORY: Patient is a 43 -year-old , female, with a history of schizophrenia and multiple admissions to [facility] in the past for psychosis who was brought in by EMS after calling 911 for generalized body pain, vaginal bleeding since the morning, burning on urination, and " a snake under my bed." Per ED, once seen she stated "snakes aren't usually welcome in vaginas." Per ED, pt attempted to take snake out of vagina but couldn't see it. Pt also endorsing "fear of her life" for no known reason. Pt seen in ED to have live cock roaches on herself. She was cleaned with her belonging tightly sealed and stored down stairs and not on [facility]. Pt was a very poor historian due to psychosis, paranoia, and bizarre delusions in the ED. Attempted to see pt today and pt sleeping heavily and only said "what" then resumed sleeping. Pt continues to be a poor historian and history gathered from previous records. VITAL SIGNS: See below. NEW TEST RESULTS: See below. CURRENT MEDICATIONS: See below. MENTAL STATUS EXAMINATION: General Appearance: unkempt, disheveled, appears stated age, hospital scrubs/clothing, other (covered in live cock roaches in ED) Build: overweight Demeanor: withdrawn Eye Contact: poor Activity: slowed, other (heavily asleep and more arrousable ) Behavior: uncooperative, withdrawn Speech: impoverished Mood: other (unable to assess ) Mood "ok" Affect: flat, other (unable to assess ) Thought Process: associative, flight of ideas Thought Content (Delusions): somatic, bizarre ("snake is my vagina" in ED), paranoia, delusions, other (endorsing fear for her life for unknown reason) Thought Content (Other): preoccupied, ideas of reference, internal-stimuli, appears paranoid Thought Content (Aggressive): none reported Perception (Hallucinations): auditory Perception (Other): none reported Cognition (Impairment of): attention/concentration, ability to abstract, unable to assess Cognition(Intelligence Est.): borderline Oriented: Awake, Alert, Oriented times three Insight: poor Judgment: Poor Psychosis: Associations, Abstract Thinking, Psychotic Perceptions DIAGNOSES: 1. Paranoid Schizophrenia ASSESSMENT:Pt seen in her room in bed asleep. She was more arousable today and stated she was doing well, taking her meds, and that they were beneficial when asked. She then went back asleep. Pt is isolative and in bed much of the day. She continues to have bizarre paranoid delusions and poor self care. Pt feels safe here. MANAGEMENT PLAN: continue current plan. Medications: Buspar 15 mg QID Depakote Er 1,500 mg QHS Ativan 2 mg Q6HP PRN PO ANXIETY/AGITATION ZyPREXA ZYDIS 5 mg Q6HP PRN PO ANXIETY/AGITATION Invega 3 mg QAM Innvega) 3 mg QHS Topiramate 25 mg BID Trazodone 200 mg QHSP PRN PO INSOMNIA TIME SPENT: 30 minutes. Vital Signs Vital Signs Date Time Temp Pulse Resp B/P (MAP) Pulse Ox O2 Delivery O2 Flow Rate FiO2 08/19/18 06:38 97.8 84 18 117/67 (84) 08/18/18 00:14 100 Room Air Laboratory Data 24H Labs Laboratory Tests 2 08/18/18 17:26: Bedside Glucose (Misc Panel) 111H 08/19/18 06:22: Bedside Glucose (Misc Panel) 93 08/19/18 08:18: Current Medications Current Medications Acetaminophen (Tylenol Tab) 650 mg Q6HP PRN PO HEADACHE or DISCOMFORT Last administered on 08/19/18at 03:39; Start 08/18/18 at 02:45 Al Hydrox/Mg Hydrox/Simethicone (Mylanta) 30 ml Q4HP PRN PO HEARTBURN/INDIGESTION; Start 08/18/18 at 02:45 Albuterol Sulfate (Proventil, Ventolin Hfa) 2 puff Q4HP PRN INH SHORTNESS OF BREATH; Start 08/18/18 at 03:45 Albuterol/ Ipratropium (Duoneb (Ipr 0.5mg/Alb 2.5mg)) 3 ml Q4HP PRN NEB SOB/WHEEZING; Start 08/18/18 at 03:45 Buspirone HCl (Buspar) 15 mg QID PO Last administered on 08/18/18at 21:35; Start 08/18/18 at 13:00 Divalproex Sodium (Depakote Er) 1,500 mg QHS PO Last administered on 08/18/18 21:35; Start 08/18/18 at 21:00 Home Med (Med Rec Complete!) ASDIRECTED XX ; Start 08/18/18 at 03:45; Stop 08/18/18 at 03:45; Status DC Lisinopril (Prinivil) 10 mg DAILY PO Last administered on 08/18/18 13:03; Start 08/18/18 at 09:00 Lorazepam (Ativan) 2 mg Q6HP PRN PO ANXIETY/AGITATION; Start 08/18/18 at 02:45 Magnesium Hydroxide (Milk Of Magnesia) 30 ml DAILYPRN PRN PO CONSTIPATION; Start 08/18/18 at 02:45 Nicotine (Nicoderm Cq 21mg) 1 patch DAILY TD Last administered on 08/18/18 21:47; Start 08/18/18 at 19:00 Olanzapine (ZyPREXA ZYDIS) 5 mg Q6HP PRN PO ANXIETY/AGITATION; Start 08/18/18 at 02:45 Omeprazole (PriLOSEC) 40 mg DAILY PO Last administered on 08/18/18 13:03; Start 08/18/18 at 09:00 Paliperidone (Invega) 3 mg QAM PO Last administered on 08/18/18 13:03; Start 08/18/18 at 11:30 Paliperidone (Invega) 3 mg QHS PO Last administered on 08/18/18 21:34; Start 08/18/18 at 21:00 Topiramate (TopAMAX) 25 mg BID PO Last administered on 08/18/18 21:34; Start 08/18/18 at 11:30 Trazodone HCl (Desyrel) 50 mg QHSP PRN PO INSOMNIA; Start 08/18/18 at 02:45; Status Cancel Trazodone HCl (Desyrel) 200 mg QHSP PRN PO INSOMNIA Last administered on 08/18/18 21:34; Start 08/18/18 at 11:30 Allergies Coded Allergies: Codeine (Unverified Allergy, Intermediate, HIVES, 07/19/17) NIKO WRIGHT DO Aug 19, 2018 9:17 am
[2018-08-19] MEDS: PALIPERIDONE 3 MG ER TAB (INVEGA) PO SCH ×2 (09:39→20:34)
[2018-08-19] MEDS: busPIRone 5 MG TAB PO SCH ×4 (09:39→20:34)
[2018-08-19] MEDS: OMEPRAZOLE 20 MG CAP PO SCH (09:39)
[2018-08-19] MEDS: NICOTINE 21MG/24HR 1 EA TRANSDERMAL TD SCH (09:40)
[2018-08-19] MEDS: LISINOPRIL 10 MG TAB PO SCH (09:40)
[2018-08-19] MEDS: TOPIRAMATE (TopAMAX) 25 MG TAB PO SCH ×2 (09:40→20:34)
[2018-08-19 11:04] LABS: HEMOGLOBIN A1c 5.8 %
[2018-08-19] MEDS: metFORMIN (GLUCOPHAGE) 500 MG TAB PO SCH ×2 (12:07→17:11)
[2018-08-19] MEDS: glipiZIDE XL 5 MG TABCR PO SCH (12:07)
[2018-08-19 18:00] VITALS: BP 120/72
[2018-08-19] MEDS: traZODone 100 MG TAB PO PRN (20:34)
[2018-08-19] MEDS: DIVALPROEX 500MG *ER* TAB PO SCH (20:34)
[2018-08-20 06:00] VITALS: BP 142/79
[2018-08-20] MEDS: glipiZIDE XL 5 MG TABCR PO SCH (06:30)
[2018-08-20] MEDS: PALIPERIDONE 3 MG ER TAB (INVEGA) PO SCH ×2 (08:00→21:46)
[2018-08-20] MEDS: busPIRone 5 MG TAB PO SCH ×4 (08:00→21:46)
[2018-08-20] MEDS: OMEPRAZOLE 20 MG CAP PO SCH (08:00)
[2018-08-20] MEDS: NICOTINE 21MG/24HR 1 EA TRANSDERMAL TD SCH (08:00)
[2018-08-20] MEDS: metFORMIN (GLUCOPHAGE) 500 MG TAB PO SCH ×2 (08:00→17:00)
[2018-08-20] MEDS: TOPIRAMATE (TopAMAX) 25 MG TAB PO SCH ×2 (08:01→21:46)
[2018-08-20] MEDS: LISINOPRIL 10 MG TAB PO SCH (08:01)
[2018-08-20] MEDS: NYSTATIN 100,000 UNITS/GM TOPICAL PWD 15 GM TOP PRN (17:37)
[2018-08-20 18:00] VITALS: BP 107/62
[2018-08-20] MEDS: NYSTATIN 100,000 UNITS/GM TOPICAL PWD 15 GM TOP SCH (21:00)
[2018-08-20] MEDS: traZODone 100 MG TAB PO PRN (21:46)
[2018-08-20] MEDS: DIVALPROEX 500MG *ER* TAB PO SCH (21:46)
[2018-08-21] MEDS: ACETAMINOPHEN TAB 650MG DOSE (2X325MG) PO PRN (04:09)
[2018-08-21 06:00] VITALS: BP 115/55
[2018-08-21] MEDS: glipiZIDE XL 5 MG TABCR PO SCH (06:40)
[2018-08-21] MEDS: metFORMIN (GLUCOPHAGE) 500 MG TAB PO SCH ×2 (08:33→17:05)
[2018-08-21] MEDS: NICOTINE 21MG/24HR 1 EA TRANSDERMAL TD SCH (08:33)
[2018-08-21] MEDS: PALIPERIDONE 3 MG ER TAB (INVEGA) PO SCH ×2 (08:34→21:47)
[2018-08-21] MEDS: LISINOPRIL 10 MG TAB PO SCH (08:34)
[2018-08-21] MEDS: busPIRone 5 MG TAB PO SCH ×4 (08:34→21:47)
[2018-08-21] MEDS: OMEPRAZOLE 20 MG CAP PO SCH (08:34)
[2018-08-21] MEDS: TOPIRAMATE (TopAMAX) 25 MG TAB PO SCH ×2 (08:34→21:47)
[2018-08-21] MEDS: NYSTATIN 100,000 UNITS/GM TOPICAL PWD 15 GM TOP SCH ×2 (09:29→22:54)
[2018-08-21 18:00] VITALS: BP 116/60
--- NOTE | 2018-08-21 21:36 | MHIPN ---
DATE: 08/20/2018 CHIEF COMPLAINT: Says does not feel well. SUBJECTIVE: Is seen for followup, she is seen in the presence of staff. Says does not feel well, but she is vague on this. She is lying in bed, declines to sit up, as she says that she is not wearing anything, has had a tendency to do that. Says sleep is not good but does not elaborate. Appetite is okay. Says the voices are diminished. She also denies any thoughts of hurting herself. MENTAL STATUS EXAMINATION: She is lying in bed, has a blanket over her head, covering her face as well, but she displays no agitation. No psychomotor retardation in terms of her speech or speed of answering questions. She is coherent. Answers logically, briefly. I am unable to comment on her affect as her face is covered. She denies any thoughts of harming herself or anyone else. No overt delusions elicited. Admits to auditory hallucinations. Her cognition is somewhat intact, in that she is alert, she is oriented to place but not fully to time. She knew it was August 2018, but did not know the date or the day of the week and was oriented to it. Judgment and insight remain quite questionable. ASSESSMENT: Schizophrenia. PLAN: Continue current care, observations. Encourage participation in activities in the unit. VITAL SIGNS: Blood pressure 130/78, pulse 98, temperature 97.4.
[2018-08-21] MEDS: DIVALPROEX 500MG *ER* TAB PO SCH (21:47)
[2018-08-22 06:14] VITALS: BP 119/62
[2018-08-22] MEDS: glipiZIDE XL 5 MG TABCR PO SCH (06:22)
[2018-08-22] MEDS: busPIRone 5 MG TAB PO SCH ×4 (08:26→22:59)
[2018-08-22] MEDS: metFORMIN (GLUCOPHAGE) 500 MG TAB PO SCH ×2 (08:26→17:03)
[2018-08-22] MEDS: OMEPRAZOLE 20 MG CAP PO SCH (08:26)
[2018-08-22] MEDS: TOPIRAMATE (TopAMAX) 25 MG TAB PO SCH ×2 (08:26→23:00)
[2018-08-22] MEDS: PALIPERIDONE 3 MG ER TAB (INVEGA) PO SCH (08:26)
[2018-08-22] MEDS: LISINOPRIL 10 MG TAB PO SCH (08:28)
[2018-08-22] MEDS: NICOTINE 21MG/24HR 1 EA TRANSDERMAL TD SCH (08:29)
[2018-08-22] MEDS: NYSTATIN 100,000 UNITS/GM TOPICAL PWD 15 GM TOP SCH ×2 (08:30→22:59)
--- NOTE | 2018-08-22 10:22 | MHIPNPDOC ---
[facility] Progress Note Progress Note DATE OF SERVICE: 08/22/18 HISTORY: Patient is a 43 -year-old , female, with a history of schizophrenia and multiple admissions to [facility] in the past for psychosis who was brought in by EMS after calling 911 for generalized body pain, vaginal bleeding since the morning, burning on urination, and " a snake under my bed." Per ED, once seen she stated "snakes aren't usually welcome in vaginas." Per ED, pt attempted to take snake out of vagina but couldn't see it. Pt also endorsing "fear of her life" for no known reason. Pt seen in ED to have live cock roaches on herself. She was cleaned with her belonging tightly sealed and stored down stairs and not on [facility]. Pt was a very poor historian due to psychosis, paranoia, and bizarre delusions in the ED. Attempted to see pt today and pt sleeping heavily and only said "what" then resumed sleeping. Pt continues to be a poor historian and history gathered from previous records. VITAL SIGNS: See below. NEW TEST RESULTS: See below. CURRENT MEDICATIONS: See below. MENTAL STATUS EXAMINATION: General Appearance: clean,appears stated age, own clothing Build: overweight Demeanor: tearful, anxious Eye Contact: fair Activity: anxious Behavior: uncooperative, irritable, anxious Speech: reg rate/rhythm/volume Mood: depressed, anxious, irritable Mood "I need to go home... my steven is outside and my kids" Affect: reactive, tearful, depressed, anxious Thought Process: associative, flight of ideas Thought Content (Delusions): paranoia, delusions Thought Content (Other): preoccupied, ideas of reference, internal-stimuli, appears paranoid Thought Content (Aggressive): none reported Perception (Hallucinations): auditory Perception (Other): none reported Cognition (Impairment of): attention/concentration, ability to abstract, unable to assess Cognition(Intelligence Est.): borderline Oriented: Awake, Alert, Oriented times three Insight: poor Judgment: Poor Psychosis: Associations, Abstract Thinking, Psychotic Perceptions DIAGNOSES: 1. Paranoid Schizophrenia ASSESSMENT:Pt seen in her room awake today, tearful, stating she needs to go home now b/c her steven is outside and her kids. Per PO, her kids have not been living with her for a long time. PO states that pt has been snorting any type of pill type substance she can even tylenol and that her home is a mess, unsanitary, infested with bugs and cockroaches. She appears paranoid, delusional, associative, with flight of ideas, responding to internal stimuli, reactive mood. She is taking her meds. Per nursing pt is sleeping well at night. She continues to have bizarre paranoid delusions. She has improved self care. Pt feels safe here. MANAGEMENT PLAN: continue current plan. increase invega to 6mg bid for psychosis. depakote level. Medications: Buspar 15 mg QID Depakote Er 1,500 mg QHS Ativan 2 mg Q6HP PRN PO ANXIETY/AGITATION ZyPREXA ZYDIS 5 mg Q6HP PRN PO ANXIETY/AGITATION Invega 6 mg QAM Innvega 6 mg QHS Topiramate 25 mg BID Trazodone 200 mg QHSP PRN PO INSOMNIA TIME SPENT: 30 minutes. Vital Signs Vital Signs Date Time Temp Pulse Resp B/P (MAP) Pulse Ox O2 Delivery O2 Flow Rate FiO2 08/22/18 08:28 110/65 08/22/18 06:14 97.9 75 18 08/18/18 00:14 100 Room Air Laboratory Data 24H Labs Laboratory Tests 2 08/21/18 16:42: Bedside Glucose (Misc Panel) 83 Current Medications Current Medications Acetaminophen (Tylenol Tab) 650 mg Q6HP PRN PO HEADACHE or DISCOMFORT Last administered on 08/21/18at 04:09; Start 08/18/18 at 02:45 Al Hydrox/Mg Hydrox/Simethicone (Mylanta) 30 ml Q4HP PRN PO HEARTBURN/INDIGESTION; Start 08/18/18 at 02:45 Albuterol Sulfate (Proventil, Ventolin Hfa) 2 puff Q4HP PRN INH SHORTNESS OF BREATH; Start 08/18/18 at 03:45 Albuterol/ Ipratropium (Duoneb (Ipr 0.5mg/Alb 2.5mg)) 3 ml Q4HP PRN NEB SOB/WHEEZING; Start 08/18/18 at 03:45 Buspirone HCl (Buspar) 15 mg QID PO Last administered on 08/22/18at 08:26; Start 08/18/18 at 13:00 Divalproex Sodium (Depakote Er) 1,500 mg QHS PO Last administered on 08/21/18 21:47; Start 08/18/18 at 21:00 Glipizide (Glucotrol Xl) 10 mg DAILY@0730 PO Last administered on 08/22/18 06:22; Start 08/19/18 at 07:30 Home Med (Med Rec Complete!) ASDIRECTED XX ; Start 08/18/18 at 03:45; Stop 08/18/18 at 03:45; Status DC Lisinopril (Prinivil) 10 mg DAILY PO Last administered on 08/22/18 08:28; Start 08/18/18 at 09:00 Lorazepam (Ativan) 2 mg Q6HP PRN PO ANXIETY/AGITATION; Start 08/18/18 at 02:45 Magnesium Hydroxide (Milk Of Magnesia) 30 ml DAILYPRN PRN PO CONSTIPATION; Start 08/18/18 at 02:45 Metformin HCl (Glucophage) 500 mg BID@18 PO Last administered on 08/22/18 08:26; Start 08/19/18 at 08:00 Nicotine (Nicoderm Cq 21mg) 1 patch DAILY TD Last administered on 08/22/18 08:29; Start 08/18/18 at 19:00 Nystatin (Mycostatin Powder, Nystop) 1 dose BID TOP Last administered on 08/22/18 08:30; Start 08/20/18 at 21:00 Nystatin (Mycostatin Powder, Nystop) 1 dose BIDP PRN TOP RASH Last administered on 08/20/18 17:37; Start 08/20/18 at 16:45 Olanzapine (ZyPREXA ZYDIS) 5 mg Q6HP PRN PO ANXIETY/AGITATION; Start 08/18/18 at 02:45 Omeprazole (PriLOSEC) 40 mg DAILY PO Last administered on 08/22/18 08:26; Start 08/18/18 at 09:00 Paliperidone (Invega) 3 mg QAM PO Last administered on 08/22/18 08:26; Start 08/18/18 at 11:30 Paliperidone (Invega) 3 mg QHS PO Last administered on 2/10/19at 21:47; Start 08/18/18 at 21:00 Topiramate (TopAMAX) 25 mg BID PO Last administered on 08/22/18at 08:26; Start 08/18/18 at 11:30 Trazodone HCl (Desyrel) 50 mg QHSP PRN PO INSOMNIA; Start 08/18/18 at 02:45; Status Cancel Trazodone HCl (Desyrel) 200 mg QHSP PRN PO INSOMNIA Last administered on 08/20/18at 21:46; Start 08/18/18 at 11:30 Allergies Coded Allergies: Codeine (Unverified Allergy, Intermediate, HIVES, 07/19/17) NIKO WRIGHT DO Aug 22, 2018 9:11 am
--- NOTE | 2018-08-22 16:50 | MHIPN ---
DATE: 08/21/2018 CHIEF COMPLAINT: She says she does not feel good. SUBJECTIVE: She is seen for followup, in the presence of staff. She says she does not feel good, suggests it is because she is here, wishes to go home, says has a steven at home, who is not being looked after. 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 She says she has slept a bit, says it may have helped. MENTAL STATUS EXAMINATION: She is lying in bed. She is irritable, superficially cooperative. No agitation. No psychomotor retardation. Affect restricted in range. She is coherent. She does not appear internally preoccupied. Cognition appears grossly intact. No evidence of any active thoughts of harming herself or anyone else. Insight and judgment remain quite compromised. ASSESSMENT: Schizophrenia. PLAN: Continue current care, observations, encourage participation in activities on the unit. VITAL SIGNS: Blood pressure 115/55, pulse 82, temperature 98.4. She will see the psychiatrist as well as the treatment team tomorrow.
[2018-08-22 18:00] VITALS: BP 133/70
[2018-08-22] MEDS: PALIPERIDONE 6 MG ER TAB (INVEGA) PO SCH (22:59)
[2018-08-22] MEDS: DIVALPROEX 500MG *ER* TAB PO SCH (22:59)
[2018-08-23] MEDS: glipiZIDE XL 5 MG TABCR PO SCH (06:36)
[2018-08-23 06:46] VITALS: BP 147/74
[2018-08-23] MEDS: NICOTINE 21MG/24HR 1 EA TRANSDERMAL TD SCH (08:04)
[2018-08-23] MEDS: LISINOPRIL 10 MG TAB PO SCH (08:05)
[2018-08-23] MEDS: OMEPRAZOLE 20 MG CAP PO SCH (08:05)
[2018-08-23] MEDS: PALIPERIDONE 6 MG ER TAB (INVEGA) PO SCH ×2 (08:05→21:51)
[2018-08-23] MEDS: busPIRone 5 MG TAB PO SCH ×4 (08:05→21:50)
[2018-08-23] MEDS: metFORMIN (GLUCOPHAGE) 500 MG TAB PO SCH ×2 (08:05→17:36)
[2018-08-23] MEDS: TOPIRAMATE (TopAMAX) 25 MG TAB PO SCH ×2 (08:05→21:51)
[2018-08-23] MEDS: NYSTATIN 100,000 UNITS/GM TOPICAL PWD 15 GM TOP SCH ×2 (08:07→21:59)
--- NOTE | 2018-08-23 09:50 | MHIPNPDOC ---
[facility] Progress Note Progress Note DATE OF SERVICE: 08/23/18 HISTORY: Patient is a 43 -year-old , female, with a history of schizophrenia and multiple admissions to [facility] in the past for psychosis who was brought in by EMS after calling 911 for generalized body pain, vaginal bleeding since the morning, burning on urination, and " a snake under my bed." Per ED, once seen she stated "snakes aren't usually welcome in vaginas." Per ED, pt attempted to take snake out of vagina but couldn't see it. Pt also endorsing "fear of her life" for no known reason. Pt seen in ED to have live cock roaches on herself. She was cleaned with her belonging tightly sealed and stored down stairs and not on [facility]. Pt was a very poor historian due to psychosis, paranoia, and bizarre delusions in the ED. Attempted to see pt today and pt sleeping heavily and only said "what" then resumed sleeping. Pt continues to be a poor historian and history gathered from previous records. VITAL SIGNS: See below. NEW TEST RESULTS: See below. CURRENT MEDICATIONS: See below. MENTAL STATUS EXAMINATION: General Appearance: clean,appears stated age, own clothing Build: overweight Demeanor: tearful, anxious Eye Contact: fair Activity: anxious Behavior: uncooperative, irritable, anxious Speech: reg rate/rhythm/volume Mood: depressed, anxious, irritable Mood "I need to go home... my steven is outside and my kids" Affect: reactive, tearful, depressed, anxious Thought Process: associative, flight of ideas Thought Content (Delusions): paranoia, delusions Thought Content (Other): preoccupied, ideas of reference, internal-stimuli, appears paranoid Thought Content (Aggressive): none reported Perception (Hallucinations): auditory Perception (Other): none reported Cognition (Impairment of): attention/concentration, ability to abstract, unable to assess Cognition(Intelligence Est.): borderline Oriented: Awake, Alert, Oriented times three Insight: poor Judgment: Poor Psychosis: Associations, Abstract Thinking, Psychotic Perceptions DIAGNOSES: 1. Paranoid Schizophrenia ASSESSMENT:Pt seen in office today stating she needs to go home today b/c she has a cat she needs to take care of. her room awake today, tearful, stating she needs to go home now b/c her steven is outside and her kids. Pt still remains moderately paranoid and isolative, appears to be responding to internal stimuli at times. She has improved self care. States she lives in "cock krause heavy" and advised that she needs to clean up after her self at home to prevent cock roaches which she did appear motivated to do nor endorsed motivation. Per treatment team yesterday, PO states that pt has been snorting any type of pill type substance she can even tylenol and that her home is a mess, unsanitary, infested with bugs and cockroaches. She appears paranoid, delusional, associative, with flight of ideas, responding to internal stimuli, reactive mood although improving slowly. She is taking her meds. Agreeable to invega sustenna which she has taken in the past and tolerated well with beneficial effects. Last dose was 07/25/2018. Per nursing pt is sleeping well at night. She continues to have bizarre paranoid delusions although improving. She has improved self care. Pt feels safe here. MANAGEMENT PLAN: continue current plan. increase invega to 6mg bid for psychosis. depakote level. Medications: Buspar 15 mg QID Depakote Er 1,500 mg QHS Ativan 2 mg Q6HP PRN PO ANXIETY/AGITATION ZyPREXA ZYDIS 5 mg Q6HP PRN PO ANXIETY/AGITATION Invega 6 mg QAM Innvega 6 mg QHS Topiramate 25 mg BID Trazodone 200 mg QHSP PRN PO INSOMNIA invega sustenna 234mg im today invega sustenna 156mg im Wednesday TIME SPENT: 30 minutes. Vital Signs Vital Signs Date Time Temp Pulse Resp B/P (MAP) Pulse Ox O2 Delivery O2 Flow Rate FiO2 08/23/18 08:05 147/74 08/23/18 06:46 97.0 95 18 08/18/18 00:14 100 Room Air Laboratory Data 24H Labs Laboratory Tests 2 08/22/18 11:58: Valproic Acid (Depakene) Level 86.9 08/22/18 17:01: Bedside Glucose (Misc Panel) 59L 08/23/18 06:24: Bedside Glucose (Misc Panel) 95 Current Medications Current Medications Acetaminophen (Tylenol Tab) 650 mg Q6HP PRN PO HEADACHE or DISCOMFORT Last administered on 08/21/18 04:09; Start 08/18/18 at 02:45 Al Hydrox/Mg Hydrox/Simethicone (Mylanta) 30 ml Q4HP PRN PO HEARTBURN/INDIGESTION; Start 08/18/18 at 02:45 Albuterol Sulfate (Proventil, Ventolin Hfa) 2 puff Q4HP PRN INH SHORTNESS OF BREATH; Start 08/18/18 at 03:45 Albuterol/ Ipratropium (Duoneb (Ipr 0.5mg/Alb 2.5mg)) 3 ml Q4HP PRN NEB SOB/WHEEZING; Start 08/18/18 at 03:45 Buspirone HCl (Buspar) 15 mg QID PO Last administered on 08/23/18at 08:05; Start 08/18/18 at 13:00 Divalproex Sodium (Depakote Er) 1,500 mg QHS PO Last administered on 08/22/18at 22:59; Start 08/18/18 at 21:00 Glipizide (Glucotrol Xl) 10 mg DAILY@0730 PO Last administered on 08/23/18at 06 :36; Start 08/19/18 at 07:30 Home Med (Med Rec Complete!) ASDIRECTED XX ; Start 08/18/18 at 03:45; Stop 08/18/18 at 03:45; Status DC Lisinopril (Prinivil) 10 mg DAILY PO Last administered on 08/23/18 08:05; Start 08/18/18 at 09:00 Lorazepam (Ativan) 2 mg Q6HP PRN PO ANXIETY/AGITATION; Start 08/18/18 at 02:45 Magnesium Hydroxide (Milk Of Magnesia) 30 ml DAILYPRN PRN PO CONSTIPATION; Start 08/18/18 at 02:45 Metformin HCl (Glucophage) 500 mg BID@08,18 PO Last administered on 08/23/18 08:05; Start 08/19/18 at 08:00 Nicotine (Nicoderm Cq 21mg) 1 patch DAILY TD Last administered on 08/23/18 08:04; Start 08/18/18 at 19:00 Nystatin (Mycostatin Powder, Nystop) 1 dose BID TOP Last administered on 08/23/18at 08:07; Start 08/20/18 at 21:00 Nystatin (Mycostatin Powder, Nystop) 1 dose BIDP PRN TOP RASH Last administered on 08/20/18at 17:37; Start 08/20/18 at 16:45 Olanzapine (ZyPREXA ZYDIS) 5 mg Q6HP PRN PO ANXIETY/AGITATION; Start 08/18/18 at 02:45 Omeprazole (PriLOSEC) 40 mg DAILY PO Last administered on 08/23/18 08:05; Start 08/18/18 at 09:00 Paliperidone (Invega) 3 mg QAM PO Last administered on 08/22/18 08:26; Start 08/18/18 at 11:30; Stop 08/22/18 at 10:23; Status DC Paliperidone (Invega) 3 mg QHS PO Last administered on 08/21/18at 21:47; Start 08/18/18 at 21:00; Stop 08/22/18 at 10:23; Status DC Paliperidone (Invega) 6 mg BID PO Last administered on 08/23/18 08:05; Start 08/22/18 at 21:00 Topiramate (TopAMAX) 25 mg BID PO Last administered on 08/23/18 08:05; Start 08/18/18 at 11:30 Trazodone HCl (Desyrel) 50 mg QHSP PRN PO INSOMNIA; Start 08/18/18 at 02:45; Status Cancel Trazodone HCl (Desyrel) 200 mg QHSP PRN PO INSOMNIA Last administered on 08/20/18 21:46; Start 08/18/18 at 11:30 Allergies Coded Allergies: Codeine (Unverified Allergy, Intermediate, HIVES, 07/19/17) NIKO WRIGHT DO Aug 23, 2018 9:50 am
[2018-08-23] MEDS ORDERED: PALIPERIDONE PALMITATE 234 MG/1.5 ML INJ (INVEGA SUSTENNA)(J2426) IM ONE (11:00)
[2018-08-23 18:00] VITALS: BP 119/59
[2018-08-23] MEDS: DIVALPROEX 500MG *ER* TAB PO SCH (21:51)
[2018-08-24] MEDS: glipiZIDE XL 5 MG TABCR PO SCH (06:38)
[2018-08-24 06:44] VITALS: BP 106/55
[2018-08-24] MEDS: NICOTINE 21MG/24HR 1 EA TRANSDERMAL TD SCH (09:00)
[2018-08-24] MEDS: metFORMIN (GLUCOPHAGE) 500 MG TAB PO SCH ×2 (09:12→17:06)
[2018-08-24] MEDS: TOPIRAMATE (TopAMAX) 25 MG TAB PO SCH ×2 (09:15→21:38)
[2018-08-24] MEDS: OMEPRAZOLE 20 MG CAP PO SCH (09:15)
[2018-08-24] MEDS: PALIPERIDONE 6 MG ER TAB (INVEGA) PO SCH ×2 (09:15→21:37)
[2018-08-24] MEDS: LISINOPRIL 10 MG TAB PO SCH (09:16)
[2018-08-24] MEDS: busPIRone 5 MG TAB PO SCH ×4 (09:16→21:37)
[2018-08-24] MEDS: NYSTATIN 100,000 UNITS/GM TOPICAL PWD 15 GM TOP SCH ×2 (09:19→21:38)
[2018-08-24] MEDS ORDERED: chlorproMAZINE INJ 50MG/2ML AMP (J3230) IM ONE (10:15)
[2018-08-24] MEDS ORDERED: chlorproMAZINE 25 MG TAB (Q0161) PO ONE (10:15)
[2018-08-24] MEDS ORDERED: LORazepam 1 MG TAB PO ONE (10:15)
--- NOTE | 2018-08-24 10:26 | MHIPNPDOC ---
[facility] Progress Note Progress Note DATE OF SERVICE: 08/24/18 HISTORY: Patient is a 43 -year-old , female, with a history of schizophrenia and multiple admissions to [facility] in the past for psychosis who was brought in by EMS after calling 911 for generalized body pain, vaginal bleeding since the morning, burning on urination, and " a snake under my bed." Per ED, once seen she stated "snakes aren't usually welcome in vaginas." Per ED, pt attempted to take snake out of vagina but couldn't see it. Pt also endorsing "fear of her life" for no known reason. Pt seen in ED to have live cock roaches on herself. She was cleaned with her belonging tightly sealed and stored down stairs and not on [facility]. Pt was a very poor historian due to psychosis, paranoia, and bizarre delusions in the ED. Attempted to see pt today and pt sleeping heavily and only said "what" then resumed sleeping. Pt continues to be a poor historian and history gathered from previous records. VITAL SIGNS: See below. NEW TEST RESULTS: depakote level 86.9 therapeutic CURRENT MEDICATIONS: See below. MENTAL STATUS EXAMINATION: General Appearance: food stains on shirt, appears stated age, own clothing Build: overweight Demeanor: tearful, anxious Eye Contact: fair Activity: agitated, hostile, threatening, shaking physically with anger Behavior: uncooperative, agitated,hostile Speech: shouting Mood: agitated, hostile, threatening Mood agitated, hostile, threatening Affect: reactive, t agitated, hostile, threatening Thought Process: associative, flight of ideas Thought Content (Delusions): paranoia, delusions, "I'm hearing voices!" Thought Content (Other): preoccupied, ideas of reference, internal-stimuli, appears paranoid Thought Content (Aggressive): Threatening to "blast you bitch," and kill me thru "premeditated murder" Perception (Hallucinations): auditory Perception (Other): none reported Cognition (Impairment of): attention/concentration, ability to abstract, unable to assess Cognition(Intelligence Est.): borderline Oriented: Awake, Alert, Oriented times three Insight: poor Judgment: Poor Psychosis: Associations, Abstract Thinking, Psychotic Perceptions DIAGNOSES: 1. Paranoid Schizophrenia ASSESSMENT:Pt seen in milieu stating she needs to go home today b/c she got her invega shot yesterday. Told pt that she is not quite well enough to go home. 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 Starting threating that she was going to "blast you bitch," shaking visibly with anger. Shouting "I'm hearing voices." "My home is clean what do you know of my home, I'm clean" (food stains all over shirt), taking per nurse 5 showers per day and did not mention to staff shower curtain removed so is flooding room multiple times and doesn't tell anyone about it as it appears to not bother her. Per nurse pt has skin excoriations between skin folds and will have be seen by OT who can possibly aid her with tools to clean the areas she can't reach. Pt agrees psychotic, paranoid, and endorses AH. She threatened to harm me multiple times today. Pt ordered oral thorazine 100mg and ativan 2mg x1 to aid her with agitation/agression that she took on her own. Pt went to sleep in her room after altercation. Per treatment team Wednesday, PO states that pt has been snorting any type of pill type substance she can even tylenol and that her home is a mess, unsanitary, infested with bugs and cockroaches. She appears paranoid, delusional, associative, with flight of ideas, responding to internal stimuli, reactive mood although improving slowly. She is taking her meds. . Per nursing pt is sleeping well at night. She continues to have bizarre paranoid delusions and is very reactive. She has improved self care. Pt feels safe here. MANAGEMENT PLAN: continue current plan. increase invega to 6mg bid for psychosis. Medications: Buspar 15 mg QID Depakote Er 1,500 mg QHS Ativan 2 mg Q6HP PRN PO ANXIETY/AGITATION ZyPREXA ZYDIS 5 mg Q6HP PRN PO ANXIETY/AGITATION Invega 6 mg QAM Innvega 6 mg QHS Topiramate 25 mg BID Trazodone 200 mg QHSP PRN PO INSOMNIA invega sustenna 234mg im today TIME SPENT: 30 minutes. Vital Signs Vital Signs Date Time Temp Pulse Resp B/P (MAP) Pulse Ox O2 Delivery O2 Flow Rate FiO2 08/24/18 06:44 97.2 74 18 106/55 (72) 08/18/18 00:14 100 Room Air Laboratory Data 24H Labs Laboratory Tests 2 08/23/18 17:31: Bedside Glucose (Misc Panel) 95 Current Medications Current Medications Acetaminophen (Tylenol Tab) 650 mg Q6HP PRN PO HEADACHE or DISCOMFORT Last administered on 08/21/18at 04:09; Start 08/18/18 at 02:45 Al Hydrox/Mg Hydrox/Simethicone (Mylanta) 30 ml Q4HP PRN PO HEARTBURN /INDIGESTION; Start 08/18/18 at 02:45 Albuterol Sulfate (Proventil, Ventolin Hfa) 2 puff Q4HP PRN INH SHORTNESS OF BREATH; Start 08/18/18 at 03:45 Albuterol/ Ipratropium (Duoneb (Ipr 0.5mg/Alb 2.5mg)) 3 ml Q4HP PRN NEB SOB/WHEEZING; Start 08/18/18 at 03:45 Buspirone HCl (Buspar) 15 mg QID PO Last administered on 08/23/18at 21:50; Start 08/18/18 at 13:00 Divalproex Sodium (Depakote Er) 1,500 mg QHS PO Last administered on 08/23/18at 21:51; Start 08/18/18 at 21:00 Glipizide (Glucotrol Xl) 10 mg DAILY@0730 PO Last administered on 08/24/18at 06:38; Start 08/19/18 at 07:30 Home Med (Med Rec Complete!) ASDIRECTED XX ; Start 08/18/18 at 03:45; Stop 08/18/18 at 03:45; Status DC Lisinopril (Prinivil) 10 mg DAILY PO Last administered on 08/23/18at 08:05; Start 08/18/18 at 09:00 Lorazepam (Ativan) 2 mg Q6HP PRN PO ANXIETY/AGITATION; Start 08/18/18 at 02:45 Magnesium Hydroxide (Milk Of Magnesia) 30 ml DAILYPRN PRN PO CONSTIPATION; Start 08/18/18 at 02:45 Metformin HCl (Glucophage) 500 mg BID@08,18 PO Last administered on 08/24/18 09:12; Start 08/19/18 at 08:00 Miscellaneous (Unresolved Clarification Entry) SEE LABEL COMMENTS DAILY XX ; Start 08/24/18 at 09:00 Nicotine (Nicoderm Cq 21mg) 1 patch DAILY TD Last administered on 08/23/18 08:04; Start 08/18/18 at 19:00 Nystatin (Mycostatin Powder, Nystop) 1 dose BID TOP Last administered on 08/23/18 21:59; Start 08/20/18 at 21:00 Nystatin (Mycostatin Powder, Nystop) 1 dose BIDP PRN TOP RASH Last administered on 08/20/18 17:37; Start 08/20/18 at 16:45 Olanzapine (ZyPREXA ZYDIS) 5 mg Q6HP PRN PO ANXIETY/AGITATION; Start 08/18/18 at 02:45 Omeprazole (PriLOSEC) 40 mg DAILY PO Last administered on 08/23/18 08:05; Start 08/18/18 at 09:00 Paliperidone (Invega) 3 mg QAM PO Last administered on 08/22/18 08:26; Start 08/18/18 at 11:30; Stop 08/22/18 at 10:23; Status DC Paliperidone (Invega) 3 mg QHS PO Last administered on 08/21/18 21:47; Start 08/18/18 at 21:00; Stop 08/22/18 at 10:23; Status DC Paliperidone (Invega) 6 mg BID PO Last administered on 08/23/18 21:51; Start 08/22/18 at 21:00 Topiramate (TopAMAX) 25 mg BID PO Last administered on 08/23/18 21:51; Start 08/18/18 at 11:30 Trazodone HCl (Desyrel) 50 mg QHSP PRN PO INSOMNIA; Start 08/18/18 at 02:45; Status Cancel Trazodone HCl (Desyrel) 200 mg QHSP PRN PO INSOMNIA Last administered on 08/20/18 21:46; Start 08/18/18 at 11:30 Allergies Coded Allergies: Codeine (Unverified Allergy, Intermediate, HIVES, 07/19/17) NIKO WRIGHT DO Aug 24, 2018 9:18 am
[2018-08-24] MEDS ORDERED: LORazepam 2 MG/ML VIAL (J2060) IM ONE (10:30)
[2018-08-24 18:00] VITALS: BP 108/60
[2018-08-24] MEDS: DIVALPROEX 500MG *ER* TAB PO SCH (21:37)
[2018-08-25] MEDS: glipiZIDE XL 5 MG TABCR PO SCH (06:26)
[2018-08-25 06:42] VITALS: BP 128/58
[2018-08-25] MEDS: metFORMIN (GLUCOPHAGE) 500 MG TAB PO SCH ×2 (08:38→17:03)
[2018-08-25] MEDS: NICOTINE 21MG/24HR 1 EA TRANSDERMAL TD SCH (09:00)
[2018-08-25] MEDS ORDERED: **PENDING PPD ENTRY XX SCH (09:00)
[2018-08-25] MEDS: LISINOPRIL 10 MG TAB PO SCH (09:31)
[2018-08-25] MEDS: PALIPERIDONE 6 MG ER TAB (INVEGA) PO SCH (09:31)
[2018-08-25] MEDS: NYSTATIN 100,000 UNITS/GM TOPICAL PWD 15 GM TOP SCH ×2 (09:32→21:22)
[2018-08-25] MEDS: busPIRone 5 MG TAB PO SCH ×4 (09:32→20:32)
[2018-08-25] MEDS: OMEPRAZOLE 20 MG CAP PO SCH (09:32)
[2018-08-25] MEDS: TOPIRAMATE (TopAMAX) 25 MG TAB PO SCH ×2 (09:32→20:33)
--- NOTE | 2018-08-25 09:52 | MHIPNPDOC ---
[facility] Progress Note Progress Note DATE OF SERVICE: 08/25/18 HISTORY: Patient is a 43 -year-old , female, with a history of schizophrenia and multiple admissions to [facility] in the past for psychosis who was brought in by EMS after calling 911 for generalized body pain, vaginal bleeding since the morning, burning on urination, and " a snake under my bed." Per ED, once seen she stated "snakes aren't usually welcome in vaginas." Per ED, pt attempted to take snake out of vagina but couldn't see it. Pt also endorsing "fear of her life" for no known reason. Pt seen in ED to have live cock roaches on herself. She was cleaned with her belonging tightly sealed and stored down stairs and not on [facility]. Pt was a very poor historian due to psychosis, paranoia, and bizarre delusions in the ED. Attempted to see pt today and pt sleeping heavily and only said "what" then resumed sleeping. Pt continues to be a poor historian and history gathered from previous records. VITAL SIGNS: See below. NEW TEST RESULTS: depakote level 86.9 therapeutic CURRENT MEDICATIONS: See below. MENTAL STATUS EXAMINATION: General Appearance: food stains on shirt, appears stated age, own clothing Build: overweight Demeanor: calmer, withdrawn in bed Eye Contact: fair Activity: calmer, withdrawn in bed Behavior: cooperative, calm Speech: normal volume Mood: constricted, flat, reactive Mood "You're going to kill my cat" Affect: reactive,constricted, flat Thought Process: associative, flight of ideas Thought Content (Delusions): paranoia, delusions, psychotic Thought Content (Other): preoccupied, ideas of reference, internal-stimuli, appears paranoid Thought Content (Aggressive): denies today Perception (Hallucinations): auditory Perception (Other): none reported Cognition (Impairment of): attention/concentration, ability to abstract, unable to assess Cognition(Intelligence Est.): borderline Oriented: Awake, Alert, Oriented times three Insight: poor Judgment: Poor Psychosis: Associations, Abstract Thinking, Psychotic Perceptions DIAGNOSES: 1. Paranoid Schizophrenia ASSESSMENT:Pt seen in today in bed stating "you're going to kill my cat" b/c I'm not discharging her today. Thorazine appears beneficial for agitation but still impulsive, reactive, delusional, responding to internal stimuli. Per staff pt angry about putting baby powder on skin folds to prevent excoriations and didn't want to cooperate. Refuses OT consult still. Possible AH today, Very concrete thinking. Continues to believe her kids are at her home but they aren't there as states "I need to get home and take care of my kids." Per treatment team Wednesday, PO states that pt has been snorting any type of pill type substance she can even tylenol and that her home is a mess, unsanitary, infested with bugs and cockroaches. She appears paranoid, delusional, associative, with flight of ideas, responding to internal stimuli, reactive mood although improving slowly. She is taking her meds. Perr nursing pt is sleeping well at night. She continues to have bizarre paranoid delusions and is less reactive. She has improved self care. Pt feels safe here. Pt appears to not be improving much and self care remains compromised (per nurse refused shower curtain, refused to have nurses aid her with clean skin as would not undress, refuse to be seen by OT yesterday. Will have OT see today. Pt appears to need snf treatment and will refer to [facility]. MANAGEMENT PLAN: continue current plan. Refer [facility]. Medications: Buspar 15 mg QID Depakote Er 1,500 mg QHS Ativan 2 mg Q6HP PRN PO ANXIETY/AGITATION ZyPREXA ZYDIS 5 mg Q6HP PRN PO ANXIETY/AGITATION Topiramate 25 mg BID Trazodone 200 mg QHSP PRN PO INSOMNIA invega sustenna 234mg im 08/23/18 thorazine 50mg bid TIME SPENT: 30 minutes. Vital Signs Vital Signs Date Time Temp Pulse Resp B/P (MAP) Pulse Ox O2 Delivery O2 Flow Rate FiO2 08/25/18 06:42 98.3 76 16 128/58 (81) Laboratory Data 24H Labs Laboratory Tests 2 08/24/18 16:50: Bedside [facility] ([facility]) 77 Current Medications Current Medications Acetaminophen (Tylenol Tab) 650 mg Q6HP PRN PO HEADACHE or DISCOMFORT Last administered on 08/21/18at 04:09; Start 08/18/18 at 02:45 Al Hydrox/Mg Hydrox/Simethicone (Mylanta) 30 ml Q4HP PRN PO HEARTBURN/INDIGESTION; Start 08/18/18 at 02:45 Albuterol Sulfate (Proventil, Ventolin Hfa) 2 puff Q4HP PRN INH SHORTNESS OF BREATH; Start 08/18/18 at 03:45 Albuterol/ Ipratropium (Duoneb (Ipr 0.5mg/Alb 2.5mg)) 3 ml Q4HP PRN NEB SOB/WHEEZING; Start 08/18/18 at 03:45 Buspirone HCl (Buspar) 15 mg QID PO Last administered on 08/24/18at 21:37; Start 08/18/18 at 13:00 Divalproex Sodium (Depakote Er) 1,500 mg QHS PO Last administered on 08/24/18 21:37; Start 08/18/18 at 21:00 Glipizide (Glucotrol Xl) 10 mg DAILY@0730 PO Last administered on 08/25/18at 06:26; Start 08/19/18 at 07:30 Home Med (Med Rec Complete!) ASDIRECTED XX ; Start 08/18/18 at 03:45; Stop 08/18/18 at 03:45; Status DC Lisinopril (Prinivil) 10 mg DAILY PO Last administered on 08/24/18at 09:16; Start 08/18/18 at 09:00 Lorazepam (Ativan) 2 mg Q6HP PRN PO ANXIETY/AGITATION; Start 08/18/18 at 02:45 Magnesium Hydroxide (Milk Of Magnesia) 30 ml DAILYPRN PRN PO CONSTIPATION; Start 08/18/18 at 02:45 Metformin HCl (Glucophage) 500 mg BID@08,18 PO Last administered on 08/25/18at 08:38; Start 08/19/18 at 08:00 Miscellaneous (Unresolved Clarification Entry) SEE LABEL COMMENTS DAILY XX ; Start 08/24/18 at 09:00; Stop 08/24/18 at 09:52; Status DC Nicotine (Nicoderm Cq 21mg) 1 patch DAILY TD Last administered on 08/23/18at 08:04; Start 08/18/18 at 19:00 Nystatin (Mycostatin Powder, Nystop) 1 dose BID TOP Last administered on 08/24/18at 21:38; Start 08/20/18 at 21:00 Nystatin (Mycostatin Powder, Nystop) 1 dose BIDP PRN TOP RASH Last administered on 08/20/18 17:37; Start 08/20/18 at 16:45 Olanzapine (ZyPREXA ZYDIS) 5 mg Q6HP PRN PO ANXIETY/AGITATION; Start 08/18/18 at 02:45 Omeprazole (PriLOSEC) 40 mg DAILY PO Last administered on 08/24/18 09:15; Start 08/18/18 at 09:00 Paliperidone (Invega) 3 mg QAM PO Last administered on 08/22/18 08:26; Start 08/18/18 at 11:30; Stop 08/22/18 at 10:23; Status DC Paliperidone (Invega) 3 mg QHS PO Last administered on 08/21/18 21:47; Start 08/18/18 at 21:00; Stop 08/22/18 at 10:23; Status DC Paliperidone (Invega) 6 mg BID PO Last administered on 08/24/18 21:37; Start 08/22/18 at 21:00 Topiramate (TopAMAX) 25 mg BID PO Last administered on 08/24/18 21:38; Start 08/18/18 at 11:30 Trazodone HCl (Desyrel) 50 mg QHSP PRN PO INSOMNIA; Start 08/18/18 at 02:45; Status Cancel Trazodone HCl (Desyrel) 200 mg QHSP PRN PO INSOMNIA Last administered on 08/20/18 21:46; Start 08/18/18 at 11:30 Allergies Coded Allergies: Codeine (Unverified Allergy, Intermediate, HIVES, 07/19/17) NIKO WRIGHT DO Aug 25, 2018 9:52 am
[2018-08-25] MEDS ORDERED: TUBERCULIN PPD 5 UNITS/0.1 ML ID ONE ×2 (10:00→11:00)
[2018-08-25] MEDS: chlorproMAZINE 25 MG TAB (Q0161) PO SCH ×2 (10:14→20:33)
[2018-08-25 18:00] VITALS: BP 111/75
[2018-08-25] MEDS: DIVALPROEX 500MG *ER* TAB PO SCH (20:32)
[2018-08-25] MEDS: ACETAMINOPHEN TAB 650MG DOSE (2X325MG) PO PRN (21:07)
[2018-08-26 06:19] VITALS: BP 120/64
[2018-08-26] MEDS: glipiZIDE XL 5 MG TABCR PO SCH (06:25)
[2018-08-26] MEDS: NYSTATIN 100,000 UNITS/GM TOPICAL PWD 15 GM TOP SCH ×2 (08:00→21:55)
[2018-08-26] MEDS: metFORMIN (GLUCOPHAGE) 500 MG TAB PO SCH ×2 (08:44→17:28)
[2018-08-26] MEDS: NICOTINE 21MG/24HR 1 EA TRANSDERMAL TD SCH (09:00)
[2018-08-26] MEDS: TOPIRAMATE (TopAMAX) 25 MG TAB PO SCH ×2 (09:27→21:53)
[2018-08-26] MEDS: busPIRone 5 MG TAB PO SCH ×4 (09:27→21:53)
[2018-08-26] MEDS: OMEPRAZOLE 20 MG CAP PO SCH (09:27)
[2018-08-26] MEDS: LISINOPRIL 10 MG TAB PO SCH (09:27)
[2018-08-26] MEDS: chlorproMAZINE 25 MG TAB (Q0161) PO SCH ×2 (09:27→21:54)
[2018-08-26 18:25] VITALS: BP 96/50
[2018-08-26] MEDS: DIVALPROEX 500MG *ER* TAB PO SCH (21:54)
[2018-08-27] MEDS: glipiZIDE XL 5 MG TABCR PO SCH (06:31)
[2018-08-27 06:38] VITALS: BP 127/58
[2018-08-27] MEDS: NICOTINE 21MG/24HR 1 EA TRANSDERMAL TD SCH (08:29)
[2018-08-27] MEDS: TOPIRAMATE (TopAMAX) 25 MG TAB PO SCH ×2 (08:30→21:00)
[2018-08-27] MEDS: chlorproMAZINE 25 MG TAB (Q0161) PO SCH ×2 (08:30→21:00)
[2018-08-27] MEDS: busPIRone 5 MG TAB PO SCH ×4 (08:30→21:00)
[2018-08-27] MEDS: metFORMIN (GLUCOPHAGE) 500 MG TAB PO SCH ×2 (08:30→17:18)
[2018-08-27] MEDS: LISINOPRIL 10 MG TAB PO SCH (08:30)
[2018-08-27] MEDS: OMEPRAZOLE 20 MG CAP PO SCH (08:30)
[2018-08-27] MEDS: NYSTATIN 100,000 UNITS/GM TOPICAL PWD 15 GM TOP SCH ×2 (08:31→21:00)
[2018-08-27] MEDS ORDERED: PPD DOCUMENTATION ENTRY MISC XX SCH (10:00)
[2018-08-27] MEDS ORDERED: PPD DOCUMENTATION ENTRY MISC XX ONE (10:45)
[2018-08-27 18:00] VITALS: BP 128/74
[2018-08-27] MEDS: DIVALPROEX 500MG *ER* TAB PO SCH (21:00)
[2018-08-28 06:00] VITALS: BP 109/52
[2018-08-28] MEDS: glipiZIDE XL 5 MG TABCR PO SCH (07:18)
[2018-08-28] MEDS: OMEPRAZOLE 20 MG CAP PO SCH (08:53)
[2018-08-28] MEDS: busPIRone 5 MG TAB PO SCH ×4 (08:54→21:41)
[2018-08-28] MEDS: metFORMIN (GLUCOPHAGE) 500 MG TAB PO SCH ×2 (08:54→17:17)
[2018-08-28] MEDS: chlorproMAZINE 25 MG TAB (Q0161) PO SCH ×2 (08:54→21:41)
[2018-08-28] MEDS: TOPIRAMATE (TopAMAX) 25 MG TAB PO SCH ×2 (08:54→21:41)
[2018-08-28] MEDS: LISINOPRIL 10 MG TAB PO SCH (08:55)
[2018-08-28] MEDS: NICOTINE 21MG/24HR 1 EA TRANSDERMAL TD SCH (08:56)
[2018-08-28] MEDS: NYSTATIN 100,000 UNITS/GM TOPICAL PWD 15 GM TOP SCH ×2 (08:57→21:48)
[2018-08-28 18:00] VITALS: BP 122/64
[2018-08-28] MEDS: DIVALPROEX 500MG *ER* TAB PO SCH (21:41)
[2018-08-29] MEDS: glipiZIDE XL 5 MG TABCR PO SCH (07:07)
[2018-08-29 07:12] VITALS: BP 112/55
[2018-08-29] MEDS: metFORMIN (GLUCOPHAGE) 500 MG TAB PO SCH ×2 (07:33→17:07)
[2018-08-29] MEDS: NICOTINE 21MG/24HR 1 EA TRANSDERMAL TD SCH (09:19)
[2018-08-29] MEDS: busPIRone 5 MG TAB PO SCH ×4 (09:19→21:43)
[2018-08-29] MEDS: LISINOPRIL 10 MG TAB PO SCH (09:19)
[2018-08-29] MEDS: chlorproMAZINE 25 MG TAB (Q0161) PO SCH ×2 (09:20→21:43)
[2018-08-29] MEDS: TOPIRAMATE (TopAMAX) 25 MG TAB PO SCH ×2 (09:20→21:44)
[2018-08-29] MEDS: OMEPRAZOLE 20 MG CAP PO SCH (09:20)
[2018-08-29] MEDS: MOM 30ML SUSPENSION UDC PO PRN (09:55)
--- NOTE | 2018-08-29 10:04 | MHIPNPDOC ---
[facility] Progress Note Progress Note DATE OF SERVICE: 08/29/18 HISTORY: Patient is a 43 -year-old , female, with a history of schizophrenia and multiple admissions to [facility] in the past for psychosis who was brought in by EMS after calling 911 for generalized body pain, vaginal bleeding since the morning, burning on urination, and " a snake under my bed." Per ED, once seen she stated "snakes aren't usually welcome in vaginas." Per ED, pt attempted to take snake out of vagina but couldn't see it. Pt also endorsing "fear of her life" for no known reason. Pt seen in ED to have live cock roaches on herself. She was cleaned with her belonging tightly sealed and stored down stairs and not on [facility]. Pt was a very poor historian due to psychosis, paranoia, and bizarre delusions in the ED. Attempted to see pt today and pt sleeping heavily and only said "what" then resumed sleeping. Pt continues to be a poor historian and history gathered from previous records. VITAL SIGNS: See below. NEW TEST RESULTS: depakote level 86.9 therapeutic CURRENT MEDICATIONS: See below. MENTAL STATUS EXAMINATION: General Appearance: food stains on shirt, appears stated age, own clothing Build: overweight Demeanor: calmer Eye Contact: fair Activity: calmer, withdrawn in bed Behavior: cooperative, calm Speech: normal volume Mood: less constricted, flat, reactive Mood "I'm ok" Affect: less reactive,constricted, flat Thought Process: less associative, flight of ideas Thought Content (Delusions): improving paranoia, delusions, psychotic Thought Content (Other): improving preoccupied, ideas of reference, internal- stimuli, appears paranoid Thought Content (Aggressive): denies today Perception (Hallucinations): auditory Perception (Other): none reported Cognition (Impairment of): attention/concentration, ability to abstract, unable to assess Cognition(Intelligence Est.): borderline Oriented: Awake, Alert, Oriented times three Insight: poor Judgment: Poor Psychosis: improving Associations, Abstract Thinking, Psychotic Perceptions DIAGNOSES: 1. Paranoid Schizophrenia ASSESSMENT:Pt seen in today in bed stating she's doing ok and showed me a bracelet she made smiling. Pt still aking for d/c. Poor insight into mental health. Asking for a "joint" on the unit. Thorazine appears beneficial for agitation but still impulsive, reactive, delusional, responding to internal stimuli. Pt appears to have had tremor and will give inderal to alleviate. Pt c/o of constipation and will give mag citrate. Per staff pt more cooperative and less reactive. Refuses OT consult still. Possible AH today, Very concrete thinking. Continues to believe her kids are at her home but they aren't there as states "I need to get home and take care of my kids." Per treatment team Wednesday, PO states that pt has been snorting any type of pill type substance she can even tylenol and that her home is a mess, unsanitary, infested with bugs and cockroaches. She appears paranoid, delusional, associative, with flight of ideas, responding to internal stimuli, reactive mood although improving slowly. She is taking her meds. Perr nursing pt is sleeping well at night. She continues to have bizarre paranoid delusions and is less reactive. She has improved self care. Pt feels safe here. Pt appears to be improving some but self care remains compromised (per nurse refused shower curtain, refused to have nurses aid her with clean skin as would not undress, refuse to be seen by OT yesterday. Will have OT see today. Pt appears to need jail treatment and will refer to [facility]. MANAGEMENT PLAN: continue current plan. Refer [facility]. Inderal 10mg tid for tremor and one time dose mag citrate for constipation. Medications: Buspar 15 mg QID Depakote Er 1,500 mg QHS Ativan 2 mg Q6HP PRN PO ANXIETY/AGITATION ZyPREXA ZYDIS 5 mg Q6HP PRN PO ANXIETY/AGITATION Topiramate 25 mg BID Trazodone 200 mg QHSP PRN PO INSOMNIA invega sustenna 234mg im 08/23/18 thorazine 50mg bid inderal 10mg tid TIME SPENT: 30 minutes. Vital Signs Vital Signs Date Time Temp Pulse Resp B/P (MAP) Pulse Ox O2 Delivery O2 Flow Rate FiO2 08/29/18 09:19 122/70 08/29/18 07:12 97.2 60 16 Laboratory Data 24H Labs Laboratory Tests 2 08/28/18 17:16: Bedside Glucose (Misc Panel) 104 Current Medications Current Medications Acetaminophen (Tylenol Tab) 650 mg Q6HP PRN PO HEADACHE or DISCOMFORT Last administered on 08/25/18at 21:07; Start 08/18/18 at 02:45 Al Hydrox/Mg Hydrox/Simethicone (Mylanta) 30 ml Q4HP PRN PO HEARTBURN/INDIGESTION; Start 08/18/18 at 02:45 Albuterol Sulfate (Proventil, Ventolin Hfa) 2 puff Q4HP PRN INH SHORTNESS OF BREATH; Start 08/18/18 at 03:45 Albuterol/ Ipratropium (Duoneb (Ipr 0.5mg/Alb 2.5mg)) 3 ml Q4HP PRN NEB SOB/WHEEZING; Start 08/18/18 at 03:45 Buspirone HCl (Buspar) 15 mg QID PO Last administered on 08/29/18at 09:19; Start 08/18/18 at 13:00 Chlorpromazine HCl (Thorazine) 50 mg BID PO Last administered on 08/29/18at 09:20; Start 08/25/18 at 09:00 Divalproex Sodium (Depakote Er) 1,500 mg QHS PO Last administered on 08/28/18at 21:41; Start 08/18/18 at 21:00 Glipizide (Glucotrol Xl) 10 mg DAILY@0730 PO Last administered on 08/29/18at 07:07; Start 08/19/18 at 07:30 Home Med (Med Rec Complete!) ASDIRECTED XX ; Start 08/18/18 at 03:45; Stop 08/18/18 at 03:45; Status DC Lisinopril (Prinivil) 10 mg DAILY PO Last administered on 08/29/18at 09:19; Start 08/18/18 at 09:00 Lorazepam (Ativan) 2 mg Q6HP PRN PO ANXIETY/AGITATION; Start 08/18/18 at 02:45 Magnesium Hydroxide (Milk Of Magnesia) 30 ml DAILYPRN PRN PO CONSTIPATION Last administered on 08/29/18at 09:55; Start 08/18/18 at 02:45 Metformin HCl (Glucophage) 500 mg BID@08,18 PO Last administered on 08/29/18at 07:33; Start 08/19/18 at 08:00 Miscellaneous (Unresolved Clarification Entry) SEE LABEL COMMENTS DAILY XX ; Start 08/24/18 at 09:00; Stop 08/24/18 at 09:52; Status DC Nicotine (Nicoderm Cq 21mg) 1 patch DAILY TD Last administered on 08/29/18at 09:19; Start 08/18/18 at 19:00 Non-Formulary Medication ( See Comment Field Below ) SEE COMMENTS SECTION 1T@10 XX ; Start 08/27/18 at 10:00; Stop 08/27/18 at 10:00; Status DC Non-Formulary Medication ( See Comment Field Below ) SEE LABEL COMMENTS DAILY XX ; Start 08/25/18 at 09:00; Stop 08/25/18 at 10:39; Status DC Nystatin (Mycostatin Powder, Nystop) 1 dose BID TOP Last administered on 08/28/18at 21:48; Start 08/20/18 at 21:00 Nystatin (Mycostatin Powder, Nystop) 1 dose BIDP PRN TOP RASH Last administered on 08/20/18at 17:37; Start 08/20/18 at 16:45 Olanzapine (ZyPREXA ZYDIS) 5 mg Q6HP PRN PO ANXIETY/AGITATION; Start 08/18/18 at 02:45 Omeprazole (PriLOSEC) 40 mg DAILY PO Last administered on 08/29/18at 09:20; Start 08/18/18 at 09:00 Paliperidone (Invega) 3 mg QAM PO Last administered on 08/22/18 08:26; Start 08/18/18 at 11:30; Stop 08/22/18 at 10:23; Status DC Paliperidone (Invega) 3 mg QHS PO Last administered on 08/21/18at 21:47; Start 08/18/18 at 21:00; Stop 08/22/18 at 10:23; Status DC Paliperidone (Invega) 6 mg BID PO Last administered on 08/25/18 09:31; Start 08/22/18 at 21:00; Stop 08/25/18 at 09:47; Status DC Topiramate (TopAMAX) 25 mg BID PO Last administered on 08/29/18at 09:20; Start 08/18/18 at 11:30 Trazodone HCl (Desyrel) 50 mg QHSP PRN PO INSOMNIA; Start 08/18/18 at 02:45; Status Cancel Trazodone HCl (Desyrel) 200 mg QHSP PRN PO INSOMNIA Last administered on 08/20/18at 21:46; Start 08/18/18 at 11:30 Allergies Coded Allergies: Codeine (Unverified Allergy, Intermediate, HIVES, 07/19/17) NIKO WRIGHT DO Aug 29, 2018 10:04 am
[2018-08-29] MEDS ORDERED: MAGNESIUM CITRATE 300 ML BTL PO ONE (10:15)
[2018-08-29] MEDS: PROPRANOLOL 10 MG TAB PO SCH ×3 (12:11→21:45)
[2018-08-29] MEDS: NYSTATIN 100,000 UNITS/GM TOPICAL PWD 15 GM TOP SCH ×2 (12:12→21:00)
[2018-08-29 18:00] VITALS: BP 100/68
[2018-08-29] MEDS: LORazepam 2 MG TAB PO PRN (21:44)
[2018-08-29] MEDS: DIVALPROEX 500MG *ER* TAB PO SCH (21:44)
[2018-08-30 06:40] VITALS: BP 107/49
[2018-08-30] MEDS: glipiZIDE XL 5 MG TABCR PO SCH (06:54)
[2018-08-30] MEDS: metFORMIN (GLUCOPHAGE) 500 MG TAB PO SCH ×2 (07:45→17:02)
[2018-08-30] MEDS: NYSTATIN 100,000 UNITS/GM TOPICAL PWD 15 GM TOP SCH ×2 (09:00→20:49)
[2018-08-30] MEDS: TOPIRAMATE (TopAMAX) 25 MG TAB PO SCH ×2 (09:36→20:47)
[2018-08-30] MEDS: NICOTINE 21MG/24HR 1 EA TRANSDERMAL TD SCH (09:36)
[2018-08-30] MEDS: busPIRone 5 MG TAB PO SCH ×4 (09:36→20:47)
[2018-08-30] MEDS: PROPRANOLOL 10 MG TAB PO SCH ×3 (09:37→20:47)
[2018-08-30] MEDS: OMEPRAZOLE 20 MG CAP PO SCH (09:37)
[2018-08-30] MEDS: chlorproMAZINE 25 MG TAB (Q0161) PO SCH ×2 (09:37→20:47)
[2018-08-30] MEDS: LISINOPRIL 10 MG TAB PO SCH (09:38)
--- NOTE | 2018-08-30 11:33 | MHIPNPDOC ---
[facility] Progress Note Progress Note DATE OF SERVICE: 08/30/18 HISTORY: Patient is a 43 -year-old , female, with a history of schizophrenia and multiple admissions to [facility] in the past for psychosis who was brought in by EMS after calling 911 for generalized body pain, vaginal bleeding since the morning, burning on urination, and " a snake under my bed." Per ED, once seen she stated "snakes aren't usually welcome in vaginas." Per ED, pt attempted to take snake out of vagina but couldn't see it. Pt also endorsing "fear of her life" for no known reason. Pt seen in ED to have live cock roaches on herself. She was cleaned with her belonging tightly sealed and stored down stairs and not on [facility]. Pt was a very poor historian due to psychosis, paranoia, and bizarre delusions in the ED. Attempted to see pt today and pt sleeping heavily and only said "what" then resumed sleeping. Pt continues to be a poor historian and history gathered from previous records. VITAL SIGNS: See below. NEW TEST RESULTS: depakote level 86.9 therapeutic CURRENT MEDICATIONS: See below. MENTAL STATUS EXAMINATION: General Appearance: food stains on shirt, appears stated age, own clothing Build: overweight Demeanor: calmer Eye Contact: fair Activity: calmer, withdrawn in bed Behavior: cooperative, calm Speech: normal volume Mood: less constricted, flat, reactive Mood "I'm ok" Affect: less reactive,constricted, flat Thought Process: less associative, flight of ideas Thought Content (Delusions): improving paranoia, delusions, psychotic Thought Content (Other): improving preoccupied, ideas of reference, internal- stimuli, appears paranoid Thought Content (Aggressive): denies today Perception (Hallucinations): auditory Perception (Other): none reported Cognition (Impairment of): attention/concentration, ability to abstract, unable to assess Cognition(Intelligence Est.): borderline Oriented: Awake, Alert, Oriented times three Insight: poor Judgment: Poor Psychosis: improving Associations, Abstract Thinking, Psychotic Perceptions DIAGNOSES: 1. Paranoid Schizophrenia ASSESSMENT:Pt seen in today in office stating she's doing ok and wants to go home b/c of her cat. Informed pt the PO checked on her home and her neighbor is taking good care of her cat which eased her fear of her cat dying b/c she wasn't home to care for it (D/c workforce planner spoke with pt's PO yesterday). Pt still asking for d/c. Poor insight into mental health. Informed pt that she's being referred to [facility] for fdc treatment b/c of continued psychosis, impulsive agitation ("I have a temper"), poor self care, poor insight/judgement, engaging in risky behavior, unsafe living environment ("Everyone has cockroaches") which she doesn't want and states "I'll never be better... I'm slow." Inderal appears beneficial for hand tremor as greatly improved today. Thorazine appears beneficial for agitation but still impulsive, reactive, delusional, responding to internal stimuli. Per staff pt more cooperative and less reactive. Refuses OT consult still. Possible AH today, Very concrete thinking. Continues to believe her kids are at her home but they aren't there as states "I need to get home and take care of my kids." Per treatment team last week, PO states that pt has been snorting any type of pill type substance she can even tylenol and that her home is a mess, unsanitary, infested with bugs and cockroaches. She appears paranoid, delusional, associative, with flight of ideas, responding to internal stimuli, reactive mood although improving slowly. She is taking her meds. Perr nursing pt is sleeping well at night. She continues to have bizarre paranoid delusions and is less reactive. She has improved, although still limited self care. Pt feels safe here. Pt appears to need fdc treatment and will refer to [facility]. MANAGEMENT PLAN: continue current plan. Refer [facility]. Medications: Buspar 15 mg QID Depakote Er 1,500 mg QHS Ativan 2 mg Q6HP PRN PO ANXIETY/AGITATION ZyPREXA ZYDIS 5 mg Q6HP PRN PO ANXIETY/AGITATION Topiramate 25 mg BID Trazodone 200 mg QHSP PRN PO INSOMNIA invega sustenna 234mg im 08/23/18 thorazine 50mg bid inderal 10mg tid TIME SPENT: 30 minutes. Vital Signs Vital Signs Date Time Temp Pulse Resp B/P (MAP) Pulse Ox O2 Delivery O2 Flow Rate FiO2 08/30/18 09:37 70 112/68 08/30/18 06:40 98.9 18 Laboratory Data 24H Labs Laboratory Tests 2 08/29/18 17:09: Bedside Glucose (Misc Panel) 100 Current Medications Current Medications Acetaminophen (Tylenol Tab) 650 mg Q6HP PRN PO HEADACHE or DISCOMFORT Last administered on 08/25/18 21:07; Start 08/18/18 at 02:45 Al Hydrox/Mg Hydrox/Simethicone (Mylanta) 30 ml Q4HP PRN PO HEARTB URN/INDIGESTION; Start 08/18/18 at 02:45 Albuterol Sulfate (Proventil, Ventolin Hfa) 2 puff Q4HP PRN INH SHORTNESS OF BREATH; Start 08/18/18 at 03:45 Albuterol/ Ipratropium (Duoneb (Ipr 0.5mg/Alb 2.5mg)) 3 ml Q4HP PRN NEB SOB/WHEEZING; Start 08/18/18 at 03:45 Buspirone HCl (Buspar) 15 mg QID PO Last administered on 08/30/18 09:36; Start 08/18/18 at 13:00 Chlorpromazine HCl (Thorazine) 50 mg BID PO Last administered on 08/30/18 09:37; Start 08/25/18 at 09:00 Divalproex Sodium (Depakote Er) 1,500 mg QHS PO Last administered on 08/29/18 21:44; Start 08/18/18 at 21:00 Glipizide (Glucotrol Xl) 10 mg DAILY@0730 PO Last administered on 08/30/18at 06:54; Start 08/19/18 at 07:30 Home Med (Med Rec Complete!) ASDIRECTED XX ; Start 08/18/18 at 03:45; Stop 08/18/18 at 03:45; Status DC Lisinopril (Prinivil) 10 mg DAILY PO Last administered on 08/30/18at 09:38; Start 08/18/18 at 09:00 Lorazepam (Ativan) 2 mg Q6HP PRN PO ANXIETY/AGITATION Last administered on 08/29/18at 21:44; Start 08/18/18 at 02:45 Magnesium Hydroxide (Milk Of Magnesia) 30 ml DAILYPRN PRN PO CONSTIPATION Last administered on 08/29/18at 09:55; Start 08/18/18 at 02:45 Metformin HCl (Glucophage) 500 mg BID@18 PO Last administered on 08/30/18at 07:45; Start 08/19/18 at 08:00 Miscellaneous (Unresolved Clarification Entry) SEE LABEL COMMENTS DAILY XX ; Start 08/24/18 at 09:00; Stop 08/24/18 at 09:52; Status DC Nicotine (Nicoderm Cq 21mg) 1 patch DAILY TD Last administered on 08/30/18at 09:36; Start 08/18/18 at 19:00 Non-Formulary Medication ( See Comment Field Below ) SEE COMMENTS SECTION 1T@10 XX ; Start 08/27/18 at 10:00; Stop 08/27/18 at 10:00; Status DC Non-Formulary Medication ( See Comment Field Below ) SEE LABEL COMMENTS DAILY XX ; Start 08/25/18 at 09:00; Stop 08/25/18 at 10:39; Status DC Nystatin (Mycostatin Powder, Nystop) 1 dose BID TOP Last administered on 08/29/18at 12:12; Start 08/20/18 at 21:00 Nystatin (Mycostatin Powder, Nystop) 1 dose BIDP PRN TOP RASH Last administered on 08/20/18 17:37; Start 08/20/18 at 16:45 Olanzapine (ZyPREXA ZYDIS) 5 mg Q6HP PRN PO ANXIETY/AGITATION; Start 08/18/18 at 02:45 Omeprazole (PriLOSEC) 40 mg DAILY PO Last administered on 08/30/18at 09:37; Start 08/18/18 at 09:00 Paliperidone (Invega) 3 mg QAM PO Last administered on 08/22/18at 08:26; Start 08/18/18 at 11:30; Stop 08/22/18 at 10:23; Status DC Paliperidone (Invega) 3 mg QHS PO Last administered on 08/21/18at 21:47; Start 08/18/18 at 21:00; Stop 08/22/18 at 10:23; Status DC Paliperidone (Invega) 6 mg BID PO Last administered on 08/25/18at 09:31; Start 08/22/18 at 21:00; Stop 08/25/18 at 09:47; Status DC Propranolol HCl (Inderal) 10 mg TID PO Last administered on 08/30/18at 09:37; Start 08/29/18 at 09:00 Topiramate (TopAMAX) 25 mg BID PO Last administered on 08/30/18at 09:36; Start 08/18/18 at 11:30 Trazodone HCl (Desyrel) 50 mg QHSP PRN PO INSOMNIA; Start 08/18/18 at 02:45; Status Cancel Trazodone HCl (Desyrel) 200 mg QHSP PRN PO INSOMNIA Last administered on 08/20/18at 21:46; Start 08/18/18 at 11:30 Allergies Coded Allergies: Codeine (Unverified Allergy, Intermediate, HIVES, 07/19/17) NIKO WRIGHT DO Aug 30, 2018 11:33 am
[2018-08-30] MEDS: ACETAMINOPHEN TAB 650MG DOSE (2X325MG) PO PRN (12:07)
[2018-08-30 18:00] VITALS: BP 110/60
[2018-08-30] MEDS: DIVALPROEX 500MG *ER* TAB PO SCH (20:47)
[2018-08-30] MEDS: traZODone 100 MG TAB PO PRN (20:47)
[2018-08-31] MEDS: ACETAMINOPHEN TAB 650MG DOSE (2X325MG) PO PRN (03:49)
[2018-08-31] MEDS: glipiZIDE XL 5 MG TABCR PO SCH (06:34)
[2018-08-31 06:48] VITALS: BP 129/63
[2018-08-31] MEDS: metFORMIN (GLUCOPHAGE) 500 MG TAB PO SCH ×2 (07:48→17:02)
[2018-08-31] MEDS: NYSTATIN 100,000 UNITS/GM TOPICAL PWD 15 GM TOP SCH ×2 (09:00→21:56)
--- NOTE | 2018-08-31 09:47 | MHIPNPDOC ---
[facility] Progress Note Progress Note DATE OF SERVICE: 08/31/18 HISTORY: Patient is a 43 -year-old , female, with a history of schizophrenia and multiple admissions to [facility] in the past for psychosis who was brought in by EMS after calling 911 for generalized body pain, vaginal bleeding since the morning, burning on urination, and " a snake under my bed." Per ED, once seen she stated "snakes aren't usually welcome in vaginas." Per ED, pt attempted to take snake out of vagina but couldn't see it. Pt also endorsing "fear of her life" for no known reason. Pt seen in ED to have live cock roaches on herself. She was cleaned with her belonging tightly sealed and stored down stairs and not on [facility]. Pt was a very poor historian due to psychosis, paranoia, and bizarre delusions in the ED. Attempted to see pt today and pt sleeping heavily and only said "what" then resumed sleeping. Pt continues to be a poor historian and history gathered from previous records. VITAL SIGNS: See below. NEW TEST RESULTS: depakote level 86.9 therapeutic CURRENT MEDICATIONS: See below. MENTAL STATUS EXAMINATION: General Appearance: food stains on shirt, appears stated age, own clothing Build: overweight Demeanor: agitated Eye Contact: fair Activity: agitated Behavior: cooperative, calm Speech: normal volume Mood: agitated, reactive Mood "I want to go home" Affect: less reactive,constricted, flat Thought Process: associative, flight of ideas Thought Content (Delusions): paranoia, delusions, psychotic Thought Content (Other): preoccupied, ideas of reference, internal-stimuli, appears paranoid Thought Content (Aggressive): denies today Perception (Hallucinations): auditory Perception (Other): none reported Cognition (Impairment of): attention/concentration, ability to abstract, unable to assess Cognition(Intelligence Est.): borderline Oriented: Awake, Alert, Oriented times three Insight: poor Judgment: Poor Psychosis: Associations, Abstract Thinking, Psychotic Perceptions DIAGNOSES: 1. Paranoid Schizophrenia ASSESSMENT:Pt seen in milieu yelling at me stating she wants to go home. Overheard pt on phone telling someone she could stay at the [facility]. Per nursing pt countiues to be delusional, responding to internal stimuli, reactive, and agitated. Poor insight into mental health. Informed pt that she's being referred to [facility] for alf treatment b/c of continued psychosis, impulsive agitation, poor self care, poor insight/judgement, engaging in risky behavior, unsafe living environment which she doesn't want. Inderal appears beneficial for hand tremor as greatly improved today. Thorazine appears beneficial for agitation but still impulsive, reactive, delusional, responding to internal stimuli. Refuses OT consult still. Very concrete thinking. Continues to believe her kids are at her home but they aren't there as states "I need to get home and take care of my kids." Per treatment team last week, PO states that pt has been snorting any type of pill type substance she can even tylenol and that her home is a mess, unsanitary, infested with bugs and cockroaches. She appears paranoid, delusional, associative, with flight of ideas, responding to internal stimuli, reactive mood and slows very limited improvement. She is taking her me ds. Perr nursing pt is sleeping well at night. She continues to have bizarre paranoid delusions and is less reactive. She has improved, although still limited self care. Pt feels safe here. Pt appears to need alf treatment and will refer to [facility]. MANAGEMENT PLAN: continue current plan. Refer [facility]. Medications: Buspar 15 mg QID Depakote Er 1,500 mg QHS Ativan 2 mg Q6HP PRN PO ANXIETY/AGITATION ZyPREXA ZYDIS 5 mg Q6HP PRN PO ANXIETY/AGITATION Topiramate 25 mg BID Trazodone 200 mg QHSP PRN PO INSOMNIA invega sustenna 234mg im 08/23/18 thorazine 50mg bid inderal 10mg tid TIME SPENT: 30 minutes. Vital Signs Vital Signs Date Time Temp Pulse Resp B/P (MAP) Pulse Ox O2 Delivery O2 Flow Rate FiO2 08/31/18 06:48 96.3 59 20 129/63 (85) Laboratory Data 24H Labs Laboratory Tests 2 08/30/18 17:01: Bedside Glucose (Misc Panel) 77 08/31/18 06:19: Bedside Glucose (Misc Panel) 102 Current Medications Current Medications Acetaminophen (Tylenol Tab) 650 mg Q6HP PRN PO HEADACHE or DISCOMFORT Last administered on 08/31/18at 03:49; Start 08/18/18 at 02:45 Al Hydrox/Mg Hydrox/Simethicone (Mylanta) 30 ml Q4HP PRN PO HEARTBURN/INDIGESTION; Start 08/18/18 at 02:45 Albuterol Sulfate (Proventil, Ventolin Hfa) 2 puff Q4HP PRN INH SHORTNESS OF BREATH; Start 08/18/18 at 03:45 Albuterol/ Ipratropium (Duoneb (Ipr 0.5mg/Alb 2.5mg)) 3 ml Q4HP PRN NEB SOB/WHEEZING; Start 08/18/18 at 03:45 Buspirone HCl (Buspar) 15 mg QID PO Last administered on 08/30/18 20:47; Start 08/18/18 at 13:00 Chlorpromazine HCl (Thorazine) 50 mg BID PO Last administered on 08/30/18 20:47; Start 08/25/18 at 09:00 Divalproex Sodium (Depakote Er) 1,500 mg QHS PO Last administered on 08/30/18 20:47; Start 08/18/18 at 21:00 Glipizide (Glucotrol Xl) 10 mg DAILY@0730 PO Last administered on 08/31/18 06:34; Start 08/19/18 at 07:30 Home Med (Med Rec Complete!) ASDIRECTED XX ; Start 08/18/18 at 03:45; Stop 08/18/18 at 03:45; Status DC Lisinopril (Prinivil) 10 mg DAILY PO Last administered on 08/30/18at 09:38; Start 08/18/18 at 09:00 Lorazepam (Ativan) 2 mg Q6HP PRN PO ANXIETY/AGITATION Last administered on 08/29 21:44; Start 08/18/18 at 02:45 Magnesium Hydroxide (Milk Of Magnesia) 30 ml DAILYPRN PRN PO CONSTIPATION Last administered on 08/29/18 09:55; Start 08/18/18 at 02:45 Metformin HCl (Glucophage) 500 mg BID@08,18 PO Last administered on 08/31/18at 07:48; Start 08/19/18 at 08:00 Miscellaneous (Unresolved Clarification Entry) SEE LABEL COMMENTS DAILY XX ; Start 08/24/18 at 09:00; Stop 08/24/18 at 09:52; Status DC Nicotine (Nicoderm Cq 21mg) 1 patch DAILY TD Last administered on 08/30/18at 09:36; Start 08/18/18 at 19:00 Non-Formulary Medication ( See Comment Field Below ) SEE COMMENTS SECTION 1T@10 XX ; Start 08/27/18 at 10:00; Stop 08/27/18 at 10:00; Status DC Non-Formulary Medication ( See Comment Field Below ) SEE LABEL COMMENTS DAILY XX ; Start 08/25/18 at 09:00; Stop 08/25/18 at 10:39; Status DC Nystatin (Mycostatin Powder, Nystop) 1 dose BID TOP Last administered on at 12:12; Start 08/20/18 at 21:00 Nystatin (Mycostatin Powder, Nystop) 1 dose BIDP PRN TOP RASH Last administered on 08/20/18 17:37; Start 08/20/18 at 16:45 Olanzapine (ZyPREXA ZYDIS) 5 mg Q6HP PRN PO ANXIETY/AGITATION; Start 08/18/18 at 02:45 Omeprazole (PriLOSEC) 40 mg DAILY PO Last administered on 08/30/18 09:37; Start 08/18/18 at 09:00 Paliperidone (Invega) 3 mg QAM PO Last administered on 08/22/18 08:26; Start 08/18/18 at 11:30; Stop 08/22/18 at 10:23; Status DC Paliperidone (Invega) 3 mg QHS PO Last administered on 08/21/18at 21:47; Start 08/18/18 at 21:00; Stop 08/22/18 at 10:23; Status DC Paliperidone (Invega) 6 mg BID PO Last administered on 08/25/18 09:31; Start 08/22/18 at 21:00; Stop 08/25/18 at 09:47; Status DC Propranolol HCl (Inderal) 10 mg TID PO Last administered on 08/30/18 20:47; Start 08/29/18 at 09:00 Topiramate (TopAMAX) 25 mg BID PO Last administered on 2/19/19at 20:47; Start 08/18/18 at 11:30 Trazodone HCl (Desyrel) 50 mg QHSP PRN PO INSOMNIA; Start 08/18/18 at 02:45; Status Cancel Trazodone HCl (Desyrel) 200 mg QHSP PRN PO INSOMNIA Last administered on 08/30/18at 20:47; Start 08/18/18 at 11:30 Allergies Coded Allergies: Codeine (Unverified Allergy, Intermediate, HIVES, 07/19/17) NIKO WRIGHT DO Aug 31, 2018 9:47 am
[2018-08-31] MEDS: OMEPRAZOLE 20 MG CAP PO SCH (09:55)
[2018-08-31] MEDS: chlorproMAZINE 25 MG TAB (Q0161) PO SCH ×2 (09:55→21:57)
[2018-08-31] MEDS: busPIRone 5 MG TAB PO SCH ×4 (09:55→21:56)
[2018-08-31] MEDS: TOPIRAMATE (TopAMAX) 25 MG TAB PO SCH ×2 (09:55→21:56)
[2018-08-31] MEDS: PROPRANOLOL 10 MG TAB PO SCH ×3 (09:55→21:55)
[2018-08-31] MEDS: LISINOPRIL 10 MG TAB PO SCH (09:55)
[2018-08-31] MEDS: NICOTINE 21MG/24HR 1 EA TRANSDERMAL TD SCH (09:56)
[2018-08-31 18:00] VITALS: BP 116/64
[2018-08-31] MEDS: DIVALPROEX 500MG *ER* TAB PO SCH (21:56)
[2018-09-01] MEDS: ACETAMINOPHEN TAB 650MG DOSE (2X325MG) PO PRN ×2 (04:00→21:12)
[2018-09-01 06:49] VITALS: BP 108/51
[2018-09-01] MEDS: glipiZIDE XL 5 MG TABCR PO SCH (07:01)
[2018-09-01] MEDS: NICOTINE 21MG/24HR 1 EA TRANSDERMAL TD SCH (09:00)
[2018-09-01] MEDS: NYSTATIN 100,000 UNITS/GM TOPICAL PWD 15 GM TOP SCH ×2 (09:00→21:15)
[2018-09-01] MEDS: TOPIRAMATE (TopAMAX) 25 MG TAB PO SCH ×2 (09:10→21:09)
[2018-09-01] MEDS: busPIRone 5 MG TAB PO SCH ×4 (09:10→21:12)
[2018-09-01] MEDS: metFORMIN (GLUCOPHAGE) 500 MG TAB PO SCH ×2 (09:10→17:27)
[2018-09-01] MEDS: LISINOPRIL 10 MG TAB PO SCH (09:12)
[2018-09-01] MEDS: PROPRANOLOL 10 MG TAB PO SCH ×3 (09:13→21:11)
[2018-09-01] MEDS: chlorproMAZINE 25 MG TAB (Q0161) PO SCH ×2 (09:14→21:10)
[2018-09-01] MEDS: OMEPRAZOLE 20 MG CAP PO SCH (09:17)
--- NOTE | 2018-09-01 09:43 | MHIPNPDOC ---
[facility] Progress Note Progress Note DATE OF SERVICE: 09/01/18 HISTORY: Patient is a 43 -year-old , female, with a history of schizophrenia and multiple admissions to [facility] in the past for psychosis who was brought in by EMS after calling 911 for generalized body pain, vaginal bleeding since the morning, burning on urination, and " a snake under my bed." Per ED, once seen she stated "snakes aren't usually welcome in vaginas." Per ED, pt attempted to take snake out of vagina but couldn't see it. Pt also endorsing "fear of her life" for no known reason. Pt seen in ED to have live cock roaches on herself. She was cleaned with her belonging tightly sealed and stored down stairs and not on [facility]. Pt was a very poor historian due to psychosis, paranoia, and bizarre delusions in the ED. Attempted to see pt today and pt sleeping heavily and only said "what" then resumed sleeping. Pt continues to be a poor historian and history gathered from previous records. VITAL SIGNS: See below. NEW TEST RESULTS: depakote level 86.9 therapeutic CURRENT MEDICATIONS: See below. MENTAL STATUS EXAMINATION: General Appearance: food stains on shirt, appears stated age, own clothing Build: overweight Demeanor: agitated Eye Contact: fair Activity: agitated Behavior: cooperative, calm Speech: normal volume Mood: agitated, reactive Mood "I want to go home" Affect: less reactive,constricted, flat Thought Process: associative, flight of ideas Thought Content (Delusions): paranoia, delusions, psychotic Thought Content (Other): preoccupied, ideas of reference, internal-stimuli, appears paranoid Thought Content (Aggressive): denies today Perception (Hallucinations): auditory Perception (Other): none reported Cognition (Impairment of): attention/concentration, ability to abstract, unable to assess Cognition(Intelligence Est.): borderline Oriented: Awake, Alert, Oriented times three Insight: poor Judgment: Poor Psychosis: Associations, Abstract Thinking, Psychotic Perceptions DIAGNOSES: 1. Paranoid Schizophrenia ASSESSMENT:Pt seen in milieu and ignoring me today and otherwise asking to go home, stopped talking after that. Continues to be delusional, responding to internal stimuli, reactive, and agitated. Poor insight into mental health. Informed pt that she's being referred to [facility] [place] [facility] b/c of continued psychosis, impulsive agitation, poor self care, poor insight/judgement, engaging in risky behavior, unsafe living environment which she doesn't want. Inderal appears beneficial for hand tremor as greatly improved. Thorazine appears beneficial for agitation but still impulsive, reactive, delusional, responding to internal stimuli. Refuses OT consult still. Very concrete thinking. Continues to believe her kids are at her home but they aren't there as states "I need to get home and take care of my kids." Per treatment team last week, PO states that pt has been snorting any type of pill type substance she can even tylenol and that her home is a mess, unsanitary, infested with bugs and cockroaches. She appears paranoid, delusional, associative, with flight of ideas, responding to internal stimuli, reactive mood and slows very limited improvement. She is taking her meds. Perr nursing pt is sleeping well at night. She continues to have bizarre paranoid delusions and is less reactive. She has improved, although still limited self care. Pt feels safe here. Pt appears to need [place] [facility] treatment and will refer to [facility]. MANAGEMENT PLAN: continue current plan. Refer [facility]. Medications: Buspar 15 mg QID Depakote Er 1,500 mg QHS Ativan 2 mg Q6HP PRN PO ANXIETY/AGITATION ZyPREXA ZYDIS 5 mg Q6HP PRN PO ANXIETY/AGITATION Topiramate 25 mg BID Trazodone 200 mg QHSP PRN PO INSOMNIA invega sustenna 234mg im 08/23/18 thorazine 50mg bid inderal 10mg tid TIME SPENT: 30 minutes. Vital Signs Vital Signs Date Time Temp Pulse Resp B/P (MAP) Pulse Ox O2 Delivery O2 Flow Rate FiO2 09/01/18 09:12 135/75 09/01/18 06:49 97.6 58 14 Laboratory Data 24H Labs Laboratory Tests 2 08/31/18 17:00: Bedside Glucose (Misc Panel) 85 09/01/18 03:57: Bedside Glucose (Misc Panel) 83 09/01/18 06:37: Bedside Glucose (Misc Panel) 80 Current Medications Current Medications Acetaminophen (Tylenol Tab) 650 mg Q6HP PRN PO HEADACHE or DISCOMFORT Last administered on 09/01/18at 04:00; Start 08/18/18 at 02:45 Al Hydrox/Mg Hydrox/Simethicone (Mylanta) 30 ml Q4HP PRN PO HEARTBURN/INDIGESTION; Start 08/18/18 at 02:45 Albuterol Sulfate (Proventil, Ventolin Hfa) 2 puff Q4HP PRN INH SHORTNESS OF BREATH; Start 08/18/18 at 03:45 Albuterol/ Ipratropium (Duoneb (Ipr 0.5mg/Alb 2.5mg)) 3 ml Q4HP PRN NEB SOB/WHEEZING; Start 08/18/18 at 03:45 Buspirone HCl (Buspar) 15 mg QID PO Last administered on 09/01/18 09:10; Start 08/18/18 at 13:00 Chlorpromazine HCl (Thorazine) 50 mg BID PO Last administered on 09/01/18 09:14; Start 08/25/18 at 09:00 Divalproex Sodium (Depakote Er) 1,500 mg QHS PO Last administered on 08/31/18at 21:56; Start 08/18/18 at 21:00 Glipizide (Glucotrol Xl) 10 mg DAILY@0730 PO Last administered on 09/01/18at 07:01; Start 08/19/18 at 07:30 Home Med (Med Rec Complete!) ASDIRECTED XX ; Start 08/18/18 at 03:45; Stop 08/18/18 at 03:45; Status DC Lisinopril (Prinivil) 10 mg DAILY PO Last administered on 09/01/18at 09:12; Start 08/18/18 at 09:00 Lorazepam (Ativan) 2 mg Q6HP PRN PO ANXIETY/AGITATION Last administered on 08/29/18 21:44; Start 08/18/18 at 02:45 Magnesium Hydroxide (Milk Of Magnesia) 30 ml DAILYPRN PRN PO CONSTIPATION Last administered on 08/29/18 09:55; Start 08/18/18 at 02:45 Metformin HCl (Glucophage) 500 mg BID@08,18 PO Last administered on 09/01/18at 09:10; Start 08/19/18 at 08:00 Miscellaneous (Unresolved Clarification Entry) SEE LABEL COMMENTS DAILY XX ; Start 08/24/18 at 09:00; Stop 08/24/18 at 09:52; Status DC Nicotine (Nicoderm Cq 21mg) 1 patch DAILY TD Last administered on 08/31/18 09:56; Start 08/18/18 at 19:00 Non-Formulary Medication ( See Comment Field Below ) SEE COMMENTS SECTION 1T@10 XX ; Start 08/27/18 at 10:00; Stop 08/27/18 at 10:00; Status DC Non-Formulary Medication ( See Comment Field Below ) SEE LABEL COMMENTS DAILY XX ; Start 08/25/18 at 09:00; Stop 08/25/18 at 10:39; Status DC Nystatin (Mycostatin Powder, Nystop) 1 dose BID TOP Last administered on 08/31/18at 21:56; Start 08/20/18 at 21:00 Nystatin (Mycostatin Powder, Nystop) 1 dose BIDP PRN TOP RASH Last administered on 08/20/18at 17:37; Start 08/20/18 at 16:45 Olanzapine (ZyPREXA ZYDIS) 5 mg Q6HP PRN PO ANXIETY/AGITATION; Start 08/18/18 at 02:45 Omeprazole (PriLOSEC) 40 mg DAILY PO Last administered on 09/01/18 09:17; Start 08/18/18 at 09:00 Paliperidone (Invega) 3 mg QAM PO Last administered on 08/22/18 08:26; Start 08/18/18 at 11:30; Stop 08/22/18 at 10:23; Status DC Paliperidone (Invega) 3 mg QHS PO Last administered on 08/21/18at 21:47; Start 08/18/18 at 21:00; Stop 08/22/18 at 10:23; Status DC Paliperidone (Invega) 6 mg BID PO Last administered on 08/25/18 09:31; Start 08/22/18 at 21:00; Stop 08/25/18 at 09:47; Status DC Propranolol HCl (Inderal) 10 mg TID PO Last administered on 09/01/18 09:13; Start 08/29/18 at 09:00 Topiramate (TopAMAX) 25 mg BID PO Last administered on 2/21/19at 09:10; Start 08/18/18 at 11:30 Trazodone HCl (Desyrel) 50 mg QHSP PRN PO INSOMNIA; Start 08/18/18 at 02:45; Status Cancel Trazodone HCl (Desyrel) 200 mg QHSP PRN PO INSOMNIA Last administered on 08/30/18at 20:47; Start 08/18/18 at 11:30 Allergies Coded Allergies: Codeine (Unverified Allergy, Intermediate, HIVES, 07/19/17) NIKO WRIGHT DO Sep 01, 2018 9:42 am
[2018-09-01 18:00] VITALS: BP 110/53
[2018-09-01] MEDS: traZODone 100 MG TAB PO PRN (21:09)
[2018-09-01] MEDS: DIVALPROEX 500MG *ER* TAB PO SCH (21:12)
[2018-09-02] MEDS: ACETAMINOPHEN TAB 650MG DOSE (2X325MG) PO PRN (06:07)
[2018-09-02] MEDS: glipiZIDE XL 5 MG TABCR PO SCH (06:44)
[2018-09-02 06:45] VITALS: BP 127/71
[2018-09-02] MEDS: metFORMIN (GLUCOPHAGE) 500 MG TAB PO SCH ×2 (07:54→17:00)
[2018-09-02] MEDS: NICOTINE 21MG/24HR 1 EA TRANSDERMAL TD SCH (09:17)
[2018-09-02] MEDS: TOPIRAMATE (TopAMAX) 25 MG TAB PO SCH ×2 (09:18→21:52)
[2018-09-02] MEDS: LISINOPRIL 10 MG TAB PO SCH (09:18)
[2018-09-02] MEDS: PROPRANOLOL 10 MG TAB PO SCH ×3 (09:18→21:52)
[2018-09-02] MEDS: chlorproMAZINE 25 MG TAB (Q0161) PO SCH ×2 (09:18→21:52)
[2018-09-02] MEDS: OMEPRAZOLE 20 MG CAP PO SCH (09:18)
[2018-09-02] MEDS: busPIRone 5 MG TAB PO SCH ×4 (09:18→21:53)
[2018-09-02] MEDS: NYSTATIN 100,000 UNITS/GM TOPICAL PWD 15 GM TOP SCH ×2 (09:19→21:55)
--- NOTE | 2018-09-02 09:52 | MHIPNPDOC ---
[facility] Progress Note Progress Note DATE OF SERVICE: 09/02/18 HISTORY: Patient is a 43 -year-old , female, with a history of schizophrenia and multiple admissions to [facility] in the past for psychosis who was brought in by EMS after calling 911 for generalized body pain, vaginal bleeding since the morning, burning on urination, and " a snake under my bed." Per ED, once seen she stated "snakes aren't usually welcome in vaginas." Per ED, pt attempted to take snake out of vagina but couldn't see it. Pt also endorsing "fear of her life" for no known reason. Pt seen in ED to have live cock roaches on herself. She was cleaned with her belonging tightly sealed and stored down stairs and not on [facility]. Pt was a very poor historian due to psychosis, paranoia, and bizarre delusions in the ED. Attempted to see pt today and pt sleeping heavily and only said "what" then resumed sleeping. Pt continues to be a poor historian and history gathered from previous records. VITAL SIGNS: See below. NEW TEST RESULTS: depakote level 86.9 therapeutic CURRENT MEDICATIONS: See below. MENTAL STATUS EXAMINATION: General Appearance: food stains on shirt, appears stated age, own clothing Build: overweight Demeanor: agitated Eye Contact: fair Activity: agitated Behavior: uncooperative, irritable Speech: normal volume Mood: agitated, reactive Mood "I want to go home" Affect: reactive,constricted, reactive Thought Process: associative, flight of ideas Thought Content (Delusions): paranoia, delusions, psychotic Thought Content (Other): preoccupied, ideas of reference, internal-stimuli, appears paranoid Thought Content (Aggressive): denies today Perception (Hallucinations): auditory Perception (Other): none reported Cognition (Impairment of): attention/concentration, ability to abstract, unable to assess Cognition(Intelligence Est.): borderline Oriented: Awake, Alert, Oriented times three Insight: poor Judgment: Poor Psychosis: Associations, Abstract Thinking, Psychotic Perceptions DIAGNOSES: 1. Paranoid Schizophrenia ASSESSMENT:Pt seen in milieu and asking to go home, slightly agitated stating she's going to have her father get her a lawyer probate to go home. Pt is not known to be in any contact with her father. Continues to be delusional, responding to internal stimuli, reactive, and agitated. Poor insight into mental health. Informed pt that she's being referred to [facility] for halfway treatment b/c of continued psychosis, impulsive agitation, poor self care, poor insight/judgement, engaging in risky behavior, unsafe living environment which she doesn't want. Inderal appears beneficial for hand tremor as greatly impro moris. Thorazine appears beneficial for agitation but still impulsive, reactive, delusional, responding to internal stimuli. Refuses OT consult still. Very concrete thinking. Continues to believe her kids are at her home but they aren't there as states "I need to get home and take care of my kids." Per treatment team last week, PO states that pt has been snorting any type of pill type substance she can even tylenol and that her home is a mess, unsanitary, infested with bugs and cockroaches. She appears paranoid, delusional, associative, with flight of ideas, responding to internal stimuli, reactive mood and slows very limited improvement. She is taking her meds. Perr nursing pt is sleeping well at night. She continues to have bizarre paranoid delusions and is less reactive. She has improved, although still limited self care. Pt feels safe here. Pt appears to need halfway treatment and will refer to [facility]. MANAGEMENT PLAN: continue current plan. Refer [facility]. Medications: Buspar 15 mg QID Depakote Er 1,500 mg QHS Ativan 2 mg Q6HP PRN PO ANXIETY/AGITATION ZyPREXA ZYDIS 5 mg Q6HP PRN PO ANXIETY/AGITATION Topiramate 25 mg BID Trazodone 200 mg QHSP PRN PO INSOMNIA invega sustenna 234mg im 08/23/18 thorazine 50mg bid inderal 10mg tid TIME SPENT: 30 minutes. Vital Signs Vital Signs Date Time Temp Pulse Resp B/P (MAP) Pulse Ox O2 Delivery O2 Flow Rate FiO2 09/02/18 09:18 62 126/74 09/02/18 06:45 97.0 20 09/01/18 10:11 Room Air Laboratory Data 24H Labs Laboratory Tests 2 09/01/18 17:25: Bedside Glucose (Misc Panel) 133H 09/02/18 05:57: Bedside Glucose (Misc Panel) 74 Current Medications Current Medications Acetaminophen (Tylenol Tab) 650 mg Q6HP PRN PO HEADACHE or DISCOMFORT Last administered on 09/02/18 06:07; Start 08/18/18 at 02:45 Al Hydrox/Mg Hydrox/Simethicone (Mylanta) 30 ml Q4HP PRN PO HEARTBURN/INDIGESTION; Start 08/18/18 at 02:45 Albuterol Sulfate (Proventil, Ventolin Hfa) 2 puff Q4HP PRN INH SHORTNESS OF BREATH; Start 08/18/18 at 03:45 Albuterol/ Ipratropium (Duoneb (Ipr 0.5mg/Alb 2.5mg)) 3 ml Q4HP PRN NEB SOB/WHEEZING; Start 08/18/18 at 03:45 Buspirone HCl (Buspar) 15 mg QID PO Last administered on 09/02/18 09:18; Start 08/18/18 at 13:00 Chlorpromazine HCl (Thorazine) 50 mg BID PO Last administered on 09/02/18 09:18; Start 08/25/18 at 09:00 Divalproex Sodium (Depakote Er) 1,500 mg QHS PO Last administered on 09/01/18 21:12; Start 08/18/18 at 21:00 Glipizide (Glucotrol Xl) 10 mg DAILY@0730 PO Last administered on 09/02/18 06:44; Start 08/19/18 at 07:30 Home Med (Med Rec Complete!) ASDIRECTED XX ; Start 08/18/18 at 03:45; Stop 08/18/18 at 03:45; Status DC Lisinopril (Prinivil) 10 mg DAILY PO Last administered on 09/02/18 09:18; Start 08/18/18 at 09:00 Lorazepam (Ativan) 2 mg Q6HP PRN PO ANXIETY/AGITATION Last administered on 08/29/18 21:44; Start 08/18/18 at 02:45 Magnesium Hydroxide (Milk Of Magnesia) 30 ml DAILYPRN PRN PO CONSTIPATION Last administered on 08/29/18 09:55; Start 08/18/18 at 02:45 Metformin HCl (Glucophage) 500 mg BID@18 PO Last administered on 09/02/18at 07:54; Start 08/19/18 at 08:00 Miscellaneous (Unresolved Clarification Entry) SEE LABEL COMMENTS DAILY XX ; Start 08/24/18 at 09:00; Stop 08/24/18 at 09:52; Status DC Nicotine (Nicoderm Cq 21mg) 1 patch DAILY TD Last administered on 09/02/18at 09:17; Start 08/18/18 at 19:00 Non-Formulary Medication ( See Comment Field Below ) SEE COMMENTS SECTION 1T@10 XX ; Start 08/27/18 at 10:00; Stop 08/27/18 at 10:00; Status DC Non-Formulary Medication ( See Comment Field Below ) SEE LABEL COMMENTS DAILY XX ; Start 08/25/18 at 09:00; Stop 08/25/18 at 10:39; Status DC Nystatin (Mycostatin Powder, Nystop) 1 dose BID TOP Last administered on 09/02/18at 09:19; Start 08/20/18 at 21:00 Nystatin (Mycostatin Powder, Nystop) 1 dose BIDP PRN TOP RASH Last administered on 08/20/18at 17:37; Start 08/20/18 at 16:45 Olanzapine (ZyPREXA ZYDIS) 5 mg Q6HP PRN PO ANXIETY/AGITATION; Start 08/18/18 at 02:45 Omeprazole (PriLOSEC) 40 mg DAILY PO Last administered on 09/02/18at 09:18; Start 08/18/18 at 09:00 Paliperidone (Invega) 3 mg QAM PO Last administered on 08/22/18at 08:26; Start 08/18/18 at 11:30; Stop 08/22/18 at 10:23; Status DC Paliperidone (Invega) 3 mg QHS PO Last administered on 08/21/18at 21:47; Start 08/18/18 at 21:00; Stop 08/22/18 at 10:23; Status DC Paliperidone (Invega) 6 mg BID PO Last administered on 08/25/18at 09:31; Start 08/22/18 at 21:00; Stop 08/25/18 at 09:47; Status DC Propranolol HCl (Inderal) 10 mg TID PO Last administered on 09/02/18at 09:18; Start 2/18/19 at 09:00 Topiramate (TopAMAX) 25 mg BID PO Last administered on 09/02/18at 09:18; Start 08/18/18 at 11:30 Trazodone HCl (Desyrel) 50 mg QHSP PRN PO INSOMNIA; Start 08/18/18 at 02:45; Status Cancel Trazodone HCl (Desyrel) 200 mg QHSP PRN PO INSOMNIA Last administered on 09/01/18at 21:09; Start 08/18/18 at 11:30 Allergies Coded Allergies: Codeine (Unverified Allergy, Intermediate, HIVES, 07/19/17) NIKO WRIGHT DO Sep 02, 2018 9:52 am
[2018-09-02 18:00] VITALS: BP 114/68
[2018-09-02] MEDS: DIVALPROEX 500MG *ER* TAB PO SCH (21:52)
[2018-09-02] MEDS: traZODone 100 MG TAB PO PRN (21:52)
[2018-09-03] MEDS: glipiZIDE XL 5 MG TABCR PO SCH (06:34)
[2018-09-03 06:45] VITALS: BP 104/64
[2018-09-03] MEDS: metFORMIN (GLUCOPHAGE) 500 MG TAB PO SCH ×2 (07:45→17:04)
[2018-09-03] MEDS: NYSTATIN 100,000 UNITS/GM TOPICAL PWD 15 GM TOP SCH ×2 (08:50→21:53)
[2018-09-03] MEDS: NICOTINE 21MG/24HR 1 EA TRANSDERMAL TD SCH (08:51)
[2018-09-03] MEDS: busPIRone 5 MG TAB PO SCH ×4 (08:51→21:51)
[2018-09-03] MEDS: OMEPRAZOLE 20 MG CAP PO SCH (08:54)
[2018-09-03] MEDS: PROPRANOLOL 10 MG TAB PO SCH ×3 (08:54→21:52)
[2018-09-03] MEDS: LISINOPRIL 10 MG TAB PO SCH (08:54)
[2018-09-03] MEDS: chlorproMAZINE 25 MG TAB (Q0161) PO SCH ×2 (08:55→21:51)
[2018-09-03] MEDS: TOPIRAMATE (TopAMAX) 25 MG TAB PO SCH ×2 (08:55→21:50)
[2018-09-03] MEDS: LACTIC ACID 12% LOTION 225 GM BTL TOP SCH ×2 (12:44→21:53)
[2018-09-03] MEDS: NYSTATIN 100,000 UNITS/GM TOPICAL PWD 15 GM TOP PRN (15:51)
[2018-09-03 18:43] VITALS: BP 102/62
[2018-09-03] MEDS: DIVALPROEX 500MG *ER* TAB PO SCH (21:52)
[2018-09-04 06:11] VITALS: BP 112/59
[2018-09-04] MEDS: glipiZIDE XL 5 MG TABCR PO SCH (06:31)
[2018-09-04] MEDS: metFORMIN (GLUCOPHAGE) 500 MG TAB PO SCH ×2 (07:22→17:04)
[2018-09-04] MEDS: busPIRone 5 MG TAB PO SCH ×4 (08:54→21:30)
[2018-09-04] MEDS: OMEPRAZOLE 20 MG CAP PO SCH (08:54)
[2018-09-04] MEDS: TOPIRAMATE (TopAMAX) 25 MG TAB PO SCH ×2 (08:54→21:31)
[2018-09-04] MEDS: NICOTINE 21MG/24HR 1 EA TRANSDERMAL TD SCH (08:54)
[2018-09-04] MEDS: LACTIC ACID 12% LOTION 225 GM BTL TOP SCH ×2 (08:54→21:32)
[2018-09-04] MEDS: chlorproMAZINE 25 MG TAB (Q0161) PO SCH ×2 (08:55→21:30)
[2018-09-04] MEDS: NYSTATIN 100,000 UNITS/GM TOPICAL PWD 15 GM TOP SCH ×2 (09:50→21:32)
[2018-09-04] MEDS: LISINOPRIL 10 MG TAB PO SCH (09:50)
[2018-09-04] MEDS: PROPRANOLOL 10 MG TAB PO SCH ×3 (09:57→21:33)
[2018-09-04 18:00] VITALS: BP 102/61
[2018-09-04] MEDS: DIVALPROEX 500MG *ER* TAB PO SCH (21:31)
[2018-09-05 06:00] VITALS: BP 106/56
[2018-09-05] MEDS: glipiZIDE XL 5 MG TABCR PO SCH (06:57)
[2018-09-05] MEDS: metFORMIN (GLUCOPHAGE) 500 MG TAB PO SCH ×2 (08:49→17:20)
[2018-09-05] MEDS: LACTIC ACID 12% LOTION 225 GM BTL TOP SCH ×2 (09:00→21:51)
[2018-09-05] MEDS: NYSTATIN 100,000 UNITS/GM TOPICAL PWD 15 GM TOP SCH ×2 (09:00→21:51)
[2018-09-05] MEDS: chlorproMAZINE 25 MG TAB (Q0161) PO SCH ×2 (09:03→21:47)
[2018-09-05] MEDS: LISINOPRIL 10 MG TAB PO SCH (09:04)
[2018-09-05] MEDS: OMEPRAZOLE 20 MG CAP PO SCH (09:04)
[2018-09-05] MEDS: busPIRone 5 MG TAB PO SCH ×4 (09:05→21:46)
[2018-09-05] MEDS: PROPRANOLOL 10 MG TAB PO SCH ×3 (09:05→21:47)
[2018-09-05] MEDS: TOPIRAMATE (TopAMAX) 25 MG TAB PO SCH ×2 (09:05→21:47)
[2018-09-05] MEDS: NICOTINE 21MG/24HR 1 EA TRANSDERMAL TD SCH (09:05)
--- NOTE | 2018-09-05 10:40 | MHIPNPDOC ---
[facility] Progress Note Progress Note DATE OF SERVICE: 09/05/18 HISTORY: Patient is a 43 -year-old , female, with a history of schizophrenia and multiple admissions to [facility] in the past for psychosis who was brought in by EMS after calling 911 for generalized body pain, vaginal bleeding since the morning, burning on urination, and " a snake under my bed." Per ED, once seen she stated "snakes aren't usually welcome in vaginas." Per ED, pt attempted to take snake out of vagina but couldn't see it. Pt also endorsing "fear of her life" for no known reason. Pt seen in ED to have live cock roaches on herself. She was cleaned with her belonging tightly sealed and stored down stairs and not on [facility]. Pt was a very poor historian due to psychosis, paranoia, and bizarre delusions in the ED. Attempted to see pt today and pt sleeping heavily and only said "what" then resumed sleeping. Pt continues to be a poor historian and history gathered from previous records. VITAL SIGNS: See below. NEW TEST RESULTS: depakote level 86.9 therapeutic CURRENT MEDICATIONS: See below. MENTAL STATUS EXAMINATION: General Appearance: food stains on shirt, appears stated age, own clothing Build: overweight Demeanor: agitated Eye Contact: limited Activity: uncooperative, attempting to ignore me Behavior: uncooperative, irritable, pretending to sleep and ignore me at first Speech: normal volume Mood: impulsively agitated, reactive Mood "I want to go home" Affect: reactive,constricted, impulsively agitated when here's something she doesn't like Thought Process: associative, flight of ideas Thought Content (Delusions): paranoia, delusions, psychotic Thought Content (Other): preoccupied, ideas of reference, internal-stimuli, appears paranoid Thought Content (Aggressive): denies today Perception (Hallucinations): auditory Perception (Other): none reported Cognition (Impairment of): attention/concentration, ability to abstract, unable to assess Cognition(Intelligence Est.): borderline Oriented: Awake, Alert, Oriented times three Insight: poor Judgment: Poor Psychosis: Associations, Abstract Thinking, Psychotic Perceptions DIAGNOSES: 1. Paranoid Schizophrenia ASSESSMENT:Pt seen in room in bed attempting to ignore me by sleeping then asked to go home. States she's going to loose her apt and informed her PO is keeping an eye on it for her. Continues to be delusional, responding to internal stimuli, reactive, and agitated. Poor insight into mental health. Informed pt that she's being referred to [facility] for correction treatment b/c of continued psychosis, impulsive agitation, poor self care, poor insight/judgement, engaging in risky behavior, unsafe living environment which she doesn't want. Inderal appears beneficial for hand tremor as greatly improved. Thorazine appears beneficial for agitation but still impulsive, reactive, delusional, responding to internal stimuli. Refuses OT consult still. Very concrete thinking. Continues to believe her kids are at her home but they aren't there as states "I need to get home and take care of my kids." Per treatment team last week, PO states that pt has been snorting any type of pill type substance she can even tylenol and that her home is a mess, unsanitary, infested with bugs and cockr oaches. She appears paranoid, delusional, associative, with flight of ideas, responding to internal stimuli, reactive mood and slows very limited improvement. She is taking her meds. Per nursing pt is sleeping well at night. She continues to have bizarre paranoid delusions and is less reactive. She has improved, although still limited self care. Pt feels safe here. Pt appears to need correction treatment and will refer to [facility]. MANAGEMENT PLAN: continue current plan. Refer [facility]. Medications: Buspar 15 mg QID Depakote Er 1,500 mg QHS Ativan 2 mg Q6HP PRN PO ANXIETY/AGITATION ZyPREXA ZYDIS 5 mg Q6HP PRN PO ANXIETY/AGITATION Topiramate 25 mg BID Trazodone 200 mg QHSP PRN PO INSOMNIA invega sustenna 234mg im 08/23/18 thorazine 50mg bid inderal 10mg tid TIME SPENT: 30 minutes. Vital Signs Vital Signs Date Time Temp Pulse Resp B/P (MAP) Pulse Ox O2 Delivery O2 Flow Rate FiO2 09/05/18 09:05 60 110/60 09/05/18 06:00 98.7 14 09/01/18 10:11 Room Air Laboratory Data 24H Labs Laboratory Tests 2 09/04/18 16:30: Bedside Glucose (Misc Panel) 95 09/05/18 06:32: Bedside Glucose (Misc Panel) 79 Current Medications Current Medications Acetaminophen (Tylenol Tab) 650 mg Q6HP PRN PO HEADACHE or DISCOMFORT Last administered on 09/02/18 06:07; Start 08/18/18 at 02:45 Al Hydrox/Mg Hydrox/Simethicone (Mylanta) 30 ml Q4HP PRN PO HEARTBURN/INDIGESTION; Start 08/18/18 at 02:45 Albuterol Sulfate (Proventil, Ventolin Hfa) 2 puff Q4HP PRN INH SHORTNESS OF BREATH; Start 08/18/18 at 03:45 Albuterol/ Ipratropium (Duoneb (Ipr 0.5mg/Alb 2.5mg)) 3 ml Q4HP PRN NEB S OB/WHEEZING; Start 08/18/18 at 03:45 Buspirone HCl (Buspar) 15 mg QID PO Last administered on 09/05/18 09:05; Start 08/18/18 at 13:00 Chlorpromazine HCl (Thorazine) 50 mg BID PO Last administered on 09/05/18 09:03; Start 08/25/18 at 09:00 Divalproex Sodium (Depakote Er) 1,500 mg QHS PO Last administered on 09/04/18 21:31; Start 08/18/18 at 21:00 Glipizide (Glucotrol Xl) 10 mg DAILY@0730 PO Last administered on 09/05/18 06:57; Start 08/19/18 at 07:30 Home Med (Med Rec Complete!) ASDIRECTED XX ; Start 08/18/18 at 03:45; Stop 08/18/18 at 03:45; Status DC Lactic Acid (Lac-Hydrin 12% Lotion) 1 dose BID TOP Last administered on 21:32; Start 09/03/18 at 09:00 Lisinopril (Prinivil) 10 mg DAILY PO Last administered on 09/05/18 09:04; Start 08/18/18 at 09:00 Lorazepam (Ativan) 2 mg Q6HP PRN PO ANXIETY/AGITATION Last administered on 08/29/18 21:44; Start 08/18/18 at 02:45 Magnesium Hydroxide (Milk Of Magnesia) 30 ml DAILYPRN PRN PO CONSTIPATION Last administered on 08/29/18 09:55; Start 08/18/18 at 02:45 Metformin HCl (Glucophage) 500 mg BID@0818 PO Last administered on 09/05/18 08:49; Start 08/19/18 at 08:00 Miscellaneous (Unresolved Clarification Entry) SEE LABEL COMMENTS DAILY XX ; Start 08/24/18 at 09:00; Stop 08/24/18 at 09:52; Status DC Miscellaneous (Unresolved Clarification Entry) SEE LABEL COMMENTS DAILY XX ; Start 09/04/18 at 09:00; Stop 09/04/18 at 16:49; Status DC Nicotine (Nicoderm Cq 21mg) 1 patch DAILY TD Last administered on 09/05/18at 09:05; Start 08/18/18 at 19:00 Non-Formulary Medication ( See Comment Field Below ) SEE COMMENTS SECTION 1T@10 XX ; Start 08/27/18 at 10:00; Stop 08/27/18 at 10:00; Status DC Non-Formulary Medication ( See Comment Field Below ) SEE LABEL COMMENTS DAILY XX ; Start 08/25/18 at 09:00; Stop 08/25/18 at 10:39; Status DC Nystatin (Mycostatin Powder, Nystop) 1 dose BID TOP Last administered on 09/04/18at 21:32; Start 08/20/18 at 21:00 Nystatin (Mycostatin Powder, Nystop) 1 dose BIDP PRN TOP RASH Last administered on 09/03/18at 15:51; Start 08/20/18 at 16:45 Olanzapine (ZyPREXA ZYDIS) 5 mg Q6HP PRN PO ANXIETY/AGITATION; Start 08/18/18 at 02:45 Omeprazole (PriLOSEC) 40 mg DAILY PO Last administered on 09/05/18 09:04; Start 08/18/18 at 09:00 Paliperidone (Invega) 3 mg QAM PO Last administered on 08/22/18at 08:26; Start 08/18/18 at 11:30; Stop 08/22/18 at 10:23; Status DC Paliperidone (Invega) 3 mg QHS PO Last administered on 08/21/18at 21:47; Start 08/18/18 at 21:00; Stop 08/22/18 at 10:23; Status DC Paliperidone (Invega) 6 mg BID PO Last administered on 08/25/18at 09:31; Start 08/22/18 at 21:00; Stop 08/25/18 at 09:47; Status DC Propranolol HCl (Inderal) 10 mg TID PO Last administered on 09/05/18 09:05; Start 08/29/18 at 09:00 Topiramate (TopAMAX) 25 mg BID PO Last administered on 09/05/18at 09:05; Start 08/18/18 at 11:30 Trazodone HCl (Desyrel) 50 mg QHSP PRN PO INSOMNIA; Start 08/18/18 at 02:45; Status Cancel Trazodone HCl (Desyrel) 200 mg QHSP PRN PO INSOMNIA Last administered on 09/02/18at 21:52; Start 08/18/18 at 11:30 Allergies Coded Allergies: Codeine (Unverified Allergy, Intermediate, HIVES, 07/19/17) NIKO WRIGHT DO Sep 05, 2018 10:40 am
[2018-09-05 18:09] VITALS: BP 117/66
[2018-09-05] MEDS: DIVALPROEX 500MG *ER* TAB PO SCH (21:47)
[2018-09-05] MEDS: traZODone 100 MG TAB PO PRN (21:49)
[2018-09-06] MEDS: glipiZIDE XL 5 MG TABCR PO SCH (06:53)
[2018-09-06] MEDS: metFORMIN (GLUCOPHAGE) 500 MG TAB PO SCH ×2 (08:35→17:12)
[2018-09-06] MEDS: LACTIC ACID 12% LOTION 225 GM BTL TOP SCH ×2 (09:00→21:46)
[2018-09-06] MEDS: NYSTATIN 100,000 UNITS/GM TOPICAL PWD 15 GM TOP SCH ×2 (09:00→21:46)
[2018-09-06] MEDS: chlorproMAZINE 25 MG TAB (Q0161) PO SCH ×2 (09:45→20:29)
[2018-09-06] MEDS: LISINOPRIL 10 MG TAB PO SCH (09:46)
[2018-09-06] MEDS: PROPRANOLOL 10 MG TAB PO SCH ×3 (09:46→20:30)
[2018-09-06] MEDS: TOPIRAMATE (TopAMAX) 25 MG TAB PO SCH ×2 (09:46→20:29)
[2018-09-06] MEDS: OMEPRAZOLE 20 MG CAP PO SCH (09:46)
[2018-09-06] MEDS: NICOTINE 21MG/24HR 1 EA TRANSDERMAL TD SCH (09:46)
[2018-09-06] MEDS: busPIRone 5 MG TAB PO SCH ×4 (09:46→20:29)
--- NOTE | 2018-09-06 10:05 | MHIPNPDOC ---
[facility] Progress Note Progress Note DATE OF SERVICE: 09/06/18 HISTORY: Patient is a 43 -year-old , female, with a history of schizophrenia and multiple admissions to [facility] in the past for psychosis who was brought in by EMS after calling 911 for generalized body pain, vaginal bleeding since the morning, burning on urination, and " a snake under my bed." Per ED, once seen she stated "snakes aren't usually welcome in vaginas." Per ED, pt attempted to take snake out of vagina but couldn't see it. Pt also endorsing "fear of her life" for no known reason. Pt seen in ED to have live cock roaches on herself. She was cleaned with her belonging tightly sealed and stored down stairs and not on [facility]. Pt was a very poor historian due to psychosis, paranoia, and bizarre delusions in the ED. Attempted to see pt today and pt sleeping heavily and only said "what" then resumed sleeping. Pt continues to be a poor historian and history gathered from previous records. VITAL SIGNS: See below. NEW TEST RESULTS: depakote level 86.9 therapeutic CURRENT MEDICATIONS: See below. MENTAL STATUS EXAMINATION: No change in MSE from yesterday General Appearance: food stains on shirt, appears stated age, own clothing Build: overweight Demeanor: attempting to ignore me Eye Contact: limited Activity: uncooperative, attempting to ignore me Behavior: uncooperative, irritable, pretending to sleep and ignore me at first Speech: normal volume Mood: impulsively agitated, reactive Mood "I want to go home" Affect: reactive,constricted, impulsively agitated when here's something she doesn't like Thought Process: associative, flight of ideas Thought Content (Delusions): paranoia, delusions, psychotic Thought Content (Other): preoccupied, ideas of reference, internal-stimuli, appears paranoid Thought Content (Aggressive): denies today Perception (Hallucinations): auditory Perception (Other): none reported Cognition (Impairment of): attention/concentration, ability to abstract, unable to assess Cognition(Intelligence Est.): borderline Oriented: Awake, Alert, Oriented times three Insight: poor Judgment: Poor Psychosis: Associations, Abstract Thinking, Psychotic Perceptions DIAGNOSES: 1. Paranoid Schizophrenia ASSESSMENT:N change from yesterday. Pt seen in room in bed attempting to ignore me by sleeping then asked to go home. Continues to be delusional, responding to internal stimuli, reactive, and agitated. Poor insight into mental health. Informed pt that she's being referred to [facility] for detention treatment b/c of continued psychosis, impulsive agitation, poor self care, poor insight/judgement, engaging in risky behavior, unsafe living environment which she doesn't want. Inderal appears beneficial for hand tremor as greatly improved. Thorazine appears beneficial for agitation but still impulsive, reactive, delusional, responding to internal stimuli. Refuses OT consult still. Very concrete thinking. Continues to believe her kids are at her home but they aren't there as states "I need to get home and take care of my kids." Per treatment team last week, PO states that pt has been snorting any type of pill type substance she can even tylenol and that her home is a mess, unsanitary, infested with bugs and cockroaches. She appears paranoid, delusional, associative, with flight of ideas, responding to internal stimuli, reactive mood and slows very limited improvement. She is taking her meds. Per nursing pt is sleeping well at night. She continues to have bizarre paranoid delusions and is less reactive. She has improved, although still limited self care. Pt feels safe here. Pt appears to need detention treatment and will refer to [facility]. MANAGEMENT PLAN: continue current plan. Refer [facility]. Medications: Buspar 15 mg QID Depakote Er 1,500 mg QHS ZyPREXA ZYDIS 5 mg Q6HP PRN PO ANXIETY/AGITATION Topiramate 25 mg BID Trazodone 200 mg QHSP PRN PO INSOMNIA invega sustenna 234mg im 08/23/18 thorazine 50mg bid inderal 10mg tid ativan 2mg q6hr prn anxiety/agitation TIME SPENT: 30 minutes. Vital Signs Vital Signs Date Time Temp Pulse Resp B/P (MAP) Pulse Ox O2 Delivery O2 Flow Rate FiO2 09/06/18 09:46 80 110/76 09/06/18 07:51 Room Air 09/05/18 18:09 99.1 16 Laboratory Data 24H Labs Laboratory Tests 2 09/05/18 17:20: Bedside Glucose (Misc Panel) 120H 09/06/18 06:26: Bedside Glucose (Misc Panel) 123H Current Medications Current Medications Acetaminophen (Tylenol Tab) 650 mg Q6HP PRN PO HEADACHE or DISCOMFORT Last administered on 09/02/18 06:07; Start 08/18/18 at 02:45 Al Hydrox/Mg Hydrox/Simethicone (Mylanta) 30 ml Q4HP PRN PO HEARTBURN/INDIGESTION; Start 08/18/18 at 02:45 Albuterol Sulfate (Proventil, Ventolin Hfa) 2 puff Q4HP PRN INH SHORTNESS OF BREATH; Start 08/18/18 at 03:45 Albuterol/ Ipratropium (Duoneb (Ipr 0.5mg/Alb 2.5mg)) 3 ml Q4HP PRN NEB SOB/WHEEZING; Start 08/18/18 at 03:45 Buspirone HCl (Buspar) 15 mg QID PO Last administered on 09/06/18 09:46; Start 08/18/18 at 13:00 Chlorpromazine HCl (Thorazine) 50 mg BID PO Last administered on 09/06/18 09:45; Start 08/25/18 at 09:00 Divalproex Sodium (Depakote Er) 1,500 mg QHS PO Last administered on 09/05/18 21:47; Start 08/18/18 at 21:00 Glipizide (Glucotrol Xl) 10 mg DAILY@0730 PO Last administered on 09/06/18 06:53; Start 08/19/18 at 07:30 Home Med (Med Rec Complete!) ASDIRECTED XX ; Start 08/18/18 at 03:45; Stop 08/18/18 at 03:45; Status DC Lactic Acid (Lac-Hydrin 12% Lotion) 1 dose BID TOP Last administered on 09/05/18 21:51; Start 09/03/18 at 09:00 Lisinopril (Prinivil) 10 mg DAILY PO Last administered on 09/06/18 09:46; Start 08/18/18 at 09:00 Lorazepam (Ativan) 2 mg Q6HP PRN PO ANXIETY/AGITATION Last administered on 08/29/18 21:44; Start 08/18/18 at 02:45 Magnesium Hydroxide (Milk Of Magnesia) 30 ml DAILYPRN PRN PO CONSTIPATION Last administered on 08/29/18 09:55; Start 08/18/18 at 02:45 Metformin HCl (Glucophage) 500 mg BID@18 PO Last administered on 09/06/18at 08:35; Start 08/19/18 at 08:00 Miscellaneous (Unresolved Clarification Entry) SEE LABEL COMMENTS DAILY XX ; Start 08/24/18 at 09:00; Stop 08/24/18 at 09:52; Status DC Miscellaneous (Unresolved Clarification Entry) SEE LABEL COMMENTS DAILY XX ; Start 09/04/18 at 09:00; Stop 09/04/18 at 16:49; Status DC Nicotine (Nicoderm Cq 21mg) 1 patch DAILY TD Last administered on 09/06/18at 09:46; Start 08/18/18 at 19:00 Non-Formulary Medication ( See Comment Field Below ) SEE COMMENTS SECTION 1T@10 XX ; Start 08/27/18 at 10:00; Stop 08/27/18 at 10:00; Status DC Non-Formulary Medication ( See Comment Field Below ) SEE LABEL COMMENTS DAILY XX ; Start 08/25/18 at 09:00; Stop 08/25/18 at 10:39; Status DC Nystatin (Mycostatin Powder, Nystop) 1 dose BID TOP Last administered on 09/05/18at 21:51; Start 08/20/18 at 21:00 Nystatin (Mycostatin Powder, Nystop) 1 dose BIDP PRN TOP RASH Last administered on 09/03/18at 15:51; Start 08/20/18 at 16:45 Olanzapine (ZyPREXA ZYDIS) 5 mg Q6HP PRN PO ANXIETY/AGITATION; Start 08/18/18 at 02:45 Omeprazole (PriLOSEC) 40 mg DAILY PO Last administered on 09/06/18 09:46; Start 08/18/18 at 09:00 Paliperidone (Invega) 3 mg QAM PO Last administered on 08/22/18at 08:26; Start 08/18/18 at 11:30; Stop 08/22/18 at 10:23; Status DC Paliperidone (Invega) 3 mg QHS PO Last administered on 08/21/18at 21:47; Start 08/18/18 at 21:00; Stop 08/22/18 at 10:23; Status DC Paliperidone (Invega) 6 mg BID PO Last administered on 08/25/18 09:31; Start 08/22/18 at 21:00; Stop 08/25/18 at 09:47; Status DC Propranolol HCl (Inderal) 10 mg TID PO Last administered on 09/06/18 09:46; Start 08/29/18 at 09:00 Topiramate (TopAMAX) 25 mg BID PO Last administered on 09/06/18 09:46; Start 08/18/18 at 11:30 Trazodone HCl (Desyrel) 50 mg QHSP PRN PO INSOMNIA; Start 08/18/18 at 02:45; Status Cancel Trazodone HCl (Desyrel) 200 mg QHSP PRN PO INSOMNIA Last administered on 09/05/18 21:49; Start 08/18/18 at 11:30 Allergies Coded Allergies: Codeine (Unverified Allergy, Intermediate, HIVES, 07/19/17) NIKO WRIGHT DO Sep 06, 2018 9:57 am
[2018-09-06 18:11] VITALS: BP 111/59
[2018-09-06] MEDS: DIVALPROEX 500MG *ER* TAB PO SCH (20:29)
[2018-09-06] MEDS: LORazepam 2 MG TAB PO PRN (20:29)
[2018-09-07 06:00] VITALS: BP 146/66
[2018-09-07] MEDS: glipiZIDE XL 5 MG TABCR PO SCH (06:43)
[2018-09-07] MEDS: busPIRone 5 MG TAB PO SCH ×4 (08:42→21:00)
[2018-09-07] MEDS: chlorproMAZINE 25 MG TAB (Q0161) PO SCH ×2 (08:43→21:00)
[2018-09-07] MEDS: LISINOPRIL 10 MG TAB PO SCH (08:43)
[2018-09-07] MEDS: TOPIRAMATE (TopAMAX) 25 MG TAB PO SCH ×2 (08:43→21:00)
[2018-09-07] MEDS: metFORMIN (GLUCOPHAGE) 500 MG TAB PO SCH ×2 (08:43→17:06)
[2018-09-07] MEDS: OMEPRAZOLE 20 MG CAP PO SCH (08:44)
[2018-09-07] MEDS: PROPRANOLOL 10 MG TAB PO SCH ×3 (08:44→21:00)
[2018-09-07] MEDS: NYSTATIN 100,000 UNITS/GM TOPICAL PWD 15 GM TOP SCH ×2 (08:44→21:00)
[2018-09-07] MEDS: LACTIC ACID 12% LOTION 225 GM BTL TOP SCH ×2 (08:45→21:00)
[2018-09-07] MEDS: NICOTINE 21MG/24HR 1 EA TRANSDERMAL TD SCH (08:50)
--- NOTE | 2018-09-07 10:49 | MHIPNPDOC ---
[facility] Progress Note Progress Note DATE OF SERVICE: 09/07/18 HISTORY: Patient is a 43 -year-old , female, with a history of schizophrenia and multiple admissions to [facility] in the past for psychosis who was brought in by EMS after calling 911 for generalized body pain, vaginal bleeding since the morning, burning on urination, and " a snake under my bed." Per ED, once seen she stated "snakes aren't usually welcome in vaginas." Per ED, pt attempted to take snake out of vagina but couldn't see it. Pt also endorsing "fear of her life" for no known reason. Pt seen in ED to have live cock roaches on herself. She was cleaned with her belonging tightly sealed and stored down stairs and not on [facility]. Pt was a very poor historian due to psychosis, paranoia, and bizarre delusions in the ED. Attempted to see pt today and pt sleeping heavily and only said "what" then resumed sleeping. Pt continues to be a poor historian and history gathered from previous records. VITAL SIGNS: See below. NEW TEST RESULTS: depakote level 86.9 therapeutic CURRENT MEDICATIONS: See below. MENTAL STATUS EXAMINATION: No change in MSE from yesterday General Appearance: food stains on shirt, appears stated age, own clothing Build: overweight Demeanor: ignore me Eye Contact: limited Activity: uncooperative, ignore me Behavior: uncooperative, irritable, pretending to sleep and ignore me at first Speech: normal volume Mood: impulsively agitated, reactive Mood "I want to go home" Affect: reactive,constricted, impulsively agitated when here's something she doesn't like Thought Process: associative, flight of ideas Thought Content (Delusions): paranoia, delusions, psychotic Thought Content (Other): preoccupied, ideas of reference, internal-stimuli, appears paranoid Thought Content (Aggressive): denies today Perception (Hallucinations): auditory Perception (Other): none reported Cognition (Impairment of): attention/concentration, ability to abstract, unable to assess Cognition(Intelligence Est.): borderline Oriented: Awake, Alert, Oriented times three Insight: poor Judgment: Poor Psychosis: Associations, Abstract Thinking, Psychotic Perceptions DIAGNOSES: 1. Paranoid Schizophrenia ASSESSMENT:No change from yesterday. Pt seen in room in bed ignore me by sleeping. Continues to be delusional, responding to internal stimuli, reactive, and agitated. Poor insight into mental health. Had administrative hearing yesterday and plan, which pt agrees to, is to refer her to supervised housing as her current home is unsafe and she is not capable of managing her meds due to history of shorting any pill she has as pt could easily overdose putting her in danger to her self. Pt less psychotic, impulsive, agitated, poor self care, poor insight/judgement, engaging in risky behavior, unsafe living environment which she doesn't want. Inderal appears beneficial for hand tremor as greatly improved. Thorazine appears beneficial for agitation but still impulsive, reactive, delusional, responding to internal stimuli. Refuses OT consult still. Very concrete thinking. Continues to believe her kids are at her home but they aren't there as states "I need to get home and take care of my kids." Per treatment team last week, PO states that pt has been snorting any type of pill type substance she can even tylenol and that her home is a mess, unsanitary, infested with bugs and cockroaches. She appears paranoid, delusional, associative, with flight of ideas, responding to internal stimuli, reactive mood and slows very limited improvement. She is taking her meds. Per nursing pt is sleeping well at night. She continues to have bizarre paranoid delusions possibly baseline and is less reactive. She has improved, although still limited self care. Pt feels safe here. Pt appears to need jail treatment and will refer to [facility]. MANAGEMENT PLAN: continue current plan. Refer [facility]. Medications: Buspar 15 mg QID Depakote Er 1,500 mg QHS ZyPREXA ZYDIS 5 mg Q6HP PRN PO ANXIETY/AGITATION Topiramate 25 mg BID Trazodone 200 mg QHSP PRN PO INSOMNIA invega sustenna 234mg im 08/23/18 thorazine 50mg bid inderal 10mg tid ativan 2mg q6hr prn anxiety/agitation TIME SPENT: 30 minutes. Vital Signs Vital Signs Date Time Temp Pulse Resp B/P (MAP) Pulse Ox O2 Delivery O2 Flow Rate FiO2 09/07/18 08:43 146/66 09/07/18 07:51 Room Air 09/07/18 06:00 98.8 57 14 Laboratory Data 24H Labs Laboratory Tests 2 09/07/18 06:13: Bedside Glucose (Misc Panel) 85 Current Medications Current Medications Acetaminophen (Tylenol Tab) 650 mg Q6HP PRN PO HEADACHE or DISCOMFORT Last administered on 09/02/18 06:07; Start 08/18/18 at 02:45 Al Hydrox/Mg Hydrox/Simethicone (Mylanta) 30 ml Q4HP PRN PO HEARTBURN/INDIGESTION; Start 08/18/18 at 02:45 Albuterol Sulfate (Proventil, Ventolin Hfa) 2 puff Q4HP PRN INH SHORTNESS OF BREATH; Start 08/18/18 at 03:45 Albuterol/ Ipratropium (Duoneb (Ipr 0.5mg/Alb 2.5mg)) 3 ml Q4HP PRN NEB SOB/WHEEZING; Start 08/18/18 at 03:45 Buspirone HCl (Buspar) 15 mg QID PO Last administered on 09/07/18 08:42; Start 08/18/18 at 13:00 Chlorpromazine HCl (Thorazine) 50 mg BID PO Last administered on 09/07/18 08:43; Start 08/25/18 at 09:00 Divalproex Sodium (Depakote Er) 1,500 mg QHS PO Last administered on 09/06/18 20:29; Start 08/18/18 at 21:00 Glipizide (Glucotrol Xl) 10 mg DAILY@0730 PO Last administered on 09/07/18 06:43; Start 08/19/18 at 07:30 Home Med (Med Rec Complete!) ASDIRECTED XX ; Start 08/18/18 at 03:45; Stop 08/18/18 at 03:45; Status DC Lactic Acid (Lac-Hydrin 12% Lotion) 1 dose BID TOP Last administered on 09/07/18 08:45; Start 09/03/18 at 09:00 Lisinopril (Prinivil) 10 mg DAILY PO Last administered on 09/07/18 08:43; Start 08/18/18 at 09:00 Lorazepam (Ativan) 2 mg Q6HP PRN PO ANXIETY/AGITATION Last administered on 09/06/18 20:29; Start 08/18/18 at 02:45 Magnesium Hydroxide (Milk Of Magnesia) 30 ml DAILYPRN PRN PO CONSTIPATION Last administered on 08/29/18 09:55; Start 08/18/18 at 02:45 Metformin HCl (Glucophage) 500 mg BID@08,18 PO Last administered on 09/07/18at 08:43; Start 08/19/18 at 08:00 Miscellaneous (Unresolved Clarification Entry) SEE LABEL COMMENTS DAILY XX ; Start 08/24/18 at 09:00; Stop 08/24/18 at 09:52; Status DC Miscellaneous (Unresolved Clarification Entry) SEE LABEL COMMENTS DAILY XX ; Start 09/04/18 at 09:00; Stop 09/04/18 at 16:49; Status DC Nicotine (Nicoderm Cq 21mg) 1 patch DAILY TD Last administered on 09/07/18at 08:50; Start 08/18/18 at 19:00 Non-Formulary Medication ( See Comment Field Below ) SEE COMMENTS SECTION 1T@10 XX ; Start 08/27/18 at 10:00; Stop 08/27/18 at 10:00; Status DC Non-Formulary Medication ( See Comment Field Below ) SEE LABEL COMMENTS DAILY XX ; Start 08/25/18 at 09:00; Stop 08/25/18 at 10:39; Status DC Nystatin (Mycostatin Powder, Nystop) 1 dose BID TOP Last administered on 09/07/18at 08:44; Start 08/20/18 at 21:00 Nystatin (Mycostatin Powder, Nystop) 1 dose BIDP PRN TOP RASH Last administered on 09/03/18at 15:51; Start 08/20/18 at 16:45 Olanzapine (ZyPREXA ZYDIS) 5 mg Q6HP PRN PO ANXIETY/AGITATION; Start 08/18/18 at 02:45 Omeprazole (PriLOSEC) 40 mg DAILY PO Last administered on 09/07/18 08:44; Start 08/18/18 at 09:00 Paliperidone (Invega) 3 mg QAM PO Last administered on 08/22/18 08:26; Start 08/18/18 at 11:30; Stop 08/22/18 at 10:23; Status DC Paliperidone (Invega) 3 mg QHS PO Last administered on 08/21/18at 21:47; Start 08/18/18 at 21:00; Stop 08/22/18 at 10:23; Status DC Paliperidone (Invega) 6 mg BID PO Last administered on 08/25/18 09:31; Start 08/22/18 at 21:00; Stop 08/25/18 at 09:47; Status DC Propranolol HCl (Inderal) 10 mg TID PO Last administered on 09/07/18 08:44; Start 08/29/18 at 09:00 Topiramate (TopAMAX) 25 mg BID PO Last administered on 09/07/18 08:43; Start 08/18/18 at 11:30 Trazodone HCl (Desyrel) 50 mg QHSP PRN PO INSOMNIA; Start 08/18/18 at 02:45; Status Cancel Trazodone HCl (Desyrel) 200 mg QHSP PRN PO INSOMNIA Last administered on 09/05/18 21:49; Start 08/18/18 at 11:30 Allergies Coded Allergies: Codeine (Unverified Allergy, Intermediate, HIVES, 07/19/17) NIKO WRIGHT DO Sep 07, 2018 10:49 am
[2018-09-07 18:44] VITALS: BP 111/59
[2018-09-07] MEDS: DIVALPROEX 500MG *ER* TAB PO SCH (21:00)
[2018-09-08 06:26] VITALS: BP 133/83
[2018-09-08] MEDS: glipiZIDE XL 5 MG TABCR PO SCH (06:42)
--- NOTE | 2018-09-08 09:01 | MHIPNPDOC ---
[facility] Progress Note Progress Note DATE OF SERVICE: 09/08/18 HISTORY: Patient is a 43 -year-old , female, with a history of schizophrenia and multiple admissions to [facility] in the past for psychosis who was brought in by EMS after calling 911 for generalized body pain, vaginal bleeding since the morning, burning on urination, and " a snake under my bed." Per ED, once seen she stated "snakes aren't usually welcome in vaginas." Per ED, pt attempted to take snake out of vagina but couldn't see it. Pt also endorsing "fear of her life" for no known reason. Pt seen in ED to have live cock roaches on herself. She was cleaned with her belonging tightly sealed and stored down stairs and not on [facility]. Pt was a very poor historian due to psychosis, paranoia, and bizarre delusions in the ED. Attempted to see pt today and pt sleeping heavily and only said "what" then resumed sleeping. Pt continues to be a poor historian and history gathered from previous records. VITAL SIGNS: See below. NEW TEST RESULTS: depakote level 86.9 therapeutic CURRENT MEDICATIONS: See below. MENTAL STATUS EXAMINATION: No change in MSE from yesterday General Appearance: showered and clean, appears stated age, own clothing Build: overweight Demeanor: calm, cooperative Eye Contact: limited Activity: cooperative, calm Behavior: uncooperative, irritable, pretending to sleep and ignore me at first Speech: normal volume Mood: euthymic, flat, reactive Mood "ok" Affect: reactive,flat, impulsively agitated when here's something she doesn't like Thought Process: associative, flight of ideas (possibly baseline) Thought Content (Delusions): paranoia, delusions, psychotic (possibly baseline) Thought Content (Other): preoccupied, ideas of reference, internal-stimuli, appears paranoid (possibly baseline) Thought Content (Aggressive): denies today Perception (Hallucinations): auditory (possibly baseline) Perception (Other): none reported Cognition (Impairment of): attention/concentration, ability to abstract, unable to assess Cognition(Intelligence Est.): borderline Oriented: Awake, Alert, Oriented times three Insight: poor Judgment: Poor Psychosis: Associations, Abstract Thinking, Psychotic Perceptions DIAGNOSES: 1. Paranoid Schizophrenia ASSESSMENT:No change from yesterday. Pt seen in milieu after she showered and states she "ok". Continues to be delusional, responding to internal stimuli, reactive, and agitated but most likely baseline. She's compliant on her medications. Poor insight into mental health. Had administrative hearing Wednesday and plan, which pt agrees to, is to refer her to supervised housing as her current home is unsafe and she is not capable of managing her meds due to history of shorting any pill she has as pt could easily overdose putting her in danger to her self. Pt less psychotic, impulsive, agitated, poor self care, poor insight/judgement, engaging in risky behavior, unsafe living environment which she doesn't want. Inderal appears beneficial for hand tremor as greatly improved. Thorazine appears beneficial for agitation but still impulsive, reactive, delusional, responding to internal stimuli. Refuses OT consult still. Very concrete thinking. Per treatment team, PO states that pt has been snorting any type of pill type substance she can even tylenol and that her home is a mess, unsanitary, infested with bugs and cockroaches. S Per nursing pt is sleeping well at night. She continues to have bizarre paranoid delusions possibly baseline and is less reactive. She has improved, although still limited self care. Pt feels safe here. Pt appears to need correction treatment and will refer to [facility]. MANAGEMENT PLAN: continue current plan. Refer [facility]. Medications: Buspar 15 mg QID Depakote Er 1,500 mg QHS ZyPREXA ZYDIS 5 mg Q6HP PRN PO ANXIETY/AGITATION Topiramate 25 mg BID Trazodone 200 mg QHSP PRN PO INSOMNIA invega sustenna 234mg im 08/23/18 thorazine 50mg bid inderal 10mg tid ativan 2mg q6hr prn anxiety/agitation TIME SPENT: 30 minutes. Vital Signs Vital Signs Date Time Temp Pulse Resp B/P (MAP) Pulse Ox O2 Delivery O2 Flow Rate FiO2 09/08/18 06:26 97.6 74 20 133/83 (100) 09/07/18 07:51 Room Air Laboratory Data 24H Labs Laboratory Tests 2 09/07/18 16:47: Bedside Glucose (Misc Panel) 74 09/08/18 06:23: Bedside Glucose (Misc Panel) 80 Current Medications Current Medications Acetaminophen (Tylenol Tab) 650 mg Q6HP PRN PO HEADACHE or DISCOMFORT Last administered on 09/02/18 06:07; Start 08/18/18 at 02:45 Al Hydrox/Mg Hydrox/Simethicone (Mylanta) 30 ml Q4HP PRN PO HEARTBURN/INDIGESTION; Start 08/18/18 at 02:45 Albuterol Sulfate (Proventil, Ventolin Hfa) 2 puff Q4HP PRN INH SHORTNESS OF BREATH; Start 08/18/18 at 03:45 Albuterol/ Ipratropium (Duoneb (Ipr 0.5mg/Alb 2.5mg)) 3 ml Q4HP PRN NEB SOB/WHEEZING; Start 08/18/18 at 03:45 Buspirone HCl (Buspar) 15 mg QID PO Last administered on 09/07/18 17:05; Start 08/18/18 at 13:00 Chlorpromazine HCl (Thorazine) 50 mg BID PO Last administered on 09/07/18 08:43; Start 08/25/18 at 09:00 Divalproex Sodium (Depakote Er) 1,500 mg QHS PO Last administered on 09/06/18 20:29; Start 08/18/18 at 21:00 Glipizide (Glucotrol Xl) 10 mg DAILY@0730 PO Last administered on 09/08/18 06:42; Start 08/19/18 at 07:30 Home Med (Med Rec Complete!) ASDIRECTED XX ; Start 08/18/18 at 03:45; Stop 08/18/18 at 03:45; Status DC Lactic Acid (Lac-Hydrin 12% Lotion) 1 dose BID TOP Last administered on 09/07/18 08:45; Start 09/03/18 at 09:00 Lisinopril (Prinivil) 10 mg DAILY PO Last administered on 09/07/18 08:43; Start 08/18/18 at 09:00 Lorazepam (Ativan) 2 mg Q6HP PRN PO ANXIETY/AGITATION Last administered on 09/06/18 20:29; Start 08/18/18 at 02:45 Magnesium Hydroxide (Milk Of Magnesia) 30 ml DAILYPRN PRN PO CONSTIPATION Last administered on 08/29/18 09:55; Start 08/18/18 at 02:45 Metformin HCl (Glucophage) 500 mg BID@08,18 PO Last administered on 09/07/18at 17:06; Start 08/19/18 at 08:00 Miscellaneous (Unresolved Clarification Entry) SEE LABEL COMMENTS DAILY XX ; Start 08/24/18 at 09:00; Stop 08/24/18 at 09:52; Status DC Miscellaneous (Unresolved Clarification Entry) SEE LABEL COMMENTS DAILY XX ; Start 09/04/18 at 09:00; Stop 09/04/18 at 16:49; Status DC Nicotine (Nicoderm Cq 21mg) 1 patch DAILY TD Last administered on 09/07/18at 08 :50; Start 08/18/18 at 19:00 Non-Formulary Medication ( See Comment Field Below ) SEE COMMENTS SECTION 1T@10 XX ; Start 08/27/18 at 10:00; Stop 08/27/18 at 10:00; Status DC Non-Formulary Medication ( See Comment Field Below ) SEE LABEL COMMENTS SULY LY XX ; Start 08/25/18 at 09:00; Stop 08/25/18 at 10:39; Status DC Nystatin (Mycostatin Powder, Nystop) 1 dose BID TOP Last administered on 09/07/18at 08:44; Start 08/20/18 at 21:00 Nystatin (Mycostatin Powder, Nystop) 1 dose BIDP PRN TOP RASH Last administered on 09/03/18at 15:51; Start 08/20/18 at 16:45 Olanzapine (ZyPREXA ZYDIS) 5 mg Q6HP PRN PO ANXIETY/AGITATION; Start 08/18 at 02:45 Omeprazole (PriLOSEC) 40 mg DAILY PO Last administered on 09/07/18at 08:44; Start 08/18/18 at 09:00 Paliperidone (Invega) 3 mg QAM PO Last administered on 08/22/18at 08:26; Start 08/18/18 at 11:30; Stop 08/22/18 at 10:23; Status DC Paliperidone (Invega) 3 mg QHS PO Last administered on 08/21/18at 21:47; Start 08/18/18 at 21:00; Stop 08/22/18 at 10:23; Status DC Paliperidone (Invega) 6 mg BID PO Last administered on 08/25/18 09:31; Start 08/22/18 at 21:00; Stop 08/25/18 at 09:47; Status DC Propranolol HCl (Inderal) 10 mg TID PO Last administered on 09/07/18 08:44; Start 08/29/18 at 09:00 Topiramate (TopAMAX) 25 mg BID PO Last administered on 09/07/18 08:43; Start 08/18/18 at 11:30 Trazodone HCl (Desyrel) 50 mg QHSP PRN PO INSOMNIA; Start 08/18/18 at 02:45; Status Cancel Trazodone HCl (Desyrel) 200 mg QHSP PRN PO INSOMNIA Last administered on 09/05/18 21:49; Start 08/18/18 at 11:30 Allergies Coded Allergies: Codeine (Unverified Allergy, Intermediate, HIVES, 07/19/17) NIKO WRIGHT DO Sep 08, 2018 9:01 am
[2018-09-08] MEDS: ACETAMINOPHEN TAB 650MG DOSE (2X325MG) PO PRN (09:07)
[2018-09-08] MEDS: OMEPRAZOLE 20 MG CAP PO SCH (09:08)
[2018-09-08] MEDS: metFORMIN (GLUCOPHAGE) 500 MG TAB PO SCH ×2 (09:08→17:01)
[2018-09-08] MEDS: TOPIRAMATE (TopAMAX) 25 MG TAB PO SCH ×2 (09:08→20:46)
[2018-09-08] MEDS: PROPRANOLOL 10 MG TAB PO SCH ×3 (09:08→20:48)
[2018-09-08] MEDS: chlorproMAZINE 25 MG TAB (Q0161) PO SCH ×2 (09:09→20:46)
[2018-09-08] MEDS: NYSTATIN 100,000 UNITS/GM TOPICAL PWD 15 GM TOP SCH ×2 (09:09→21:00)
[2018-09-08] MEDS: LISINOPRIL 10 MG TAB PO SCH (09:09)
[2018-09-08] MEDS: busPIRone 5 MG TAB PO SCH ×4 (09:09→20:46)
[2018-09-08] MEDS: NICOTINE 21MG/24HR 1 EA TRANSDERMAL TD SCH (09:09)
[2018-09-08] MEDS: LACTIC ACID 12% LOTION 225 GM BTL TOP SCH ×2 (09:09→21:00)
[2018-09-08] MEDS: MOM 30ML SUSPENSION UDC PO PRN (09:10)
[2018-09-08 18:00] VITALS: BP 110/63
[2018-09-08] MEDS: DIVALPROEX 500MG *ER* TAB PO SCH (20:46)
[2018-09-08] MEDS: LORazepam 2 MG TAB PO PRN (20:46)
[2018-09-09] MEDS: ACETAMINOPHEN TAB 650MG DOSE (2X325MG) PO PRN (04:38)
[2018-09-09 06:11] VITALS: BP 132/65
[2018-09-09] MEDS: glipiZIDE XL 5 MG TABCR PO SCH (06:19)
[2018-09-09] MEDS: diphenhydrAMINE 12.5MG/5ML ELIXIR UDC PO SCH ×5 (09:00→21:08)
[2018-09-09] MEDS: LISINOPRIL 10 MG TAB PO SCH (09:20)
[2018-09-09] MEDS: metFORMIN (GLUCOPHAGE) 500 MG TAB PO SCH ×2 (09:20→17:58)
[2018-09-09] MEDS: chlorproMAZINE 25 MG TAB (Q0161) PO SCH (09:21)
[2018-09-09] MEDS: busPIRone 5 MG TAB PO SCH (09:21)
[2018-09-09] MEDS: OMEPRAZOLE 20 MG CAP PO SCH (09:22)
[2018-09-09] MEDS: TOPIRAMATE (TopAMAX) 25 MG TAB PO SCH (09:22)
[2018-09-09] MEDS: PROPRANOLOL 10 MG TAB PO SCH (09:22)
[2018-09-09] MEDS: NICOTINE 21MG/24HR 1 EA TRANSDERMAL TD SCH (09:23)
[2018-09-09] MEDS: NYSTATIN 100,000 UNITS/GM TOPICAL PWD 15 GM TOP SCH ×2 (09:23→21:08)
[2018-09-09] MEDS: LACTIC ACID 12% LOTION 225 GM BTL TOP SCH ×2 (09:24→21:09)
--- NOTE | 2018-09-09 10:21 | MHIPNPDOC ---
[facility] Progress Note Progress Note DATE OF SERVICE: 09/09/18 HISTORY: Patient is a 43 -year-old , female, with a history of schizophrenia and multiple admissions to [facility] in the past for psychosis who was brought in by EMS after calling 911 for generalized body pain, vaginal bleeding since the morning, burning on urination, and " a snake under my bed." Per ED, once seen she stated "snakes aren't usually welcome in vaginas." Per ED, pt attempted to take snake out of vagina but couldn't see it. Pt also endorsing "fear of her life" for no known reason. Pt seen in ED to have live cock roaches on herself. She was cleaned with her belonging tightly sealed and stored down stairs and not on [facility]. Pt was a very poor historian due to psychosis, paranoia, and bizarre delusions in the ED. Attempted to see pt today and pt sleeping heavily and only said "what" then resumed sleeping. Pt continues to be a poor historian and history gathered from previous records. VITAL SIGNS: See below. NEW TEST RESULTS: depakote level 86.9 therapeutic CURRENT MEDICATIONS: See below. MENTAL STATUS EXAMINATION: No change in MSE from yesterday General Appearance: showered and clean, appears stated age, own clothing Build: overweight Demeanor: calm, cooperative Eye Contact: limited Activity: cooperative, calm Behavior: uncooperative, irritable, pretending to sleep and ignore me at first Speech: normal volume Mood: euthymic, flat, reactive Mood "ok" Affect: reactive,flat, impulsively agitated when here's something she doesn't like Thought Process: associative, flight of ideas (possibly baseline) Thought Content (Delusions): paranoia, delusions, psychotic (possibly baseline) Thought Content (Other): preoccupied, ideas of reference, internal-stimuli, appears paranoid (possibly baseline) Thought Content (Aggressive): denies today Perception (Hallucinations): auditory (possibly baseline) Perception (Other): none reported Cognition (Impairment of): attention/concentration, ability to abstract, unable to assess Cognition(Intelligence Est.): borderline Oriented: Awake, Alert, Oriented times three Insight: poor Judgment: Poor Psychosis: Associations, Abstract Thinking, Psychotic Perceptions DIAGNOSES: 1. Paranoid Schizophrenia ASSESSMENT:No change from yesterday. Pt seen in milieu after she showered and states she "ok". Continues to be delusional, responding to internal stimuli, reactive, and agitated but most likely baseline. She's compliant on her medications. Poor insight into mental health. Had administrative hearing Wednesday and plan, which pt agrees to, is to refer her to supervised housing as her current home is unsafe and she is not capable of managing her meds due to history of shorting any pill she has as pt could easily overdose putting her in danger to her self. Pt less psychotic, impulsive, agitated, poor self care, poor insight/judgement, engaging in risky behavior, unsafe living environment which she doesn't want. Inderal appears beneficial for hand tremor as greatly improved. Thorazine appears beneficial for agitation but still impulsive, reactive, delusional, responding to internal stimuli. Refuses OT consult still. Very concrete thinking. Per treatment team, PO states that pt has been snorting any type of pill type substance she can even tylenol and that her home is a mess, unsanitary, infested with bugs and cockroaches. S Per nursing pt is sleeping well at night. She continues to have bizarre paranoid delusions possibly baseline and is less reactive. She has improved, although still limited self care. Pt feels safe here. MANAGEMENT PLAN: continue current plan. Plan for d/c home as she waits for supervised housing with ACT team following her 2x/wk. Due to risk of overdose as PO states pt snorts any pill she has which pt admits to much therefore d/c much of her medication due to high risk of lethal overdose and either change s ome to liquid doses if possibly and continue invega sustenna. D/c buspar, depakote er, topiramate, thorazine, inderal. State depakene syrup and benadryl elixer Medications: Depakene syrup 1,500 mg QHS ZyPREXA ZYDIS 5 mg Q6HP PRN PO ANXIETY/AGITATION Trazodone 200 mg QHSP PRN PO INSOMNIA invega sustenna 234mg im 08/23/18 benadryl elixer 25mg qid ativan 2mg q6hr prn anxiety/agitation TIME SPENT: 30 minutes. Vital Signs Vital Signs Date Time Temp Pulse Resp B/P (MAP) Pulse Ox O2 Delivery O2 Flow Rate FiO2 09/09/18 09:20 123/84 09/09/18 06:11 98.8 55 18 09/07/18 07:51 Room Air Current Medications Current Medications Acetaminophen (Tylenol Tab) 650 mg Q6HP PRN PO HEADACHE or DISCOMFORT Last administered on 09/09/18 04:38; Start 08/18/18 at 02:45 Al Hydrox/Mg Hydrox/Simethicone (Mylanta) 30 ml Q4HP PRN PO HEARTBURN/INDIGESTION; Start 08/18/18 at 02:45 Albuterol Sulfate (Proventil, Ventolin Hfa) 2 puff Q4HP PRN INH SHORTNESS OF BREATH; Start 08/18/18 at 03:45 Albuterol/ Ipratropium (Duoneb (Ipr 0.5mg/Alb 2.5mg)) 3 ml Q4HP PRN NEB SOB/WHEEZING; Start 08/18/18 at 03:45 Buspirone HCl (Buspar) 15 mg QID PO Last administered on 09/09/18 09:21; Start 08/18/18 at 13:00 Chlorpromazine HCl (Thorazine) 50 mg BID PO Last administered on 09/09/18 09:21; Start 08/25/18 at 09:00 Divalproex Sodium (Depakote Er) 1,500 mg QHS PO Last administered on 09/08/18 20:46; Start 08/18/18 at 21:00 Glipizide (Glucotrol Xl) 10 mg DAILY@0730 PO Last administered on 09/09/18 06:19; Start 08/19/18 at 07:30 Home Med (Med Rec Complete!) ASDIRECTED XX ; Start 08/18/18 at 03:45; Stop 08/18/18 at 03:45; Status DC Lactic Acid (Lac-Hydrin 12% Lotion) 1 dose BID TOP Last administered on 09/09/18 09:24; Start 09/03/18 at 09:00 Lisinopril (Prinivil) 10 mg DAILY PO Last administered on 09/09/18 09:20; Start 08/18/18 at 09:00 Lorazepam (Ativan) 2 mg Q6HP PRN PO ANXIETY/AGITATION Last administered on 2/28/19at 20:46; Start 08/18/18 at 02:45 Magnesium Hydroxide (Milk Of Magnesia) 30 ml DAILYPRN PRN PO CONSTIPATION Last administered on 09/08/18at 09:10; Start 08/18/18 at 02:45 Metformin HCl (Glucophage) 500 mg BID@08,18 PO Last administered on 09/09/18 09:20; Start 08/19/18 at 08:00 Miscellaneous (Unresolved Clarification Entry) SEE LABEL COMMENTS DAILY XX ; Start 08/24/18 at 09:00; Stop 08/24/18 at 09:52; Status DC Miscellaneous (Unresolved Clarification Entry) SEE LABEL COMMENTS DAILY XX ; Start 09/04/18 at 09:00; Stop 09/04/18 at 16:49; Status DC Nicotine (Nicoderm Cq 21mg) 1 patch DAILY TD Last administered on 09/09/18at 09:23; Start 08/18/18 at 19:00 Non-Formulary Medication ( See Comment Field Below ) SEE COMMENTS SECTION 1T@10 XX ; Start 08/27/18 at 10:00; Stop 08/27/18 at 10:00; Status DC Non-Formulary Medication ( See Comment Field Below ) SEE LABEL COMMENTS DAILY XX ; Start 08/25/18 at 09:00; Stop 08/25/18 at 10:39; Status DC Nystatin (Mycostatin Powder, Nystop) 1 dose BID TOP Last administered on 09/09/18at 09:23; Start 08/20/18 at 21:00 Nystatin (Mycostatin Powder, Nystop) 1 dose BIDP PRN TOP RASH Last administered on 09/03/18at 15:51; Start 08/20/18 at 16:45 Olanzapine (ZyPREXA ZYDIS) 5 mg Q6HP PRN PO ANXIETY/AGITATION; Start 08/18/18 at 02:45 Omeprazole (PriLOSEC) 40 mg DAILY PO Last administered on 09/09/18at 09:22; Start 08/18/18 at 09:00 Paliperidone (Invega) 3 mg QAM PO Last administered on 08/22/18at 08:26; Start 08/18/18 at 11:30; Stop 08/22/18 at 10:23; Status DC Paliperidone (Invega) 3 mg QHS PO Last administered on 08/21/18 21:47; Start 08/18/18 at 21:00; Stop 08/22/18 at 10:23; Status DC Paliperidone (Invega) 6 mg BID PO Last administered on 08/25/18 09:31; Start 08/22/18 at 21:00; Stop 08/25/18 at 09:47; Status DC Propranolol HCl (Inderal) 10 mg TID PO Last administered on 09/09/18 09:22; Start 08/29/18 at 09:00 Topiramate (TopAMAX) 25 mg BID PO Last administered on 09/09/18 09:22; Start 08/18/18 at 11:30 Trazodone HCl (Desyrel) 50 mg QHSP PRN PO INSOMNIA; Start 08/18/18 at 02:45; Status Cancel Trazodone HCl (Desyrel) 200 mg QHSP PRN PO INSOMNIA Last administered on 09/05/18 21:49; Start 08/18/18 at 11:30 Allergies Coded Allergies: Codeine (Unverified Allergy, Intermediate, HIVES, 07/19/17) NIKO WRIGHT DO Sep 09, 2018 10:20 am
[2018-09-09 18:00] VITALS: BP 100/58
[2018-09-09] MEDS: VALPROIC ACID SYRUP 250 MG/5 ML UDC PO SCH ×2 (21:00→21:08)
[2018-09-10] MEDS: traZODone 100 MG TAB PO PRN ×2 (00:39→20:35)
[2018-09-10] MEDS: ACETAMINOPHEN TAB 650MG DOSE (2X325MG) PO PRN ×2 (00:40→17:06)
[2018-09-10 06:00] VITALS: BP 101/50
[2018-09-10] MEDS: glipiZIDE XL 5 MG TABCR PO SCH (06:49)
[2018-09-10] MEDS: metFORMIN (GLUCOPHAGE) 500 MG TAB PO SCH ×3 (08:00→17:06)
[2018-09-10] MEDS: LISINOPRIL 10 MG TAB PO SCH (08:49)
[2018-09-10] MEDS: diphenhydrAMINE 12.5MG/5ML ELIXIR UDC PO SCH ×4 (08:49→21:00)
[2018-09-10] MEDS: OMEPRAZOLE 20 MG CAP PO SCH ×2 (08:49→12:20)
[2018-09-10] MEDS: NICOTINE 21MG/24HR 1 EA TRANSDERMAL TD SCH ×2 (08:49→13:10)
[2018-09-10] MEDS: LACTIC ACID 12% LOTION 225 GM BTL TOP SCH ×2 (08:50→21:00)
[2018-09-10] MEDS: NYSTATIN 100,000 UNITS/GM TOPICAL PWD 15 GM TOP SCH ×2 (08:50→21:00)
[2018-09-10 18:09] VITALS: BP 110/61
[2018-09-10] MEDS: MOM 30ML SUSPENSION UDC PO PRN (18:20)
[2018-09-10] MEDS: VALPROIC ACID SYRUP 250 MG/5 ML UDC PO SCH (21:00)
[2018-09-10] MEDS: NYSTATIN 100,000 UNITS/GM TOPICAL PWD 15 GM TOP PRN (22:38)
[2018-09-11 01:42] VITALS: BP 114/78
[2018-09-11] MEDS: glipiZIDE XL 5 MG TABCR PO SCH (06:03)
[2018-09-11 06:50] VITALS: BP 129/84
[2018-09-11] MEDS: metFORMIN (GLUCOPHAGE) 500 MG TAB PO SCH ×2 (08:34→17:11)
[2018-09-11] MEDS: LISINOPRIL 10 MG TAB PO SCH (08:35)
[2018-09-11] MEDS: NICOTINE 21MG/24HR 1 EA TRANSDERMAL TD SCH (08:35)
[2018-09-11] MEDS: NYSTATIN 100,000 UNITS/GM TOPICAL PWD 15 GM TOP SCH ×2 (08:36→21:00)
[2018-09-11] MEDS: diphenhydrAMINE 12.5MG/5ML ELIXIR UDC PO SCH ×4 (08:37→21:00)
[2018-09-11] MEDS: LACTIC ACID 12% LOTION 225 GM BTL TOP SCH ×2 (08:37→21:00)
[2018-09-11] MEDS: OMEPRAZOLE 20 MG CAP PO SCH (08:37)
[2018-09-11 18:10] VITALS: BP 120/66
[2018-09-11] MEDS: VALPROIC ACID SYRUP 250 MG/5 ML UDC PO SCH (21:00)
[2018-09-11] MEDS: LORazepam 2 MG TAB PO PRN (22:10)
[2018-09-12 06:00] VITALS: BP 122/62
[2018-09-12] MEDS: glipiZIDE XL 5 MG TABCR PO SCH (06:43)
[2018-09-12] MEDS: metFORMIN (GLUCOPHAGE) 500 MG TAB PO SCH (07:28)
[2018-09-12] MEDS: NYSTATIN 100,000 UNITS/GM TOPICAL PWD 15 GM TOP SCH (09:00)
[2018-09-12] MEDS: LACTIC ACID 12% LOTION 225 GM BTL TOP SCH (09:00)
[2018-09-12] MEDS: NICOTINE 21MG/24HR 1 EA TRANSDERMAL TD SCH (09:00)
[2018-09-12] MEDS: OMEPRAZOLE 20 MG CAP PO SCH (09:00)
[2018-09-12] MEDS: diphenhydrAMINE 12.5MG/5ML ELIXIR UDC PO SCH ×2 (09:00→13:00)
[2018-09-12 09:56] VITALS: BP 134/94
[2018-09-12] MEDS: LISINOPRIL 10 MG TAB PO SCH (09:56)
[2018-09-12] MEDS ORDERED: DIPH12.5 PO (10:36)
[2018-09-12] MEDS ORDERED: VALP25EL PO (10:36)
--- NOTE | 2018-09-12 10:36 | MHDSPDOC ---
[facility] Discharge Summary Discharge Summary DATE OF ADMISSION: Aug 18, 2018 at 2:43 am DATE OF DISCHARGE: Sep 12, 2018 DISCHARGE DIAGNOSES: 1. Paranoid Schizophrenia REASON FOR ADMISSION: Patient is a 43 -year-old , female, with a history of schizophrenia and multiple admissions [facility] in the past for psychosis who was brought in by EMS after calling 911 for generalized body pain, vaginal bleeding since the morning, burning on urination, and " a snake under my bed." Per ED, once seen she stated "snakes aren't usually welcome in vaginas." Per ED, pt attempted to take snake out of vagina but couldn't see it. Pt also endorsing "fear of her life" for no known reason. Pt seen in ED to have live cock roaches on herself. She was cleaned with her belonging tightly sealed and stored down stairs and not on [facility]. Pt was a very poor historian due to psychosis, paranoia, and bizarre delusions in the ED. Attempted to see pt today and pt sleeping heavily and only said "what" then resumed sleeping. Pt continues to be a poor historian and history gathered from previous records. CONSULTANTS INVOLVED: none TEST RESULTS: depakote level 86.9 therapeutic TREATMENT AND PROGRESS ON THE UNIT : Pt [facility], seen for psychiatric assessment and restarted on her outpatient depakote er, invperico payne qmonthly. she was started on inderal 10mg tid for had tremor with improvement. She was continued on her outpatient medications. She was provided vistaril 50mg q6hr prn anxiety, ativan 2mg q6hr prn anxiety/agitation, zyprexa zydis 10mg q6hr prn anxiety/agitation, and trazodone 50mg qhs prn insomnia. Pt found her medications beneficial and tolerated them well. Pt had administrative hearing during her stay with plan, which pt agrees to, to refer her to supervised housing as her current home is unsafe and she is not capable of managing her meds due to history of shorting any pill she has as pt could easily overdose putting her in danger to her self. Due to risk of OD on pills had to change and discontinue meds prior to d/c. All oral pills were discontinued and she was started on depakene syrup 1500mg qhs and benadryl elixer 25mg q6hr prn anxiety, and continued on invega stustenna 234mg im qmonthly. Her symptoms remained stable and baseline. On day of discharge she denied depression, anxiety, insomnia, SI/HI. She has baseline hallucinations, delusions that she doesn't act on. She is able to state her medications. She was discharged home with the ACT team to follow her 2x/wk and administer her meds. She felt safe for discharge. DISCHARGE ASSESSMENT: Pt seen stating she's ready to go home. Per nursing pt refusing liquid meds as wants pills but in jose of pt having a history of snorting all her pills per PO pt will not be discharged on any pill type psychiatric medication due to the potential lethal risk of OD. Pt's mood and psychosis continue to be improved and at baseline status as she's on invega sustenna 234mg im qmonth and tolerating well with improved symptoms. Fair insight into mental health. Had administrative hearing Wednesday and plan, which pt agrees to, is to refer her to supervised housing as her current home is unsafe and she is not capable of managing her meds due to history of shorting a [place] pill she has as pt could easily overdose putting her in danger to her self. Pt has much less psychotic, impulsive, agitated, with fair insight/judgement. Per nursing pt is sleeping well at night. She continues to have bizarre paranoid delusions that are baseline based on history supplied by ACT team. She denies depression, anxiety, insomnia, SI/HI. Feels safe to be discharged home. MENTAL STATUS EXAMINATION ON DISCHARGE: General Appearance: showered and clean, appears stated age, own clothing Build: overweight Demeanor: calm, cooperative Eye Contact: fair Activity: cooperative, calm Behavior: cooperative Speech: normal volume Mood: euthymic, flat (baseline) Mood "I'm ready to go" Affect: calm, flat (baseline) Thought Process: improved associative, flight of ideas (baseline) Thought Content (Delusions): improved paranoia, delusions, psychotic (baseline) Thought Content (Other): improved preoccupied, ideas of reference, internal- stimuli, appears paranoid (possibly baseline) Thought Content (Aggressive): denies today Perception (Hallucinations): denies Perception (Other): none reported Cognition (Impairment of): greatly improved attention/concentration Cognition(Intelligence Est.): borderline Oriented: Awake, Alert, Oriented times three Insight: fair Judgment: fair Psychosis: improved Associations, Abstract Thinking, Psychotic Perceptions to baseline MEDICATIONS ON DISCHARGE: Depakene syrup 1,500 mg QHS invega sustenna 234mg im 08/23/18 benadryl elixer 25mg qid continue outpatient medical meds per PCP PLAN/FOLLOWUP ARRANGEMENTS: D/c home with ACT following pt and administering meds 2x/wk as pt awaits placement in supervised housing. The amount of time spent in the coordination of care for this patient was approximately 30 minutes. Vital Signs/I&Os Vital Signs Date Time Temp Pulse Resp B/P (MAP) Pulse Ox O2 Delivery O2 Flow Rate FiO2 09/12/18 09:56 134/94 09/12/18 06:00 98.1 76 18 100 09/07/18 07:51 Room Air Laboratory Data Labs 24H Laboratory Tests 2 09/12/18 06:44: Bedside Glucose (Misc Panel) 96 Medications Scheduled (Risperidone) 3 Mg Tab, 3 MG PO BID for ., (Reported) Benztropine Mesylate (Benztropine Mesylate) 1 Mg Tab, 1 MG PO BID for ., (Reported) Buspirone HCl (Buspirone HCl) 15 Mg Tab, 15 MG PO QID for ., (Reported) Divalproex Sodium (Divalproex Sodium Dr) 500 Mg Tab, 500 MG PO BID for ., (Reported) Glipizide (Glipizide ER) 10 Mg Tab, 10 MG PO DAILY for ., (Reported) Haloperidol (Haloperidol) 5 Mg Tab, 5 MG PO DAILY for ., (Reported) Haloperidol (Haloperidol) 5 Mg Tab, 10 MG PO QHS for ., (Reported) Lisinopril (Lisinopril) 10 Mg Tab, 10 MG PO DAILY for ., (Reported) Metformin Hydrochloride (Metformin HCl) 500 Mg Tab, 500 MG PO BID for ., (Reported) Mirtazapine (Remeron) 15 Mg Tab, 15 MG PO QHS for ., (Reported) Omeprazole (Omeprazole) 40 Mg Cap, 40 MG PO DAILY for ., (Reported) Paliperidone Palmitate (Invega Sustenna) 234 Mg/1.5 Ml Inj, 234 MG IM QMONTH for ., (Reported) Topiramate (Topiramate) 25 Mg Tab, 25 MG PO BID for ., (Reported) Trazodone HCl (Trazodone HCl) 100 Mg Tab, 200 MG PO QHS for ., (Reported) Scheduled PRN Albuterol Sulfate (Ventolin Hfa) 108 Mcg/Act Aer, 2 PUFFS INH Q4H PRN for SHORTNESS OF BREATH, (Reported) Albuterol/Ipratropium (Ipratropium [place]/Albut 0.5-2.5 (3) mg/3Ml) 1 Pretty Pretty, 1 PRETTY INH Q6H PRN for SHORTNESS OF BREATH, (Reported) Allergies Coded Allergies: Codeine (Unverified Allergy, Intermediate, HIVES, 07/19/17) NIKO WRIGHT DO Sep 12, 2018 10:36 am
== END 2018-09-12 13:16 | disposition home or self-care (01) | DRG 750 ==
LOC: EDBD 21:26 → M ED 21:26 → M ED INP 08-18 02:43 → M PSY 08-18 03:07
PROVIDERS: ADMIT Psychiatry & Neurology Psychiatry; ATTEND Psychiatry & Neurology Psychiatry
DX: F20.0 Paranoid schizophrenia (principal); Z79.899 Other long term (current) drug therapy; Z88.5 Allergy status to narcotic agent; J44.9 Chronic obstructive pulmonary disease, unspecified; G47.33 Obstructive sleep apnea (adult) (pediatric); K21.9 Gastro-esophageal reflux disease without esophagitis; F41.9 Anxiety disorder, unspecified; I10 Essential (primary) hypertension; E11.40 Type 2 diabetes mellitus with diabetic neuropathy, unspecified; E78.5 Hyperlipidemia, unspecified; F17.200 Nicotine dependence, unspecified, uncomplicated

== ENCOUNTER 2019-05-08 07:51 | Inpatient (IN) | payer MEDICAID, OTHER ==
[~2019-05-08] VITALS: Ht 170.2 cm; Wt 172.1 kg
[~2019-05-08 07:51] MED LIST changes: +BENZ-52 PO; +BREO1INH3 PO; +DIPH12.529 PO; +DIVA500T94 PO; +GLIP10TA18 PO; +INVE234I IM; -OMEP40CA2 PO; +OMEP40CA97 PO; +REME15TA PO; +RISP3TAB3 PO; +TRAZ-163 PO; +TRAZ1TAB10 PO; -TRAZO50TA PO; +VALP25EL PO; +VENTAER INH
[2019-05-08] MEDS ORDERED: RISP3TAB3 PO (07:58)
[2019-05-08] MEDS ORDERED: TRAZ-163 PO (07:58)
[2019-05-08] MEDS ORDERED: DIVA500T94 PO (07:58)
[2019-05-08 08:32] LABS: BASO % 0.3 % (0.0-1.0); EOS # 0.1 10^3/uL (0.0-0.5); EOS % 0.9 % (0.0-3.0); HEMATOCRIT 43.4 % (36.0-47.0); LYMPH % 19.6 % (24.0-44.0); MEAN CORPUSCULAR HEMOGLOBIN 30.6 pg (27.0-33.0); MEAN CORPUSCULAR HGB CONC 32.3 g/dl (32.0-36.5); MONO # 0.9 10^3/uL (0.0-0.8); MONO % 8.3 % (0.0-5.0); NEUTROPHILS # 7.2 10^3/uL (1.5-8.5); NEUTROPHILS % 70.4 % (36.0-66.0); PLATELET COUNT, AUTOMATED 255 10^3/uL (150-450); RED BLOOD COUNT 4.57 10^6/uL (4.00-5.40); WHITE BLOOD COUNT 10.2 10^3/uL (4.0-10.0)
[2019-05-08 09:00] LABS: ALBUMIN 3.1 GM/DL (3.2-5.2); ALT/SGPT 18 U/L (12-78); AMYLASE 23 U/L (25-115); BILIRUBIN,DIRECT < 0.1 MG/DL (0.0-0.2); BILIRUBIN,TOTAL 0.3 MG/DL (0.2-1.0); LIPASE 84 U/L (73-393); TOTAL PROTEIN 6.6 GM/DL (6.4-8.2)
[2019-05-08 09:58] LABS: BLOOD UREA NITROGEN 14 MG/DL (7-18); CALCIUM LEVEL 8.8 MG/DL (8.5-10.1); CARBON DIOXIDE LEVEL 29 MEQ/L (21-32); CHLORIDE LEVEL 103 MEQ/L (98-107); GLOMERULAR FILTRATION RATE > 60.0 (>58); GLUCOSE, FASTING 151 MG/DL (70-100); POTASSIUM SERUM 4.6 MEQ/L (3.5-5.1); SODIUM LEVEL 138 MEQ/L (136-145)
[2019-05-08] MEDS ORDERED: ISOVUE-370 76% 100ML VIAL (Q9967) As Ordered ONE (10:03)
[2019-05-08] MEDS ORDERED: NS 1,000 ML IV SCH (10:15)
[2019-05-08] MEDS ORDERED: KETOROLAC 30 MG/ML VIAL (J1885) IV ONE (10:15)
--- NOTE | 2019-05-08 10:47 | REP ---
Clinical: Abdominal pain. Comparison: 05/11/2017. Technique: Axial contrast enhanced images from the lung bases to the pubic symphysis using 100 ml Isovue 370 intravenous contrast material with coronal and sagittal re-formations. Findings: Small bowel obstruction is appreciated with point of obstruction related to ventral pelvic hernia containing multiple loops of bowel and fluid (images 140 - 170). The efferent bowel exiting the hernia and extending to the terminal ileum and cecum appear collapsed and normal. The large bowel is grossly unremarkable although scattered sigmoid diverticula are identified. Normal appendix noted. No free air or drainable collection/abscess. Liver, spleen, pancreas, gallbladder, bilateral adrenal glands and kidneys are normal. Pelvis demonstrates normal bladder and evidence for prior hysterectomy. Abdominal aorta without aneurysm or dissection. Osseous structures demonstrate degenerative changes. Impression: 1. Small bowel obstruction with transition related to ventral midline pelvic hernia containing multiple loops of bowel and fluid along with surrounding fat stranding. No free air. Electronically Signed by Damon España MD 05/08/2019 10:38 A
[2019-05-08] MEDS ORDERED: BUSP15TA47 PO (11:38)
[2019-05-08] MEDS ORDERED: MELO7.5T35 PO (11:38)
[2019-05-08] MEDS ORDERED: ACETAMINOPHEN 500 MG TAB PO PRN (13:45)
[2019-05-08] MEDS ORDERED: ONDANSETRON 4MG/2ML VIAL (J2405) IV PRN (13:45)
[2019-05-08] MEDS ORDERED: ALBUTEROL 90 MCG/ACT 8GM HFA INHALER INH PRN (13:45)
[2019-05-08] MEDS: PANTOPRAZOLE 40MG INJ (PROTONIX) (C9113) IV SCH (14:07)
[2019-05-08] MEDS ORDERED: IPRATROPIUM 0.5MG/ALBUTEROL 2.5MG INH SOL UD 3ML (DUONEB)(J7620) INH PRN ×2 (14:30→14:42)
[2019-05-08] MEDS ORDERED: GLUCOSE 4 GM CHEW TABLET PO PRN (14:30)
[2019-05-08] MEDS ORDERED: DEXTROSE 50% 50 ML SYRINGE IV PRN (14:30)
[2019-05-08] MEDS ORDERED: GLUCAGON FOR INJ 1 MG VIAL (J1610) SC PRN (14:30)
--- NOTE | 2019-05-08 14:47 | CR.PDOC ---
General Date of Consultation: May 08, 2019 Consultation REASON FOR CONSULTATION/CHIEF COMPLAINT: Incarcerated pelvic hernia HISTORY OF PRESENT ILLNESS: Patient is 53 years old female with past medical history with a history of schizophrenia and multiple admissions to [facility] in the past for psychosis, COPD, diabetes type 2, hypertension, hyperlipidemia, peripheral neuropathy, asthma presented hospital with abdominal pain. Patient is poor historian and she told me that she is in the bad mood and she is not going to provide many details. During the interview today, patient is easily angered due to pain. Patient stated that she has been having severe abdominal pain for past 12 hours. In emergency room she was found to have white blood count of 10.2, patient is afebrile, abdominal CAT scan positive for small bowel obstruction with transition related to ventral midline pelvic hernia containing multiple loops of bowel and fluid along with surrounding fat stranding. Patient denied fever, chills, palpitations, diarrhea or dysuria ALLERGIES: Please see below. HOME MEDICATIONS: Please see below. PAST MEDICAL HISTORY: schizophrenia Ovarian cyst Ectopic Hypertension Hyperlipidemia Dependent edema DM Peripheral neuropathy Asthma GERD Chronic right ankle pain Chronic intertriginous candidiasis Morbid Obesity BMI 56.31 PAST SURGICAL HISTORY: Tubo-ovarian abscess status post percutaneous drainage 08/28/16 Right ankle repair 2001 FAMILY HISTORY: Patient declines to provide any additional history at this time SOCIAL HISTORY: ETOH: Denies Illicit drug use: Smokes marijuana IV drug use: Denies Tobacco smoking 1 pack a day REVIEW OF SYSTEMS: 10 point review system negative except as listed above PHYSICAL EXAMINATION: VITAL SIGNS: Please see below. GENERAL APPEARANCE: In severe distress, morbidly obese female HEENT: PERRLA, EOMI RESPIRATORY: Diminished lung sounds bilaterally CARDIOVASCULAR: S1-S2 ABDOMEN: Severe tenderness around suprapubic area, no rigidity, soft EXTREMITIES: +2 nonpitting edema NEUROLOGICAL: Nonfocal LABORATORY DATA: Please see below. ASSESSMENT/PLAN: Patient is 53 years old female with past medical history with a history of schizophrenia and multiple admissions to [facility] in the past for psychosis, COPD, diabetes type 2, hypertension, hyperlipidemia, peripheral neuropathy, asthma pr esented hospital with abdominal pain. Patient is poor historian and she told me that she is in the bad mood and she is not going to provide many details. Patient stated that she has been having severe abdominal pain for past 12 hours. In emergency room she was found to have white blood count of 10.2, patient is afebrile, abdominal CAT scan positive for small bowel obstruction with transition related to ventral midline pelvic hernia containing multiple loops of bowel and fluid along with surrounding fat stranding. 1 Abdominal pain Patient has been diagnosed with abdominal pelvic hernia Surgical team follows her 2. Nicotine dependence. Patch available. 3 NIDDM. Glucose levels under control Insulin sliding scale 4 Hypertension. lisinopril 20 mg by mouth daily COPD. Not in acute exacerbation Continue home inhalers GERD. Continue PPI GIOVANI. CPAP with home settings. schizophrenia Continue home meds Morbid obesity Patient will benefit from bariatric surgery Vital Signs/I&O Vital Signs Date Time Temp Pulse Resp B/P (MAP) Pulse Ox O2 Delivery O2 Flow Rate FiO2 05/08/19 13:00 146/67 (93) 05/08/19 12:36 16 94 Room Air 05/08/19 12:21 80 05/08/19 07:51 95.8 Laboratory Data Labs 24H Laboratory Tests 2 05/08/19 08:15: Immature Granulocyte % (Auto) 0.5, Neutrophils (%) (Auto) 70.4H, Lymphocytes (%) (Auto) 19.6L, Monocytes (%) (Auto) 8.3H, Eosinophils (%) (Auto) 0.9, Basophils (%) (Auto) 0.3, Neutrophils # (Auto) 7.2, Lymphocytes # (Auto) 2.0, Monocytes # (Auto) 0.9H, Eosinophils # (Auto) 0.1, Basophils # (Auto) 0.0, Nucleated Red Blood Cells % (auto) 0.0, Anion Gap 6L, Glomerular Filtration Rate > 60.0, Calcium Level 8.8, Total Bilirubin 0.3, Direct Bilirubin < 0.1, Aspartate Amino Transf (AST/SGOT) 10, Alanine Aminotransferase (ALT/SGPT) 18, Alkaline Phosphatase 97, Total Protein 6.6, Albumin 3.1L, Albumin/Globulin Ratio 0.89L, Amylase Level 23L, Lipase 84 CBC/BMP Laboratory Tests 05/08/19 08:15 Allergies Coded Allergies: codeine (Verified Allergy, Intermediate, hives, 05/08/19) Home Medications Scheduled Benztropine Mesylate (Benztropine Mesylate) 1 Mg Tab, 1 MG PO BID, (Reported) Buspirone HCl (Buspirone HCl) 15 Mg Tablet, 15 MG PO QID, (Reported) Divalproex Sodium (Divalproex Sodium) 500 Mg Tablet.dr, 1,500 MG PO QHS, (Reported) Glipizide (Glipizide ER) 10 Mg Tab, 10 MG PO DAILY, (Reported) Meloxicam (Meloxicam) 7.5 Mg Tablet, 7.5 MG PO BID, (Reported) Metformin HCl (Metformin HCl) 500 Mg Tab, 500 MG PO BID, (Reported) Omeprazole (Omeprazole) 40 Mg Cap, 40 MG PO BID, (Reported) Paliperidone Palmitate (Invega Sustenna) 234 Mg/1.5 Ml Inj, 234 MG IM QMONTH, (Reported) Risperidone (Risperidone) 3 Mg Tablet, 3 MG PO BID, (Reported) Trazodone HCl (Trazodone HCl) 100 Mg Tablet, 300 MG PO QHS, (Reported) Scheduled PRN Albuterol Sulfate (Ventolin Hfa) 108 Mcg/Act Aer, 2 PUFFS INH Q4H PRN for SHORTNESS OF BREATH, (Reported) Ipratropium/Albuterol Sulfate (Iprat-Albut 0.5-3(2.5) mg/3 ml) 1 Pretty Pretty, 1 PRETTY INH Q6H PRN for SHORTNESS OF BREATH, (Reported) KISHOR LINDQUIST DO May 08, 2019 14:47
[2019-05-08 16:05] VITALS: BP 141/72
[2019-05-08] MEDS: LR 1,000 ML IV SCH (16:21)
[2019-05-08] MEDS: LISINOPRIL 20 MG TAB PO SCH (16:30)
[2019-05-08] MEDS ORDERED: HumaLOG INSULIN (NovoLOG) PER UNIT SC SCH (17:30)
[2019-05-08] MEDS: HumaLOG INSULIN (NovoLOG) PER UNIT SC SCH (17:38)
[2019-05-08] MEDS: busPIRone 5 MG TAB PO SCH ×2 (17:57→21:28)
[2019-05-08] MEDS: KETOROLAC 30 MG/ML VIAL (J1885) IV PRN (17:57)
--- NOTE | 2019-05-08 20:32 | ECGEPIP ---
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
[2019-05-08] MEDS ORDERED: MELOXICAM (MOBIC) 7.5 MG TAB PO SCH (21:00)
[2019-05-08] MEDS: risperiDONE 3 MG TAB PO SCH (21:28)
[2019-05-08] MEDS: BENZTROPINE 1 MG TAB PO SCH (21:28)
[2019-05-08] MEDS: OMEPRAZOLE 20 MG CAP PO SCH (21:28)
[2019-05-08] MEDS: traZODone 100 MG TAB PO SCH (21:28)
[2019-05-08 22:00] VITALS: BP 138/82
[2019-05-08] MEDS: DIVALPROEX 500 MG TAB PO SCH (22:19)
[2019-05-09] MEDS: LR 1,000 ML IV SCH ×3 (01:26→16:55)
[2019-05-09] MEDS: HumaLOG INSULIN (NovoLOG) PER UNIT SC SCH ×4 (01:26→18:00)
--- NOTE | 2019-05-09 05:32 | HPE ---
DATE OF ADMISSION: 05/08/2019 REASON FOR ADMISSION: Ventral incisional hernia with small-bowel obstruction. HISTORY OF PRESENT ILLNESS: The patient is a 43-year-old woman who presented to the emergency room (ER) on the morning of May 08. She reported that she had developed some mid and upper abdominal pain starting on May 07. This had started about mid day and persisted during the course of the day. She did report some nausea and a feeling of fullness and reported to me that she had some vomiting. She was seen in the emergency department early on May 08 still with abdominal pain. She was evaluated with laboratory studies and also had a CT scan of the abdomen and pelvis obtained. This revealed an anterior midline hernia low in the hypogastrium with a loop of small bowel seemingly entrapped in this hernia with evidence for some obstruction. Because of this I was consulted and the patient is now admitted for management. When I saw her in the emergency department I do believe that I successfully reduced her hernia but given her transient obstruction I felt it best to admit her and prep her fairly urgently for surgery and proceed with a repair of her hernia prior to her discharge. ALLERGIES: The patient reports an allergy to CODEINE which leads to itching. MEDICATIONS: At the time of presentation include: - albuterol inhaler two puffs every 4 hours as needed for shortness of breath - benztropine mesylate 1 mg by mouth twice daily - buspirone 15 mg by mouth four times daily - divalproex sodium 500 mg tablets 1500 mg by mouth at bedtime - glipizide 10 mg by mouth daily - ipratropium bromide albuterol sulfate inhalations every 6 hours as needed for shortness of breath - meloxicam 7.5 mg by mouth twice daily - metformin 500 mg by mouth twice daily - omeprazole 40 mg by mouth twice daily - paliperidone palmitate 234 mg intramuscularly (IM) every month - risperidone 3 mg by mouth twice daily - trazodone 300 mg by mouth nightly PAST MEDICAL HISTORY: 1. Morbid obesity with a body mass index (BMI) of about 59. 2. She has a history of diabetes mellitus type 2. 3. She has schizophrenia. 4. She has a history of hypertension. 5. Hypercholesterolemia. 6. Chronic obstructive pulmonary disease. 7. She has a history of sleep apnea. 8. She has had gastroesophageal reflux disease. The patient is a smoker. PAST SURGICAL HISTORY: 1. The patient has had surgery for a right ankle fracture. 2. She has had a surgical procedure for a tubal . 3. She subsequently underwent a hysterectomy. SOCIAL HISTORY: The patient reports that she has a significant other. She does smoke a pack of cigarettes per day. She denies any significant alcohol. FAMILY HISTORY: Family history is really noncontributory. REVIEW OF SYSTEMS: No history of chest pain or palpitations. Denies dysuria or any melena or hematochezia. She is not complaining of any new bone or joint issues. She does have tenderness low in the midline of the abdomen. PHYSICAL EXAMINATION: General: Reveals a woman suffering from morbid obesity, lying quietly on the hospital stretcher. She is alert and oriented when I spoke with her and answers questions readily. Skin: Warm and dry. Sclerae are anicteric. Neck: Supple. Heart: Exam shows a regular rate and rhythm of about 70. Lungs: The lungs are clear to auscultation bilaterally. Abdomen: The abdomen is massively obese. She has a small scar transversely in the suprapubic area and a couple of smaller scars suggestive of trocar sites. She has a bulge in the anterior abdominal wall low in the midline but slightly above her suprapubic scar. With the patient flat on her back in a slight Trendelenburg position I applied some pressure to this bulge and she did complain of some discomfort but it was my impression that I was able to reduce her hernia by pressure and she seemed afterwards to be somewhat more comfortable. She did have bowel sounds present in the abdomen and the remainder of the abdomen was generally soft and without significant tenderness. Extremities: Without edema and she had intact radial and pedal pulses bilaterally. LABORATORY STUDIES: A chemistry profile showed normal electrolytes with BUN of 14, creatinine 0.9 and a glucose of 151. Liver function tests are normal with a total protein of 6.6 and albumin of 3.1. Amylase and lipase were normal. She had a CBC that showed a white count of 10, hemoglobin 14, hematocrit of 43 and platelet count of 255,000. Differential count showed 70% neutrophils, 20% lymphocytes and 8% monocytes. IMAGING: A CT scan of the abdomen and pelvis was reviewed. This had been interpreted as showing a small bowel obstruction with some mildly dilated loops of proximal small bowel. There was a hernia noted in the lower midline of the abdomen with a bowel loop entrapped in this area and this appeared to be the source of her obstruction. She had no evidence of free air or any significant free fluid. IMPRESSION: 1. Incarcerated ventral incisional hernia with small-bowel obstruction now reduced. 2. Morbid obesity with a body mass index (BMI) of approximately 59. 3. Diabetes mellitus type 2. 4. Schizophrenia. 5. Hypertension. 6. Hyperlipidemia. 7. Chronic obstructive pulmonary disease. 8. Obstructive sleep apnea. PLAN: The patient presented with an apparent obstruction from entrapped bowel in her low midline hernia. I believe I have been successful in reducing her hernia which should relieve her bowel obstruction. I believe it would be prudent for her to be brought into the hospital for observation to ensure that her hernia is truly reduced. However, I also think it would be prudent now that she is here in the hospital and having presented with an obstruction to proceed with repair of her hernia here during this admission. I will therefore keep her nothing by mouth for right now. I will request a consultation for preoperative medical optimization from the hospitalist. Her usual medications will be continued to the extent possible. If her hernia remains entrapped with an obstruction then more urgent surgeon surgery may be warranted. I will look into the possibility of adding her onto the schedule for tomorrow. I believe she would be a good candidate for a robotic-assisted surgical procedure which would allow suturing of her defect and placement of mesh without the need for creating a new weakness in the abdominal wall from an open incision. The patient was counseled regarding the plan for care and desires to proceed as I have recommended. ANNE-MARIE
[2019-05-09 06:00] VITALS: BP 131/80
[2019-05-09 06:06] LABS: BASO % 0.3 % (0.0-1.0); EOS # 0.2 10^3/uL (0.0-0.5); HEMATOCRIT 36.8 % (36.0-47.0); LYMPH # 2.4 10^3/uL (1.5-5.0); LYMPH % 32.7 % (24.0-44.0); MEAN CORPUSCULAR HEMOGLOBIN 30.3 pg (27.0-33.0); MEAN CORPUSCULAR HGB CONC 32.1 g/dl (32.0-36.5); MEAN CORPUSCULAR VOLUME 94.6 fl (80.0-96.0); MONO # 0.6 10^3/uL (0.0-0.8); MONO % 7.5 % (0.0-5.0); NEUTROPHILS # 4.2 10^3/uL (1.5-8.5); NEUTROPHILS % 56.2 % (36.0-66.0); PLATELET COUNT, AUTOMATED 210 10^3/uL (150-450); RED BLOOD COUNT 3.89 10^6/uL (4.00-5.40); WHITE BLOOD COUNT 7.4 10^3/uL (4.0-10.0)
[2019-05-09 06:08] LABS: HEMOGLOBIN 11.8 g/dl (12.0-15.5)
[2019-05-09 06:30] LABS: BLOOD UREA NITROGEN 17 MG/DL (7-18); CALCIUM LEVEL 8.1 MG/DL (8.5-10.1); CARBON DIOXIDE LEVEL 28 MEQ/L (21-32); CHLORIDE LEVEL 106 MEQ/L (98-107); CREATININE FOR GFR 0.74 MG/DL (0.55-1.30); GLOMERULAR FILTRATION RATE > 60.0 (>58); GLUCOSE, FASTING 96 MG/DL (70-100); SODIUM LEVEL 140 MEQ/L (136-145)
[2019-05-09 10:00] VITALS: BP 138/75
[2019-05-09] MEDS: LISINOPRIL 20 MG TAB PO SCH (10:23)
[2019-05-09] MEDS: busPIRone 5 MG TAB PO SCH ×3 (10:23→16:53)
[2019-05-09] MEDS: OMEPRAZOLE 20 MG CAP PO SCH (10:23)
[2019-05-09] MEDS: BENZTROPINE 1 MG TAB PO SCH (10:23)
[2019-05-09] MEDS: risperiDONE 3 MG TAB PO SCH (10:23)
[2019-05-09] MEDS: KETOROLAC 30 MG/ML VIAL (J1885) IV PRN (10:24)
[2019-05-09] MEDS: PANTOPRAZOLE 40MG INJ (PROTONIX) (C9113) IV SCH (10:24)
--- NOTE | 2019-05-09 11:30 | IPNPDOC ---
Text Note Date of Service The patient was seen on 05/09/19. NOTE Subjective: -Reports abdominal discomfort at rest and chronic back pain -Confirmed that surgery is planned for 5PM this evening -Otherwise has no other acute complaints at this time. Denies fever, chills, nausea, emesis, dysuria, worsening of her abdominal discomfort, chest pain, palpitations, pruritus or shortness of breath. REVIEW OF SYSTEMS: As noted above, otherwise negative PHYSICAL EXAMINATION: VITAL SIGNS: Please see below. GENERAL APPEARANCE: Morbidly obese female, in NAD HEENT: PERRLA, EOMI RESPIRATORY: Diminished lung sounds bilaterally, no crackles, no wheezing CARDIOVASCULAR: RRR, no mrg ABDOMEN: Normoactive bowel sounds, morbidly obese, mild tenderness to palpation, soft, no rigidity EXTREMITIES: +2 nonpitting edema , otherwise WWP with 2+ DP pulses NEUROLOGICAL: CN2-12 grossly nonfocal, moving all extremities in bed SKIN: small erythematous macular clustered lesions c/f bed bugs, without significant pruritus LABORATORY DATA: Please see below. Reviewed. Hag 11.8, dilutional, with accompanying reduction in WBC and platelets. Improved Cr after hydration. 05/08 EKG: NSR with 1st degree heart block. IMAGING DATA: Reviewed. 05/08 CT A/P showed an SBO with transition related to a ventral midline pelvic hernia containing multiple loops of bowel and fluid along with surrounding fat stranding, with no free air. ASSESSMENT/PLAN: 53 years old woman with a history of schizophrenia and multiple admissions to [facility] in the past for psychosis, COPD, diabetes type 2, hypertension, hyperlipidemia, peripheral neuropathy, morbid obesity and asthma who presented to the hospital with abdominal pain and found to have an SBO with transition related to ventral midline pelvic hernia containing multiple loops of bowel and fluid along with surrounding fat stranding pending surgery later this afternoon. 1. Abdominal pain in the setting of an SBO with transition related to ventral midline pelvic hernia containing multiple loops of bowel. -Abdominal pain with benign examination at this time -Pending surgery this afternoon -LR @ 125cc/hr -NPO status for surgery 2. Nicotine dependence. -Patch offered -counselled on health effects of smoking and quitting aids which she was aware. Will think about it, would just like to have her surgery done for now. 3 NIDDM. -Insulin sliding scale -hypoglycemia protocol -FSBG AC/HS 4. Skin rash: c/f bed bugs -No pruritus, will monitor for now 5. Hypertension. -lisinopril 20 mg by mouth daily 6. COPD. -Not in acute exacerbation -Duonebs and albuterol nebs PRN 7. GERD. -Continue PPI 8. GIOVANI. -CPAP with home settings. 9. schizophrenia -Continue home meds 10. Morbid obesity: likely a combination of lifestyle and iatrogenic effects of psychotropes. -Patient would benefit from bariatric surgery in the future VSLito, I+O VSLito I+O Laboratory Tests 05/09/19 05:12 Vital Signs Date Time Temp Pulse Resp B/P (MAP) Pulse Ox O2 Delivery O2 Flow Rate FiO2 05/09/19 10:23 131/64 05/09/19 10:00 98.6 81 20 90 Room Air 05/09/19 06:00 2.0 I&O- Last 24 Hours up to 6 AM 05/09/19 06:00 Intake Total 2516 ml Output Total 125 ml Balance 2391 ml DEMETRICE PADILLA MD May 09, 2019 11:30
[2019-05-09 14:00] VITALS: BP 121/78
[2019-05-09] MEDS: NICOTINE 21MG/24HR 1 EA TRANSDERMAL TD SCH (15:03)
[2019-05-09] MEDS ORDERED: LIDOCAINE 2% INJ 100 MG/5 ML SDV (FOR ANES.) As Ordered ONE (15:54)
[2019-05-09] MEDS ORDERED: fentaNYL 250 MCG/5 ML INJECTION (J3010) As Ordered ONE ×2 (15:54→19:43)
[2019-05-09] MEDS ORDERED: ROCURONIUM BROMIDE 50 MG/5 ML VIAL As Ordered ONE ×2 (15:54→19:11)
[2019-05-09] MEDS ORDERED: MIDAZOLAM INJ 2 MG/2 ML VIAL (J2250) As Ordered ONE (15:54)
[2019-05-09] MEDS ORDERED: PROPOFOL 200 MG/20 ML VIAL As Ordered ONE (15:54)
[2019-05-09] MEDS ORDERED: LACRILUBE (AKWA TEARS) OPHTH OINT 3.5 GM As Ordered ONE (17:19)
[2019-05-09] MEDS ORDERED: BUPIVACAINE HCL 0.25% 30 ML VIAL As Ordered ONE (17:43)
[2019-05-09] MEDS ORDERED: BUPIVACAINE LIPOSOME/PF 1.3% 20ML VIAL (13.3MG/ML)(EXPAREL)(C9290 PER1MG) As Ordered ONE (17:44)
[2019-05-09 18:00] VITALS: BP 124/78
[2019-05-09] MEDS ORDERED: SUCCINYLCHOLINE 100 MG/5 ML SYRINGE (J0330) As Ordered ONE (19:01)
[2019-05-09] MEDS ORDERED: ePHEDrine SULFATE 25 MG/5 ML(5MG/ML) SYRINGE As Ordered ONE (19:01)
[2019-05-09] MEDS ORDERED: DESFLURANE 240 ML INHALANT As Ordered ONE (19:22)
[2019-05-09] MEDS ORDERED: SUGAMMADEX SODIUM 500 MG/5 ML VIAL (BRIDION) As Ordered ONE (19:25)
[2019-05-09] MEDS ORDERED: ACETAMINOPHEN 1000MG 100ML IV BTL (OFIRMEV) (J0131 PER 10MG) As Ordered ONE (19:25)
[2019-05-09] MEDS ORDERED: METOCLOPRAMIDE INJ 10MG/2ML VIAL (J2765) As Ordered ONE (19:25)
[2019-05-09] MEDS ORDERED: ONDANSETRON 4MG/2ML VIAL (J2405) As Ordered ONE (19:25)
[2019-05-09] MEDS ORDERED: KETOROLAC 60 MG/2 ML VIAL (J1885) As Ordered ONE (19:25)
[2019-05-09] MEDS ORDERED: fentaNYL 100 MCG/2 ML INJECTION (J3010) As Ordered ONE (23:57)
[2019-05-10] VITALS (10 sets, daily range): BP systolic 105–146; BP diastolic 72–80
[2019-05-10] MEDS ORDERED: KETOROLAC 30 MG/ML VIAL (J1885) IV PRN
[2019-05-10] MEDS ORDERED: HYDROMORPHONE HCL 0.5 MG/ 0.5 ML SYRINGE (J1170 PER 1) IV PRN
[2019-05-10] MEDS ORDERED: ONDANSETRON 4MG/2ML VIAL (J2405) IV PRN
[2019-05-10] MEDS ORDERED: PERCOCET 5MG/325MG TAB PO PRN
[2019-05-10] MEDS ORDERED: LR 1,000 ML IV SCH
[2019-05-10] MEDS ORDERED: fentaNYL 100 MCG/2 ML INJECTION (J3010) IV PRN
[2019-05-10] MEDS ORDERED: METOCLOPRAMIDE INJ 10MG/2ML VIAL (J2765) IV PRN
[2019-05-10] MEDS ORDERED: MORPHINE 2 MG/ML 1ML VIAL (J2270) IV PRN (00:45)
[2019-05-10] MEDS ORDERED: ONDANSETRON 4MG/2ML VIAL (J2405) As Ordered ONE (00:45)
[2019-05-10] MEDS ORDERED: METOCLOPRAMIDE INJ 10MG/2ML VIAL (J2765) As Ordered ONE (00:51)
[2019-05-10] MEDS: OMEPRAZOLE 20 MG CAP PO SCH ×3 (01:56→21:00)
[2019-05-10] MEDS: traZODone 100 MG TAB PO SCH ×2 (01:56→21:00)
[2019-05-10] MEDS: busPIRone 5 MG TAB PO SCH ×5 (01:56→21:00)
[2019-05-10] MEDS: DIVALPROEX 500 MG TAB PO SCH ×2 (01:57→21:00)
[2019-05-10] MEDS: BENZTROPINE 1 MG TAB PO SCH ×3 (01:57→21:00)
[2019-05-10] MEDS: risperiDONE 3 MG TAB PO SCH ×3 (01:57→21:00)
[2019-05-10] MEDS: HumaLOG INSULIN (NovoLOG) PER UNIT SC SCH ×3 (01:57→12:36)
[2019-05-10] MEDS: LR 1,000 ML IV SCH ×3 (02:00→13:33)
[2019-05-10 06:23] LABS: HEMATOCRIT 35.9 % (36.0-47.0); HEMOGLOBIN 11.8 g/dl (12.0-15.5); MEAN CORPUSCULAR HEMOGLOBIN 31.2 pg (27.0-33.0); MEAN CORPUSCULAR HGB CONC 32.9 g/dl (32.0-36.5); PLATELET COUNT, AUTOMATED 217 10^3/uL (150-450); RED BLOOD COUNT 3.78 10^6/uL (4.00-5.40); WHITE BLOOD COUNT 9.6 10^3/uL (4.0-10.0)
[2019-05-10 06:50] LABS: BLOOD UREA NITROGEN 14 MG/DL (7-18); CALCIUM LEVEL 8.5 MG/DL (8.5-10.1); CARBON DIOXIDE LEVEL 29 MEQ/L (21-32); CHLORIDE LEVEL 106 MEQ/L (98-107); CREATININE FOR GFR 0.68 MG/DL (0.55-1.30); GLOMERULAR FILTRATION RATE > 60.0 (>58); GLUCOSE, FASTING 115 MG/DL (70-100); POTASSIUM SERUM 4.5 MEQ/L (3.5-5.1); SODIUM LEVEL 140 MEQ/L (136-145)
[2019-05-10] MEDS: NICOTINE 21MG/24HR 1 EA TRANSDERMAL TD SCH (09:05)
[2019-05-10] MEDS: PANTOPRAZOLE 40MG INJ (PROTONIX) (C9113) IV SCH (09:05)
[2019-05-10] MEDS: LISINOPRIL 20 MG TAB PO SCH (09:06)
[2019-05-10] MEDS: KETOROLAC 30 MG/ML VIAL (J1885) IV PRN (09:06)
--- NOTE | 2019-05-10 12:12 | IPNPDOC ---
Text Note Date of Service The patient was seen on 05/10/19. NOTE Subjective: -Mild abdominal discomfort at rest and chronic back pain -Had surgery yesterday evening without complications per report -Denies fever, chills, nausea, emesis, dysuria, worsening of her abdominal discomfort, chest pain, palpitations, pruritus or shortness of breath. REVIEW OF SYSTEMS: As noted above, otherwise negative PHYSICAL EXAMINATION: VITAL SIGNS: Please see below. GENERAL APPEARANCE: Morbidly obese female, in NAD HEENT: PERRLA, EOMI RESPIRATORY: Diminished lung sounds bilaterally, no crackles, no wheezing CARDIOVASCULAR: RRR, no mrg ABDOMEN: Normoactive bowel sounds, morbidly obese, mild tenderness to palpation, soft, no rigidity EXTREMITIES: +2 nonpitting edema , otherwise WWP with 2+ DP pulses NEUROLOGICAL: CN2-12 grossly nonfocal, moving all extremities in bed SKIN: small erythematous macular clustered lesions with recently noted bed bugs, without significant pruritus LABORATORY DATA: Please see below. Reviewed. Hgb 11.8, stable. 05/08 Admission EKG: NSR with 1st degree heart block. IMAGING DATA: Reviewed. 05/08 CT A/P showed an SBO with transition related to a ventral midline pelvic hernia containing multiple loops of bowel and fluid along with surrounding fat stranding, with no free air. ASSESSMENT/PLAN: 53 years old woman with a history of schizophrenia and multiple admissions to [facility] in the past for psychosis, COPD, diabetes type 2, hypertension, hyperlipidemia, peripheral neuropathy, morbid obesity and asthma who presented to the hospital with abdominal pain and found to have an SBO with transition re lated to ventral midline pelvic hernia containing multiple loops of bowel and fluid along with surrounding fat stranding s/p surgery with course c/b persistent mild hypoxemia. 1. Abdominal pain in the setting of an SBO with transition related to ventral midline pelvic hernia containing multiple loops of bowel. -Grossly benign examination at this time -s/p surgery -pain control per surgical team -remains on LR at this time, consider stopping as she is tolerating PO and has mild hypoxemia -now on clear liquid diet 2. Nicotine dependence. -Nicotine patch -counselled on health effects of smoking and quitting aids which she was aware.. 3 NIDDM. -Insulin sliding scale -hypoglycemia protocol -FSBG AC/HS 4. Skin rash with noted bed bugs: -No pruritus, will monitor for now with expectant management 5. Hypertension. -lisinopril 20 mg by mouth daily 6. COPD. -Not in acute exacerbation -Duonebs and albuterol nebs PRN -Supplementary O2 7. GERD. -Continue PPI 8. GIOVANI. -CPAP with home settings. 9. schizophrenia -Continue home meds 10. Morbid obesity: likely a combination of lifestyle and iatrogenic effects of psychotropes. -Patient would benefit from bariatric surgery in the future DVT prophylaxis: start lovenox 40 QD VS,Fishbone, I+O VS, Fishbone, I+O Laboratory Tests 05/10/19 06:07 Vital Signs Date Time Temp Pulse Resp B/P (MAP) Pulse Ox O2 Delivery O2 Flow Rate FiO2 05/10/19 10:00 98.5 91 21 134/80 (98) 97 Nasal Cannula 2.0 I&O- Last 24 Hours up to 6 AM 05/10/19 06:00 Intake Total 1500 ml Output Total 1150 ml Balance 350 ml DEMETRICE PADILLA MD May 10, 2019 12:12
[2019-05-10] MEDS ORDERED: ENOXAPARIN 40 MG/0.4 ML SYRINGE (J1650) SC SCH (12:30)
[2019-05-10] MEDS ORDERED: HumaLOG INSULIN (NovoLOG) PER UNIT SC SCH ×2 (17:30→21:00)
--- NOTE | 2019-05-11 08:18 | RO ---
DATE OF PROCEDURE: 05/09/2019 PREOPERATIVE DIAGNOSIS: Ventral incisional hernia. POSTOPERATIVE DIAGNOSIS: Incarcerated ventral incisional hernia with entrapped small bowel and multiple adhesions. PROCEDURE PERFORMED: A robotic-assisted laparoscopic repair of an incarcerated incisional hernia with mesh. SURGEON: Dr. Feliz ANESTHESIA: General. INDICATIONS FOR PROCEDURE: The patient is a 43-year-old woman with morbid obesity, diabetes, hypertension and schizophrenia who was admitted to the hospital on the April after presenting with symptoms of a bowel obstruction with a CT scan showing some small bowel entrapped in a lower midline incisional hernia through the site of her hysterectomy. Her hernia appeared to have been reduced and she was observed overnight with no significant symptoms. She is now for a robotic-assisted laparoscopic repair of her hernia. OPERATIVE PROCEDURE: The patient was brought to the operating room and placed on the table in a supine position. She was placed under general endotracheal anesthesia. Thromboembolic deterrent stockings (TEDS) and sequentials were utilized. It was impossible to tuck her arms as her body habitus did not leave room enough on the sides of bed to tuck them and so they are extended on arm boards. The patient's abdomen was prepped and draped in a sterile fashion. Her hernia was felt to be about 10 cm below the umbilicus so initial entry into the abdomen was approximately 10 to 12 cm above the umbilicus. 0.25% Marcaine was infiltrated at her trocar sites. A short incision was made and a Veress needle was inserted. After a positive hanging drop test the abdomen was insufflated with carbon dioxide gas. An 8 mm robotic port was placed over a 5 mm scope and advanced to the abdominal wall without difficulty. Initial examination showed some adhesions of the omentum down in the lower abdomen. She clearly had a separation of the rectus muscles in the infraumbilical region. There appeared to be some bowel protruding up into the abdominal wall consistent with a persistently incarcerated hernia. A second trocar was placed in the left upper quadrant and a third the right upper quadrant. The patient was placed into a Trendelenburg position. The robot was brought into position and the camera port was docked. Targeting took place and the other arms were also docked. I then moved to the control console to begin the dissection. A forced bipolar and cauterizing scissors were utilized. Some filmier adhesions of the omentum to the anterior abdominal wall around the umbilicus extending inferiorly, particularly on the right-hand side were lysed. As dissection proceeded it became clear that there was a loop of small bowel adherent up into a midline defect. Further inspection revealed that on the right-hand side of the midline separation there was bunched up muscle consistent with the rectus muscle, possibly including a portion of the left-sided muscle. On the left-hand side the muscle and fascia were not retracted where as on the right there were significantly retracted to the right and shortened. The hernia containing the small bowel appeared to be through the anterior rectus fascia. As this area was probed some serous fluid was released from around the bowel that was entrapped in the anterior abdominal wall. It was impossible to reduce the hernia by traction so a small transverse incision was made at the right lateral end of the fascial ring. It was then possible to reduce the bowel into the abdomen. The bowel appeared edematous and somewhat inflamed but viable. The resulting defect appeared to have been approximately 5 cm now slightly larger because of the lateral extension on the right. Again this appeared to go through the anterior fascia of the rectus sheath. Some additional dissection was performed at the inferior end of the separation of the rectus muscles where they came back together just in the suprapubic area. The defect in the anterior fascia was closed transversely with a running suture of #1 Stratafix. This gave a nice closure of the fascial defect in this area. The pressure had been reduced to approximately 10 mmHg during the closure of this fascial defect. I then proceeded to free the edge of the muscle and fascia on the left-hand side slightly and also freed some additional adhesions along the edge of the muscle on the right. I then performed a reapproximation of the rectus muscle using a second #1 Stratafix. This actually gave a very nice reapproximation the muscle with significant flattening out of the bunched muscle on the right-hand side. I then measured the area of the defect and a 10 x 15 cm rectangular Parietex patch was selected. This was inserted into the abdomen and placed over the closure of the muscles. This gave excellent overlap on both sides of the closure. This was initially tacked at the superior aspect with a 2-0 Vicryl loosely applied to hold the mesh in place, centered on the midline and keep to from drooping back into the abdomen. The mesh was placed with the nonadherent side facing the bowel. Then the inferior most aspect of the mesh was tacked to the fascia in the suprapubic area and this was carried across to the left and then anteriorly along the left margin of the mesh suturing this in place. A second suture was begun in the midpoint of the inferior most portion of the mesh and then carried along the suture line at the midline up to the superior aspect of the mesh and then across to the top of the left side of the mesh to complete this approximation. A third suture was then begun on the right side of the mesh at the inferior most point and carried up along the right side of the mesh and again across the top. A fourth suture was placed to cross the mesh several times and apply this more securely to the anterior abdominal wall. This appeared to give excellent coverage and a secure placement of the mesh. Some preperitoneal fatty tissue and the peritoneum had been peeled away at the inferior aspect of the abdominal wall and with the pressure reduced further in the abdomen this was sutured to the anterior abdominal wall and across the mesh which reperitonealized approximately the inferior half of the mesh that was placed. Final inspection revealed what appeared to be an excellent closure. I would note that the left upper quadrant port had been converted from an 8 to an 12 which allowed passage of the larger needle of the #1 Stratafix. Once the repair had been completed the robotic instruments were removed and the robot undocked. I returned to the patient's side. Some dissected fragments of adhesions which had been set aside in the abdomen were removed and discarded through the port. The remaining trocars were removed. The left sided 12 mm port incision was extended slightly in the skin and subcutaneous tissue to expose the fascia and this was closed with several 2-0 Vicryl sutures. Skin incisions were all closed with buried Vicryl and Steri-Strips. The patient tolerated the procedure well without apparent complication. I would note that the mesh utilized was a 15 x 10 cm rectangular Parietex patch. This was reference code # [id number] and lot #[id number]. The patient tolerated the procedure well. She was awakened in the operating room, extubated and moved to the recovery room in stable condition.
== END 2019-05-10 22:34 | disposition home health service (06) | DRG 227 ==
LOC: M ED 07:51 → M ED INP 07:52 → M MSPAV 16:02 → OBSVTOIN 05-10 12:14
PROVIDERS: ADMIT Surgery; ATTEND Surgery
PROC: 0WUF4JZ Supplement Abdominal Wall with Synthetic Substitute, Percutaneous Endoscopic Approach (ICD-10-PCS; principal; 2019-05-09 18:00)
DX: K43.6 Other and unspecified ventral hernia with obstruction, without gangrene (principal); I10 Essential (primary) hypertension; Z68.43 Body mass index [BMI] 50.0-59.9, adult; E11.51 Type 2 diabetes mellitus with diabetic peripheral angiopathy without gangrene; E11.9 Type 2 diabetes mellitus without complications; B37.2 Candidiasis of skin and nail; E66.01 Morbid (severe) obesity due to excess calories; F20.9 Schizophrenia, unspecified; J44.9 Chronic obstructive pulmonary disease, unspecified; Z88.5 Allergy status to narcotic agent; Z79.899 Other long term (current) drug therapy; E78.00 Pure hypercholesterolemia, unspecified; G47.33 Obstructive sleep apnea (adult) (pediatric); K21.9 Gastro-esophageal reflux disease without esophagitis; F17.210 Nicotine dependence, cigarettes, uncomplicated

== ENCOUNTER 2019-10-04 12:52 | Emergency (ER) | payer OTHER ==
[~2019-10-04] VITALS: Ht 170.2 cm; Wt 140.0 kg
[~2019-10-04 12:52] MED LIST changes: +MELO7.5T35 PO; -TRAZ-163 PO; +TRAZ-257 PO
[2019-10-04] MEDS ORDERED: DOXE10CA (13:21)
[2019-10-04] MEDS ORDERED: KETOROLAC 60 MG/2 ML VIAL (J1885) IM ONE (14:00)
--- NOTE | 2019-10-04 14:22 | REP ---
Clinical: Trauma. Fall . Technique: AP, lateral, bilateral oblique views left ankle . Findings: Mild swelling is suggested. No acute fracture or dislocation. Skeletal structures and joint spaces are intact and normal. Ankle mortise appears stable. No subcutaneous emphysema or radiodense foreign body. Impression: Mild swelling. No acute fracture or dislocation Electronically Signed by Damon España MD 10/04/2019 02:13 P
--- NOTE | 2019-10-04 14:23 | REP ---
LEFT FEMUR: Two views. HISTORY: Pain after a fall. FINDINGS: AP and lateral views of the mid and distal femur show osteoarthritis at the knee in the patellofemoral, medial and lateral compartments. There is mild diffuse osteopenia. No fracture is seen. IMPRESSION: No fracture seen in the mid or distal femur. Electronically Signed by Mark Tilley MD 10/04/2019 02:37 P
--- NOTE | 2019-10-04 14:23 | REP ---
Clinical: Trauma. Fall. Technique: AP, lateral, bilateral oblique views of the left knee. Findings: Moderate tricompartmental osteoarthritic degenerative changes are appreciated. No obvious acute fracture or dislocation identified. Impression: Moderate arthritic changes. No obvious acute fracture. Electronically Signed by Damon España MD 10/04/2019 02:14 P
--- NOTE | 2019-10-04 14:25 | REP ---
Pelvis left hip: Four views. History: Pain after a fall. Findings: AP view of the pelvis shows an intact bony pelvic ring. No hip, pelvic, or sacral fracture is seen. Visualized bowel gas pattern is normal. Femoral heads are smooth and rounded and hip joint spaces are preserved. AP and frog-leg views of the left hip show normal bones and joints as well. Impression: No fracture seen. Electronically Signed by Mark Tilley MD 10/04/2019 02:16 P
--- NOTE | 2019-10-04 14:25 | REP ---
Clinical: Trauma. Fall. Technique: AP, lateral, bilateral oblique views of the left foot. Findings: No obvious acute fracture or dislocation is appreciated. Surrounding soft tissues are unremarkable. No subcutaneous emphysema or foreign body. Impression: No obvious acute fracture or dislocation. Electronically Signed by Damon España MD 10/04/2019 02:16 P
[2019-10-04 15:14] VITALS: BP 160/85
== END 2019-10-04 15:16 | disposition home or self-care (01) ==
LOC: M ED 12:52 → EDBD 12:52 → M ED 15:16
DX: S86.912A Strain of unspecified muscle(s) and tendon(s) at lower leg level, left leg, initial encounter (principal); S76.912A Strain of unspecified muscles, fascia and tendons at thigh level, left thigh, initial encounter; W18.2XXA Fall in (into) shower or empty bathtub, initial encounter; Y92.091 Bathroom in other non-institutional residence as the place of occurrence of the external cause; Y93.9 Activity, unspecified; Y99.9 Unspecified external cause status; M17.12 Unilateral primary osteoarthritis, left knee; E11.9 Type 2 diabetes mellitus without complications; Z79.84 Long term (current) use of oral hypoglycemic drugs; Z79.899 Other long term (current) drug therapy; Z88.5 Allergy status to narcotic agent
CPT/HCPCS: 73502; 73552; 73564; 73610; 73630; 96372; 99284; J1885

== ENCOUNTER → 2020-05-20 | Outpatient (REF) | payer MEDICAID, OTHER ==
[~2020-05-20] MED LIST changes: +DOXE10CA
[2020-05-20 16:47] LABS: HEMATOCRIT 49.2 % (36.0-47.0); HEMOGLOBIN 15.2 g/dl (12.0-15.5); MEAN CORPUSCULAR HEMOGLOBIN 30.5 pg (27.0-33.0); MEAN CORPUSCULAR HGB CONC 30.9 g/dl (32.0-36.5); MEAN CORPUSCULAR VOLUME 98.6 fl (80.0-96.0); PLATELET COUNT, AUTOMATED 307 10^3/uL (150-450); RED BLOOD COUNT 4.99 10^6/uL (4.00-5.40)
[2020-05-20 17:14] LABS: ALBUMIN 3.2 GM/DL (3.2-5.2); ALT/SGPT 53 U/L (12-78); BILIRUBIN,TOTAL 0.3 MG/DL (0.2-1.0); BLOOD UREA NITROGEN 23 MG/DL (7-18); CALCIUM LEVEL 10.2 MG/DL (8.5-10.1); CARBON DIOXIDE LEVEL 31 MEQ/L (21-32); CHLORIDE LEVEL 104 MEQ/L (98-107); CHOLESTEROL LEVEL 228 MG/DL (<200); CHOLESTEROL RISK RATIO 6.705 (<5); CREATININE FOR GFR 0.78 MG/DL (0.55-1.30); GLOMERULAR FILTRATION RATE > 60.0 (>58); GLUCOSE, FASTING 88 MG/DL (70-100); HDL CHOLESTEROL 34 MG/DL (>40); LDL CHOLESTEROL 145 MG/DL (<100); NON-HDL-C 194 MG/DL; POTASSIUM SERUM 4.9 MEQ/L (3.5-5.1); SODIUM LEVEL 141 MEQ/L (136-145); TOTAL PROTEIN 6.9 GM/DL (6.4-8.2); TRIGLYCERIDES LEVEL 244 MG/DL (<150)
[2020-05-20 18:31] LABS: HEMOGLOBIN A1c 6.2 %
[2020-05-24 05:07] LABS: ALPRAZOLAM, URINE Positive (.); ALPRAZOLAM, URINE CONFIRM 102 ng/mL (Cutoff=100); BENZODIAZEPINES, URINE Positive ng/mL (Cutoff=100); CANNABINOID, URINE Positive (Cutoff=20); CARBOXY THC (GC/MS) 13 ng/mL (Cutoff=10); CLONAZEPAM, URINE Negative (Cutoff=100); CREATININE, URINE 118.9 mg/dL (20.0-300.0); FLURAZEPAM, URINE Negative (Cutoff=100); LORAZEPAM, URINE Negative (Cutoff=100); MIDAZOLAM, URINE Negative (Cutoff=100); NORDIAZEPAM, URINE Negative (Cutoff=100); OXAZEPAM, URINE Negative (Cutoff=100); TEMAZEPAM, URINE Negative (Cutoff=100); TRIAZOLAM, URINE Negative (Cutoff=100)
== END ==
LOC: M SFHCADAM 15:24
PROVIDERS: ATTEND Physician Assistant
DX: T88.7XXD Unspecified adverse effect of drug or medicament, subsequent encounter (principal); I10 Essential (primary) hypertension; E11.40 Type 2 diabetes mellitus with diabetic neuropathy, unspecified; E78.2 Mixed hyperlipidemia; F11.90 Opioid use, unspecified, uncomplicated

== ENCOUNTER → 2020-08-19 | Outpatient (REF) | payer MEDICAID, OTHER ==
[~2020-08-19] MED LIST changes: +LISI10TA22 PO; -LISI10TA4 PO; +MIRT-62 PO; -REME15TA PO; +RISP-10 PO; -RISP3TAB3 PO
[2020-08-19 19:04] LABS: ALBUMIN 3.3 GM/DL (3.2-5.2); ALT/SGPT 29 U/L (12-78); BILIRUBIN,TOTAL 0.4 MG/DL (0.2-1.0); BLOOD UREA NITROGEN 11 MG/DL (7-18); CALCIUM LEVEL 9.5 MG/DL (8.5-10.1); CARBON DIOXIDE LEVEL 32 MEQ/L (21-32); CHLORIDE LEVEL 98 MEQ/L (98-107); CHOLESTEROL LEVEL 250 MG/DL (<200); CHOLESTEROL RISK RATIO 7.352 (<5); CREATININE FOR GFR 0.75 MG/DL (0.55-1.30); GLOMERULAR FILTRATION RATE > 60.0 (>58); GLUCOSE, FASTING 118 MG/DL (70-100); HDL CHOLESTEROL 34 MG/DL (>40); LDL CHOLESTEROL 171 MG/DL (<100); NON-HDL-C 216 MG/DL; POTASSIUM SERUM 4.8 MEQ/L (3.5-5.1); SODIUM LEVEL 138 MEQ/L (136-145); TOTAL PROTEIN 6.7 GM/DL (6.4-8.2); TRIGLYCERIDES LEVEL 223 MG/DL (<150)
== END ==
LOC: M SFHCADAM 15:07
PROVIDERS: ATTEND Physician Assistant
DX: I10 Essential (primary) hypertension (principal); E11.40 Type 2 diabetes mellitus with diabetic neuropathy, unspecified; E78.2 Mixed hyperlipidemia; F19.11 Other psychoactive substance abuse, in remission

== ENCOUNTER 2021-12-14 08:13 | Inpatient (IN) | payer MEDICAID, OTHER ==
[~2021-12-14] VITALS: Ht 170.2 cm; Wt 159.1 kg
[~2021-12-14 08:13] MED LIST changes: +ARIP10TA32 PO; -ARIP1TAB PO; -CEFD1CAP8 PO; +CEFD300C41 PO; -HALO5TA PO; +HALO5TAB33 PO; +OMEP40CA4 PO; -OMEP40CA97 PO
[2021-12-14 09:54] LABS: HEMATOCRIT 44.6 % (36.0-47.0); HEMOGLOBIN 13.7 g/dl (12.0-15.5); MEAN CORPUSCULAR HEMOGLOBIN 29.2 pg (27.0-33.0); MEAN CORPUSCULAR HGB CONC 30.7 g/dl (32.0-36.5); MEAN CORPUSCULAR VOLUME 95.1 fl (80.0-96.0); PLATELET COUNT, AUTOMATED 254 10^3/uL (150-450); RED BLOOD COUNT 4.69 10^6/uL (4.00-5.40); WHITE BLOOD COUNT 7.7 10^3/uL (4.0-10.0)
[2021-12-14 10:23] LABS: RSV AMPLIFICATION NEGATIVE (NEGATIVE)
[2021-12-14 10:25] LABS: HCG, SERUM QUALITATIVE NEGATIVE (NEGATIVE)
[2021-12-14 10:28] LABS: ACETAMINOPHEN LEVEL 2.9 UG/ML (10.0-30.0); ALBUMIN 2.9 GM/DL (3.2-5.2); ALT/SGPT 19 U/L (12-78); BILIRUBIN,DIRECT 0.2 MG/DL (0.0-0.2); BILIRUBIN,TOTAL 0.3 MG/DL (0.2-1.0); BLOOD UREA NITROGEN 10 MG/DL (7-18); CALCIUM LEVEL 8.8 MG/DL (8.5-10.1); CARBON DIOXIDE LEVEL 34 MEQ/L (21-32); CHLORIDE LEVEL 106 MEQ/L (98-107); CREATININE FOR GFR 0.71 MG/DL (0.55-1.30); ETHYL ALCOHOL (ETHANOL) < 0.003 % (0.000-0.010); GLOMERULAR FILTRATION RATE > 60.0 (>58); GLUCOSE, FASTING 148 MG/DL (70-100); POTASSIUM SERUM 4.7 MEQ/L (3.5-5.1); SODIUM LEVEL 143 MEQ/L (136-145); TOTAL PROTEIN 5.9 GM/DL (6.4-8.2)
[2021-12-14] MEDS ORDERED: ONDA4TAB6 PO (10:47)
[2021-12-14] MEDS ORDERED: VITMTA PO (10:47)
[2021-12-14] MEDS ORDERED: FLON1SPR NARES (10:47)
[2021-12-14] MEDS ORDERED: ERGO500029 PO (10:47)
[2021-12-14] MEDS ORDERED: MAGN400T35 PO (10:47)
[2021-12-14] MEDS ORDERED: BISO5TAB14 PO (10:47)
[2021-12-14] MEDS ORDERED: AMIO200T49 PO (10:47)
[2021-12-14] MEDS ORDERED: METF-838 PO (10:47)
[2021-12-14] MEDS ORDERED: TRAZ1TAB14 PO (10:47)
[2021-12-14] MEDS ORDERED: TOPI50TA9 PO (10:47)
[2021-12-14] MEDS ORDERED: MONT10TA97 PO (10:47)
[2021-12-14] MEDS ORDERED: DIVA500T94 PO (10:47)
[2021-12-14] MEDS ORDERED: LISI2.5T9 PO (10:47)
[2021-12-14] MEDS ORDERED: ARIS2.4I IM (10:47)
[2021-12-14] MEDS ORDERED: ANOR1AER INH (10:47)
[2021-12-14] MEDS ORDERED: PANT40TA29 PO (10:47)
[2021-12-14] MEDS ORDERED: XARE20TA PO (10:47)
[2021-12-14] MEDS ORDERED: ATOR1TAB19 PO (10:47)
[2021-12-14] MEDS ORDERED: BUSP15TA47 PO (10:47)
[2021-12-14] MEDS ORDERED: ATIV1TAB10 PO (10:47)
[2021-12-14] MEDS ORDERED: VENTAER INH (10:47)
[2021-12-14] MEDS ORDERED: ARIP1TAB43 PO (10:47)
[2021-12-14] MEDS ORDERED: HOME MED LIST COMPLETE! XX SCH (15:50)
[2021-12-14] MEDS ORDERED: COMBIVENT RESPIMAT 100-20MCG INHALER 4GM INH ONE (20:55)
[2021-12-14] MEDS ORDERED: ALBUTEROL 90 MCG/ACT 8GM HFA INHALER INH ONE (20:55)
[2021-12-14] MEDS ORDERED: ARIPiprazole 10 MG TAB PO ONE (22:25)
[2021-12-14] MEDS ORDERED: DIVALPROEX 500 MG TAB PO ONE (22:25)
[2021-12-14] MEDS ORDERED: bisoproloL fumarate 5 MG TAB PO ONE (22:25)
[2021-12-14] MEDS ORDERED: AMIODARONE 200 MG TAB (PACERONE) PO ONE (22:25)
[2021-12-14] MEDS ORDERED: TOPIRAMATE (TopAMAX) 25 MG TAB PO ONE (22:25)
[2021-12-14] MEDS ORDERED: metFORMIN (GLUCOPHAGE) 500MG TAB PO ONE (22:25)
[2021-12-14] MEDS ORDERED: traZODone 50 MG TAB PO ONE (22:25)
[2021-12-14] MEDS ORDERED: busPIRone 5 MG TAB PO ONE (22:25)
[2021-12-14] MEDS ORDERED: RIVAROXABAN 20 MG TAB (XARELTO) PO ONE (22:25)
[2021-12-14] MEDS ORDERED: metFORMIN XR 500MG TAB *GLUCOPHAGE XR PO ONE (22:35)
[2021-12-15 00:25] LABS: AMPHETAMINES LEVEL URINE NEGATIVE (NEGATIVE); BARBITURATES URINE NEGATIVE (NEGATIVE); BENZODIAZEPINES URINE NEGATIVE (NEGATIVE); CANNABINOIDS URINE NEGATIVE (NEGATIVE); COCAINE METABOLITE URINE NEGATIVE (NEGATIVE); METHADONE URINE NEGATIVE (NEGATIVE); OPIATES URINE NEGATIVE (NEGATIVE); PHENCYCLIDINE URINE NEGATIVE (NEGATIVE)
[2021-12-15] MEDS ORDERED: MULTIVITAMINS/MINERALS THERAP 1 TAB PO SCH (09:00)
[2021-12-15] MEDS ORDERED: bisoproloL fumarate 5 MG TAB PO SCH (09:00)
[2021-12-15] MEDS ORDERED: AMIODARONE 200 MG TAB (PACERONE) PO SCH (09:00)
[2021-12-15] MEDS ORDERED: PANTOPRAZOLE 40MG TAB (PROTONIX) PO SCH (09:00)
[2021-12-15] MEDS ORDERED: MAGNESIUM OXIDE 400MG TAB (MAG-OX) PO SCH (09:00)
[2021-12-15] MEDS: NICOTINE 21MG/24HR 1 EA TRANSDERMAL TD SCH (09:00)
[2021-12-15] MEDS ORDERED: LISINOPRIL *2.5 MG* TAB PO SCH (09:00)
[2021-12-15] MEDS ORDERED: MONTELUKAST 10 MG TAB PO SCH (09:00)
[2021-12-15] MEDS ORDERED: ATORVASTATIN 10 MG TAB PO SCH ×2 (09:00→21:00)
[2021-12-15] MEDS ORDERED: DIVALPROEX 500 MG TAB PO SCH (09:00)
[2021-12-15] MEDS ORDERED: FLUTICASONE PROP 0.05% NASAL SPRAY 16 GM (FLONASE) NARES SCH (09:00)
[2021-12-15] MEDS ORDERED: TOPIRAMATE (TopAMAX) 25 MG TAB PO SCH (09:00)
[2021-12-15] MEDS ORDERED: ONDANSETRON 4MG TAB PO PRN (11:35)
[2021-12-15] MEDS ORDERED: LORazepam 0.5 MG TAB PO PRN ×2 (11:35→13:20)
[2021-12-15] MEDS ORDERED: busPIRone 5 MG TAB PO SCH (13:00)
[2021-12-15] MEDS ORDERED: LORazepam 1 MG TAB PO PRN (13:20)
[2021-12-15] MEDS ORDERED: traZODone 50 MG TAB PO PRN (13:20)
[2021-12-15] MEDS ORDERED: ONDANSETRON 4MG ORAL DISINTEGRATING TAB PO PRN (13:20)
[2021-12-15] MEDS ORDERED: MOM 30ML SUSPENSION UDC PO PRN (13:20)
[2021-12-15] MEDS ORDERED: MAALOX 30 ML SUSP *UDC PO PRN (13:20)
[2021-12-15] MEDS ORDERED: IBUPROFEN 400MG TAB PO PRN (13:20)
[2021-12-15] MEDS ORDERED: ALBUTEROL 90 MCG/ACT 8GM HFA INHALER INH PRN ×2 (13:20→14:25)
[2021-12-15] MEDS ORDERED: diphenhydrAMINE 25MG CAP PO PRN (13:20)
[2021-12-15] MEDS ORDERED: ACETAMINOPHEN TAB 650MG DOSE (2X325MG) PO ONE (13:25)
[2021-12-15 17:41] VITALS: BP 120/76
[2021-12-15] MEDS: busPIRone 5 MG TAB PO SCH ×2 (17:47→21:02)
[2021-12-15] MEDS: metFORMIN XR 500MG TAB *GLUCOPHAGE XR PO SCH (17:49)
[2021-12-15] MEDS ORDERED: RIVAROXABAN 20 MG TAB (XARELTO) PO SCH (18:00)
[2021-12-15] MEDS ORDERED: metFORMIN XR 500MG TAB *GLUCOPHAGE XR PO SCH (21:00)
[2021-12-15] MEDS ORDERED: ARIPiprazole 10 MG TAB PO SCH (21:00)
[2021-12-15] MEDS ORDERED: traZODone 50 MG TAB PO SCH (21:00)
[2021-12-15] MEDS ORDERED: metFORMIN (GLUCOPHAGE) 500MG TAB PO SCH (21:00)
[2021-12-15] MEDS: VITAMIN D 1,000 INTERNATIONAL UNITS TABLET PO SCH (21:01)
[2021-12-15] MEDS: AMIODARONE 200 MG TAB (PACERONE) PO SCH (21:01)
[2021-12-15] MEDS: RIVAROXABAN 20 MG TAB (XARELTO) PO SCH (21:01)
[2021-12-15] MEDS: DIVALPROEX 500 MG TAB PO SCH (21:02)
[2021-12-15] MEDS: FLUTICASONE PROP 0.05% NASAL SPRAY 16 GM (FLONASE) NARES SCH (21:02)
[2021-12-15] MEDS: TOPIRAMATE (TopAMAX) 25 MG TAB PO SCH (21:03)
[2021-12-15] MEDS: ATORVASTATIN 10 MG TAB PO SCH (21:03)
[2021-12-15] MEDS: traZODone 50 MG TAB PO SCH (21:03)
[2021-12-15] MEDS: bisoproloL fumarate 5 MG TAB PO SCH (21:12)
[2021-12-16 06:33] VITALS: BP 134/59
[2021-12-16 08:44] VITALS: BP 134/70
[2021-12-16] MEDS: AMIODARONE 200 MG TAB (PACERONE) PO SCH ×2 (08:55→22:00)
[2021-12-16] MEDS: MULTIVITAMINS/MINERALS THERAP 1 TAB PO SCH (08:55)
[2021-12-16] MEDS: MAGNESIUM OXIDE 400MG TAB (MAG-OX) PO SCH (08:55)
[2021-12-16] MEDS: VITAMIN D 1,000 INTERNATIONAL UNITS TABLET PO SCH (08:55)
[2021-12-16] MEDS: MONTELUKAST 10 MG TAB PO SCH (08:55)
[2021-12-16] MEDS: TOPIRAMATE (TopAMAX) 25 MG TAB PO SCH ×2 (08:58→22:00)
[2021-12-16] MEDS: busPIRone 5 MG TAB PO SCH ×4 (08:58→21:59)
[2021-12-16] MEDS: metFORMIN XR 500MG TAB *GLUCOPHAGE XR PO SCH ×2 (08:59→17:25)
[2021-12-16] MEDS: LISINOPRIL *2.5 MG* TAB PO SCH (08:59)
[2021-12-16] MEDS: DIVALPROEX 500 MG TAB PO SCH ×2 (08:59→22:00)
[2021-12-16] MEDS: PANTOPRAZOLE 40MG TAB (PROTONIX) PO SCH (08:59)
[2021-12-16] MEDS: NICOTINE 21MG/24HR 1 EA TRANSDERMAL TD SCH (09:00)
[2021-12-16] MEDS: bisoproloL fumarate 5 MG TAB PO SCH ×2 (09:00→22:04)
[2021-12-16] MEDS: FLUTICASONE PROP 0.05% NASAL SPRAY 16 GM (FLONASE) NARES SCH (09:00)
[2021-12-16] MEDS ORDERED: GLUCAGON INJ 1MG VIAL SC PRN (16:50)
[2021-12-16] MEDS ORDERED: GLUCOSE 4GM CHEW TABLET PO PRN (16:50)
[2021-12-16] MEDS ORDERED: DEXTROSE 50% 50 ML SYRINGE IV PRN (16:50)
[2021-12-16] MEDS: INSULIN LISPRO (NovoLOG) PER UNIT SC SCH ×2 (17:25→21:00)
[2021-12-16] MEDS: RIVAROXABAN 20 MG TAB (XARELTO) PO SCH (17:25)
[2021-12-16] MEDS: traZODone 50 MG TAB PO SCH (22:00)
[2021-12-16] MEDS: ARIPiprazole 10 MG TAB PO SCH (22:00)
[2021-12-16] MEDS: ATORVASTATIN 10 MG TAB PO SCH (22:01)
[2021-12-17 06:26] VITALS: BP 135/78
[2021-12-17] MEDS: INSULIN LISPRO (NovoLOG) PER UNIT SC SCH ×4 (06:42→21:00)
[2021-12-17] MEDS: NICOTINE 21MG/24HR 1 EA TRANSDERMAL TD SCH (07:39)
[2021-12-17] MEDS: DIVALPROEX 500 MG TAB PO SCH (07:44)
[2021-12-17] MEDS: busPIRone 5 MG TAB PO SCH ×4 (07:45→21:50)
[2021-12-17] MEDS: MONTELUKAST 10 MG TAB PO SCH (07:45)
[2021-12-17] MEDS: MULTIVITAMINS/MINERALS THERAP 1 TAB PO SCH (07:45)
[2021-12-17] MEDS: metFORMIN XR 500MG TAB *GLUCOPHAGE XR PO SCH ×2 (07:45→17:11)
[2021-12-17] MEDS: TOPIRAMATE (TopAMAX) 25 MG TAB PO SCH ×2 (07:45→21:51)
[2021-12-17] MEDS: MAGNESIUM OXIDE 400MG TAB (MAG-OX) PO SCH (07:46)
[2021-12-17] MEDS: PANTOPRAZOLE 40MG TAB (PROTONIX) PO SCH (07:46)
[2021-12-17] MEDS: VITAMIN D 1,000 INTERNATIONAL UNITS TABLET PO SCH (07:46)
[2021-12-17] MEDS: FLUTICASONE PROP 0.05% NASAL SPRAY 16 GM (FLONASE) NARES SCH (07:47)
[2021-12-17] MEDS: LISINOPRIL *2.5 MG* TAB PO SCH (07:47)
[2021-12-17] MEDS: bisoproloL fumarate 5 MG TAB PO SCH ×2 (07:47→21:51)
[2021-12-17] MEDS: AMIODARONE 200 MG TAB (PACERONE) PO SCH ×2 (07:48→21:51)
[2021-12-17 16:43] VITALS: BP 122/89
[2021-12-17] MEDS: RIVAROXABAN 20 MG TAB (XARELTO) PO SCH (17:11)
[2021-12-17] MEDS ORDERED: DIVALPROEX 250 MG TAB PO SCH (21:00)
[2021-12-17] MEDS: ARIPiprazole 10 MG TAB PO SCH (21:49)
[2021-12-17] MEDS: traZODone 50 MG TAB PO SCH (21:49)
[2021-12-17] MEDS: ATORVASTATIN 10 MG TAB PO SCH (21:50)
[2021-12-18] MEDS: INSULIN LISPRO (NovoLOG) PER UNIT SC SCH (07:11)
[2021-12-18 07:22] VITALS: BP 142/71
[2021-12-18] MEDS: FLUTICASONE PROP 0.05% NASAL SPRAY 16 GM (FLONASE) NARES SCH (08:35)
[2021-12-18] MEDS: MULTIVITAMINS/MINERALS THERAP 1 TAB PO SCH (08:36)
[2021-12-18] MEDS: metFORMIN XR 500MG TAB *GLUCOPHAGE XR PO SCH (08:36)
[2021-12-18] MEDS: MONTELUKAST 10 MG TAB PO SCH (08:36)
[2021-12-18] MEDS: MAGNESIUM OXIDE 400MG TAB (MAG-OX) PO SCH (08:37)
[2021-12-18] MEDS: busPIRone 5 MG TAB PO SCH (08:37)
[2021-12-18] MEDS: VITAMIN D 1,000 INTERNATIONAL UNITS TABLET PO SCH (08:37)
[2021-12-18] MEDS: PANTOPRAZOLE 40MG TAB (PROTONIX) PO SCH (08:37)
[2021-12-18 08:38] VITALS: BP 142/71
[2021-12-18] MEDS: LISINOPRIL *2.5 MG* TAB PO SCH (08:38)
[2021-12-18] MEDS: NICOTINE 21MG/24HR 1 EA TRANSDERMAL TD SCH (08:39)
[2021-12-18] MEDS: bisoproloL fumarate 5 MG TAB PO SCH (08:39)
[2021-12-18] MEDS: AMIODARONE 200 MG TAB (PACERONE) PO SCH (08:40)
[2021-12-18] MEDS: TOPIRAMATE (TopAMAX) 25 MG TAB PO SCH (08:41)
[2021-12-18] MEDS ORDERED: DIVALPROEX 500 MG TAB PO SCH (09:00)
[2021-12-18] MEDS ORDERED: DEPA1TAB3 PO (11:10)
[2021-12-18] MEDS ORDERED: DEPA250T32 PO (11:10)
== END 2021-12-18 12:39 | disposition home or self-care (01) | DRG 750 ==
LOC: M ED 08:13 → M ED INP 12-15 13:19 → M PSY 12-15 17:28
PROVIDERS: ADMIT Psychiatry & Neurology Psychiatry; ATTEND Psychiatry & Neurology Psychiatry
DX: F25.0 Schizoaffective disorder, bipolar type (principal); I10 Essential (primary) hypertension; E78.5 Hyperlipidemia, unspecified; E11.42 Type 2 diabetes mellitus with diabetic polyneuropathy; J45.909 Unspecified asthma, uncomplicated; K21.9 Gastro-esophageal reflux disease without esophagitis; E66.9 Obesity, unspecified; Z68.43 Body mass index [BMI] 50.0-59.9, adult; F17.210 Nicotine dependence, cigarettes, uncomplicated; Z79.84 Long term (current) use of oral hypoglycemic drugs; Z79.899 Other long term (current) drug therapy; Z88.5 Allergy status to narcotic agent; Z20.822 Contact with and (suspected) exposure to COVID-19; Z90.79 Acquired absence of other genital organ(s)